=== PATIENT | female | born 1960 | race Caucasian/White ===

== ENCOUNTER → 2020-08-23 15:23 | Outpatient (BNVA) | payer BC, SELFPAY | PROVIDERS: PCP Internal Medicine Medical Oncology; Referring Provider Internal Medicine Medical Oncology; Visit Provider Nurse Practitioner Family | DX: Z76.89 Persons encountering health services in other specified circumstances (principal) ==

== ENCOUNTER 2020-09-14 10:49 | Outpatient (REF) | payer BC, SELFPAY | END 2020-09-14 10:50 | disposition home or self-care (01) | LOC: HO.LAB 10:49 | PROVIDERS: PCP Internal Medicine Medical Oncology; Visit Provider Internal Medicine Medical Oncology | DX: Z20.828 Contact with and (suspected) exposure to other viral communicable diseases (principal) | CPT/HCPCS: C9803; U0003 ==

== ENCOUNTER 2020-10-12 10:07 | Day surgery (SDC) | payer BC, SELFPAY ==
--- NOTE | 2020-10-11 09:22 | HO.ANESPROP2 ---
Documented by User: Paulina Nguyen 10/11/20 09:23 HPI - Anesthesia Eval Consult details Narrative: 59yo F for Colonoscopy [facility] Past Medical History Medical History Cancer History of postoperative nausea and vomiting HTN (hypertension) Hx of radiation therapy IBS (irritable bowel syndrome) Lab test negative for COVID-19 virus Family History Family History Father Hx of colon cancer, stage IV Mother No problems noted. 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[employer] Allergies Allergy/AdvReac Type Severity Reaction Status Date / Time Penicillins [PENICILLINS] Allergy Intermediate JOINT Verified 10/06/20 15:42 SWELLING tetracycline [TETRACYCLINE] Allergy Intermediate Vomiting Verified 10/06/20 15:42 erythromycin base AdvReac Intermediate Nausea and Verified 10/06/20 14:50 Vomiting Home Medications Medication Instructions Recorded Confirmed Type lisinopril 5 mg tablet 5 mg PO DAILY 08/23/20 10/06/20 History tamoxifen 20 mg tablet 20 mg PO DAILY 08/23/20 10/06/20 History Exam Exam Date and Time: October 11, 2020 0922 Height,Weight and Vital Signs: Height 5 ft 4.75 in Weight 81.284 kg Assessment and Plan Assessment Anesthesia Assessment: Chart Reviewed Documented by User: Marissa Lamb 10/12/20 10:44 [facility] Past Medical History Medical History Cancer History of postoperative nausea and vomiting HTN (hypertension) Hx of radiation therapy IBS (irritable bowel syndrome) Lab test negative for COVID-19 virus Family History Family History Father Hx of colon cancer, stage IV Mother No problems noted. 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 Allergies Allergy/AdvReac Type Severity Reaction Status Date / Time Penicillins [PENICILLINS] Allergy Intermediate JOINT Verified 10/06/20 15:42 SWELLING tetracycline [TETRACYCLINE] Allergy Intermediate Vomiting Verified 10/06/20 15:42 erythromycin base AdvReac Intermediate Nausea and Verified 10/06/20 14:50 Vomiting Home Medications Medication Instructions Recorded Confirmed Type lisinopril 5 mg tablet 5 mg PO DAILY 08/23/20 10/06/20 History tamoxifen 20 mg tablet 20 mg PO DAILY 08/23/20 10/06/20 History Exam Airway Mallampati Class: II TM Dist: >3cm Neck ROM: Full Heart: RRR Lungs: CTA Assessment and Plan Assessment Anesthesia Assessment: Anesthesia Plan Discussed and Chart Reviewed Final Anesthetic Review NPO: Yes ASA Class: II Final Preanesthetic Review: Meds/Allgs Chart Reviewed, Consent Obtained/Reviewed and Anes Risks/Benef Reviewed Patient Risk: Low Procedure Risk: Low Anesthetic Plan Anesthetic Plan: MAC: Disposition: Standard PACU
[2020-10-12 10:23] VITALS: BP 146/64; PULSE 83; RESP 18; TEMP 36.1; O2SAT 96
[2020-10-12] MEDS: Lactated Ringers 1,000 ML 100 ML IVCONT (10:48)
--- NOTE | 2020-10-12 11:00 | P.OP_ITS ---
Operative Note Operative Note Date of Service: 10/12/20 Narrative: Pre-op diagnosis: Colon cancer screening, history of colon polyps, IBS with diarrhea Post-op diagnosis: other (Colon polyps, diverticulosis, hemorrhoids) Procedure: COLONOSCOPY TILL CECUM WITH BIOPSY AND SNARE POLYPECTOMY Consent: Indications for the procedure and potential complications of bleeding, perforation, reaction to medications and missed diagnosis were discussed with the patient and informed consent was obtained. Instrument: Olympus PCF H 190 L variable stiffness pediatric colonoscope Monitoring: Vital signs and clinical assessment, intermittent blood pressure monitoring, continuous EKG monitoring, Pulse oximetry and Carbon Dioxide monitoring were done throughout the procedure. Colon withdrawl time was 31 minutes. Procedure: The patient was placed in the left lateral decubitis position and pre-procedure medications were administered. After a digital rectal examination of the ano-rectum, the video colonoscope was inserted into the rectum and advanced through the colon to the cecum. The colonoscope was slowly withdrawn in a retrograde panoramic fashion and the colon mucosa was carefully examined including a retroflexed view of the rectum. Findings and interventions are described below. Procedure Difficulty: Without difficulty Findings: Terminal Ileum: Not evaluated Cecum: Normal Ascending Colon: Normal Transverse Colon: Normal Descending Colon: Moderate diverticulosis Sigmoid Colon: A 3-4 mm diminutive appearing polyp removed with a cold bx. A 6-7 mm sessile polyp removed with a cold snare and residual polyp removed with a cold bx. Severe diverticulosis with luminal narrowing. Rectum: Normal Ano-rectum: Moderate internal hemorrhoids Colon preparation: Good Impression and Post Procedure Diagnosis: Colonoscopy Findings: Two small polyps removed Random biopsies were obtained from the colon. Moderate to severe diverticulosis seen in the left colon Moderate hemorrhoids on retroflexed exam. Plan: Await pathology results Patient has an appointment on 10/19/20 in the GI [facility] with Kylah Rose FNP- BC . Repeat Colonoscopy interval based on path results - in 5 years if polyps are adenomatous and due to a hx of colon polyps. 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 Random colon biopsies. B. SC polyps x 2) Condition: stable Disposition: PACU
--- NOTE | 2020-10-12 11:01 | MHC.SHP ---
Pre-Procedural Eval Section A The patient is an INPATIENT: No The History & Physical has been completed within 30 days and I have reviewed it.: No Section B Chief Complaint: screening Details of Present Illness: Colon cancer screening Relevant Family History (Specify if Yes): Yes Relevant Social History: Tobacco Use (past smoker) Present Medications: see Short Stay Collaborative assessment Medical History: Significant History (Htn, IBS) History of Previous Operations: Relevant previous surgery/procedure and date(s) (History of esophagogastroduodenoscopy (EGD) History of pancreatic surgery Hx of colonoscopy) Allergies: Allergies Allergy/AdvReac Type Severity Reaction Status Date / Time Penicillins [PENICILLINS] Allergy Intermediate JOINT Verified 10/06/20 15:42 SWELLING tetracycline [TETRACYCLINE] Allergy Intermediate Vomiting Verified 10/06/20 15:42 erythromycin base AdvReac Intermediate Nausea and Verified 10/06/20 14:50 Vomiting Review of Systems Sugical H&P ROS: Negative: Constitution, Cardiovascular and Respiratory and Yes, Specify: Gastrointestinal (IBS with diarrhea) Exam Surgical H&P Exam: Normal: Heart, Normal: Lungs, Normal: Extremities and Normal: Abdomen Plan Diagnosis/Plan: Unchanged I have reviewed the history and physical and performed a pertinent physical examination on my patient. No changes have occurred unless specified.
[2020-10-12 11:56] VITALS: BP 102/36; PULSE 71; RESP 16; TEMP 36.5; O2SAT 99
[2020-10-12 12:11] VITALS: BP 115/66; PULSE 62; RESP 16; TEMP 36.5; O2SAT 99
== END 2020-10-12 12:47 ==
LOC: HO.SSS 10:08
PROVIDERS: PCP Internal Medicine Medical Oncology; Visit Provider Internal Medicine Gastroenterology
PROC: 0DJD8ZZ Inspection of Lower Intestinal Tract, Via Natural or Artificial Opening Endoscopic (ICD-10-PCS; CPT 45378; principal; 2020-10-12 11:30)
DX: Z12.11 Encounter for screening for malignant neoplasm of colon (principal); Z86.010 Personal history of colon polyps; Z80.0 Family history of malignant neoplasm of digestive organs; D12.5 Benign neoplasm of sigmoid colon; K57.30 Diverticulosis of large intestine without perforation or abscess without bleeding; K64.8 Other hemorrhoids; K58.0 Irritable bowel syndrome with diarrhea; I10 Essential (primary) hypertension; C50.919 Malignant neoplasm of unspecified site of unspecified female breast; Z79.810 Long term (current) use of selective estrogen receptor modulators (SERMs); Z92.3 Personal history of irradiation; Z88.0 Allergy status to penicillin; Z87.891 Personal history of nicotine dependence
CPT/HCPCS: 45385; 45380; 88305

== ENCOUNTER → 2020-10-19 14:30 | Outpatient (BNVA) | payer BC, SELFPAY | PROVIDERS: PCP Internal Medicine Medical Oncology; Visit Provider Nurse Practitioner Family ==

== ENCOUNTER 2020-12-18 08:46 | Outpatient (REF) | payer BC, SELFPAY ==
[2020-12-18 09:35] LABS: MANUAL DIFF FLAG NO
[2020-12-18 09:51] LABS: Basophils Absolute Auto 0.1 X10*3/uL (0.0-0.2); Basophils Percent Auto 1.7 % (0-2); Eosinophils Absolute Auto 0.1 X10*3/uL (0.0-0.4); Eosinophils Percent Auto 1.7 % (0-4); Hematocrit 41.5 % (37-47); Hemoglobin 13.6 g/dl (12.0-16.0); Imm Gran Abs Auto 0.01 X10*3/uL (0.00-0.03); Imm Gran Pct Auto 0.2 % (0.0-0.4); Lymphocytes Absolute Auto 1.6 X10*3/uL (1.2-4.9); Lymphocytes Percent Auto 37.4 % (20-40); Mean Corpuscular HGB Conc 32.8 g/dl (31.0-35.0); Mean Corpuscular Hemoglobin 31.3 pg (27.0-33.0); Mean Corpuscular Volume 95.6 fL (80-98); Mean Platelet Volume 9.7 fL (9.4-12.3); Monocytes Absolute Auto 0.5 X10*3/uL (0.1-1.2); Monocytes Percent Auto 11.3 % (2-11); Neutrophils Percent Auto 47.7 % (45-73); Platelet Count 368 X10*3/uL (160-400); Red Blood Count 4.34 X10*6/uL (4.20-5.50); Red Cell Distribution Width 12.5 % (11.0-16.0); White Blood Count 4.2 X10*3/uL (4.8-10.8)
[2020-12-18 10:24] LABS: Alanine Aminotransferase 13 U/L (0-31); Albumin Level 3.8 g/dL (3.5-5.0); Alkaline Phosphatase 79 U/L (39-117); Anion Gap 12 (12-20); Aspartate Amino Transferase 14 U/L (5-31); Bilirubin Total 0.9 mg/dL (0.0-1.0); Blood Urea Nitrogen 13 mg/dL (9-16); Calcium 8.7 mg/dL (8.4-10.2); Carbon Dioxide 25 mmol/L (22-29); Chloride 109 mmol/L (96-108); Cholesterol 127 mg/dL; Estimated Glomerular Filt Rate > 60; Glucose Fasting 102 mg/dL (60-99); HDL Cholesterol 51 mg/dL; LDL Cholesterol Calculated 61 mg/dl; Potassium 4.6 mmol/L (3.3-5.1); Sodium 141 mmol/L (135-145); Total Protein 6.8 g/dL (6.5-8.0); Triglycerides 79 mg/dL
[2020-12-21 11:12] LABS: Carbohydrate Antigen 19-9 10 U/mL (<34)
== END 2020-12-18 08:47 | disposition home or self-care (01) ==
LOC: HO.LAB 08:46
PROVIDERS: PCP Internal Medicine Medical Oncology; Visit Provider Internal Medicine Medical Oncology
DX: I10 Essential (primary) hypertension (principal); E78.00 Pure hypercholesterolemia, unspecified; E66.3 Overweight; D05.82 Other specified type of carcinoma in situ of left breast
CPT/HCPCS: 36415; 80053; 80061; 85025; 86301

== ENCOUNTER 2021-01-28 08:28 | Outpatient (REF) | payer BC, SELFPAY ==
--- NOTE | ~2021-01-28 | MM_ITS ---
EXAMINATION: MM DIAGNOSTIC DIGITAL BREAST TOMOSYNTHESIS, BILATERAL US DIAGNOSTIC ULTRASOUND BREAST, RIGHT CLINICAL INFORMATION: Due for yearly. At time of appointment, patient notes recent pea-sized palpable area of concern 12:00 right breast. 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 Patient recently completed tamoxifen. COMPARISON: Mammography: 12/05/2019, 12/02/2018, 11/16/2017, 11/14/2016 TECHNIQUE: Digital breast tomosynthesis is performed in both the craniocaudal and mediolateral oblique views along with computer-aided detection (CAD). Synthesized 2D images are generated from the tomosynthesis. Additional bilateral exaggerated CC views are obtained along with additional right CC and MLO views with symptom marker. Ultrasound right breast is targeted to the area of clinical concern upper right breast. Patient is able to point to area of concern at time of imaging. Grayscale imaging and color Doppler are performed without and with harmonics. FINDINGS: There are scattered areas of fibroglandular density (ACR BI-RADS breast composition Category b). Parenchymal pattern is similar to prior exams. There is no developing density or architectural abnormality or abnormal calcifications. The axilla are unremarkable. There is no mammographic correlate for patient's symptoms. No significant changes. Ultrasound right breast demonstrates no cystic or solid mass, architectural abnormality, or focal duct ectasia. No skin thickening or edema tracking in soft tissue planes. Results are discussed with the patient at time of visit. Patient should be managed based on the clinical impression. If clinically indicated, further evaluation may be considered with surgical consult. Decision to proceed with biopsy should be based on clinical grounds and degree of clinical concern. MM/MM tomosynthesis diagnostic BI IMPRESSION: 1. No mammographic evidence of malignancy. 2. Unremarkable targeted right breast ultrasound. ASSESSMENT: BI-RADS 1: Negative RECOMMENDATION: 1. Patient should be managed based on the clinical impression. If clinically indicated, further evaluation may be considered with surgical consult. Decision to proceed with biopsy should be based on clinical grounds and degree of clinical concern. 2. Otherwise, routine annual screening mammography. This patient's information was entered into a reminder system with a target due date for their next mammogram.
== END 2021-01-28 08:29 | disposition home or self-care (01) ==
LOC: HO.MAMMO 08:28
PROVIDERS: Absent Provider Obstetrics & Gynecology Gynecology; Visit Provider Internal Medicine Medical Oncology
DX: N63.15 Unspecified lump in the right breast, overlapping quadrants (principal)
CPT/HCPCS: 76642; 77062; 77066

== ENCOUNTER → 2021-06-02 13:30 | Outpatient (BNVA) | payer BC, SELFPAY | PROVIDERS: PCP Internal Medicine Medical Oncology; Visit Provider Surgery ==

== ENCOUNTER 2021-10-15 08:20 | Outpatient (REF) | payer BC, SELFPAY ==
[2021-10-15 08:25] LABS: MANUAL DIFF FLAG NO
[2021-10-15 08:41] LABS: Basophils Absolute Auto 0.1 X10*3/uL (0.0-0.2); Basophils Percent Auto 1.2 % (0-2); Eosinophils Absolute Auto 0.1 X10*3/uL (0.0-0.4); Hematocrit 43.6 % (37.0-47.0); Hemoglobin 14.2 g/dl (12.0-16.0); Imm Gran Abs Auto 0.01 X10*3/uL (0.00-0.03); Imm Gran Pct Auto 0.2 % (0.0-0.4); Lymphocytes Absolute Auto 2.2 X10*3/uL (1.2-4.9); Lymphocytes Percent Auto 43.8 % (20-40); Mean Corpuscular HGB Conc 32.6 g/dl (31.0-35.0); Mean Corpuscular Hemoglobin 30.9 pg (27.0-33.0); Mean Platelet Volume 9.1 fL (9.4-12.3); Monocytes Absolute Auto 0.6 X10*3/uL (0.1-1.2); Monocytes Percent Auto 11.5 % (2-11); Neutrophils Absolute Auto 2.1 x10*3/uL (2.0-8.3); Neutrophils Percent Auto 41.3 % (45-73); Platelet Count 448 X10*3/uL (160-400); Red Blood Count 4.59 X10*6/uL (4.20-5.50); Red Cell Distribution Width 12.5 % (11.0-16.0)
[2021-10-15 09:14] LABS: Alanine Aminotransferase 30 U/L (0-31); Albumin Level 3.8 g/dL (3.5-5.0); Alkaline Phosphatase 90 U/L (39-117); Anion Gap 12 (12-20); Aspartate Amino Transferase 26 U/L (5-31); Bilirubin Total 1.3 mg/dL (0.0-1.0); Blood Urea Nitrogen 14 mg/dL (9-16); Calcium 9.4 mg/dL (8.4-10.2); Carbon Dioxide 28 mmol/L (22-29); Chloride 104 mmol/L (96-108); Cholesterol 155 mg/dL; Estimated Glomerular Filt Rate > 60; Glucose Fasting 116 mg/dL (60-99); HDL Cholesterol 46 mg/dL; LDL Cholesterol Calculated 80 mg/dl; Potassium 4.6 mmol/L (3.3-5.1); Sodium 139 mmol/L (135-145); Total Protein 7.2 g/dL (6.5-8.0); Triglycerides 148 mg/dL
== END 2021-10-15 08:21 | disposition home or self-care (01) ==
LOC: HO.LAB 08:20
PROVIDERS: PCP Internal Medicine Medical Oncology; Visit Provider Internal Medicine Medical Oncology
DX: I10 Essential (primary) hypertension (principal); E78.01 Familial hypercholesterolemia
CPT/HCPCS: 36415; 80053; 80061; 85025

== ENCOUNTER 2021-10-18 07:30 | Outpatient (REF) | payer BC, SELFPAY ==
[2021-10-18 08:11] LABS: COVID-19 Test Negative (Negative)
== END 2021-10-18 07:31 | disposition home or self-care (01) ==
LOC: HO.LAB 07:30
PROVIDERS: Visit Provider Internal Medicine
DX: Z20.822 Contact with and (suspected) exposure to COVID-19 (principal)
CPT/HCPCS: 87635; C9803

== ENCOUNTER 2021-11-11 10:42 | Outpatient (REF) | payer BC, SELFPAY ==
[2021-11-11 11:07] LABS: COVID-19 Test Negative (Negative)
== END 2021-11-11 10:43 | disposition home or self-care (01) ==
LOC: HO.LAB 10:42
PROVIDERS: Visit Provider Internal Medicine
DX: Z20.822 Contact with and (suspected) exposure to COVID-19 (principal)
CPT/HCPCS: 87635; C9803

== ENCOUNTER 2022-01-30 08:22 | Outpatient (REF) | payer BC, SELFPAY ==
--- NOTE | ~2022-01-30 | MM_ITS ---
EXAMINATION: MM SCREENING DIGITAL BREAST TOMOSYNTHESIS, BILATERAL CLINICAL INFORMATION: Screening. Asymptomatic. History left DCIS status post lumpectomy 11/11/2015. COMPARISON: Mammography: 01/28/2021, 12/05/2019, 12/02/2018 TECHNIQUE: Digital breast tomosynthesis is performed in both the craniocaudal and mediolateral oblique views along with computer-aided detection (CAD). Synthesized 2D images are generated from the tomosynthesis. FINDINGS: There are scattered areas of fibroglandular density (ACR BI-RADS breast composition Category b). There are no significant masses, abnormal calcifications, or other abnormalities. Parenchymal pattern is similar to prior studies and there is no interval architectural abnormality or developing density. The axilla and skin contours are unremarkable. No significant changes. MM/MM tomosynthesis screening BI IMPRESSION: No mammographic evidence of malignancy. ASSESSMENT: BI-RADS 1: Negative RECOMMENDATION: Routine annual mammography screening. This patient's information was entered into a reminder system with a target due date for their next mammogram.
== END 2022-01-30 08:23 | disposition home or self-care (01) ==
LOC: HO.MAMMO 08:22
PROVIDERS: Visit Provider Internal Medicine Medical Oncology
DX: Z12.31 Encounter for screening mammogram for malignant neoplasm of breast (principal)
CPT/HCPCS: 77063; 77067

== ENCOUNTER 2023-01-27 08:28 | Outpatient (REF) | payer BC, SELFPAY ==
[2023-01-27 08:50] LABS: MANUAL DIFF FLAG NO
[2023-01-27 09:07] LABS: Basophils Absolute Auto 0.1 X10*3/uL (0.0-0.2); Basophils Percent Auto 0.8 % (0-2); Eosinophils Absolute Auto 0.1 X10*3/uL (0.0-0.4); Eosinophils Percent Auto 1.7 % (0-4); Hematocrit 46.6 % (37.0-47.0); Hemoglobin 15.4 g/dl (12.0-16.0); Imm Gran Abs Auto 0.02 X10*3/uL (0.00-0.03); Imm Gran Pct Auto 0.3 % (0.0-0.4); Lymphocytes Absolute Auto 2.5 X10*3/uL (1.2-4.9); Lymphocytes Percent Auto 41.4 % (20-40); Mean Platelet Volume 9.6 fL (9.4-12.3); Monocytes Absolute Auto 0.6 X10*3/uL (0.1-1.2); Monocytes Percent Auto 10.5 % (2-11); Neutrophils Absolute Auto 2.7 x10*3/uL (2.0-8.3); Neutrophils Percent Auto 45.3 % (45-73); Platelet Count 409 X10*3/uL (160-400); Red Blood Count 4.96 X10*6/uL (4.20-5.50); Red Cell Distribution Width 12.1 % (11.0-16.0)
[2023-01-27 09:49] LABS: Erythrocyte Sedimentation Rate 8 MM/HR (0-20)
[2023-01-27 10:07] LABS: Alanine Aminotransferase 25 U/L (0-31); Albumin Level 4.1 g/dL (3.5-5.0); Alkaline Phosphatase 91 U/L (39-117); Anion Gap 15 (12-20); Aspartate Amino Transferase 19 U/L (5-31); Bilirubin Total 1.5 mg/dL (0.0-1.0); Blood Urea Nitrogen 18 mg/dL (9-16); Calcium 9.6 mg/dL (8.4-10.2); Carbon Dioxide 24 mmol/L (22-29); Chloride 107 mmol/L (96-108); Cholesterol 175 mg/dL; Estimated Glomerular Filt Rate > 60; Glucose Random 107 mg/dL (60-115); HDL Cholesterol 51 mg/dL; LDL Cholesterol Calculated 101 mg/dl; Lipase 16 U/L (8-78); Potassium 4.8 mmol/L (3.3-5.1); Sodium 141 mmol/L (135-145); Total Protein 7.6 g/dL (6.5-8.0); Triglycerides 116 mg/dL
[2023-01-27 12:08] LABS: Amylase 55 U/L (28-100)
[2023-01-30 13:18] LABS: Carbohydrate Antigen 19-9 11 U/mL (<34)
== END 2023-01-27 08:29 | disposition home or self-care (01) ==
LOC: HO.LAB 08:28
PROVIDERS: PCP Internal Medicine Medical Oncology; Visit Provider Internal Medicine Medical Oncology
DX: K86.9 Disease of pancreas, unspecified (principal); I10 Essential (primary) hypertension; M67.40 Ganglion, unspecified site; K57.90 Diverticulosis of intestine, part unspecified, without perforation or abscess without bleeding; K58.0 Irritable bowel syndrome with diarrhea; D49.0 Neoplasm of unspecified behavior of digestive system
CPT/HCPCS: 36415; 80053; 80061; 82150; 83690; 85025; 85652; 86301

== ENCOUNTER 2023-01-31 08:49 | Outpatient (REF) | payer BC, SELFPAY ==
--- NOTE | ~2023-01-31 | MM_ITS ---
EXAMINATION: MM SCREENING DIGITAL BREAST TOMOSYNTHESIS, BILATERAL CLINICAL INFORMATION: Screening. Asymptomatic. Left breast DCIS, post lumpectomy 2016. COMPARISON: Mammography: 01/30/2022, 01/28/2021, 12/05/2019, 12/02/2018 TECHNIQUE: Digital breast tomosynthesis is performed in both the craniocaudal and mediolateral oblique views along with computer-aided detection (CAD). Synthesized 2D images are generated from the tomosynthesis. FINDINGS: There are scattered areas of fibroglandular density (ACR BI-RADS breast composition Category b). There are no significant masses, abnormal calcifications, or other abnormalities. Parenchymal pattern is similar to prior studies. There is no developing density or architectural abnormality. The axilla and skin contours are unremarkable. No significant changes from prior exams. MM/MM tomosynthesis screening BI IMPRESSION: No mammographic evidence of malignancy. ASSESSMENT: BI-RADS 1: Negative RECOMMENDATION: Routine annual mammography screening. This patient's information was entered into a reminder system with a target due date for their next mammogram.
== END 2023-01-31 08:50 | disposition home or self-care (01) ==
LOC: HO.MAMMO 08:49
PROVIDERS: PCP Internal Medicine Medical Oncology; Visit Provider Internal Medicine Medical Oncology
DX: Z12.31 Encounter for screening mammogram for malignant neoplasm of breast (principal)
CPT/HCPCS: 77063; 77067

== ENCOUNTER 2023-06-23 08:08 | Outpatient (REF) | payer BC, SELFPAY ==
[2023-06-23 08:41] LABS: MANUAL DIFF FLAG NO
[2023-06-23 08:55] LABS: Basophils Absolute Auto 0.1 X10*3/uL (0.0-0.2); Basophils Percent Auto 1.3 % (0-2); Eosinophils Absolute Auto 0.1 X10*3/uL (0.0-0.4); Eosinophils Percent Auto 1.7 % (0-4); Hematocrit 42.9 % (37.0-47.0); Hemoglobin 14.5 g/dl (12.0-16.0); Imm Gran Abs Auto 0.01 X10*3/uL (0.00-0.03); Imm Gran Pct Auto 0.2 % (0.0-0.4); Lymphocytes Absolute Auto 1.8 X10*3/uL (1.2-4.9); Lymphocytes Percent Auto 38.1 % (20-40); Mean Corpuscular HGB Conc 33.8 g/dl (31.0-35.0); Mean Corpuscular Hemoglobin 32.2 pg (27.0-33.0); Mean Corpuscular Volume 95.3 fL (80.0-98.0); Mean Platelet Volume 9.3 fL (9.4-12.3); Monocytes Absolute Auto 0.5 X10*3/uL (0.1-1.2); Monocytes Percent Auto 10.4 % (2-11); Neutrophils Absolute Auto 2.3 x10*3/uL (2.0-8.3); Neutrophils Percent Auto 48.3 % (45-73); Platelet Count 411 X10*3/uL (160-400); Red Cell Distribution Width 12.1 % (11.0-16.0); White Blood Count 4.7 X10*3/uL (4.8-10.8)
[2023-06-23 09:26] LABS: Alanine Aminotransferase 22 U/L (0-31); Albumin Level 3.9 g/dL (3.5-5.0); Alkaline Phosphatase 100 U/L (39-117); Anion Gap 16 (12-20); Aspartate Amino Transferase 17 U/L (5-31); Bilirubin Total 1.1 mg/dL (0.0-1.0); Blood Urea Nitrogen 13 mg/dL (9-16); Calcium 9.2 mg/dL (8.4-10.2); Carbon Dioxide 24 mmol/L (22-29); Chloride 105 mmol/L (96-108); Cholesterol 158 mg/dL (<200); Estimated Glomerular Filt Rate > 60; Glucose Random 108 mg/dL (60-115); HDL Cholesterol 49 mg/dL (>40); LDL Cholesterol Calculated 83 mg/dL (<100); Potassium 4.5 mmol/L (3.3-5.1); Sodium 140 mmol/L (135-145); Total Protein 7.6 g/dL (6.5-8.0); Triglycerides 132 mg/dL (<150)
[2023-06-25 20:39] LABS: Carbohydrate Antigen 19-9 7 U/mL (<34)
== END 2023-06-23 08:09 | disposition home or self-care (01) ==
LOC: HO.LAB 08:08
PROVIDERS: PCP Internal Medicine Medical Oncology; Visit Provider Internal Medicine Medical Oncology
DX: I10 Essential (primary) hypertension (principal); D05.82 Other specified type of carcinoma in situ of left breast; E78.5 Hyperlipidemia, unspecified; M67.40 Ganglion, unspecified site
CPT/HCPCS: 36415; 80053; 80061; 85025; 86301

== ENCOUNTER 2023-10-20 09:00 | Outpatient (REF) | payer BC, SELFPAY ==
[2023-10-20 09:18] LABS: MANUAL DIFF FLAG NO
[2023-10-20 09:59] LABS: Basophils Absolute Auto 0.1 X10*3/uL (0.0-0.2); Eosinophils Absolute Auto 0.1 X10*3/uL (0.0-0.4); Eosinophils Percent Auto 1.6 % (0-4); Hematocrit 44.1 % (37.0-47.0); Hemoglobin 14.8 g/dl (12.0-16.0); Lymphocytes Absolute Auto 1.9 X10*3/uL (1.2-4.9); Lymphocytes Percent Auto 38.8 % (20-40); Mean Corpuscular HGB Conc 33.6 g/dl (31.0-35.0); Mean Corpuscular Hemoglobin 31.7 pg (27.0-33.0); Mean Corpuscular Volume 94.4 fL (80.0-98.0); Mean Platelet Volume 9.5 fL (9.4-12.3); Monocytes Absolute Auto 0.6 X10*3/uL (0.1-1.2); Monocytes Percent Auto 11.2 % (2-11); Neutrophils Absolute Auto 2.4 x10*3/uL (2.0-8.3); Neutrophils Percent Auto 47.4 % (45-73); Platelet Count 418 X10*3/uL (160-400); Red Blood Count 4.67 X10*6/uL (4.20-5.50); Red Cell Distribution Width 12.3 % (11.0-16.0)
[2023-10-20 10:16] LABS: Alanine Aminotransferase 24 U/L (0-31); Albumin Level 3.9 g/dL (3.5-5.0); Alkaline Phosphatase 99 U/L (39-117); Anion Gap 13 (12-20); Aspartate Amino Transferase 17 U/L (5-31); Bilirubin Total 1.1 mg/dL (0.0-1.0); Blood Urea Nitrogen 14 mg/dL (9-16); Calcium 9.4 mg/dL (8.4-10.2); Carbon Dioxide 27 mmol/L (22-29); Chloride 104 mmol/L (96-108); Cholesterol 153 mg/dL (<200); Estimated Glomerular Filt Rate > 60; Glucose Fasting 111 mg/dL (60-99); HDL Cholesterol 48 mg/dL (>40); LDL Cholesterol Calculated 84 mg/dL (<100); Potassium 4.4 mmol/L (3.3-5.1); Sodium 140 mmol/L (135-145); Total Protein 7.7 g/dL (6.5-8.0); Triglycerides 109 mg/dL (<150)
[2023-10-23 12:04] LABS: Carbohydrate Antigen 19-9 12 U/mL (<34)
== END 2023-10-20 09:01 | disposition home or self-care (01) ==
LOC: HO.LAB 09:00
PROVIDERS: PCP Internal Medicine Medical Oncology; Visit Provider Internal Medicine Medical Oncology
DX: I10 Essential (primary) hypertension (principal); E78.01 Familial hypercholesterolemia; M67.40 Ganglion, unspecified site; E66.9 Obesity, unspecified
CPT/HCPCS: 36415; 80053; 80061; 85025; 86301

== ENCOUNTER 2024-02-05 07:48 | Outpatient (REF) | payer BC, SELFPAY ==
--- NOTE | ~2024-02-05 | MM_ITS ---
EXAMINATION: MM SCREENING DIGITAL BREAST TOMOSYNTHESIS, BILATERAL CLINICAL INFORMATION: Screening. Asymptomatic. The patient is status post surgery for left DCIS in 2016. COMPARISON: Mammography: This study is compared with prior exams dating back to 2019. TECHNIQUE: Digital breast tomosynthesis is performed in both the craniocaudal and mediolateral oblique views along with computer-aided detection (CAD). Synthesized 2D images are generated from the tomosynthesis. FINDINGS: There are scattered areas of fibroglandular density (ACR BI-RADS breast composition Category b). There are no significant masses, abnormal calcifications, or other abnormalities. There are minor postsurgical changes in the superior aspect of the left breast from prior cancer surgery. MM/MM tomosynthesis screening BI IMPRESSION: No mammographic evidence of malignancy. ASSESSMENT: BI-RADS BI-RADS 2 - Benign Findings RECOMMENDATION: Routine annual mammography screening. 1 year F/U This examination should not preclude the clinical evaluation of a suspicious palpable abnormality. This patient's information was entered into a reminder system with a target due date for their next mammogram.
== END 2024-02-05 07:49 | disposition home or self-care (01) ==
LOC: HO.MAMMO 07:48
PROVIDERS: Absent Provider Obstetrics & Gynecology Gynecology; PCP Internal Medicine Medical Oncology; Visit Provider Internal Medicine Medical Oncology
DX: Z12.31 Encounter for screening mammogram for malignant neoplasm of breast (principal)
CPT/HCPCS: 77063; 77067

== ENCOUNTER → 2024-02-05 08:00 | Outpatient (BNV) | payer BC, SELFPAY | PROVIDERS: Absent Provider Obstetrics & Gynecology Gynecology; PCP Internal Medicine Medical Oncology; Visit Provider Radiology Diagnostic Radiology | DX: Z12.31 Encounter for screening mammogram for malignant neoplasm of breast (principal) | CPT/HCPCS: 77063; 77067 ==

== ENCOUNTER 2024-02-16 08:46 | Outpatient (REF) | payer BC, SELFPAY ==
[2024-02-16 08:57] LABS: MANUAL DIFF FLAG NO
[2024-02-16 09:12] LABS: Basophils Absolute Auto 0.1 X10*3/uL (0.0-0.2); Eosinophils Absolute Auto 0.1 X10*3/uL (0.0-0.4); Eosinophils Percent Auto 1.7 % (0-4); Hematocrit 42.4 % (37.0-47.0); Hemoglobin 14.5 g/dl (12.0-16.0); Imm Gran Abs Auto 0.01 X10*3/uL (0.00-0.03); Imm Gran Pct Auto 0.2 % (0.0-0.4); Lymphocytes Absolute Auto 2.4 X10*3/uL (1.2-4.9); Lymphocytes Percent Auto 45.6 % (20-40); Mean Corpuscular HGB Conc 34.2 g/dl (31.0-35.0); Mean Corpuscular Hemoglobin 32.2 pg (27.0-33.0); Mean Platelet Volume 9.4 fL (9.4-12.3); Monocytes Absolute Auto 0.6 X10*3/uL (0.1-1.2); Monocytes Percent Auto 10.6 % (2-11); Neutrophils Absolute Auto 2.2 x10*3/uL (2.0-8.3); Neutrophils Percent Auto 40.9 % (45-73); Platelet Count 420 X10*3/uL (160-400); Red Blood Count 4.51 X10*6/uL (4.20-5.50); Red Cell Distribution Width 12.4 % (11.0-16.0); White Blood Count 5.3 X10*3/uL (4.8-10.8)
[2024-02-16 09:56] LABS: Alanine Aminotransferase 27 U/L (0-31); Albumin Level 3.9 g/dL (3.5-5.0); Alkaline Phosphatase 103 U/L (39-117); Anion Gap 13 (12-20); Aspartate Amino Transferase 22 U/L (5-31); Bilirubin Total 1.3 mg/dL (0.0-1.0); Blood Urea Nitrogen 15 mg/dL (9-16); Calcium 8.9 mg/dL (8.4-10.2); Carbon Dioxide 25 mmol/L (22-29); Chloride 107 mmol/L (96-108); Cholesterol 160 mg/dL (<200); Estimated Glomerular Filt Rate > 60; Glucose Fasting 108 mg/dL (60-99); HDL Cholesterol 48 mg/dL (>40); LDL Cholesterol Calculated 85 mg/dL (<100); Potassium 4.3 mmol/L (3.3-5.1); Sodium 141 mmol/L (135-145); Total Protein 7.4 g/dL (6.5-8.0); Triglycerides 138 mg/dL (<150)
[2024-02-18 13:34] LABS: Carbohydrate Antigen 19-9 8 U/mL (<34)
== END 2024-02-16 08:47 | disposition home or self-care (01) ==
LOC: HO.LAB 08:46
PROVIDERS: PCP Internal Medicine Medical Oncology; Visit Provider Internal Medicine Medical Oncology
DX: M54.41 Lumbago with sciatica, right side (principal); I10 Essential (primary) hypertension; E66.9 Obesity, unspecified; E78.01 Familial hypercholesterolemia; M67.40 Ganglion, unspecified site
CPT/HCPCS: 36415; 80053; 80061; 85025; 86301

== ENCOUNTER 2024-05-08 13:55 | Outpatient (REF) | payer BC, SELFPAY ==
[2024-05-08 17:02] LABS: Lipase 16 U/L (8-78)
[2024-05-08 17:20] LABS: Vitamin D 25-OH Total 47.8 ng/mL (>30)
[2024-05-08 17:29] LABS: Folate 14.8 ng/mL (> or = 4.0); Vitamin B12 396 pg/mL (200-900)
[2024-05-09 10:44] LABS: Immunoglobulin A 533 mg/dL (70-320)
[2024-05-09 21:34] LABS: Transglutaminase Ab IgG <1.0 U/mL; Transglutaminase IgA <1.0 U/mL
[2024-05-11 12:48] LABS: Zinc 85 mcg/dL (60-130)
== END 2024-05-08 13:56 | disposition home or self-care (01) ==
LOC: HO.LAB 13:55
PROVIDERS: PCP Internal Medicine Medical Oncology; Visit Provider Internal Medicine Gastroenterology
DX: K52.9 Noninfective gastroenteritis and colitis, unspecified (principal); E73.9 Lactose intolerance, unspecified; Z79.899 Other long term (current) drug therapy
CPT/HCPCS: 36415; 82306; 82607; 82746; 82784; 83690; 84630; 86364

== ENCOUNTER 2024-05-08 13:55 | Outpatient (AMB) | payer BC, SELFPAY ==
--- NOTE | 2024-05-08 13:56 | A.OFFVIS_ITS ---
Vital Signs 05/08/24 14:01 Height 5 ft 4 in Weight 187 lb 6.287 oz BMI 32.2 BP 131/80 Blood Pressure Location Lt brachial Position Sitting Pulse 86 Intake Visit Reasons: patient Hx of CRC, having symptoms. Intake Note: Kylee presents in the office as a follow up. CC: Hx of CRC and she is here today to go over symptoms. She states that 45min after she eats she will have a regular BM but it loosens up to diarrhea. She states that sometimes her food will pass right through like it is not digesting. Her energy levels are changing. Her mother passed 2 months ago. She states that she was looking u pancreatic insufficiency. She states that she had an accident when she went out with her family and she states that she states it was a foul scent. Beater Room Supervisor Required: No Allergies Penicillins [PENICILLINS] Allergy (Intermediate, Verified 05/08/24 14:02) JOINT SWELLING tetracycline [TETRACYCLINE] Allergy (Intermediate, Verified 05/08/24 14:02) Vomiting erythromycin base Adverse Reaction (Intermediate, Verified 05/08/24 14:02) Nausea and Vomiting Medication List - Last Reconciled 05/08/24 by Ellie Ruth MD lisinopril 5 mg PO DAILY HPI HPI patient Hx of CRC, having symptoms.: Details: GI clinic visit for this 63 year female with IBS, hypertension for follow up of colon polyps and family hx of colon cancer Pt has a hx of pancreatic surgery (for benign cyst on her pancreas) [place] [facility] TODAY'S VISIT: Kylee presents in the office as a follow up. CC: Family hx of CRC and she is here today to go over symptoms. She states that 45min after she eats she will have a regular BM but it loosens up to diarrhea. She states that sometimes her food will pass right through like it is not digesting. Her energy levels are changing. Her mother passed 2 months ago. She states that she was looking up pancreatic insufficiency. She states that she had an accident when she went out with her family and she states that she states it was a foul scent. She also repots a hx of lactose intolerance. Mom 2 months ago Went to have lunch in a restuarant. 45 min later, she had a BM with urgency and had an accident with a foul smell. Eating chicken, turkey and no spices or fried foods Has been having post prandial diarrhea every time she eats Starts as a normal BM and progressively becomes more loose. Has 3-4 BM in a day - normal in the am and becomes loose later in the day. Associated abdominal cramps Has a hx of IBS with diarrhea since age 14 yrs These symptoms are different - changed her diet to a bland diet with improvement in her symptoms. Notes discomfort underneath her left rib cage - improves after she has a BM. Takes chewable pepto-bismol and changes color of stool Has to take 2-3 tab at a time + imodium Also feels tired after exercising Patient denies symptoms of heartburn, dysphagia, nausea, vomiting, change in appetite or weight. Denies recent black stools or rectal bleeding. Stopped Tamoxifen after 5 years. 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 Denies being on chronic anticoagulation. 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 Mom to advanced dementia. Mom and sister have IBS LABS IN [facility] : Reviewed IMAGING STUDIES: No recent GI imaging ENDOSCOPIC STUDIES: COLONOSCOPY 10/12/2020 Terminal Ileum: Not evaluated Cecum: Normal Ascending Colon: Normal Transverse Colon: Normal Descending Colon: Moderate diverticulosis Sigmoid Colon: A 3-4 mm diminutive appearing polyp removed with a cold bx. A 6-7 mm sessile polyp removed with a cold snare and residual polyp removed with a cold bx. Severe diverticulosis with luminal narrowing. Rectum: Normal Ano-rectum: Moderate internal hemorrhoids Colon preparation: Good BIOPSY RESULTS: Diagnosis A. Colon, random, biopsy: Colonic mucosa within normal limits. B. Colon, sigmoid, polypectomies: - Tubular adenoma; no high grade dysplasia or carcinoma seen. - Colonic mucosa with prominent lymphoid aggregate; no dysplasia seen. - Colonic mucosa with mild surface hyperplastic changes. COMMENT: Diagnostic features of microscopic colitis are not seen. PAST GI HISTORY BY REVIEW OF MEDICAL RECORDS: 10/2020 PT WAS SEEN BY HENNY GRANADOS CLAY MAKER: LAST VISIT: 08/23/20 59-year-old female here today for pre colonoscopy screening. Last colonoscopy was in 2013 where they found multiple tubular adenomas. She has a family history of colon cancer in her father. Patient is overdue for her colonoscopy. She denies any significant GI problems except for her IBS that she has been dealing with it since she was 14. She is very careful with her diet and is avoiding foods that aggravate her IBS. She is not being followed by anyone at this moment. Denies any cardiac, respiratory issues. Her last labs were done in March. Discussed at length the pre-procedure, prep, diet & medications as well as what to expect prior, during and after the procedure. Patient verbalizes understanding and agrees to plan of care. She was given the opportunity to ask questions and all questions answered. We will see her after the procedure. TODAY'S VISIT: Patient reports to be feeling well today. Immediately after colonoscopy she reported to have sharp pain in the right lower quadrant that was relieved after expelling gas. Patient states that she has been feeling good otherwise. Denies any abdominal pain, discomfort, bloating, diarrhea, constipation, melena, bleeding. Started eating high-fiber food, eating food that is healthier. Patient reports that she does have a family history with her father stage IV colon cancer. 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 Review of Systems Const All systems reviewed & are unremarkable except as noted in HPI and below Physical Exam Vital Signs: Last Vital Signs Pulse 86 05/08/24 14:01 BP 131/80 05/08/24 14:01 BMI result Body Mass Index 32.2 Const General: healthy appearing and no acute distress Nutritional Appearance: obese Orientation/consciousness: patient oriented x3 Limitations: no limitations HEENT Head: Yes normal to inspection Ears: hearing grossly normal bilaterally Mouth: Normal oral and palatal mucosa present Eyes Sclerae: sclerae normal Pupils: Equal, round and reactive pupils present Neck Neck: Yes normal visual inspection Chest Chest palpation & inspection: normal inspection of the chest Resp Effort & Inspection: normal respiratory effort Auscultation: clear to auscultation bilaterally Cardio Palpation: normal PMI Rate: regular rate Rhythm: regular rhythm Heart sounds: S1 normal heart sound present, S2 normal heart sound present and no murmurs GI Palpation (GI): Soft to palpation, nontender and No hepatosplenomegaly present Auscultation: normal bowel sounds Rectal Exam - Female: deferred Skin General skin exam: no rashes or lesions noted Neuro General: patient oriented x3, gait normal and moves all extremities Cranial nerves: Yes Equal, round and reactive pupils present Psych Appearance: grossly normal Mental Status: mental status grossly normal Assessment & Plan Assessment & Plan (1) Chronic diarrhea: Code(s): K52.9 - Noninfective gastroenteritis and colitis, unspecified Category: Medical (2) Chronic diarrhea: Code(s): K52.9 - Noninfective gastroenteritis and colitis, unspecified Category: Medical (3) IBS (irritable bowel syndrome): Code(s): K58.9 - Irritable bowel syndrome without diarrhea Category: Medical Plan GI clinic visit for this 63 YF with IBS(diarrhea predominant), lactose intolerance, hypertension seen urgently for evaluation of chronic diarrhea Pt has a hx of pancreatic surgery (for 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 Patient was advised her that evaluation with labs and stool studies Snyder of a fiber supplement twice daily and continue using peptobismol with meals If stool studies are negative, I will schedule her for an EGD and colonoscopy to check for microscopic colitis/IBD On 05/30/24 @ 16:33 Ellie Ruth Wrote To Ellie Ruth Pt called and lab results were reviewed. Taking a gluten free diet Notes diarrhea after taking Dairy, eggs, Pasta, crackers and bread within 1/2 an hour Unable to go out to eat or on social events Tried took fibre pills which caused gas, bloating and diarrhea. Taking imodium + 2-4 peptobismol 2 hrs before eating to control cramps and diarrhea. Still gts abd cramps and they are less severe Pt advised to schedule an EGD and Colonoscopy for further evaluation of chronic postprandial diarrhea - scheduled on 06/09/24 Orders: Orders Fecal Fat Qualitative 05/10/24 K52.9 - Noninfective gastroenteritis and colitis, unspecified CDiff Gene PCR 05/10/24 K52.9 - Noninfective gastroenteritis and colitis, unspecified Transglutaminase IgA 05/08/24 K52.9 - Noninfective gastroenteritis and colitis, unspecified Immunoglobulin A 05/08/24 K52.9 - Noninfective gastroenteritis and colitis, unspecified Vitamin B12 and Folate 05/08/24 K52.9 - Noninfective gastroenteritis and colitis, unspecified GI Panel 05/10/24 K52.9 - Noninfective gastroenteritis and colitis, unspecified Zinc 05/08/24 K52.9 - Noninfective gastroenteritis and colitis, unspecified Pancreatic Elastase-1 05/10/24 K52.9 - Noninfective gastroenteritis and colitis, unspecified Transglutaminase Ab IgG 05/08/24 K52.9 - Noninfective gastroenteritis and colitis, unspecified Lipase 05/08/24 K52.9 - Noninfective gastroenteritis and colitis, unspecified, K58.9 - Irritable bowel syndrome without diarrhea, E73.9 - Lactose intolerance, unspecified Calprotectin, Fecal 05/10/24 K52.9 - Noninfective gastroenteritis and colitis, unspecified, K58.9 - Irritable bowel syndrome without diarrhea, E73.9 - Lactose intolerance, unspecified Vitamin D 25-OH Total 05/08/24 K52.9 - Noninfective gastroenteritis and colitis, unspecified Medications: New bisacodyl (Dulcolax (bisacodyl)) Take 4 tablets at 12 pm the day before colonoscopy appointment 20 mg (4 x 5 mg) PO ONCE 4 tabs 0RF colon prep 1 day psyllium husk (Fiber (psyllium husk)) 0.52 grams PO BID PRN 120 caps 3RF constipation 60 days K52.9 - Noninfective gastroenteritis and colitis, unspecified polyethylene glycol 3350 (Miralax) Mix Miralax with 64 oz(8 cups) of Crystal light. Take 2 tablets of Dulcolax qt 12 pm. Wait to have your 1st bowel movement, then begin drinking Miralax. Drink a glass of Miralax every 10-15 minutes until you are finished. You will drink at least another 4 cups of clear liquid of your choice over the next 2 hours. Please drink as many clear liquids as possible You may have clear liquids up to four hours before your procedure 17 grams PO DAILY 238 grams 0RF 1 day Coding Level of Care Code Est Pt Level 4 (80236) Diagnoses Chronic diarrhea K52.9 IBS (irritable bowel syndrome) K58.9 Time Spent (min) 24
[2024-05-08 14:01] VITALS: BP 131/80; PULSE 86; BMI 32.2
== END 2024-05-08 14:45 | disposition home or self-care (01) ==
PROVIDERS: PCP Internal Medicine Medical Oncology; Referring Provider Internal Medicine Medical Oncology; Visit Provider Internal Medicine Gastroenterology
DX: K52.9 Noninfective gastroenteritis and colitis, unspecified (principal); K58.9 Irritable bowel syndrome, unspecified
CPT/HCPCS: 99214

== ENCOUNTER 2024-05-10 08:37 | Outpatient (REF) | payer BC, SELFPAY ==
[2024-05-10 10:27] LABS: CDiff Gene PCR NEGATIVE (Negative)
[2024-05-10 12:02] LABS: Adenovirus F 40/41 Not Detected (Not Detect.); Astrovirus Not Detected (Not Detect.); Campylobacter Not Detected (Not Detect.); Cryptosporidium Not Detected (Not Detect.); Cyclospora cayetanensis Not Detected (Not Detect.); E. coli EAEC Not Detected (Not Detect.); E. coli EPEC Detected (Not Detect.); E. coli ETEC Not Detected (Not Detect.); E. coli STEC Not Detected (Not Detect.); Entamoeba histolytica Not Detected (Not Detect.); Giardia lamblia Not Detected (Not Detect.); Norovirus GI/GII Not Detected (Not Detect.); Plesiomonas shigelloides Not Detected (Not Detect.); Rotavirus A Not Detected (Not Detect.); Salmonella Not Detected (Not Detect.); Sapovirus Not Detected (Not Detect.); Shigella sp./EIEC Not Detected (Not Detect.); Vibrio Not Detected (Not Detect.); Vibrio Cholerae Not Detected (Not Detect.); Yersinia enterocolitica Not Detected (Not Detect.)
[2024-05-17 21:58] LABS: Calprotectin, Fecal 5 mcg/g
[2024-05-18 20:44] LABS: Pancreatic Elastase-1 >500 mcg/g
[2024-05-23 10:47] LABS: Fecal Fat Qualitative NORMAL (NORMAL)
== END 2024-05-10 08:38 | disposition home or self-care (01) ==
LOC: HO.LNP 08:37
PROVIDERS: Visit Provider Internal Medicine Gastroenterology
DX: K58.9 Irritable bowel syndrome, unspecified (principal); E73.9 Lactose intolerance, unspecified
CPT/HCPCS: 82656; 82705; 83993; 87493; 87507

== ENCOUNTER 2024-06-09 07:34 | Day surgery (SDC) | payer BC, SELFPAY ==
--- NOTE | 2024-06-06 11:44 | P.CONAN_ITS ---
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 Surgical History Surgical History Hx of breast lump removal History of esophagogastroduodenoscopy (EGD) History of pancreatic surgery Hx of colonoscopy Social History Social History Household Members: Spouse Are you a primary ostomy care nurse to a significant other at home: No Do you presently have visiting nurse or other home services: No Alcohol intake: current Alcohol intake frequency: does not drink Patient Tobacco Use Status: Former Tobacco user Use of substances other than those prescribed or required for medical reasons: No Have you been hit, kicked, punched, or otherwise hurt by someone within the past year? 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 Allergies Allergy/AdvReac Type Severity Reaction Status Date / Time Penicillins [PENICILLINS] Allergy Intermediate JOINT Verified 05/08/24 14:02 SWELLING tetracycline [TETRACYCLINE] Allergy Intermediate Vomiting Verified 05/08/24 14:02 egg Allergy Rash Verified 06/09/24 07:48 erythromycin base AdvReac Intermediate Nausea and Verified 05/08/24 14:02 Vomiting Home Medications ?Medication ?Instructions ?Recorded ?Confirmed ?Last Taken ?Type lisinopril 5 mg tablet 5 mg PO DAILY 08/23/20 05/08/24 Unknown History Exam Pertinent Lab Results Pertinent Lab Results: Laboratory Tests 02/16/24 08:55 WBC 5.3 Hgb 14.5 Hct 42.4 Plt Count 420 H Sodium 141 Potassium 4.3 Chloride 107 Carbon Dioxide 25 BUN 15 Creatinine 0.73 Assessment and Plan Assessment Anesthesia Assessment: Chart Reviewed Documented by User: Juju Harrington MD 06/09/24 08:30 [facility] Past Medical History Medical History (Updated 06/09/24 @ 07:50 by Inessa Kohler) Lymphedema Invasive lobular carcinoma of left breast in female 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 Family history of problems with anesthesia: No Surgical History Surgical History Hx of breast lump removal History of esophagogastroduodenoscopy (EGD) History of pancreatic surgery Hx of colonoscopy History of Problems with Anesthesia: No Social History Social History Household Members: Spouse Are you a primary ostomy care nurse to a significant other at home: No Do you presently have visiting nurse or other home services: No Alcohol intake: current Alcohol intake frequency: does not drink Patient Tobacco Use Status: Former Tobacco user Use of substances other than those prescribed or required for medical reasons: No Have you been hit, kicked, punched, or otherwise hurt by someone within the past year? 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 Allergies Allergy/AdvReac Type Severity Reaction Status Date / Time Penicillins [PENICILLINS] Allergy Intermediate JOINT Verified 05/08/24 14:02 SWELLING tetracycline [TETRACYCLINE] Allergy Intermediate Vomiting Verified 05/08/24 14:02 egg Allergy Rash Verified 06/09/24 07:48 erythromycin base AdvReac Intermediate Nausea and Verified 05/08/24 14:02 Vomiting Home Medications ?Medication ?Instructions ?Recorded ?Confirmed ?Last Taken ?Type lisinopril 5 mg tablet 5 mg PO DAILY 08/23/20 05/08/24 Unknown History Exam Airway Mallampati Class: II TM Dist: >3cm Neck ROM: Full Heart: rrr Lungs: cta Assessment and Plan Assessment Anesthesia Assessment: Anesthesia Plan Discussed Final Anesthetic Review Family History of Problems with Anesthesia: No History of Problems with Anesthesia: No NPO: Yes ASA Class: II Final Preanesthetic Review: No Changes in Pt Med Stat, Meds/Allgs Chart Reviewed and Consent Obtained/Reviewed Patient Risk: Low Procedure Risk: Intermediate Anesthetic Plan Anesthetic Plan: MAC: Disposition: Standard PACU
--- NOTE | 2024-06-09 07:41 | MHC.SHP ---
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 Tubular adenoma History of postoperative nausea and vomiting Hx of radiation therapy Cancer Lab test negative for COVID-19 virus IBS (irritable bowel syndrome) HTN (hypertension)) History of Previous Operations: Relevant previous surgery/procedure and date(s) (Hx of breast lump removal History of esophagogastroduodenoscopy (EGD) History of pancreatic surgery Hx of colonoscopy) Allergies: Allergies Allergy/AdvReac Type Severity Reaction Status Date / Time Penicillins [PENICILLINS] Allergy Intermediate JOINT Verified 05/08/24 14:02 SWELLING tetracycline [TETRACYCLINE] Allergy Intermediate Vomiting Verified 05/08/24 14:02 erythromycin base AdvReac Intermediate Nausea and Verified 05/08/24 14:02 Vomiting Review of Systems Sugical H&P ROS: Negative: Constitution, Cardiovascular and Respiratory and Yes, Specify: Gastrointestinal (diarrhea) Exam Surgical H&P Exam: Normal: Heart, Normal: Lungs, Normal: Extremities and Normal: Abdomen Plan Diagnosis/Plan: Unchanged I have reviewed the history and physical and performed a pertinent physical examination on my patient. No changes have occurred unless specified. Time Spent With Patient Time: Total time managing care of this patient today ____ minutes.
[2024-06-09 07:44] VITALS: BP 146/84; PULSE 73; RESP 16; TEMP 36.6; O2SAT 96; BMI 33.1
[2024-06-09] MEDS: Lactated Ringers 1,000 ML 100 ML IVCONT (07:54)
--- NOTE | 2024-06-09 09:01 | P.OPN-COLO_ITS ---
Colonoscopy Operative Note Operative Note Date of Service: 06/09/24 Narrative: FLEXIBLE TRANSORAL UPPER GASTROINTESTINAL ENDOSCOPY WITH BIOPSIES AND COLONOSCOPY TILL CECUM WITH BIOPSIES Pre-op diagnosis: Surveillance for colon polyps, chronic diarrhea, GERD Post-op diagnosis: GERD, Gastritis, multiple gastric polyps, Colon Polyps, Diverticulosis, hemorrhoids Endoscopist:Tanya Ruth MD Anesthesia:?MAC UPPER ENDOSCOPY Consent: Indications for the procedure and potential complications of bleeding, perforation, reaction to medications and missed diagnosis were discussed with the patient and informed consent was obtained. Instrument: Olympus GIF H 190 mid size upper endoscope Monitoring: Vital signs and clinical assessment, continuous EKG monitoring, Pulse oximetry, Carbon Dioxide monitoring and blood pressure monitoring were done throughout the procedure. Procedure: The patient was placed in the left lateral decubitis position and pre-procedure medications were administered and a bite block was placed. The endoscope was inserted into the mouth and advanced under direct vision to the third part of duodenum. A careful inspection was made as the upper endoscope was withdrawn including a retroflexed examination of the proximal stomach; Findings and interventions are described below. Findings: Larynx: Normal Esophagus: GE junction at 39 cms. Small hiatal hernia 39 to 40 cms. No esophagitis or Perdomo's. Stomach: Multiple 1-2 cms benign appearing polyps in the gastric body and fundus - biopsied. Moderate diffuse gastric erythema - biopsies were obtained from the antrum. Grade 2 flap valve on retroflexed examination of the cardia. Duodenum: Normal bulb and descending duodenum Biopsies were obtained from descending duodenum to check for celiac sprue Intervention: Biopsies as noted above COLONOSCOPY PROCEDURE NOTE Instrument: Olympus PCF H 190 L variable stiffness pediatric colonoscope Monitoring: Vital signs and clinical assessment, intermittent blood pressure monitoring, continuous EKG monitoring, Pulse oximetry and Carbon Dioxide monitoring were done throughout the procedure. Please see anesthesia flowsheet. Colon withdrawl time was 23 minutes. Procedure: The patient was placed in the left lateral decubitis position and pre-procedure medications were administered. After a digital rectal examination of the ano-rectum, the video colonoscope was inserted into the rectum and advanced through the colon to the cecum. The colonoscope was slowly withdrawn in a retrograde panoramic fashion and the colon mucosa was carefully examined including a retroflexed view of the rectum. Findings and interventions are described below. Procedure Difficulty: There was narrowing of the sigmoid colon at 25 to 30 cms due to diverticulosis which was navigated with some difficulty Findings: Terminal Ileum: Not evaluated Cecum: Normal Ascending Colon: Moderate diverticulosis throughout the entire colon Transverse Colon: A 3-4 mm sessile polyp - removed with a cold biopsy. Moderate diverticulosis throughout the entire colon Descending Colon: Moderate diverticulosis throughout the entire colon Sigmoid Colon: Severe diverticulosis with luminal narrowing Rectum: Normal Ano-rectum: Normal Colon preparation: Good after some irrigation. [place] Bowel Preparation Scale Right colon; 2 Transverse colon: 2 Left colon; 2 (0 = Unprepared colon segment with mucosa not seen due to solid stool that cannot be cleared. 1 = Portion of mucosa of the colon segment seen, but other areas of the colon segment not well seen due to staining, residual stool and/or opaque liquid. 2 = Minor amount of residual staining, small fragments of stool and/or opaque liquid, but mucosa of colon segment seen well. 3 = Entire mucosa of colon segment seen well with no residual staining, small fragments of stool or opaque liquid) Impression and Post Procedure Diagnosis: Endoscopy Findings: ESOPHAGUS: Small hiatal hernia STOMACH: Diffuse gastritis and benign appearing gastric polyps DUODENUM: Normal - biopsied to check for celiac sprue Colonoscopy Findings: One small polyp was removed Random biopsies were obtained from right and left colon to check for microscopic colitis Moderate to severe diverticulosis seen in the entire colon Plan: Pt has a FU appointment on 06/17/[address] Ruth Repeat Colonoscopy in 5 years if polyps are adenomatous and due to a history of adenomatous colon polyps. Above findings were reviewed with the patient and relevant handouts were given and the discharge area. Pt reported improvement in diarrhea since she switched to a gluten free diet BIOPSIES SHOWED: A. Small bowel, biopsy: Small bowel mucosa within normal limits; preserved villous architecture and no increased intraepithelial lymphocytes seen. B. Stomach, antrum, biopsy: Gastric antral mucosa within normal limits; negative for Helicobacter pylori, intestinal metaplasia and dysplasia. C. Stomach, polyps, biopsy: Fundic gland polyp (s). D. Colon, right, biopsy: Colonic mucosa within normal limits; negative for active, chronic or microscopic colitis. E. Colon, sigmoid, polypectomy: Tubular adenoma; negative for high-grade dysplasia. F. Colon, left, biopsy: Colonic mucosa within normal limits; negative for active, chronic or microscopic colitis. Letter sent advising repeat colonoscopy in 5 years and patient was placed on the colonoscopy recall list
[2024-06-09 09:39] VITALS: BP 103/47; PULSE 79; RESP 16; TEMP 36.1; O2SAT 98
[2024-06-09 09:54] VITALS: BP 124/64; PULSE 63; RESP 16; O2SAT 100
[2024-06-09 10:09] VITALS: BP 128/65; PULSE 60; RESP 16; TEMP 36.2; O2SAT 99
== END 2024-06-09 10:29 | disposition home or self-care (01) ==
PROVIDERS: PCP Internal Medicine Medical Oncology; Visit Provider Internal Medicine Gastroenterology
PROC: (CPT 45380; principal; 2024-06-09 08:30)
DX: K58.9 Irritable bowel syndrome, unspecified (principal); Z86.010 Personal history of colon polyps; D12.5 Benign neoplasm of sigmoid colon; K57.30 Diverticulosis of large intestine without perforation or abscess without bleeding; K64.8 Other hemorrhoids; K29.70 Gastritis, unspecified, without bleeding; K31.7 Polyp of stomach and duodenum; K21.9 Gastro-esophageal reflux disease without esophagitis; K44.9 Diaphragmatic hernia without obstruction or gangrene; I10 Essential (primary) hypertension; Z85.3 Personal history of malignant neoplasm of breast; Z88.0 Allergy status to penicillin; Z88.1 Allergy status to other antibiotic agents; Z87.891 Personal history of nicotine dependence
CPT/HCPCS: 45380; 43239; 88305; 88313; 88342; J2704

== ENCOUNTER → 2024-06-09 07:34 | Outpatient (BNV) | payer BC, SELFPAY | PROVIDERS: PCP Internal Medicine Medical Oncology; Visit Provider Internal Medicine Gastroenterology | DX: Z12.11 Encounter for screening for malignant neoplasm of colon (principal); Z86.010 Personal history of colon polyps; K52.9 Noninfective gastroenteritis and colitis, unspecified; D12.5 Benign neoplasm of sigmoid colon; K21.9 Gastro-esophageal reflux disease without esophagitis; K31.7 Polyp of stomach and duodenum; K29.70 Gastritis, unspecified, without bleeding | CPT/HCPCS: 43239; 45380 ==

== ENCOUNTER 2024-06-17 12:52 | Outpatient (AMB) | payer BC, SELFPAY ==
--- NOTE | 2024-06-17 12:57 | A.OFFVIS_ITS ---
Vital Signs 06/17/24 12:58 Height 5 ft 4 in Weight 190 lb BMI 32.6 BP 134/54 L Blood Pressure Location Lt brachial Position Sitting Pulse 69 Intake Visit Reasons: LAB RESULTS Intake Note: Patient follow up for lab results Patient cc: BM are better, denies any other GI issues. Pump Assembler Required: No Accompanied by: Self / Same As Patient Allergies Penicillins [PENICILLINS] Allergy (Intermediate, Verified 06/17/24 12:56) JOINT SWELLING tetracycline [TETRACYCLINE] Allergy (Intermediate, Verified 06/17/24 12:56) Vomiting egg Allergy (Verified 06/17/24 12:56) Rash erythromycin base Adverse Reaction (Intermediate, Verified 06/17/24 12:56) Nausea and Vomiting Medication List - Last Reconciled 06/17/24 by Ellie Ruth MD lisinopril 5 mg PO DAILY psyllium husk (Fiber (psyllium husk)) 0.52 grams PO BID PRN 60 days HPI HPI LAB RESULTS: Details: GI clinic visit for this 63 year female with IBS, hypertension for follow up of colon polyps and family hx of colon cancer Pt has a hx of pancreatic surgery (for benign cyst on her pancreas) in 2016 at [facility] TODAY'S VISIT: EGD and colonoscopy results were reviewed with the patient Doing better Had her son's wedding last weekend and took 4 peptobismol and was able to dance at the wedding Tried kale and denied having any diarrhea Takes a serving and fruit every day Eats a lot chicken, pork and meat She would like to manage her symptoms with diet and without medications Notes improvement in abdominal bloating PAST VISITS: Kylee presents in the office as a follow up. CC: Family hx of CRC and she is here today to go over symptoms. She states that 45min after she eats she will have a regular BM but it loosens up to diarrhea. She states that sometimes her food will pass right through like it is not di gesting. Her energy levels are changing. Her mother passed 2 months ago. She states that she was looking up pancreatic insufficiency. She states that she had an accident when she went out with her family and she states that she states it was a foul scent. She also repots a hx of lactose intolerance. Mom 2 months ago Went to have lunch in a restuarant. 45 min later, she had a BM with urgency and had an accident with a foul smell. Eating chicken, turkey and no spices or fried foods Has been having post prandial diarrhea every time she eats Starts as a normal BM and progressively becomes more loose. Has 3-4 BM in a day - normal in the am and becomes loose later in the day. Associated abdominal cramps Has a hx of IBS with diarrhea since age 14 yrs These symptoms are different - changed her diet to a bland diet with improvement in her symptoms. Notes discomfort underneath her left rib cage - improves after she has a BM. Takes chewable pepto-bismol and changes color of stool Has to take 2-3 tab at a time + imodium Also feels tired after exercising Patient denies symptoms of heartburn, dysphagia, nausea, vomiting, change in appetite or weight. Denies recent black stools or rectal bleeding. Stopped Tamoxifen after 5 years. 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 Denies being on chronic anticoagulation. 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 Mom to advanced dementia. Mom and sister have IBS LABS IN [place] : Reviewed IMAGING STUDIES: No recent GI imaging ENDOSCOPIC STUDIES: 06/09/24 EGD AND COLON SHOWED: Endoscopy Findings: ESOPHAGUS: Small hiatal hernia STOMACH: Diffuse gastritis and benign appearing gastric polyps DUODENUM: Normal - biopsied to check for celiac sprue Colonoscopy Findings: One small polyp was removed Random biopsies were obtained from right and left colon to check for microscopic colitis Moderate to severe diverticulosis seen in the entire colon Plan: Repeat Colonoscopy in 5 years if polyps are adenomatous and due to a history of adenomatous colon polyps. Above findings were reviewed with the patient and relevant handouts were given and the discharge area. Pt reported improvement in diarrhea since she switched to a gluten free diet BIOPSIES SHOWED: A. Small bowel, biopsy: Small bowel mucosa within normal limits; preserved villous architecture and no increased intraepithelial lymphocytes seen. B. Stomach, antrum, biopsy: Gastric antral mucosa within normal limits; negative for Helicobacter pylori, intestinal metaplasia and dysplasia. C. Stomach, polyps, biopsy: Fundic gland polyp (s). D. Colon, right, biopsy: Colonic mucosa within normal limits; negative for active, chronic or microscopic colitis. E. Colon, sigmoid, polypectomy: Tubular adenoma; negative for high-grade dysplasia. F. Colon, left, biopsy: Colonic mucosa within normal limits; negative for active, chronic or microscopic colitis. Letter sent advising repeat colonoscopy in 5 years and patient was placed on the colonoscopy recall list COLONOSCOPY 10/12/2020 Terminal Ileum: Not evaluated Cecum: Normal Ascending Colon: Normal Transverse Colon: Normal Descending Colon: Moderate diverticulosis Sigmoid Colon: A 3-4 mm diminutive appearing polyp removed with a cold bx. A 6-7 mm sessile polyp removed with a cold snare and residual polyp removed with a cold bx. Severe diverticulosis with luminal narrowing. Rectum: Normal Ano-rectum: Moderate internal hemorrhoids Colon preparation: Good BIOPSY RESULTS: Diagnosis A. Colon, random, biopsy: Colonic mucosa within normal limits. B. Colon, sigmoid, polypectomies: - Tubular adenoma; no high grade dysplasia or carcinoma seen. - Colonic mucosa with prominent lymphoid aggregate; no dysplasia seen. - Colonic mucosa with mild surface hyperplastic changes. COMMENT: Diagnostic features of microscopic colitis are not seen. 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 Review of Systems Const All systems reviewed & are unremarkable except as noted in HPI and below Physical Exam Vital Signs: Last Vital Signs Pulse 69 09/17/24 12:58 BP 134/54 L 09/17/24 12:58 BMI result Body Mass Index 32.6 Const General: healthy appearing and no acute distress Nutritional Appearance: obese Orientation/consciousness: patient oriented x3 Limitations: no limitations HEENT Head: Yes normal to inspection Ears: hearing grossly normal bilaterally Mouth: Normal oral and palatal mucosa present Eyes Sclerae: sclerae normal Pupils: Equal, round and reactive pupils present Neck Neck: Yes normal visual inspection Chest Chest palpation & inspection: normal inspection of the chest Resp Effort & Inspection: normal respiratory effort Auscultation: clear to auscultation bilaterally Cardio Palpation: normal PMI Rate: regular rate Rhythm: regular rhythm Heart sounds: S1 normal heart sound present, S2 normal heart sound present and no murmurs GI Palpation (GI): Soft to palpation, nontender and No hepatosplenomegaly present Auscultation: normal bowel sounds Rectal Exam - Female: deferred Skin General skin exam: no rashes or lesions noted Neuro General: patient oriented x3, gait normal and moves all extremities Cranial nerves: Yes Equal, round and reactive pupils present Psych Appearance: grossly normal Mental Status: mental status grossly normal Assessment & Plan Assessment & Plan (1) IBS (irritable bowel syndrome): Code(s): K58.9 - Irritable bowel syndrome without diarrhea Category: Medical (2) Tubular adenoma: Comment: 06/2024 One small tubular adenoma was removed during colonoscopy Random biopsies obtained from right and left colon were negative for microscopic colitis Follow-up colonoscopy advised in 5 years. Code(s): D36.9 - Benign neoplasm, unspecified site Category: Medical (3) Chronic diarrhea: Code(s): K52.9 - Noninfective gastroenteritis and colitis, unspecified Category: Medical (4) Dietary lactose intolerance: Code(s): E73.9 - Lactose intolerance, unspecified Category: Medical Plan 63 YF with IBS(diarrhea predominant), lactose intolerance, hypertension seen for evaluation of chronic diarrhea Pt has a hx of pancreatic surgery (for benign cyst on her pancreas) in 2016 at [facility] and is followed by Dr Mead Per pt, she had an Abd CT scan at [facility] in March, which was negative Diarrhea x 2 months can be due to infectious or C Diff colitis, IBS, pancreatic insufficiency, celiac disease, microscopic colitis and less likely IBD Of note, patient denies recent antibiotics or travel outside the [place] Patient was advised her that evaluation with labs and stool studies [place] of a fiber supplement twice daily and continue using peptobismol with meals If stool studies are negative, I will schedule her for an EGD and colonoscopy to check for microscopic colitis/IBD On 05/30/24 @ 16:33 Ellie Ruth Wrote To Ellie Ruth Pt called and lab results were reviewed. Taking a gluten free diet Notes diarrhea after taking Dairy, eggs, Pasta, crackers and bread within 1/2 an hour Unable to go out to eat or on social events Tried took fibre pills which caused gas, bloating and diarrhea. Taking imodium + 2-4 peptobismol 2 hrs before eating to control cramps and diarrhea. Still gets abd cramps and they are less severe 06/2024 EGD and Colonoscopy were performed for evaluation of chronic postprandial diarrhea - and findings as noted above 06/17/24 Pt advised to continue on a lactose and gluten free diet and avoid foods associated with diarrhea Ref sent to Nutrition at pt's request Elevated Ig A - will recheck and pt advised to discuss further workup with Dr Boston GRIMES in 4 months Orders: Orders Immunoglobulin A Today K58.9 - Irritable bowel syndrome without diarrhea Referrals Nutrition/Dietitian Referral E73.9 - Lactose intolerance, unspecified, K52.9 - Noninfective gastroenteritis and colitis, unspecified, K58.9 - Irritable bowel syndrome without diarrhea Coding Level of Care Code Est Pt Level 4 (21169) Diagnoses IBS (irritable bowel syndrome) K58.9 Tubular adenoma D36.9 Chronic diarrhea K52.9 Dietary lactose intolerance E73.9 Time Spent (min) 25
[2024-06-17 12:58] VITALS: BP 134/54; PULSE 69; BMI 32.6
== END 2024-06-17 13:39 | disposition home or self-care (01) ==
PROVIDERS: PCP Internal Medicine Medical Oncology; Referring Provider Internal Medicine Medical Oncology; Visit Provider Internal Medicine Gastroenterology
DX: K58.9 Irritable bowel syndrome, unspecified (principal); D36.9 Benign neoplasm, unspecified site; E73.9 Lactose intolerance, unspecified
CPT/HCPCS: 99214

== ENCOUNTER → 2024-06-17 12:52 | Outpatient (BNVA) | payer BC, SELFPAY | PROVIDERS: PCP Internal Medicine Medical Oncology; Visit Provider Internal Medicine Gastroenterology ==

== ENCOUNTER 2024-08-12 09:28 | Outpatient (AMB) | payer BC, SELFPAY ==
[2024-08-12 09:56] VITALS: BMI 32.3
--- NOTE | 2024-08-12 09:56 | A.OFFVIS_ITS ---
VS Expanded 08/12/24 09:56 08/13/24 10:04 Height 5 ft 4 in 5 ft 4 in Weight 188 lb 0.869 oz 188 lb BMI 32.3 32.3 Intake Visit Reasons: Irritable bowel syndrome/LVM Allergies Penicillins [PENICILLINS] Allergy (Intermediate, Verified 06/17/24 12:56) JOINT SWELLING tetracycline [TETRACYCLINE] Allergy (Intermediate, Verified 06/17/24 12:56) Vomiting egg Allergy (Verified 06/17/24 12:56) Rash erythromycin base Adverse Reaction (Intermediate, Verified 06/17/24 12:56) Nausea and Vomiting Nutrition Presentation Details: Pt presents for MNT for IBS, Lactose Intolerance, Chronic Diarrhea Pt reports working on choosing gluten free foods in the past 3 weeks and choosing non dairy foods, reports noticing 80% improvement in IBS symptoms hydration - water reading food labels - ingredients and also uses GF scanner BS Monitoring Most Recent Diabetes Results: Cholesterol 160 mg/dL (<200) 02/16/24 HDL Cholesterol 48 mg/dL (>40) 02/16/24 Triglycerides 138 mg/dL (<150) 02/16/24 Creatinine 0.73 mg/dL (0.5-1.4) 02/16/24 Blood Urea Nitrogen 15 mg/dL (9-16) 02/16/24 Sodium 141 mmol/L (135-145) 02/16/24 Potassium 4.3 mmol/L (3.3-5.1) 02/16/24 Chloride 107 mmol/L (96-108) 02/16/24 Carbon Dioxide 25 mmol/L (22-29) 02/16/24 Calcium 8.9 mg/dL (8.4-10.2) 02/16/24 AST 22 U/L (5-31) 02/16/24 ALT 27 U/L (0-31) 02/16/24 Total Protein 7.4 g/dL (6.5-8.0) 02/16/24 Albumin 3.9 g/dL (3.5-5.0) 02/16/24 GJI-Iqlluan-Oo.Jeor Equation Height: 5 ft 4 in Weight: 188 lb Resting Metabolic Rate: 1401.86 Calculated Activity Level: Sedentary Calories Needed to Maintain Weight: 1682.23 Diagnosis Nutrition problem #1: food nutri know defi As related to (etiology) #1: diagnosis As evidenced by (sign/symptom) #1: other (food allergies/intolerance ) [facility] Medical History (Updated 06/17/24 @ 16:49 by Ellie Ruth MD) Lymphedema Invasive lobular carcinoma of left breast in female 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 Assessment & Plan Assessment & Plan (1) IBS (irritable bowel syndrome): Code(s): K58.9 - Irritable bowel syndrome, unspecified Category: Medical Plan: Wt: 85 Kg ( 08/24 ) Est kcal needs as per MSJ: 9649-8181 (40% carb, 30% protein/fat) Est fluid needs as per 25-30 ml/d: 2600 Est prot per day as per 1 g/kg bw: 85 Recommend fiber intake : 8-10 g per day and gradually increase to 25-28 g per day for women and 35-38 g for men or as tolerated Recommend sodium intake per day : less than 2300 mg Educated patient on: ( R = reviewed V = verbalizes understanding N/R = needs review N/A = not applicable * Gluten free sources of foods and dairy free sources of foods: R * Choosing low fodmap seasonings: R * Hydration: R * Vitamins and minerals: R Patient Instructions: Continue working on choosing gluten free/dairy free food options Choose low fodmap spices/seasonings for now see list of meals ideas/seasonings Keep hydrated mixing water/juices, broths , non dairy alternatives Coding Level of Care Code Nutr Indiv Intake (02685) Diagnoses IBS (irritable bowel syndrome) K58.9 Time Spent (min) 30
[2024-08-13 10:04] VITALS: BMI 32.3
== END 2024-08-12 10:26 | disposition home or self-care (01) ==
PROVIDERS: PCP Internal Medicine Medical Oncology; Visit Provider Dietitian, Registered
DX: K58.9 Irritable bowel syndrome, unspecified (principal)

== ENCOUNTER → 2024-08-12 09:28 | Outpatient (BNVA) | payer BC, SELFPAY | PROVIDERS: PCP Internal Medicine Medical Oncology; Visit Provider Dietitian, Registered | DX: K58.9 Irritable bowel syndrome, unspecified (principal); Z71.3 Dietary counseling and surveillance | CPT/HCPCS: 97802 ==

== ENCOUNTER 2024-08-25 08:25 | Outpatient (REF) | payer BC, SELFPAY ==
[2024-08-25 08:39] LABS: MANUAL DIFF FLAG NO
[2024-08-25 08:49] LABS: Basophils Absolute Auto 0.1 X10*3/uL (0.0-0.2); Eosinophils Absolute Auto 0.1 X10*3/uL (0.0-0.4); Eosinophils Percent Auto 1.5 % (0-4); Hematocrit 44.5 % (37.0-47.0); Hemoglobin 14.8 g/dl (12.0-16.0); Imm Gran Abs Auto 0.01 X10*3/uL (0.00-0.03); Imm Gran Pct Auto 0.2 % (0.0-0.4); Lymphocytes Absolute Auto 2.1 X10*3/uL (1.2-4.9); Lymphocytes Percent Auto 35.2 % (20-40); Mean Corpuscular HGB Conc 33.3 g/dl (31.0-35.0); Mean Corpuscular Hemoglobin 31.6 pg (27.0-33.0); Mean Corpuscular Volume 95.1 fL (80.0-98.0); Mean Platelet Volume 9.3 fL (9.4-12.3); Monocytes Absolute Auto 0.6 X10*3/uL (0.1-1.2); Monocytes Percent Auto 9.4 % (2-11); Neutrophils Absolute Auto 3.1 x10*3/uL (2.0-8.3); Neutrophils Percent Auto 52.7 % (45-73); Platelet Count 407 X10*3/uL (160-400); Red Blood Count 4.68 X10*6/uL (4.20-5.50); Red Cell Distribution Width 12.8 % (11.0-16.0); White Blood Count 5.9 X10*3/uL (4.8-10.8)
[2024-08-25 09:21] LABS: Alanine Aminotransferase 29 U/L (0-31); Alkaline Phosphatase 107 U/L (39-117); Anion Gap 9 (12-20); Aspartate Amino Transferase 22 U/L (5-31); Blood Urea Nitrogen 16 mg/dL (9-16); Calcium 9.1 mg/dL (8.4-10.2); Carbon Dioxide 26 mmol/L (22-29); Chloride 106 mmol/L (96-108); Cholesterol 163 mg/dL (<200); Estimated Glomerular Filt Rate > 60; Glucose Fasting 112 mg/dL (60-99); HDL Cholesterol 52 mg/dL (>40); LDL Cholesterol Calculated 86 mg/dL (<100); Potassium 4.2 mmol/L (3.3-5.1); Sodium 137 mmol/L (135-145); Total Protein 7.7 g/dL (6.5-8.0); Triglycerides 126 mg/dL (<150)
[2024-08-30 08:14] LABS: Carbohydrate Antigen 19-9 8 U/mL (<34)
== END 2024-08-25 08:26 | disposition home or self-care (01) ==
LOC: HO.LAB 08:25
PROVIDERS: Absent Provider Internal Medicine Gastroenterology; PCP Internal Medicine Medical Oncology; Visit Provider Internal Medicine Medical Oncology
DX: M54.41 Lumbago with sciatica, right side (principal); E78.01 Familial hypercholesterolemia; M67.40 Ganglion, unspecified site; E66.9 Obesity, unspecified
CPT/HCPCS: 36415; 80053; 80061; 85025; 86301

== ENCOUNTER 2024-10-23 08:31 | Outpatient (AMB) | payer BC, SELFPAY ==
--- NOTE | 2024-10-23 08:33 | MHC.OFFVIS ---
Vital Signs 10/23/24 08:37 10/23/24 08:39 Height 5 ft 4 in 5 ft 4 in Weight 194 lb BMI 33.3 BP 125/62 Blood Pressure Location Lt brachial Position Sitting Pulse 80 Intake Visit Reasons: 4 month follow up Intake Note: Patient 4 month follow up for Chronic diarrhea and lab results. Patient cc: IBS symptoms on and off. Denies any other GI issues. Allergies Penicillins [PENICILLINS] Allergy (Intermediate, Verified 10/23/24 08:38) JOINT SWELLING tetracycline [TETRACYCLINE] Allergy (Intermediate, Verified 10/23/24 08:38) Vomiting egg Allergy (Verified 10/23/24 08:38) Rash erythromycin base Adverse Reaction (Intermediate, Verified 10/23/24 08:38) Nausea and Vomiting Medication List - Last Reconciled 10/23/24 by Ellie Ruth MD lisinopril 5 mg PO DAILY HPI HPI 4 month follow up: Details: GI clinic visit for this 63 year female with IBS, hypertension for follow up of colon polyps and family hx of colon cancer Pt has a hx of pancreatic surgery (for benign cyst on her pancreas) in 2016 at [facility] [facility] TODAY'S VISIT: Patient cc: IBS symptoms on and off. Had an episode last week with diarrhea On GFD and has 3-4 BMs a day. Can have symptoms if she eats any precipitating foods. Symptoms are more manageable since she is on a 100% GFD She is able to exercise - does stationery bike for 30 min Seen by Contact Lens Assistant and found it very helpful Feeling 90% better PAST VISITS: EGD and colonoscopy results were reviewed with the patient Doing better Had her son's wedding last weekend and took 4 peptobismol and was able to dance at the wedding Tried kale and denied having any diarrhea Takes a serving of fruit every day Eats a lot chicken, pork and meat She would like to manage her symptoms with diet and without medications Notes improvement in abdominal bloating Kylee presents in the office as a follow up. CC: Family hx of CRC and she is here today to go over symptoms. She states that 45min after she eats she will have a regular BM but it loosens up to diarrhea. She states that sometimes her food will pass right through like it is not digesting. Her energy levels are changing. Her mother passed 2 months ago. She states that she was looking up pancreatic insufficiency. She states that she had an accident when she went out with her family and she states that she states it was a foul scent. She also repots a hx of lactose intolerance. Mom 2 months ago Went to have lunch in a restuarant. 45 min later, she had a BM with urgency and had an accident with a foul smell. Eating chicken, turkey and no spices or fried foods Has been having post prandial diarrhea every time she eats Starts as a normal BM and progressively becomes more loose. Has 3-4 BM in a day - normal in the am and becomes loose later in the day. Associated abdominal cramps Has a hx of IBS with diarrhea since age 14 yrs These symptoms are different - changed her diet to a bland diet with improvement in her symptoms. Notes discomfort underneath her left rib cage - improves after she has a BM. Takes chewable pepto-bismol and changes color of stool Has to take 2-3 tab at a time + imodium Also feels tired after exercising Patient denies symptoms of heartburn, dysphagia, nausea, vomiting, change in appetite or weight. Denies recent black stools or rectal bleeding. Stopped Tamoxifen after 5 years. 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 Denies being on chronic anticoagulation. 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 Mom to advanced dementia. Mom and sister have IBS LABS IN [place] : Reviewed IMAGING STUDIES: No recent GI imaging ENDOSCOPIC STUDIES: 06/09/24 EGD AND COLON SHOWED: Endoscopy Findings: ESOPHAGUS: Small hiatal hernia STOMACH: Diffuse gastritis and benign appearing gastric polyps DUODENUM: Normal - biopsied to check for celiac sprue Colonoscopy Findings: One small polyp was removed Random biopsies were obtained from right and left colon to check for microscopic colitis Moderate to severe diverticulosis seen in the entire colon Plan: Repeat Colonoscopy in 5 years if polyps are adenomatous and due to a history of adenomatous colon polyps. Above findings were reviewed with the patient and relevant handouts were given and the discharge area. Pt reported improvement in diarrhea since she switched to a gluten free diet BIOPSIES SHOWED: A. Small bowel, biopsy: Small bowel mucosa within normal limits; preserved villous architecture and no increased intraepithelial lymphocytes seen. B. Stomach, antrum, biopsy: Gastric antral mucosa within normal limits; negative for Helicobacter pylori, intestinal metaplasia and dysplasia. C. Stomach, polyps, biopsy: Fundic gland polyp (s). D. Colon, right, biopsy: Colonic mucosa within normal limits; negative for active, chronic or microscopic colitis. E. Colon, sigmoid, polypectomy: Tubular adenoma; negative for high-grade dysplasia. F. Colon, left, biopsy: Colonic mucosa within normal limits; negative for active, chronic or microscopic colitis. Letter sent advising repeat colonoscopy in 5 years and patient was placed on the colonoscopy recall list COLONOSCOPY 10/12/2020 Terminal Ileum: Not evaluated Cecum: Normal Ascending Colon: Normal Transverse Colon: Normal Descending Colon: Moderate diverticulosis Sigmoid Colon: A 3-4 mm diminutive appearing polyp removed with a cold bx. A 6-7 mm sessile polyp removed with a cold snare and residual polyp removed with a cold bx. Severe diverticulosis with luminal narrowing. Rectum: Normal Ano-rectum: Moderate internal hemorrhoids Colon preparation: Good BIOPSY RESULTS: Diagnosis A. Colon, random, biopsy: Colonic mucosa within normal limits. B. Colon, sigmoid, polypectomies: - Tubular adenoma; no high grade dysplasia or carcinoma seen. - Colonic mucosa with prominent lymphoid aggregate; no dysplasia seen. - Colonic mucosa with mild surface hyperplastic changes. 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 Review of Systems Const All systems reviewed & are unremarkable except as noted in HPI and below Physical Exam Vital Signs: Last Vital Signs Pulse 80 10/23/24 08:37 BP 125/62 10/23/24 08:37 BMI result Body Mass Index 33.3 Const General: healthy appearing and no acute distress Nutritional Appearance: obese Orientation/consciousness: patient oriented x3 Limitations: no limitations HEENT Head: Yes normal to inspection Ears: hearing grossly normal bilaterally Mouth: Normal oral and palatal mucosa present Eyes Sclerae: sclerae normal Pupils: Equal, round and reactive pupils present Neck Neck: Yes normal visual inspection Chest Chest palpation & inspection: normal inspection of the chest Resp Effort & Inspection: normal respiratory effort Auscultation: clear to auscultation bilaterally Cardio Palpation: normal PMI Rate: regular rate Rhythm: regular rhythm Heart sounds: S1 normal heart sound present, S2 normal heart sound present and no murmurs GI Palpation (GI): Soft to palpation, nontender and No hepatosplenomegaly present Auscultation: normal bowel sounds Rectal Exam - Female: deferred Skin General skin exam: no rashes or lesions noted Neuro General: patient oriented x3, gait normal and moves all extremities Cranial nerves: Yes Equal, round and reactive pupils present Psych Appearance: grossly normal Mental Status: mental status grossly normal Assessment & Plan Assessment & Plan (1) IBS (irritable bowel syndrome): Code(s): K58.9 - Irritable bowel syndrome, unspecified Category: Medical (2) Tubular adenoma: Comment: 06/2024 One small tubular adenoma was removed during colonoscopy Random biopsies obtained from right and left colon were negative for microscopic colitis Follow-up colonoscopy advised in 5 years. Code(s): D36.9 - Benign neoplasm, unspecified site Category: Medical (3) Chronic diarrhea: Code(s): K52.9 - Noninfective gastroenteritis and colitis, unspecified Category: Medical (4) Dietary lactose intolerance: Code(s): E73.9 - Lactose intolerance, unspecified Category: Medical Plan 63 YF with IBS(diarrhea predominant), lactose intolerance, hypertension seen for evaluation of chronic diarrhea Pt has a hx of pancreatic surgery (for benign cyst on her pancreas) in 2016 at [facility] [place] and is followed by Dr Mead Per pt, she had an Abd CT scan at [facility] in March, which was negative Diarrhea x 2 months can be due to infectious or C Diff colitis, IBS, pancreatic insufficiency, celiac disease, microscopic colitis and less likely IBD Of note, patient denies recent antibiotics or travel outside the [place] Patient was advised her that evaluation with labs and stool studies [place] of a fiber supplement twice daily and continue using peptobismol with meals If stool studies are negative, I will schedule her for an EGD and colonoscopy to check for microscopic colitis/IBD On 05/30/24 @ 16:33 Ellie Ruth Wrote To Ellie Ruth Pt called and lab results were reviewed. Taking a gluten free diet Notes diarrhea after taking Dairy, eggs, Pasta, crackers and bread within 1/2 an hour Unable to go out to eat or on social events Tried took fibre pills which caused gas, bloating and diarrhea. Taking imodium + 2-4 peptobismol 2 hrs before eating to control cramps and diarrhea. Still gets abd cramps and they are less severe 06/2024 EGD and Colonoscopy were performed for evaluation of chronic postprandial diarrhea - and findings as noted above 06/17/24 Pt advised to continue on a lactose and gluten free diet and avoid foods associated with diarrhea Ref sent to Nutrition at pt's request Elevated Ig A - will recheck and pt advised to discuss further workup with Dr Mead 10/23/24 On GFD and has 3-4 BMs a day. Can have symptoms if she eats any precipitating foods. Symptoms are more manageable since she is on a 100% GFD FU in 6 months Coding Level of Care Code Est Pt Level 3 (96706) Diagnoses IBS (irritable bowel syndrome) K58.9 Tubular adenoma D36.9 Chronic diarrhea K52.9 Dietary lactose intolerance E73.9 Time Spent (min) 18
[2024-10-23 08:37] VITALS: BP 125/62; PULSE 80; BMI 33.3
== END 2024-10-23 10:07 | disposition home or self-care (01) ==
PROVIDERS: PCP Internal Medicine Medical Oncology; Visit Provider Internal Medicine Gastroenterology
DX: K58.0 Irritable bowel syndrome with diarrhea (principal); Z86.0101 Personal history of adenomatous and serrated colon polyps; E73.9 Lactose intolerance, unspecified
CPT/HCPCS: 99213

== ENCOUNTER → 2024-10-23 08:31 | Outpatient (BNVA) | payer BC, SELFPAY | PROVIDERS: PCP Internal Medicine Medical Oncology; Visit Provider Internal Medicine Gastroenterology ==

== ENCOUNTER 2024-10-30 14:10 | Emergency (ER) | payer BC, SELFPAY ==
--- NOTE | ~2024-10-30 | CT_ITS ---
EXAMINATION: CT ABDOMEN AND PELVIS WITHOUT CONTRAST CLINICAL INFORMATION: Right flank pain. COMPARISON: Report from CT dated June 16, 2015. TECHNIQUE: Multidetector volumetric imaging was performed from the superior aspect of the liver through the pubic symphysis. Sagittal and coronal reformatted images were obtained on the technologist's workstation. This CT examination was performed using dose optimization techniques as appropriate, variously including the following: *Automated exposure control *Adjustment of mA and/or kV according to patient size (this includes techniques or standardized protocols for targeted exams where dose is matched to indication/reason for exam; i.e. extremities or head) *Use of iterative reconstruction technique DLP: 614 mGy centimeter. FINDINGS: Limited evaluation of the intra-abdominal organs and vascular structures due to lack of IV contrast. LUNG BASES: 1 mm calcified nodule, left lung base likely granuloma. LIVER, GALLBLADDER, AND BILIARY TREE: Liver measures 13 cm. No intrahepatic biliary ductal dilatation. Absent gallbladder likely cholecystectomy. Common bile duct measures 4 mm. PANCREAS: Status post resection of the tail. No peripancreatic fluid collection. No main pancreatic ductal dilatation. SPLEEN: Status post splenectomy. ADRENAL GLANDS: Soft tissue fullness, left adrenal gland measuring 3 Hounsfield units. No nodular lesion. KIDNEYS AND URETERS: Right kidney: 1 mm calcification, upper pole. No hydronephrosis. Left kidney: Few scattered less than 1 mm calcifications in the lower pole. No hydronephrosis. BLADDER: Fluid-filled nearly collapsed. GASTROINTESTINAL TRACT: Numerous diverticula, sigmoid colon. Abundant stool within the large intestine. No intestinal obstruction pattern. Appendix is normal. No pericolonic edema pattern. No pneumoperitoneum. No ascites. No fluid collections, peritoneal cavity. ABDOMINAL WALL: Small fat-containing umbilical hernia and diastases femoral rectus muscles in the periumbilical region. LYMPH NODES: Nonspecific prominent lymph nodes, mesenteric and retroperitoneum. VASCULAR: No aneurysm, abdominal aorta. No gross calcified plaques. PELVIC VISCERA: Heterogeneous nodular uterus with an exophytic 3 cm nodular component on the right side of the fundus. OSSEOUS STRUCTURES: Multilevel thoracolumbar spondylosis more conspicuous at L5-S1 and L1-2 levels. Grade 1 anterolisthesis L4-5. Grade 1 retrolisthesis L5-S1 and L1-2 levels. Fatty atrophy of the lower lumbar muscles. CT/CT abdomen pelvis wo IV con IMPRESSION: Nonobstructing nephrolithiasis, bilaterally. Sigmoid colon diverticulosis. Small fat-containing umbilical hernia. Multilevel thoracolumbar spondylosis more conspicuous at L5-S1 resulting in grade 1 retrolisthesis L5-S1 and L1-2 and grade 1 anterolisthesis L4-5. Probable uterine fibroid. Fleischner guidelines were followed. Electronically signed by: Mario Man MD 10/30/2024 03:30 PM [facility]
[2024-10-30 14:44] VITALS: BP 153/65; PULSE 93; RESP 16; TEMP 37.5; O2SAT 97; BMI 33.1
--- NOTE | 2024-10-30 14:49 | ED.GENADULT ---
HPI - General Adult General Chief complaint: Abdominal Pain Stated complaint: Kidney stone? Time Seen by Provider: 10/30/24 17:35 Source: patient, RN notes reviewed and old records reviewed Mode of arrival: ambulatory Limitations: no limitations History of Present Illness ED Provider: Rashard HPI narrative: 63-year-old female presents for evaluation abdominal pain since yesterday. Patient reports a history of IBS in his unsure if she was having a flare. She reports that she has some urinary urgency. She has a history of kidney stones. She can not tell if this is similar to her kidney stones or her IBS flares she has had in the past. Denies any black or bloody stool. Her pain is a 5/10, mostly in the right lower abdomen. She has not had any fevers or chest Related Data Home Medications ?Medication ?Instructions ?Recorded ?Confirmed lisinopril 5 mg tablet 5 mg PO DAILY 08/23/20 10/23/24 Allergies Allergy/AdvReac Type Severity Reaction Status Date / Time Penicillins [PENICILLINS] Allergy Intermediate JOINT Verified 10/30/24 14:49 SWELLING tetracycline [TETRACYCLINE] Allergy Intermediate Vomiting Verified 10/30/24 14:49 egg Allergy Rash Verified 10/30/24 14:49 erythromycin base AdvReac Intermediate Nausea and Verified 10/30/24 14:49 Vomiting Review of Systems Constitutional: Constitutional: Denies body ache(s), Denies chills, Denies fever(s) and Denies headache(s) Eyes: Eyes: Denies blurry vision ENT: Denies headache(s) Cardiovascular: Cardiovascular: Denies chest pain and Denies chest pain at rest Gastrointestinal: Gastrointestinal: Reports abdominal pain, Reports nausea and Denies vomiting Musculoskeletal: Musculoskeletal: Denies back pain Neurologic: Denies headache(s) [facility] Past Medical History Medical History (Updated 10/30/24 @ 17:39 by Sven Wetzel) Lymphedema Invasive lobular carcinoma of left breast in female 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 Physical Exam ED Vital Signs: Vital Signs - 24 hr 10/30/24 14:44 10/30/24 17:29 10/30/24 17:40 Temperature 99.5 F 99.0 F 99.0 F Pulse Rate 93 82 82 Respiratory Rate 16 16 16 Blood Pressure 153/65 H 151/79 H 151/79 H Pulse Oximetry 97 98 98 Oxygen Delivery Method Room Air Room Air Room Air BMI result Body Mass Index 33.1 Const General: healthy appearing, comfortable, no acute distress, alert and awake Nutritional Appearance: well nourished Orientation/consciousness: patient oriented x3 HENMT Head: Yes normocephalic and Yes atraumatic Eyes Eyelids: Yes eyelids normal Conjunctivae: conjunctivae normal Sclerae: sclerae normal Corneas: corneas normal Pupils: Equal, round and reactive pupils present EOM: EOMs intact bilaterally Neck Neck: Yes full ROM Resp Effort & Inspection: normal respiratory effort, able to speak in complete sentences and not labored GI Inspection: No distended Skin General skin exam: elasticity normal Neuro General: patient oriented x3 Cranial nerves: Yes Equal, round and reactive pupils present and Yes Bilaterally intact EOM present Cognition (Neuro): normal cognition Extrem Other: Moving all extremities well without any obvious deformities Course Course Course Narrative: RME, this is a rapid medical exam performed by Calvin Wetzel please refer to primary provider for complete H&P- 63-year-old female presents for evaluation of right flank pain since yesterday. She also reports urinary urgency. She has a history of IBS and kidney stones. Plan for labs, urinalysis and CT scan of the abdomen pelvis without contrast Medical Decision Making Medical Decision Making MDM Narrative: 63-year-old female presents for evaluation of abdominal pain. She had labs, urinalysis in his CT scan of the abdomen pelvis. The labs are reassuring, she has no leukocytosis or left shift. No significant electrolyte abnormalities. The patient's urinalysis is clear, no evidence of hematuria or pyuria. The patient's CT scan shows constipation and a likely uterine fibroid. I discussed these results with the patient. There was no evidence of infectious process. She will be discharged to follow up with her primary doctor Differential Diagnosis Differential Diagnoses: The differential diagnosis associated with the presentation includes Constipation Number uterine fibroid Obstructive uropathy IBS flare Acute appendicitis Lab Data MDM Lab Attestation statement: I reviewed the patient's lab results. As above 10/30/24 14:59 10/30/24 14:59 Labs: Lab Results 10/30/24 Range/Units 14:59 WBC 9.3 (4.8-10.8) X10*3/uL RBC 4.76 (4.20-5.50) X10*6/uL Hgb 15.2 (12.0-16.0) g/dl Hct 45.0 (37.0-47.0) % MCV 94.5 (80.0-98.0) fL MCH 31.9 (27.0-33.0) pg MCHC 33.8 (31.0-35.0) g/dl RDW 12.4 (11.0-16.0) % Plt Count 408 H (160-400) X10*3/uL MPV 9.3 L (9.4-12.3) fL Immature Gran % (Auto) 0.3 (0.0-0.4) % Neut % (Auto) 63.1 (45-73) % Lymph % (Auto) 26.3 (20-40) % [place] % (Auto) 9.7 (2-11) % Eos % (Auto) 0.1 (0-4) % Baso % (Auto) 0.5 (0-2) % Lymph # (Auto) 2.4 (1.2-4.9) X10*3/uL [place] # (Auto) 0.9 (0.1-1.2) X10*3/uL Eos # (Auto) 0.0 (0.0-0.4) X10*3/uL Baso # (Auto) 0.1 (0.0-0.2) X10*3/uL Abs Immat Gran (auto) 0.03 (0.00-0.03) X10*3/uL Absolute Neuts (auto) 5.9 (2.0-8.3) x10*3/uL Absolute Nucleated RBC 0.000 (0.0-0.012) X10*3/uL Nucleated RBC % (auto) 0.0 (0.0-0.2) /100WBC Sodium 138 (135-145) mmol/L Potassium 4.6 (3.3-5.1) mmol/L Chloride 105 (96-108) mmol/L Carbon Dioxide 24 (22-29) mmol/L Anion Gap 14 (12-20) BUN 21 H (9-16) mg/dL Creatinine 0.80 (0.5-1.4) mg/dL Estim Creat Clear Calc 78.0 Estimated GFR > 60 Random Glucose 103 (60-115) mg/dL Calcium 9.3 (8.4-10.2) mg/dL Total Bilirubin 0.8 (0.0-1.0) mg/dL AST 21 (5-31) U/L ALT 29 (0-31) U/L Alkaline Phosphatase 94 (39-117) U/L Total Protein 8.2 H (6.5-8.0) g/dL Albumin 4.1 (3.5-5.0) g/dL Lipase 20 (8-78) U/L Urine Color Yellow Urine Appearance Clear Urine pH 6.0 (5.0-9.0) Ur Specific [place] 1.015 (1.005-1.025) Urine Protein Negative (Neg-Trace) mg/dL Urine Glucose (UA) Negative (Negative) mg/dL Urine Ketones Negative (Negative) mg/dL Urine Blood Negative (Negative) Urine Nitrite Negative (Negative) Ur Leukocyte Esterase Negative (Negative) Urine RBC 0-2 (0-2) /HPF Urine WBC 0-5 (0-5) /HPF Ur Squamous Epith Cells 0-2 (0-2) /HPF Urine Bacteria None Seen (None Seen) Hyaline Casts 0-2 (0-2) /LPF Radiology Impression Discussion of test interpretation with radiology: I have reviewed the radiologist's reading. Radiologist Impression: FINDINGS: Limited evaluation of the intra-abdominal organs and vascular structures due to lack of IV contrast. LUNG BASES: 1 mm calcified nodule, left lung base likely granuloma. LIVER, GALLBLADDER, AND BILIARY TREE: Liver measures 13 cm. No intrahepatic biliary ductal dilatation. Absent gallbladder likely cholecystectomy. Common bile duct measures 4 mm. PANCREAS: Status post resection of the tail. No peripancreatic fluid collection. No main pancreatic ductal dilatation. SPLEEN: Status post splenectomy. ADRENAL GLANDS: Soft tissue fullness, left adrenal gland measuring 3 Hounsfield units. No nodular lesion. KIDNEYS AND URETERS: Right kidney: 1 mm calcification, upper pole. No hydronephrosis. Left kidney: Few scattered less than 1 mm calcifications in the lower pole. No hydronephrosis. BLADDER: Fluid-filled nearly collapsed. GASTROINTESTINAL TRACT: Numerous diverticula, sigmoid colon. Abundant stool within the large intestine. No intestinal obstruction pattern. Appendix is normal. No pericolonic edema pattern. No pneumoperitoneum. No ascites. No fluid collections, peritoneal cavity. ABDOMINAL WALL: Small fat-containing umbilical hernia and diastases femoral rectus muscles in the periumbilical region. LYMPH NODES: Nonspecific prominent lymph nodes, mesenteric and retroperitoneum. VASCULAR: No aneurysm, abdominal aorta. No gross calcified plaques. PELVIC VISCERA: Heterogeneous nodular uterus with an exophytic 3 cm nodular component on the right side of the fundus. OSSEOUS STRUCTURES: Multilevel thoracolumbar spondylosis more conspicuous at L5-S1 and L1-2 levels. Grade 1 anterolisthesis L4-5. Grade 1 retrolisthesis L5-S1 and L1-2 levels. Fatty atrophy of the lower lumbar muscles. CT/CT abdomen pelvis wo IV con IMPRESSION: Nonobstructing nephrolithiasis, bilaterally. Sigmoid colon diverticulosis. Small fat-containing umbilical hernia. Multilevel thoracolumbar spondylosis more conspicuous at L5-S1 resulting in grade 1 retrolisthesis L5-S1 and L1-2 and grade 1 anterolisthesis L4-5. Probable uterine fibroid. Fleischner guidelines were followed. Electronically signed by: Mario Man MD 10/30/2024 03:30 PM [facility] Discharge Plan Discharge Clinical Impression: Abdominal pain Patient Disposition: Home, Self-Care Instructions: Constipation (ED), High Fiber Diet (ED) Additional Instructions: Your workup in the ER today was reassuring. You have what looks like a uterine fibroid that is 3 cm large and could be the cause of your pain today. You also have a moderate amount of constipation. Take MiraLax every night for the next 2 weeks. Follow up with OBGYN regarding the fibroid Your blood work and urinalysis were quite reassuring Prescriptions: No Action lisinopril 5 mg tablet 5 mg PO DAILY Interventions: ED Discharge Assessment Last Done: 10/30/24 17:40 Discharge Date/Time: 10/30/24 17:40 Print Language: [place]
[2024-10-30 15:04] LABS: MANUAL DIFF FLAG NO
[2024-10-30 15:07] LABS: Basophils Absolute Auto 0.1 X10*3/uL (0.0-0.2); Basophils Percent Auto 0.5 % (0-2); Eosinophils Percent Auto 0.1 % (0-4); Hemoglobin 15.2 g/dl (12.0-16.0); Imm Gran Abs Auto 0.03 X10*3/uL (0.00-0.03); Imm Gran Pct Auto 0.3 % (0.0-0.4); Lymphocytes Absolute Auto 2.4 X10*3/uL (1.2-4.9); Lymphocytes Percent Auto 26.3 % (20-40); Mean Corpuscular HGB Conc 33.8 g/dl (31.0-35.0); Mean Corpuscular Hemoglobin 31.9 pg (27.0-33.0); Mean Corpuscular Volume 94.5 fL (80.0-98.0); Mean Platelet Volume 9.3 fL (9.4-12.3); Monocytes Absolute Auto 0.9 X10*3/uL (0.1-1.2); Monocytes Percent Auto 9.7 % (2-11); Neutrophils Absolute Auto 5.9 x10*3/uL (2.0-8.3); Neutrophils Percent Auto 63.1 % (45-73); Platelet Count 408 X10*3/uL (160-400); Red Blood Count 4.76 X10*6/uL (4.20-5.50); Red Cell Distribution Width 12.4 % (11.0-16.0); White Blood Count 9.3 X10*3/uL (4.8-10.8)
[2024-10-30 15:16] LABS: Appearance Urine Clear; Color Urine Yellow; Glucose Urine UA Negative (Negative); Leukocyte Esterase Urine Negative (Negative); Nitrite Urine Negative (Negative); Specific Gravity - Urine 1.015 (1.005-1.025); Urine Blood Negative (Negative); Urine Ketones Negative (Negative); Urine Protein Negative (Neg-Trace)
[2024-10-30 15:20] LABS: Bacteria Urine None Seen (None Seen); Hyaline Casts Urine 0-2 /LPF (0-2); RBC Urine 0-2 /HPF (0-2); Squamous Epithelial Cell Urine 0-2 /HPF (0-2); WBC Urine 0-5 /HPF (0-5)
[2024-10-30 15:35] LABS: Alanine Aminotransferase 29 U/L (0-31); Albumin Level 4.1 g/dL (3.5-5.0); Anion Gap 14 (12-20); Aspartate Amino Transferase 21 U/L (5-31); Bilirubin Total 0.8 mg/dL (0.0-1.0); Blood Urea Nitrogen 21 mg/dL (9-16); Calcium 9.3 mg/dL (8.4-10.2); Carbon Dioxide 24 mmol/L (22-29); Chloride 105 mmol/L (96-108); Estimated Glomerular Filt Rate > 60; Glucose Random 103 mg/dL (60-115); Lipase 20 U/L (8-78); Potassium 4.6 mmol/L (3.3-5.1); Sodium 138 mmol/L (135-145); Total Protein 8.2 g/dL (6.5-8.0)
[2024-10-30 16:23] LABS: Alkaline Phosphatase 94 U/L (39-117)
[2024-10-30 17:29] VITALS: BP 151/79; PULSE 82; RESP 16; TEMP 37.2; O2SAT 98
[2024-10-30 17:40] VITALS: BP 151/79; PULSE 82; RESP 16; TEMP 37.2; O2SAT 98
--- OUTSIDE RECORDS SUMMARY | 2024-10-30 19:42 | XMS_ITS ---
Author Organization Patrick Maed III, MD Address [address] [place] [address] [address] [place] [place] [address] Care Team Providers Care Software Security Consultant Name Role Phone Patrick Mead Primary Care Provider REASON FOR VISIT left Front abdominal pain Social History Sex Assigned At : Social History Observation Description Sex Assigned At Female Encounters Encounter Location Date Provider Diagnosis Patrick Mead III, MD [address] [place] [address] [place] [address] 10/30/2024 Patrick Mead Plan Of Treatment Next Appt Details Provider Name:Patrick Mead, 12/04/2024 09:00:00 AM, [address] [place] [address] [place], [address], Provider Name:Patrick Mead, 09/08/2025 09:00:00 AM, [address] [place] [address] [place], [address], Progress Notes * Kylee SANCHEZDOB:1960 (63 yo F)Acc No.[id number]:10/30/2024 Patient:?Kylee SANCHEZ :1960???Age:63 Y???Sex:Female Address:[address] [place] [address] * * Date:?
--- OUTSIDE RECORDS SUMMARY | 2024-10-30 19:42 | XMS_ITS ---
Author Organization [facility] Address [address] [address] Care Team Providers Care Economist Research Assistant Name Role Phone SID STRANGE MD Primary Care Provider Unavailab Yoli Obregon Unavailable [phone] Allergies Allergen (clinical drug ingredient) Drug/Non Drug Allergy documented on EMR Reaction Allergy Type Onset Date Status PENICILLIN Skin Rash/Swelling Drug Allergy Active Results Component Value Reference Range Notes Urinalysis Reviewed date:05/15/2024 02:23:16 PM Interpretation: Performing Lab: Notes/Report: PH 5.0 PROTEIN Neg GLUCOSE Neg BLOOD Neg REASON FOR VISIT 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 No Points 0 Interpretation Negative Tobacco Control (Standard) Question Answer Notes Tobacco use: Former smoker How long has it been since you last smoked? Heather ter than 10 years Vital Signs Temperature 98.1 degrees Fahrenheit 05/15/20 24 Blood pressure systolic 128 mm Hg 05/15/20 24 Blood pressure diastolic 80 mm Hg 024 Height 64.5 in 05/15/2024 Weight 190 lbs 05/15/2024 BMI 32.11 kg/m2 05/15/2024 Encounters Encounter Location Date Provider Diagnosis [facility] [address] [address] 05/15/2024 Yoli Legegtt Encounter for gynecological examination (general) (routine) without abnormal findings Z01.419 ; Encounter for screening mammogram for malignant neoplasm of breast Z12.31 and Personal history of malignant neoplasm of breast Z85.3 Assessments Encounter Date Diagnosis (ICD Code) Assessment Notes Treatment Notes Treatment Clinical Notes Section Notes 05/15/2024 Encounter for gynecological examination (general) (routine) without abnormal findings (ICD-10 - Z01.419) NO PAP TEST, DUE IN 2025. 05/15/2024 Encounter for screening mammogram for malignant neoplasm of breast (ICD-10 - Z12.31) REGULAR MAMMOGRAMS AND SBE'S WERE RECOMMENDED. 05/15/2024 Personal history of malignant neoplasm of breast (ICD-10 - Z85.3) CONTINUE FOLLOW UP AT [facility]. Plan Of Treatment Treatment Notes Assessment Notes Encounter for gynecological examination (general) (routine) without abnormal findings NO PAP TEST, DUE IN 2025. Encounter for screening mamm ogram for malignant neoplasm of breast REGULAR MAMMOGRAMS AND SBE'S WERE RECOMMENDED. Personal history of malignan t neoplasm of breast CONTINUE FOLLOW UP AT [facility]. Pending Test Test Name Order Date MAMMOGRAM, SCREENING 05/15/2024 MM Digital Mammo Screening 05/15/2024 Next Appt Details Follow Up: 1 Year, Reason: Provider Name:Yoli malik, 05/20/2025 09:20:00 AM, [address] [place] [address], [address], [place], [address], Progress Notes * DIANA JUDDDOB:1960 (63 yo F)Acc No.[id number]:05/15/2024 PROGRESS NOTES Patient:?DIANA JUDD Appointment Provider:?Yoli malik M.D. :1960???Age:63 Y???Sex:Female D ate:05/15/2024 Address:[address] [place], [place] [id number] Pcp:SID STRANGE MD Subjective: * Chief Complaints: * ??? Annual SAS PROGRAMMER PhysicalAnnua l SAS PROGRAMMER Physical 60-85+ * HPI: ???New/Follow-up Patient Consult:? PAT ENTERED MENOPAUSE IN 2014.? SHE IS NOT SEXUALLY ACTIVE. S/P LEFT LUMPECTOMY FOR DCIS AND LCIS IN 2015.? SHE IS FOLLOWED AT [facility].? NO RECURRENCE. SHE IS BEING WORKED UP FOR POSSIBLE IBS DIARRHEA BY A CLOTH PRINTER IN [place], DR LEZAMA.?? HER LAST MAMMOGRAM DONE IN JANUARY 2024 SHOWED BREASTS ARE NOT DENSE AND WAS NORMAL. HER LAST PAP TEST IN 2022 WAS NEGATIVE AND HPV NEGATIVE. HER LAST BMD IN 2019 SHOWED THE LOWEST T-SCORE TO BE -1.3 AT [facility].? FRAX=6.1%/0.2%. SHE HAD A COLONOSCOPY DONE IN 2020.? HER FATHER HAD COLON CA.? SHE WILL NEED ANOTHER COLONOSCOPY DONE IN 2025. [employer] X 3. ???Annual:? Patient presents for annual exam, ages 60-85, postmenopausal. ?General Health Maintenance:?Current breast complaints:?no breast pain, mass, discharge, or skin changes ?Urinary problems:?patient reports no urinary health problems or bowel health problems ?Calcium intake:?takes adequate calcium via diet and supplementation ?Significant SAS PROGRAMMER problems:?no significant gynecological assistant symptoms or problems * ROS:?general:?no?chest pain.?no?palpitations.?no?headache.?no?cough.?no?shortness of breath.?no?fever.?no?unexplained weight loss.?no?nausea/vomiting.?no?change in bowel movements.?no blood in stool.?no?genitourinary complaints.?no?skin complaints.? * Medical History:? 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 Lt Lumpectomy - Radiation.?Abnormal Pap Smear:?no history of abnormal pap smears.?LMP and menses?Allison 12/2014.? Control:?None.?Colonoscopy?2020, yes 11/2012.?Bone Density:?12/05/19.? * OB History:?Total pregnancies?2.?Total living children?2.?NVD?2.? * Surgical History:?Cholecyste ctomy Colonoscopy Left Breast Biopsy Left Lumpectomy 11/11/2015Pancreatic cystectomy - Benign 05/2016Spleenectomy 2015 * Hospitalization/Major Diagno stic Procedure:?2 [facility]inal Deliveries See Surgical Hx * Family History:?Mother: marti sanabria, well.?Father: 69 yrs, Colon cancer.?Maternal aunt: Lung cancer, (non smoker).? * Social History:?Tobacco Use:?Tobacco Control (Standard)?Tobacco use:?Former smoker ?How long has it been since you last smoked??Greater than 10 years ???Sexual History:?Sexual History?Had sex in the past 12 months (vaginal, oral, or anal)?: Yes, with: Men only, Prevention strategies discussed:: Other.?Details of Sexual History?Are you sexually active??Yes ???Drugs/Alcohol:?Drugs?Have you used drugs other than those for medical reasons in the past 12 months??No ???Miscellaneous:?Children: yes, 2. ?Domestic violence: no. ?Exercise: yes, stationary bike, resistance training. ?Home smoke detector use: yes. ?Living with: spouse. ?Marital status: . ?Natural support system: yes. ?Occupation: Works full-time. ?Sexual abuse: no. ?Sexually active: yes, monogamous relationship. ?Verbal abuse: no. ???Drug/Alcohol:?AUDIT-C (Standard)?Did you have a drink containing alcohol in the past year??No ?Points?0 ?Interpretation?Negative * Medications:?TakingLisinopri l 5 MG Tablet 1 tablet Orally Once a day Medication List reviewed and reconciled with the patientTaking Lisinopril 5 MG Tablet 1 tablet Orally Once a day Medication List reviewed and reconciled with the patient * Allergies:?PENICILLIN: Skin Rash/Swelling - Allergyno[Allergies Verified] Objective: * Vitals:?Ht: 64.5 in, Wt:190l bs, BMI:32.11Index, BP:128/80mm Hg, Temp:98.1F. * Examination: ???General Exam: ?CONSTITUTIONAL:?NECK/THYROID:?RESPIRATORY:?Auscultation: clear to auscultation bilaterally, Respiratory Effort: normal.?CARDIOVASCULAR:?Auscultation: regular rate and rhythm.?BREAST, Right:?BREAST, Left:?GASTROINTESTINAL:?MUSCULOSKELETAL:?SKIN:?NEURO/PSYCH:?Genitourinary: ?EXTERNAL GENITALIA:?VAGINA:?BLADDER:?URETHRA:?CERVIX:?UTERUS:?ADNEXA:?ANUS AND PERINEUM:? Assessment: * Assessment: 1.?Encounter for gynecologic al examination (general) (routine) without abnormal findings - Z01.419???2.?Encounter for screening mammogram for malignant neoplasm of breast - Z12.31???3.?Personal history of malignant neoplasm of breast - Z85.3??? Plan: * Treatment: ? Value Reference Range ?PH 5.0 * ?PROTEIN Neg * ?GLUCOSE Neg * ?BLOOD Neg * D., LADI 05/15/2024 02:21:41 PM EDT > Notes: NO PAP TEST, DUE IN 2025.??2.?Encounter for screening mammogram for malignant neoplasm of breast?Imaging: MM Digital Mammo Screening Notes: REGULAR MAMMOGRAMS AND SBE'S WERE RECOMMENDED.??3.?Personal history of malignant neoplasm of breast? Notes: CONTINUE FOLLOW UP AT [facility].?? * Imaging:? * ?Imaging: MAMMOGRAM, SCR EENING * Procedure Codes:? * Preventive Medicine:? ??YOUR PREVENTIVE WELLNESS PLAN:?Osteoporosis prevention?Calcium, D, strength training.?Breast Cancer Screening (Mammogram):?annually.?Cervical Cancer Screening (Pap Smear):?q 3 years with HPV screen.?Colorectal Cancer Screening:?q 10 years.? * Follow Up:?1 Year * Images: Billing Information: * Visit Code:? 96703 Preventive Care Est Pt. Age 65 and over. * Procedure Codes:? * Sign off status: Completed true * Appointment Provider:?Yoli Leggett M.D. Date:?05/15/2024 Generated for Siddhartha babcock/Yung/Cynthiaitting on:?10/30/2024 07:42 PM EST History and Physical Notes * HPI (History of Present Illness) Category Sub-Category Detail Notes Category Not es New/Follow-up Patient Consult PAT ENTERED MENOPAUSE IN 2014. SHE IS NOT SEXUALLY ACTIVE. S/P LEFT LUMPECTOMY FOR DCIS AND LCIS IN 2015. SHE IS FOLLOWED AT [facility]. NO RECURRENCE. SHE IS BEING WORKED UP FOR POSSIBLE IBS DIARRHEA BY A CLOTH PRINTER IN [place], DR LEZAMA. HER LAST MAMMOGRAM DONE IN JANUARY 2024 SHOWED BREASTS ARE NOT DENSE AND WAS NORMAL. HER LAST PAP TEST IN 2022 WAS NEGATIVE AND HPV NEGATIVE. HER LAST BMD IN 2019 SHOWED THE LOWEST T-SCORE TO BE -1.3 AT [facility]. FRAX=6.1%/0.2%. SHE HAD A COLONOSCOPY DONE IN 2020. HER FATHER HAD COLON CA. SHE WILL NEED ANOTHER COLONOSCOPY DONE IN 2025. [employer] X 3. Annual General Health Maintenance: Current breast complaints:: no breast pain, mass, discharge, or skin changes Urinary problems:: patient r eports no urinary health problems or bowel health problems Calcium intake:: takes adequ ate calcium via diet and supplementation Significant SAS PROGRAMMER problems:: n o significant gynecological assistant symptoms or problems Examination Category Sub-Category Detail Notes Category Not es General Exam CONSTITUTIONAL: General Appearan ce:: alert, in no acute distress, normal, well nourished NECK/THYROID: Thyroid:: normal size and shape Inspection/Palpation:: normal RESPIRATORY: Auscultation: clear to auscultation bilaterally, Respiratory Effort: normal CARDIOVASCULAR: Auscultation: regula r rate and rhythm GASTROINTESTINAL: Hernias:: no hernias present, no inguinal adenopathy Liver and Spleen:: normal Abdomen:: no masses, nontender, nondiste nded MUSCULOSKELETAL: Inspection/Palpation:: no clubb ing, cyanosis, or edema SKIN: Skin:: normal NEURO/PSYCH: Mood/Affect:: normal Orientation:: time , place, person BREAST, Right: Inspection/Palpation :: no discharge, no masses present, no nipple retraction, no skin changes, no skin dimpling, no tenderness, no lymphadenopathy, no axillary mass, no axillary tenderness BREAST, Left: Inspection/Palpation :: no discharge, no masses present, no nipple retraction, no skin changes, no skin dimpling, no tenderness, no lymphadenopathy, no axillary mass, no axillary tenderness Genitourinary EXTERNAL GENITALIA: External Genitalia:: nor mal, no lesions VAGINA: Vagina:: normal appearance, no a bnormal discharge, no lesions BLADDER: Bladder:: no mass, nontender URETHRA: Urethra:: no erythema or lesions present CERVIX: Cervix:: no lesions, nontender UTERUS: Uterus:: nontender, normal conto ur, normal mobility, normal size ADNEXA: Adnexa:: no masses, no tendernes s ANUS AND PERINEUM: Anus/Perineum:: visually norm al
--- OUTSIDE RECORDS SUMMARY | 2024-10-30 19:42 | XMS_ITS ---
Author Organization Patrick Mead III, MD Address [address] [place] [address] [place] [address] Care Team Providers Care Side Show Entertainer Name Role Phone Patrick Mead Primary Care Provider [phone] REASON FOR VISIT Rx Request Social History Sex Assigned At : Social History Observation Description Sex Assigned At Female Encounters Encounter Location Date Provider Diagnosis Patrick Mead III, MD [address] [place] [address] [place] [address] 07/09/2024 Patrick Mead Plan Of Treatment Next Appt Details Provider Name:Patrick Mead, 12/04/2024 09:00:00 AM, [address] [place] [address] [place], [address], Provider Name:Patrick Mead, 09/08/2025 09:00:00 AM, [address] [place] [address] [place], [address], Progress Notes * Kylee SANCHEZDOB:1960 (63 yo F)Acc No.[id number]:07/09/2024 Patient:?Lexa SANCHEZna :1960???Age:63 Y???Sex:Female Address:[address] [place] [address] * true * Date:? Generated for Printi ng/Fabridgetteg/eTransmitting on:?10/30/2024 07:42 PM EST
--- OUTSIDE RECORDS SUMMARY | 2024-10-30 19:43 | XMS_ITS ---
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 :1960???Age:63 Y???Sex:Female D ate:02/29/2024 Address:[address] [place], [place] [id number] Pcp:SID STRANGE MD Subjective: * Chief Complaints: * ???1. 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 * Medical History:? Objective: * Vitals:? Assessment: Plan: * Treatment: * Images: Billing Information: * Visit Code:? * Procedure Codes:? * Electronic signature of Sofia Leggett MD on 10/30/2024 at 07:42 PM EST Sign off status: Pending * Appointment Provider:?Yloi Leggett M.D. Date:?02/29/2024 Generated for Siddhartha babcock/Yung/Dang on:?10/30/2024 07:42 PM EST
--- OUTSIDE RECORDS SUMMARY | 2024-10-30 19:43 | XMS_ITS | Patient Health Record ---
Author Organization [email or web address] [facility] Address [address] [facility] [address] [place] [address] Care Team Providers Care Appliance Counselor Name Role Phone SID STRANGE MD Primary Care Provider Unavailab Yoli Obregon Unavailable [phone] Allergies Allergen (clinical drug ingredient) Drug/Non Drug Allergy documented on EMR Reaction Allergy Type Onset Date Status PENICILLIN Skin Rash/Swelling Drug Allergy Active Results Component Value Reference Range Notes Urinalysis Reviewed date:05/15/2024 02:23:16 PM Interpretation: Performing Lab: Notes/Report: PH 5.0 PROTEIN Neg GLUCOSE Neg BLOOD Neg Reason For Referral No Information Medications Medication SIG (Take, Route, Fr equency, [...] last smoked? 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 Problem Personal history of primary malignant neoplasm of breast (888390773) Personal history of malignant neoplasm of breast (Z85.3) Active confirmed Problem Benign essential hypertension (3835665) Essential hypertension, benign (401.1) Active confirmed Major Problem Esophageal reflux (749262088) Esophageal reflux (530.81) Active confirmed Major Problem Crohn's disease (34753731) Regional enteritis of unspecified site (555.9) Active confirmed Major Problem Irritable bowel syndrome (13562316) Irritable bowel syndrome (564.1) Active confirmed Major Problem Menopausal symptom (78815979) Symptomatic menopausal or female climacteric states (627.2) Active confirmed Major Problem Gynecological examination normal (046615544038400) Routine gynecological examination (V72.31) Active confirmed Major Problem Screening for malignant neoplasm of colon (710363471) Special screening for malignant neoplasms, colon (V76.51) Active confirmed Major Vital Signs Temperature 98.1 degrees Fahrenheit 05/15/2024 Blood pressure diastolic 80 mm Hg 05/15/2024 Height 64.5 in 05/15/2024 Blood pressure systolic 128 mm Hg 05/15/2024 Weight 190 lbs 05/15/2024 BMI 32.11 kg/m2 05/15/2024 Encounters Encounter Location Date Provider Diagnosis [address] [place] [address] 05/15/2024 Yoli Leggett Encounter for gynecological examination (general) (routine) without [...] (ICD-10 - Z85.3) CONTINUE FOLLOW UP AT [facility]. Plan Of Treatment Pending Test Test Name Order Date MAMMOGRAM, SCREENING 02/27/2023 MAMMOGRAM, SCREENING 05/15/2024 Urinalysis 10/09/2019 Urinalysis 10/14/2021 DIAGNOSTIC MAMMOGRAM, LEFT BREAST 2015 BONE DENSITY 08/16/2018 MM Digital Mammo Screening 10/09/2019 MM Digital Mammo Screening 01/26/2016 MM Digital Mammo Screening 06/26/2017 MM Digital Mammo Screening 02/27/2023 MM Digital Mammo Screening 10/11/2020 MM Digital Mammo Screening 10/14/2021 MM Digital Mammo Screening 05/15/2024 Next Appt Details Provider Name:Yoli malik, 05/20/2025 09:20:00 AM, [address] [facility], [address], [place], [address], Insurance Providers Payer Name Payer Address Payer Phone Subscriber Number Group Number Insured Name Patient Relationship to Insured Coverage Start Date Coverage End Date [employer] [place] [address] [place] [address] [phone] [id number] VIOLA JUDD Spouse - patient is the spouse of the insured Medical (General) History Medical History History ICD Code Crohn's disease, unspecified, with unspe cified complications K50.919 Gastro-esophageal reflux disease without esophagitis K21.9 Essential (primary) hypertension I10 Irritable bowel syndrome without diarrhe a K58.9 Menopausal and female climacteric states N95.1 Pancreatic cyst Liver cyst 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
--- OUTSIDE RECORDS SUMMARY | 2024-10-30 19:43 | XMS_ITS ---
Author Organization Patrick Mead III, MD Address [address] [place] [address] [place] [address] Care Team Providers Care Pigment Pumper Name Role Phone Patrick Mead Primary Care Provider [phone] Allergies Allergen (clinical drug ingredient) Drug/Non Drug [...] Problem Status W/U Status Risk Notes Problem [id number] Lactose intolerance (E73.9) Active confirmed Vital Signs Temperature 97.7 degrees Fahrenheit 09/05/20 24 Blood pressure systolic 141 mm Hg 09/05/20 24 Blood pressure diastolic 77 mm Hg 024 Heart Rate 81 /min 09/05/2024 Height 65 in 09/05/2024 Weight 188 lbs 09/05/2024 BMI 31.28 kg/m2 09/05/2024 Encounters Encounter Location Date Provider Diagnosis Patrick Mead III, MD [address] [place] [address] [place] [address] 09/05/2024 Patrick Mead Benign cystic mucino us [...] TAKE 1 TABLET BY MOUTH EVERY DAY Pending Test Test Name Order Date PROFILE, FASTING (COMPREHENSIVE METABOLI C) 09/05/2024 CARBOHYDRATE ANTIGEN 19-9 (CA 19-9) 03/2024 CBC WITH AUTO DIFF 09/05/2024 Lipid Panel 09/05/2024 Immunoglobulin A 09/05/2024 Next Appt Details Follow Up: 3 Months, November, Reason: OV, Routine check-up Provider Name:Patrick Olverarne, 12/04/2024 09:00:00 AM, [address] [facility] [address] [place], [place], [address], Provider Name:Patrick Mead, 09/08/2025 09:00:00 AM, [address] [place] [address] [address], [place], [address], Progress Notes * Kylee SANCHEZDOB:1960 (63 yo F)Acc No.[id number]:09/05/2024 Progress Notes Patient:?Kylee SANCHEZ Provider:?Patrick Mead MD :1960???Age:63 Y???Sex:Female D ate:09/05/2024 Address:[address] [place], [place] [id number] Subjective: * Chief Complaints: * ???Annual Exam * HPI: ???Depression Screening:?PHQ-9?Little interest or pleasure in doing things?Not at all ?Feeling down, depressed, or hopeless?Not at all ?Trouble falling or staying asleep, or sleeping too much?Not at all ?Feeling tired or having little energy?Not at all ?Poor appetite or overeating?Not at all ?Feeling bad about yourself or that you are a failure, or have let yourself or your family down?Not at all ?Trouble concentrating on things, such as reading the newspaper or watching television?Not at all ?Moving or speaking so slowly that other people could have noticed; or the opposite, being so fidgety or restless that you have been moving around a lot more than usual?Not at all ?Thoughts that you would be better off or of hurting yourself in some way?Not at all ?Total Score?0 ???COVID-19 Screening:?Questions?Have you experienced fever, chills, cough, sore throat, shortness of breath, difficulty breathing, muscle aches, loss of taste or smell??No ?Have you been exposed to the virus within the last 10 days??No ?Have you travelled internationally in the last 10 days??No ?Have you been exposed to COVID-19 in the past??No ???SDOH Questions:?SDOH Questions?In the past year have you been worried about losing your housing??No ?In the past year have you or any family members you live with been unable to get any of the following when it was really needed? Check all that apply:?None ???:?The patient, a 63-year-old female, has been diagnosed [...] a surgery in 2016, performed by Dr. Aguila.? This was a partial pancreatectomy.? Her CA-19-9 recently is 8.? Her blood work is unremarkable.? She had a colonoscopy very recently that did not show polyps or helicobacter.? Small bowel biopsy showed an excess of lymphocytes.? Intraoperative weight loss.? She conducts breast self-examination regularly and has had no new findiings.? Her examination today was normal. * ROS:?General/Constitutional:?pain?only normal aches and pains.?Chills?denies.?Fatigue?admits.?Fever?denies.?ENT:?Decreased hearing?denies.?Respiratory:?Cough?denies.?Cardiovascular:?Chest pain with exertion?denies.?Dyspnea on exertion?denies.?Shortness of breath?denies.?Gastrointestinal:?Constipation?occasional.?Decreased appetite?denies.?Diarrhea?denies.?Heartburn?denies.?Nausea?denies.?Rectal bleeding?denies.?Vomiting?denies.?Hematology:?bruising?denies.?petechiae?denies.?Swollen glands?none have been noted.?Genitourinary:?Frequent urination?denies.?Musculoskeletal:?Muscle aches?denies.?Painful joints?denies.?Sciatica?denies.?Weakness?denies.?Skin:?Itching?denies.?Rash?denies.?Skin lesion(s)?denies.?Neurologic:?Difficulty speaking?denies.?Dizziness?denies.?Headache?denies.?Low back pain?denies.?Psychiatric:?Depressed mood?denies.? * Medical History:? * Surgical History:?stereotact ic biopsy upper outer quadrant left breast 10/29/2015lumpectomy left breast and sentinel node sampling 11/11/2015Subtotal pancreatectomy for cystic mucinous neoplasm 2015 [facility] - surgery performed by Dr. Lundberg * Hospitalization/Major Diagno stic Procedure:?Denies Past Hospitalization * Family History:?Father: dece ased 69 yrs, colon cancer, diabetes mellitus, hypertension, diagnosed with DM, HTN, Cancer.?Mother: alive 74 yrs, arrhythmia,diverticullitis.?Spouse: alive.?2 sister(s) - healthy. 1 son(s) , 1 daughter(s) - healthy. .? Thfere is a history of breast cancer in a maternal aunt, father had colon cancer, none of rectal or prostate cancer, grandfather had pancreatic cancer. She is not aware of any family history of substance use disorder, addiction or mental illness. * Social History:?Tobacco Use:?Tobacco Use/Smoking?Patient is a?former smoker ?How long has it been since you last smoked??> 10 years ?Additional Findings: Tobacco Non-User?Ex-cigarette smoker ?Tobacco Control (Standard)?Tobacco use:?Former smoker ?How long has it been since you last smoked??Greater than 10 years ?Additional Findings: Tobacco non-user?Ex-cigarette smoker ???Drugs/Alcohol:?Drugs?Have you used drugs other than those for medical reasons in the past 12 months??No ???Drug/Alcohol:?AUDIT-C (Standard)?Did you have a drink containing alcohol in the past year??No ?Points?0 ?Interpretation?Negative ???She was born in [place] and has been for 29 years to [place].They have two children. [employer] ([email or web address]). * Medications:?TakingLisinopri l 5 MG Tablet TAKE 1 TABLET BY MOUTH EVERY DAY Medication List reviewed and reconciled with the patientTaking Lisinopril 5 MG Tablet TAKE 1 TABLET BY MOUTH EVERY DAY Medication List reviewed and reconciled with the patient * Allergies:?PenicillinGluten: rashno[Allergies Verified] Objective: * Vitals:?Ht: 65, Wt: 188, BMI :31.28, BP: 141/77, HR: 81, Temp: 97.7, Wt-k.28. * ???Past Orders: Lab:Complete Blood Count Aut o Diff [...] 12.3 (Ref Range: 11.0-16.0 %) Platelet Count 407?H (Ref Range: 160-400 X10*3/uL) 420?H (Ref Range: 160-400 X10*3/uL) 418?H (Ref Range: 160-400 X10*3/uL) Mean Platelet Volume 9.3?L (Ref Range: 9.4-12.3 fL) 9.4 (Ref Range: 9.4-12.3 fL) 9.5 (Ref Range: 9.4-12.3 fL) Neutrophils Percent Auto 52.7 (Ref Range: 45-73 %) 40.9?L (Ref Range: 45-73 %) 47.4 (Ref Range: 45-73 %) Imm Gran Pct Auto 0.2 (Ref Range: 0.0-0.4 %) 0.2 (Ref Range: 0.0-0.4 %) 0.0 (Ref Range: 0.0-0.4 %) Lymphocytes Percent Auto 35.2 (Ref Range: 20-40 %) 45.6?H (Ref Range: 20-40 %) 38.8 (Ref Range: 20-40 %) Monocytes Percent Auto 9.4 (Ref Range: 2-11 %) 10.6 (Ref Range: 2-11 %) 11.2?H (Ref Range: 2-11 %) Eosinophils Percent Auto [...] Bilirubin Total 1.0 (Ref Range: 0.0-1.0 mg/dL) 1.3?H (Ref Range: 0.0-1.0 mg/dL) 1.1?H (Ref Range: 0.0-1.0 mg/dL) Aspartate Amino Transferase [...] 27 (Ref Range: 22-29 mmol/L) Anion Gap 9?L (Ref Range: 12-20) 13 (Ref Range: 12-20) 13 (Ref Range: 12-20) Blood Urea Nitrogen 16 (Ref Range: 9-16 mg/dL) 15 (Ref Range: 9-16 mg/dL) 14 (Ref Range: 9-16 mg/dL) Creatinine 0.79 (Ref Range: 0.5-1.4 mg/dL) 0.73 (Ref Range: 0.5-1.4 mg/dL) 0.81 (Ref Range: 0.5-1.4 mg/dL) Estimated Glomerular Filt Rate > 60 > 60 > 60 Glucose Fasting 112?H (Ref Range: 60-99 mg/dL) 108?H (Ref Range: 60-99 mg/dL) 111?H (Ref Range: 60-99 mg/dL) Calcium 9.1 (Ref [...] Time - 06/09/2024 08:58 AM) * Examination: ???General Examination: ?GENERAL APPEARANCE:?pleasant, well nourished, well developed, in no acute distress, calm and relaxed, obese, woman.?HEAD:?atraumatic, normocephalic.?EYES:?eomi, perrla, anicteric, conjugate.?EARS:?normal.?NOSE:?septum intact.?ORAL CAVITY:?normal, unremarkable.?NECK/THYROID:?no jugular venous distention, no carotid bruit, thyroid normal.?LYMPH NODES:?no enlarged lymph nodes,spleen normal.?SKIN:?no suspicious lesions, anicteric.?HEART:?no clicks, gallops, murmurs, or rubs, regular rhythm, S1, S2 normal, no s3, or vascular bruits.?LUNGS:?clear to auscultation .?BREASTS:?no masses palpable bilaterally, no dimpling, no discharge, no drainage, nontender, symmetrical, Healed scars? left breast.?ABDOMEN:?bowel sounds normal, no ascites, no organomegaly, no mass, Healed surgical scar mid abdomen.?RECTAL EXAM:?not examined.?MUSCULOSKELETAL:?extremities unremarkable, no clubbing, cyanosis or edema.?PERIPHERAL PULSES:?normal.?NEUROLOGIC:?alert and oriented, cranial nerves 2-12 grossly intact, deep tendon reflexes 2+ symmetrical, motor strength normal upper and lower extremities, sensory exam intact.?PSYCH:?alert, oriented, cognitive function intact, thought process logical, goal directed, speech clear.? Assessment: * Assessment: 1.?Essential (primary) hyper tension - I10 (Primary)???Notes :Her blood pressure today was 141/77 which is slightly elevated.? She was given an appointment to return to the office in near future to check it again.? 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 There is no sign of relapse or new primary.? The pancreatic remnant is functioning well.???3.?Hyperlipidemia type II - E78.01???Notes :Her lipids have been stable and no change in her regimen was???4.?Former smoker - Z87.891???Notes :She is highly motivated not to smoke. We discussed strategies for maintenance of abstinence in times of stress.???5.?Crohn's disease of colon with abscess - K50.114???Notes :She is had no recent activity from the Crohn's disease. 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 Her last examination was unremarkable. She was continued on her current therapy.??? Plan: * Treatment: 2.?Benign cystic mucinous tu mor?LAB: PROFILE, FASTING (COMPREHENSIVE METABOLIC) ?LAB: CARBOHYDRATE ANTIGEN 19-9 (CA 19-9) ?LAB: CBC WITH AUTO DIFF ?LAB: Lipid Panel ?LAB: Immunoglobulin A 3.?Hyperlipidemia type II?LAB: PROFILE, FASTING (COMPREHENSIVE METABOLIC) ?LAB: CARBOHYDRATE ANTIGEN 19-9 (CA 19-9) ?LAB: CBC WITH AUTO DIFF ?LAB: Lipid Panel ?LAB: Immunoglobulin A 4.?Others? Continue Lisinopril Tablet, 5 MG, TAKE 1 TABLET BY MOUTH EVERY DAY.?? * Procedure Codes:? * Preventive Medicine:? ??Counseling:?Care goal follow-up plan:?Counseling for abnormal BMI given?Yes ?Above Normal BMI Follow-up?Dietary management education, guidance, and counseling, Dietary needs education, Exercise promotion: strength training, Exercise promotion: stretching, Feeding regime, Giving encouragement to exercise, Lifestyle education regarding diet, Nutrition / feeding management, Nutrition therapy, Prescribed activity/exercise education, Prescribed diet education, Prescribed dietary intake, Special diet education, Weight monitoring , Intervention, Order not done: Medical or Other reason not done ?Smoking/Tobacco Use?Patient counseled on the dangers of tobacco use and urged to quit.?09/05/2024 * Follow Up:?3 Months, November ( Reason: OV, Routine check-up) * Images: * Sign off status: Completed true * Provider:?Patrick Mead MD Date:?03/2024 Generated for [employer] yoko/Yung/eTransmitting on:?10/30/2024 07:43 PM EST History and Physical Notes * [...] days?: No Have you travelled internationally in e last 10 days?: No Have you been [...]
== END 2024-10-30 17:40 | disposition home or self-care (01) ==
PROVIDERS: Physician Assistant; Emergency Provider Emergency Medicine; PCP Internal Medicine Medical Oncology
DX: R10.31 Right lower quadrant pain (principal); R39.15 Urgency of urination; Z87.442 Personal history of urinary calculi; Z87.891 Personal history of nicotine dependence
CPT/HCPCS: 36415; 74176; 80053; 81001; 83690; 85025; 99282; 99284

== ENCOUNTER → 2024-10-30 14:48 | Outpatient (BNV) | payer BC, SELFPAY | PROVIDERS: PCP Internal Medicine Medical Oncology; Visit Provider Radiology Diagnostic Radiology | DX: N20.0 Calculus of kidney (principal); K57.30 Diverticulosis of large intestine without perforation or abscess without bleeding; K42.9 Umbilical hernia without obstruction or gangrene; M47.897 Other spondylosis, lumbosacral region; M43.16 Spondylolisthesis, lumbar region | CPT/HCPCS: 74176 ==

== ENCOUNTER 2024-11-29 08:05 | Outpatient (REF) | payer BC, SELFPAY ==
--- OUTSIDE RECORDS SUMMARY | 2024-11-29 08:08 | XMS_ITS ---
Author Organization [facility] Address [address] [address] Care Team Providers Care Electronic Masking System Operator Name Role Phone SID STRANGE MD Primary Care Provider Unavailab Yoli Obregon Unavailable [phone] Allergies Allergen (clinical drug ingredient) Drug/Non Drug Allergy documented on EMR Reaction Allergy Type Onset Date Status PENICILLIN Skin Rash/Swelling Drug Allergy Active Results Component Value Reference Range Notes Urinalysis Reviewed date:05/15/2024 02:23:16 PM Interpretation: Performing Lab: Notes/Report: PH 5.0 PROTEIN Neg GLUCOSE Neg BLOOD Neg REASON FOR VISIT Annual RESEARCH KENNEL SUPERVISOR Physical, Annual RESEARCH KENNEL SUPERVISOR Physical 60-85+ Medications Medication SIG (Take, Route, [...] 05/15/2024 Encounters Encounter Location Date Provider Diagnosis [facility] [employer] [facility] [address] [address] 05/15/2024 Yoli Leggett Encounter for gynecological examination [...] (ICD-10 - Z85.3) CONTINUE FOLLOW UP AT [facility]. Plan Of Treatment Treatment Notes Assessment Notes Encounter for gynecological examination (general) (routine) without abnormal findings NO PAP TEST, DUE IN 2025. Encounter for screening mamm ogram for malignant neoplasm of breast REGULAR MAMMOGRAMS AND SBE'S WERE RECOMMENDED. Personal history of malignan t neoplasm of breast CONTINUE FOLLOW UP AT [facility]. Pending Test Test Name Order Date MAMMOGRAM, SCREENING 05/15/2024 MM Digital Mammo Screening 05/15/2024 Next Appt Details Follow Up: 1 Year, Reason: Provider Name:Yoli malik, 05/20/2025 09:20:00 AM, [address] [place] [address], [address], [place], [address], Progress Notes * DIANA JUDDDOB:1960 (63 yo F)Acc No.[id number]:05/15/2024 PROGRESS NOTES Patient:?DIANA JUDD Appointment Provider:?Yoli malik M.D. :1960???Age:63 Y???Sex:Female D ate:05/15/2024 Address:[address] [place], [place] [phone] Pcp:SID STRANGE MD Subjective: * Chief Complaints: * ??? Annual RESEARCH KENNEL SUPERVISOR PhysicalAnnua l RESEARCH KENNEL SUPERVISOR Physical 60-85+ * HPI: ???New/Follow-up Patient Consult:? PAT ENTERED MENOPAUSE IN 2014.? SHE IS NOT SEXUALLY ACTIVE. S/P LEFT LUMPECTOMY FOR DCIS AND LCIS IN 2015.? SHE IS FOLLOWED AT [facility].? NO RECURRENCE. SHE IS BEING WORKED UP FOR POSSIBLE IBS DIARRHEA BY A PRINTING PLATE MAKER IN [place], DR LEZAMA.?? HER LAST MAMMOGRAM DONE IN [...] adequate calcium via diet and supplementation ?Significant RESEARCH KENNEL SUPERVISOR problems:?no significant adhesive primer symptoms or problems * ROS:?general:?no?chest pain.?no?palpitations.?no?headache.?no?cough.?no?shortness of breath.?no?fever.?no?unexplained weight loss.?no?nausea/vomiting.?no?change in bowel movements.?no blood in stool.?no?genitourinary complaints.?no?skin complaints.? * Medical History:? * Mohs Surgeon/General Dermatologist History:?/ Para?2/2.?Sexual activity?currently sexually active.?Last Pap Smear:?02/27/23 NIL, NEG HPV, 10/23/19 NIL, NEG HPV, 10/09/19 No Interpretation Possible, 01/26/2016, neg, NEG HRHPV.?Mammogram:?01/2024 [place], 01/31/23 < 50% density, 12/2020, 12/02/18 Diagnostic < 50% density, 11/2017, 11/2016 normal, 10/09/2015 50-75% density, additional views Lt Breast with Breast Bx Malignant. Lt Lumpectomy - Radiation.?Abnormal Pap Smear:?no history of abnormal pap smears.?LMP and menses?[place] 12/2014.? Control:?None.?Colonoscopy?2020, yes 11/2012.?Bone Density:?12/05/19.? * OB [...] BP:128/80mm Hg, Temp:98.1F. * Examination: ???General Exam: ?CONSTITUTIONAL:?General Appearance:?alert, in no acute distress, normal, well nourished ?NECK/THYROID:?Inspection/Palpation:?normal ?Thyroid:?normal size and shape ?RESPIRATORY:?Auscultation: clear to auscultation bilaterally, Respiratory Effort: normal.?CARDIOVASCULAR:?Auscultation: regular rate and rhythm.?BREAST, Right:?Inspection/Palpation:?no discharge, no masses present, no nipple retraction, no skin changes, no skin dimpling, no tenderness, no lymphadenopathy, no axillary mass, no axillary tenderness ?BREAST, Left:?Inspection/Palpation:?no discharge, no masses present, no nipple retraction, no skin changes, no skin dimpling, no tenderness, no lymphadenopathy, no axillary mass, no axillary tenderness ?GASTROINTESTINAL:?Abdomen:?no masses, nontender, nondistended ?Liver and Spleen:?normal ?Hernias:?no hernias present, no inguinal adenopathy ?MUSCULOSKELETAL:?Inspection/Palpation:?no clubbing, cyanosis, or edema ?SKIN:?Skin:?normal ?NEURO/PSYCH:?Orientation:?time , place, person ?Mood/Affect:?normal?Genitourinary: ?EXTERNAL GENITALIA:?External Genitalia:?normal, no lesions ?VAGINA:?Vagina:?normal appearance, no abnormal discharge, no lesions ?BLADDER:?Bladder:?no mass, nontender ?URETHRA:?Urethra:?no erythema or lesions present ?CERVIX:?Cervix:?no lesions, nontender ?UTERUS:?Uterus:?nontender, normal contour, normal mobility, normal size ?ADNEXA:?Adnexa:?no masses, no tenderness ?ANUS AND PERINEUM:?Anus/Perineum:?visually normal??? Assessment: * Assessment: 1.?Encounter for gynecologic al examination (general) (routine) without abnormal findings - Z01.419???2.?Encounter for screening mammogram for malignant neoplasm of breast - Z12.31???3.?Personal history of malignant neoplasm of breast - Z85.3??? Plan: * Treatment: ? Value Reference Range ?PH 5.0 * ?PROTEIN Neg * ?GLUCOSE Neg * ?BLOOD Neg * DLADI Damon 05/15/2024 02:21:41 PM EDT > Notes: NO PAP TEST, DUE IN 2025.??2.?Encounter for screening mammogram for malignant neoplasm of breast?Imaging: MM Digital Mammo Screening Notes: REGULAR MAMMOGRAMS AND SBE'S WERE RECOMMENDED.??3.?Personal history of malignant neoplasm of breast? Notes: CONTINUE FOLLOW UP AT [facility].?? * Imaging:? * ?Imaging: MAMMOGRAM, SCR EENING * Procedure Codes:? * Preventive Medicine:? ??YOUR PREVENTIVE WELLNESS PLAN:?Osteoporosis prevention?Calcium, D, strength training.?Breast Cancer Screening (Mammogram):?annually.?Cervical Cancer Screening (Pap Smear):?q 3 years with HPV screen.?Colorectal Cancer Screening:?q 10 years.? * Follow Up:?1 Year * Images: Billing Information: * Visit Code:? [id number] Preventive Care Est Pt. Age 65 and over. * Procedure Codes:? * Sign off status: Completed true * Appointment Provider:?Yoli Leggett M.D. Date:?05/15/2024 Generated for Siddhartha babcock/Yung/eTransmitting on:?11/29/2024 08:08 AM EST History and Physical Notes * HPI (History of Present Illness) Category Sub-Category Detail Notes Category Not es New/Follow-up Patient Consult PAT ENTERED MENOPAUSE IN 2014. SHE IS NOT SEXUALLY ACTIVE. S/P LEFT LUMPECTOMY FOR DCIS AND LCIS IN 2015. SHE IS FOLLOWED AT [facility]. NO RECURRENCE. SHE IS BEING WORKED UP FOR POSSIBLE IBS DIARRHEA BY A PRINTING PLATE MAKER IN [place], DR LEZAMA. HER LAST MAMMOGRAM DONE IN [...] COLONOSCOPY DONE IN 2025. PFIZER X 3. Annual General Health Maintenance: Current breast complaints:: no breast pain, mass, discharge, or skin changes Urinary problems:: patient r eports no urinary health problems or bowel health problems Calcium intake:: takes adequ ate calcium via diet and supplementation Significant RESEARCH KENNEL SUPERVISOR problems:: n o significant adhesive primer symptoms or problems Examination Category Sub-Category Detail [...]
--- OUTSIDE RECORDS SUMMARY | 2024-11-29 08:08 | XMS_ITS ---
Author Organization Patrick Mead III, MD Address [address] [place] [address] [address] [facility] [place] [address] Care Team Providers Care Culinary Worker Name Role Phone Patrick Mead Primary Care Provider REASON FOR VISIT left Front abdominal pain Social History Sex Assigned At : Social History Observation Description Sex Assigned At Female Encounters Encounter Location Date Provider Diagnosis Patrick Mead III, MD [address] [place] [address] [place] [address] 10/30/2024 Patrick Mead Plan Of Treatment Next Appt Details Provider Name:Patrick Mead, 12/04/2024 09:00:00 AM, [address] [place] [address] [address] [facility] [place], [address], Provider Name:Patrick Mead, 09/08/2025 09:00:00 AM, [address] [place] [address] [place], [address], Progress Notes * Kylee SANCHEZDOB:1960 (63 yo F)Acc No.[id number]:10/30/2024 Patient:?Kylee SANCHEZ :1960???Age:63 Y???Sex:Female Address:[address] [place] [address] * true * Date:? Generated for Printi ng/Fabridgetteg/eTransmitting on:?11/29/2024 08:08 AM EST
--- OUTSIDE RECORDS SUMMARY | 2024-11-29 08:09 | XMS_ITS ---
Author Organization [employer] [facility] Address [address] [place] [address] [address] [place] [address] Care Team Providers Care Tire Installer Name Role Phone SID STRANGE MD Primary Care Provider Unavailab Yoli Obregon Unavailable [phone] REASON FOR VISIT Annual STABILIZER OPERATOR Physical Encounters Encounter Location Date Provider Diagnosis [facility] [employer] [address] [address] 02/29/2024 Yoli Leggett Plan Of Treatment Next Appt Details Provider Name:Yoli malik, 05/20/2025 09:20:00 AM, [address] [place] [address], [address], [place], [address], Progress Notes * DIANA JUDDDOB:1960 (64 yo F)Acc No.[id number]:02/29/2024 PROGRESS NOTES Patient:?MAJOR JUDDNA Appointment Provider:?Yoli malik M.D. :1960???Age:63 Y???Sex:Female D ate:02/29/2024 Address:[address] [place], [place] [phone] Pcp:SID STRANGE MD Subjective: * Chief Complaints: * ???1. Annual STABILIZER OPERATOR Physical. * Medical History:? Objective: * Vitals:? Assessment: Plan: * Treatment: * Images: Billing Information: * Visit Code:? * Procedure Codes:? * Electronic signature of Sofia Leggett MD on 11/29/2024 at 08:09 AM EST Sign off status: Pending * Appointment Provider:?Yoli Leggett M.D. Date:?02/29/2024 Generated for Siddhartha babcock/Yung/Dang on:?11/29/2024 08:09 AM EST
--- OUTSIDE RECORDS SUMMARY | 2024-11-29 08:09 | XMS_ITS ---
Author Organization Patrick Mead III, MD Address [address] [place] [address] [place] [address] Care Team Providers Care Metaphysician Name Role Phone Patrick Mead Primary Care Provider Allergies Allergen (clinical drug [...] Problem Status W/U Status Risk Notes Problem [id number] Lactose intolerance (E73.9) Active confirmed Vital Signs Temperature 97.7 degrees Fahrenheit 09/05/20 24 Blood pressure systolic 141 mm Hg 09/05/20 24 Blood pressure diastolic 77 mm Hg 024 Heart Rate 81 /min 09/05/2024 Height 65 in 09/05/2024 Weight 188 lbs 09/05/2024 BMI 31.28 kg/m2 09/05/2024 Encounters Encounter Location Date Provider Diagnosis Patrick Mead III, MD [address] [place] [address] [place] [address] 09/05/2024 Patrick Mead Benign cystic mucino us [...] DAY Pending Test Test Name Order Date CARBOHYDRATE ANTIGEN 19-9 (CA 19-9) 03/2024 Lipid Panel 09/05/2024 Immunoglobulin A 09/05/2024 Next Appt Details Follow Up: 3 Months, November, Reason: OV, Routine check-up Provider Name:Patrick Mead, 12/04/2024 09:00:00 AM, [address] [facility] [address], [place], [address], Provider Name:Patrick Mead, 09/08/2025 09:00:00 AM, [address] [facility] [address], [place], [address], Progress Notes * Kylee SANCHEZDOB:1960 (63 yo F)Acc No.[id number]:09/05/2024 Progress Notes Patient:?Lexa SANCHEZna Provider:?Patrick Mead MD :1960???Age:63 Y???Sex:Female D ate:09/05/2024 Address:[address] [place], [place] [address] Subjective: * Chief Complaints: * ???Annual Exam [...] 11/11/2015Subtotal pancreatectomy for cystic mucinous neoplasm 2015 [facility] - surgery performed by Dr. Lundberg [...] year??No ?Points?0 ?Interpretation?Negative ???She was born in [place] and has been for 29 years to Dennis.They have two children. [employer] [facility] * Medications:?TakingLisinopri l 5 MG Tablet TAKE 1 TABLET BY MOUTH EVERY DAY Medication List reviewed and reconciled with the patientTaking Lisinopril 5 MG Tablet TAKE 1 TABLET BY MOUTH EVERY DAY Medication List reviewed and reconciled with the patient * Allergies:?PenicillinGluten: seanno[Allergies Verified] Objective: * Vitals:?Ht: 65, Wt: 188, [...] * Provider:?Patrick Mead MD Date:?03/2024 Generated for Siddhartha babcock/Yung/eTransmitting on:?11/29/2024 08:09 AM EST History and Physical Notes * [...]
--- OUTSIDE RECORDS SUMMARY | 2024-11-29 08:10 | XMS_ITS ---
Author Organization Patrick Mead III, MD Address [address] [place] [address] [place] [address] Care Team Providers Care Voice Coach Name Role Phone Patrick Mead Primary Care Provider REASON FOR VISIT Message Social History Sex Assigned At : Social History Observation Description Sex Assigned At Female Encounters Encounter Location Date Provider Diagnosis Patrick Mead III, MD [address] [place] [address] [place] [address] 11/05/2024 Patrick Mead Ductal carcinoma in situ [...] type (ICD-10 - E78.5) Plan Of Treatment Pending Test Test Name Order Date CARBOHYDRATE ANTIGEN 19-9 (CA 19-9) 01/2025 Lipid Panel 11/05/2024 Immunoglobulin A 11/05/2024 Next Appt Details Provider Name:Patrick Mead, 12/04/2024 09:00:00 AM, [address] [place] [address] [place], [address], Provider Name:Patrick Mead, 09/08/2025 09:00:00 AM, [address] [place] [address] [address], [place], [address], Progress Notes * Kylee SANCHEZDOB:1960 (63 yo F)Acc No.[id number]:11/05/2024 Patient:?Kylee SANCHEZ :1960???Age:63 Y???Sex:Female Address:[address] [place] [address] Subjective: * Chief Complaints: * ???Message * Medical History:? * Surgical History:? * Hospitalization/Major Diagno stic Procedure:? * Medications:? Objective: * Vitals:? * Physical Examination:? 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 Plan: * Treatment: 2.?Crohn's disease of colon with abscess?LAB: CARBOHYDRATE ANTIGEN 19-9 (CA 19-9) ?LAB: Lipid Panel ?LAB: Immunoglobulin A 3.?Hyperlipidemia, unspecifi ed hyperlipidemia type?LAB: CARBOHYDRATE ANTIGEN 19-9 (CA 19-9) ?LAB: Lipid Panel ?LAB: Immunoglobulin A * Procedure Codes:? * true * Date:? Generated for Siddhartha babcock/Yung/eTransmitting on:?11/29/2024 08:09 AM EST
--- OUTSIDE RECORDS SUMMARY | 2024-11-29 08:10 | XMS_ITS | Patient Health Record ---
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 Problem Personal history of primary malignant neoplasm of breast (081728268) Personal history of malignant neoplasm of breast (Z85.3) Active confirmed Problem Benign essential hypertension (3105496) Essential hypertension, benign (401.1) Active confirmed Major Problem Esophageal reflux (153327068) Esophageal reflux (530.81) Active confirmed Major Problem Crohn's disease (15341377) Regional enteritis of unspecified site (555.9) Active confirmed Major Problem Irritable bowel syndrome (83230002) Irritable bowel syndrome (564.1) Active confirmed Major Problem Menopausal symptom (26719847) Symptomatic menopausal or female climacteric states (627.2) Active confirmed Major Problem Gynecological examination normal (813698892734363) Routine gynecological examination (V72.31) Active confirmed Major Problem Screening for malignant neoplasm of colon (474169319) Special screening for malignant neoplasms, colon (V76.51) Active confirmed Major Vital Signs Temperature 98.1 degrees Fahrenheit 05/15/2024 Blood pressure diastolic 80 mm Hg 05/15/2024 Height 64.5 in 05/15/2024 Blood pressure systolic 128 mm Hg 05/15/2024 Weight 190 lbs 05/15/2024 BMI 32.11 kg/m2 05/15/2024 Encounters Encounter Location Date Provider Diagnosis [address] [place] [address] 05/15/2024 Yoli Leggett Encounter for gynecological examination [...] (ICD-10 - Z85.3) CONTINUE FOLLOW UP AT [facility]. Plan Of Treatment Pending Test Test [...] Provider Name:Yoli malik, 05/20/2025 09:20:00 AM, [address] [facility], [address], [place], [address], Insurance Providers Payer Name Payer Address Payer Phone Subscriber Number Group Number Insured Name Patient Relationship to Insured Coverage Start Date Coverage End Date [employer] [place] [address] [place] [address] [phone] [id number] VIOLA JUDD Spouse - patient is the [...]
[2024-11-29 08:53] LABS: Cholesterol 167 mg/dL (<200); HDL Cholesterol 51 mg/dL (>40); LDL Cholesterol Calculated 92 mg/dL (<100); Triglycerides 123 mg/dL (<150)
[2024-12-01 08:14] LABS: Immunoglobulin A 506 mg/dL (70-320)
[2024-12-01 12:07] LABS: Carbohydrate Antigen 19-9 10 U/mL (<34)
== END 2024-11-29 08:06 | disposition home or self-care (01) ==
LOC: HO.LAB 08:05
PROVIDERS: PCP Internal Medicine Medical Oncology; Visit Provider Internal Medicine Medical Oncology
DX: D05.82 Other specified type of carcinoma in situ of left breast (principal); K50.114 Crohn's disease of large intestine with abscess; E78.5 Hyperlipidemia, unspecified
CPT/HCPCS: 36415; 80061; 82784; 86301

== ENCOUNTER 2025-02-10 07:52 | Outpatient (REF) | payer BC, SELFPAY ==
--- OUTSIDE RECORDS SUMMARY | 2025-02-10 07:54 | XMS_ITS ---
Author Organization Patrick Mead III, MD Address [address] [place] [address] [address] [facility] [place] [address] Care Team Providers Care Dedenter Name Role Phone Patrick Mead Primary Care Provider [phone] REASON FOR VISIT left Front abdominal pain Social History Sex Assigned At : Social History Observation Description Sex Assigned At Female Encounters Encounter Location Date Provider Diagnosis Patrick Mead III, MD [address] [place] [address] [place] [address] 10/30/2024 Patrick Mead Plan Of Treatment Next Appt Details Provider Name:Patrick Mead, 03/17/2025 09:00:00 AM, [address] [place] [address] [address] [place], [address], Provider Name:Patrick Mead, 09/08/2025 09:00:00 AM, [address] [place] [address] [place], [address], Progress Notes * Kylee SANCHEZDOB:1960 (63 yo F)Acc No.[id number]:10/30/2024 Patient:?Kylee SANCHEZ :1960???Age:63 Y???Sex:Female Address:[address] [place] [address] * true * Date:? Generated for Printi ng/Faxing/eTransmitting on:?02/10/2025 07:54 AM EDT
--- OUTSIDE RECORDS SUMMARY | 2025-02-10 07:55 | XMS_ITS | Patient Health Record ---
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 Problem Intraductal carcinoma in situ of left breast (7038380991297606 ) 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 Problem Personal history of primary malignant neoplasm of breast (732500271) Personal history of malignant neoplasm of breast (Z85.3) Active confirmed Problem Benign essential hypertension (2671936) Essential hypertension, benign (401.1) Active confirmed Major Problem Esophageal reflux (741343213) Esophageal reflux (530.81) Active confirmed Major Problem Regional enteritis of unspecified site (555.9) Active confirmed Major Problem Irritable bowel syndrome (61810067) Irritable bowel syndrome (564.1) Active confirmed Major Problem Menopausal symptom (31923399) Symptomatic menopausal or female climacteric states (627.2) Active confirmed Major Problem Gynecological examination normal (062530675664740) Routine gynecological examination (V72.31) Active confirmed Major Problem Screening for malignant neoplasm of colon (310994548) Special screening for malignant neoplasms, colon (V76.51) Active confirmed Major Vital Signs Temperature 98.1 degrees Fahrenheit 05/15/2024 Blood pressure diastolic 80 mm Hg 05/15/2024 Height 64.5 in 05/15/2024 Blood pressure systolic 128 mm Hg 05/15/2024 Weight 190 lbs 05/15/2024 BMI 32.11 kg/m2 05/15/2024 Encounters Encounter Location Date Provider Diagnosis [address] [place] [address] 05/15/2024 Yoli Leggett Encounter for gynecological examination [...] (ICD-10 - Z85.3) CONTINUE FOLLOW UP AT [facility]. Plan Of Treatment Pending Test Test Name [...] Provider Name:Yoli malik, 05/20/2025 09:20:00 AM, [address], [address], [place], [address], Insurance Providers Payer Name Payer Address Payer Phone Subscriber Number Group Number Insured Name Patient Relationship to Insured Coverage Start Date Coverage End Date [employer] [place] [address] [place] [address] [id number] VIOLA JUDD Spouse - patient is the [...]
--- OUTSIDE RECORDS SUMMARY | 2025-02-10 07:55 | XMS_ITS ---
Author Organization [employer] [facility] Address [address] [place] [address] [address] [place] [address] Care Team Providers Care Showcase Trimmer Name Role Phone SID STRANGE MD Primary Care Provider Unavailab Yoli Obregon Unavailable [phone] REASON FOR VISIT Annual ACID PURIFIER Physical Encounters Encounter Location Date Provider Diagnosis [facility] [address] [address] 02/29/2024 Yoli Leggett Plan Of Treatment Next Appt Details Provider Name:Yoli malik, 05/20/2025 09:20:00 AM, [address] [place] [address], [address], [place], [address], Progress Notes * DIANA JUDDDOB:1960 (64 yo F)Acc No.[id number]:02/29/2024 PROGRESS NOTES Patient:?DUTCHDIANA Appointment Provider:?Yoli malik M.D. :1960???Age:63 Y???Sex:Female D ate:02/29/2024 Address:[address] [place], [place] [id number] Pcp:SID STRANGE MD Subjective: * Chief Complaints: * ???1. Annual ACID PURIFIER Physical. * Medical History:? Objective: * Vitals:? Assessment: Plan: * Treatment: * Images: Billing Information: * Visit Code:? * Procedure Codes:? * Electronic signature of Sofia Leggett MD on 02/10/2025 at 07:54 AM EDT Sign off status: Pending * Appointment Provider:?Yoli Leggett M.D. Date:?02/29/2024 Generated for Siddhartha babcock/Yung/Dang on:?02/10/2025 07:54 AM EDT
--- OUTSIDE RECORDS SUMMARY | 2025-02-10 07:55 | XMS_ITS ---
Author Organization Patrick Mead III, MD Address [address] [place] [place] [address] Care Team Providers Care Acid Loader Name Role Phone Patrick Mead Primary Care Provider [phone] Allergies Allergen (clinical drug ingredient) Drug/Non Drug [...] Date Provider Diagnosis Patrick Mead III, MD [address] [place] [address] [place] [address] 12/04/2024 Patrick Mead Essential (primary) hypertension I10 [...] Re ason: OV, Mammogram Provider Name:Patrick Mead, 03/17/2025 09:00:00 AM, [address] [facility], [place], [address], Provider Name:Patrick Mead, 09/08/2025 09:00:00 AM, [address] [place] [address] [address], [place], [address], Progress Notes * Kylee SANCHEZDOB:1960 (64 yo F)Acc No.[id number]:12/04/2024 Progress Notes Patient:?Kylee SANCHEZ Provider:?Patrick Mead MD :1960???Age:64 Y???Sex:Female D ate:12/04/2024 Address:[address] [place], [place] [id number] Subjective: * Chief Complaints: * ???Recent episode of abdomin al painHypertensionBenign cystic mucinous tumor of the pancreas, resectedDCIS left breast with microinvasionObesityHyperlipidemiaCrohn's disease * HPI: ???COVID-19 Screening:?Questions?Have you had any new onset fever, chills, cough, congestion, sore throat, shortness of breath, muscle aches??No ???:?The patient, a 64-year-old female, has been dealing [...] pain and thought it was a kidney stone.? She went to the [facility] emergency room where a CT scan showed only constipation.? Her symptoms have now resolved with cathartics.? He is going to see her county agent, Dr. Ruth, in the near future. * ROS:?General/Constitutional:?pain?Resolved, only normal aches and pains.?Chills?denies.?Fatigue?admits.?Fever?denies.?ENT:?Decreased hearing?denies.?Respiratory:?Cough?denies.?Cardiovascular:?Chest pain with exertion?denies.?Dyspnea on exertion?denies.?Shortness of breath?denies.?Gastrointestinal:?Constipation?occasional.?Decreased appetite?denies.?Diarrhea?denies.?Heartburn?denies.?Nausea?denies.?Rectal bleeding?denies.?Vomiting?denies.?Hematology:?bruising?denies.?petechiae?denies.?Swollen glands?none have been noted.?Genitourinary:?Frequent urination?a small amount.?Musculoskeletal:?Muscle aches?denies.?Painful joints?denies.?Sciatica?denies.?Weakness?denies.?Skin:?Itching?denies.?Rash?denies.?Skin lesion(s)?denies.?Neurologic:?Difficulty speaking?denies.?Dizziness?denies.?Headache?denies.?Low back pain?denies.?Psychiatric:?Depressed mood?denies.? * Medical History:? * Surgical History:?stereotact ic biopsy upper outer quadrant left breast 10/29/2015lumpectomy left breast and sentinel node sampling 11/11/2015Subtotal pancreatectomy for cystic mucinous neoplasm 2015 [facility] - surgery performed by Dr. Lundberg No history * Hospitalization/Major Diagno stic Procedure:?No history * Family History:?Father: dece ased 69 yrs, [...] or mental illness. * Social History:?Tobacco Use:?Tobacco Control (Standard)?Tobacco use:?Former smoker ?How long has it been since you last smoked??Greater than 10 years ?Additional Findings: Tobacco non-user?Ex-cigarette smoker ???She was born in [place] and has been for 29 years to [place].They have two children. [employer] ([employer]). * Medications:?TakingLisinopri l 5 MG Tablet TAKE 1 TABLET BY MOUTH EVERY DAY Medication List reviewed and reconciled with the patientTaking Lisinopril 5 MG Tablet TAKE 1 TABLET BY MOUTH EVERY DAY Medication List reviewed and reconciled with the patient * Allergies:?PenicillinGluten: laura[Allergies Verified] Objective: * Vitals:?Ht: 65, Wt: 192, BMI :31.95, BP: 134/83, HR: 85, Temp: 97.8, Wt-k.09. * ???Past Orders: Lab:Lipid Panel * Collection Date 11/29/2024 [...] PM Order Date 11/29/2024 05/08/2024 Immunoglobulin A 506?A (Ref Range: 70-320 mg/dL) 533?A (Ref Range: 70-320 mg/dL) * Lab:Lipase * [...] -?Glucose Urine UANegativeNegative - mg/dL?Urine BloodNegativeNegative -?Specific [place] - Urine1.0151.005-1.025 -?Urine ProteinNegativeNeg-Trace - mg/dL ?Urine [...] 12.4 (Ref Range: 11.0-16.0 %) Platelet Count 408?H (Ref Range: 160-400 X10*3/uL) 407?H (Ref Range: 160-400 X10*3/uL) 420?H (Ref Range: 160-400 X10*3/uL) Mean Platelet Volume 9.3?L (Ref Range: 9.4-12.3 fL) 9.3?L (Ref Range: 9.4-12.3 fL) 9.4 (Ref Range: 9.4-12.3 fL) Neutrophils Percent Auto 63.1 (Ref Range: 45-73 %) 52.7 (Ref Range: 45-73 %) 40.9?L (Ref Range: 45-73 %) Imm Gran Pct Auto 0.3 (Ref Range: 0.0-0.4 %) 0.2 (Ref Range: 0.0-0.4 %) 0.2 (Ref Range: 0.0-0.4 %) Lymphocytes Percent Auto 26.3 (Ref Range: 20-40 %) 35.2 (Ref Range: 20-40 %) 45.6?H (Ref Range: 20-40 %) Monocytes Percent Auto [...] Bilirubin Total 0.8 (Ref Range: 0.0-1.0 mg/dL) 1.1?H (Ref Range: 0.0-1.0 mg/dL) 1.5?H (Ref Range: 0.0-1.0 mg/dL) Aspartate Amino Transferase 21 (Ref Range: 5-31 U/L) 17 (Ref Range: 5-31 U/L) 19 (Ref Range: 5-31 U/L) Alanine Aminotransferase 29 (Ref Range: 0-31 U/L) 22 (Ref Range: 0-31 U/L) 25 (Ref Range: 0-31 U/L) Total Protein 8.2?H (Ref Range: 6.5-8.0 g/dL) 7.6 (Ref Range: [...] 15 (Ref Range: 12-20) Blood Urea Nitrogen 21?H (Ref Range: 9-16 mg/dL) 13 (Ref Range: 9-16 mg/dL) 18?H (Ref Range: 9-16 mg/dL) Creatinine 0.80 (Ref [...] 10/30/2024) (Performed Date - 10/30/2024) * Examination: ???General Examination: ?GENERAL APPEARANCE:?pleasant, well nourished, well developed, in no acute distress, calm and relaxed, obese, woman.?HEAD:?atraumatic, normocephalic.?EYES:?eomi, perrla, anicteric, conjugate.?EARS:?normal.?NOSE:?septum intact.?ORAL CAVITY:?normal, unremarkable.?NECK/THYROID:?no jugular venous distention, no carotid bruit, thyroid normal.?LYMPH NODES:?no enlarged lymph nodes,spleen normal.?SKIN:?no suspicious lesions, anicteric.?HEART:?no clicks, gallops, murmurs, or rubs, regular rhythm, S1, S2 normal, no s3, or vascular bruits.?LUNGS:?clear to auscultation .?BREASTS:??no masses palpable bilaterally.?ABDOMEN:?bowel sounds normal, no ascites, no organomegaly, no mass, centripital obesity.?RECTAL EXAM:?not examined.?MUSCULOSKELETAL:?extremities unremarkable, no clubbing, cyanosis or edema.?PERIPHERAL PULSES:?normal.?NEUROLOGIC:?alert and oriented, cranial nerves 2-12 grossly intact, deep tendon reflexes 2+ symmetrical, motor strength normal upper and lower extremities, sensory exam intact.?PSYCH:?alert, oriented.? 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 There is no sign of breast cancer on today's examination.???2.?Essential (primary) hypertension - I10???Notes :Her blood pressure today was In the normal range today. She was given an appointment to return to the office in near future to check it again. The importance of aggressive weight loss and sodium restriction was reiterated.???3.?Former smoker - Z87.891???Notes :She is highly motivated not to smoke. We discussed strategies for maintenance of abstinence in times of stress.???4.?Crohn's disease of colon with abscess - K50.114???Notes :She is had no recent activity from the Crohn's disease. It is stable and no change in treatment was necessary.???5.?Benign cystic mucinous tumor - M67.40???Notes :This was a tumor of low malignant potential. There is no sign of relapse or new primary. The pancreatic remnant is functioning well.???6.?Obesity - E66.9???Notes :Her body mass index is 331and she hasgained 4? pounds since her last visit. I recommended continued weight loss through exercise and a diet restricted in fat calories in sodium.??? Plan: * Treatment: 2.?Essential (primary) hyper tension?LAB: PROFILE, FASTING (COMPREHENSIVE METABOLIC) ?LAB: CBC w DIFF ?LAB: CARBOHYDRATE ANTIGEN 19-9 (CA 19-9) ?LAB: Lipid Panel 3.?Others? Continue Lisinopril Tablet, 5 MG, TAKE 1 [...] or Other reason not done * Follow Up:?3 Months, January (Re ason: OV, Mammogram) * Images: * Sign off status: Completed true * Provider:?Patrick Mead MD Date:?03/2025 Generated for Siddhartha babcock/Yung/Denzelsmitting on:?02/10/2025 07:55 AM EDT History and Physical Notes * [...]
--- OUTSIDE RECORDS SUMMARY | 2025-02-10 07:55 | XMS_ITS ---
Author Organization Patrick Mead III, MD Address [address] [place] [address] [place] [address] Care Team Providers Care Clinical Services Assistant Name Role Phone Patrick Mead Primary Care Provider REASON FOR VISIT Message Social History Sex Assigned At : Social History Observation Description Sex Assigned At Female Encounters Encounter Location Date Provider Diagnosis Patrick Mead III, MD [address] [place] [address] [place] [address] 11/05/2024 Patrick Mead Ductal carcinoma in situ [...] Details Provider Name:Patrick Mead, 03/17/2025 09:00:00 AM, [address] [place] [address] [place], [address], Provider Name:Patrick Mead, 09/08/2025 09:00:00 AM, [address] [place] [address] [place], [address], Progress Notes * Kylee SANCHEZDOB:1960 (63 yo F)Acc No.[id number]:11/05/2024 Patient:Kylee VALLADARES :1960???Age:63 Y???Sex:Female Address:[address] [place] [id number] Subjective: * Chief Complaints: * ???Message * [...] true * Date:? Generated for Siddhartha babcock/Yung/eTransmitting on:?02/10/2025 07:55 AM EDT
--- OUTSIDE RECORDS SUMMARY | 2025-02-10 07:55 | XMS_ITS | Patient Health Record ---
Author Organization Patrick Mead III, MD Address [address] [place] [address] Care Team Providers Care Checker/Stocker Name Role Phone Patrick Mead Primary Care Provider [phone] Allergies Allergen (clinical drug ingredient) Drug/Non Drug Allergy documented on EMR Reaction Allergy Type Onset Date Status Penicillin Unknown Drug Allergy Active Gluten Gluten rash Allergy Active Results Component Value Reference Range Notes Complete Blood Count Auto Di ff Reviewed date:02/23/2024 04:49:20 AM Interpretation: Performing Lab:[facility], [address] [place] [phone] Notes/Report: White Blood Count 5.3 4.8-10.8 X10*3/uL Red Blood Count 4.51 4.20-5.50 X10*6/uL Hemoglobin 14.5 12.0-16.0 g/dl Hematocrit 42.4 37.0-47.0 % Mean Corpuscular Volume 94.0 80.0-98.0 fL Mean Corpuscular Hemoglobin 32.2 27.0-33.0 pg Mean Corpuscular HGB Conc 34.2 31.0-35.0 g/dl Red Cell Distribution Width 12.4 11.0-16.0 % Platelet Count 420 160-400 X10*3/uL Mean Platelet Volume 9.4 9.4-12.3 fL Neutrophils Percent Auto 40.9 45-73 % Imm Gran Pct Auto 0.2 0.0-0.4 % Lymphocytes Percent Auto 45.6 20-40 % Monocytes Percent Auto 10.6 2-11 % Eosinophils Percent Auto 1.7 0-4 % Basophils Percent Auto 1.0 0-2 % NRBC Pct Auto 0.0 0.0-0.2 /100WBC Neutrophils Absolute Auto 2.2 2.0-8.3 x10*3/uL Imm Gran Abs Auto 0.01 0.00-0.03 X10*3/uL Lymphocytes Absolute Auto 2.4 1.2-4.9 X10*3/uL Monocytes Absolute Auto 0.6 0.1-1.2 X10*3/uL Eosinophils Absolute Auto 0.1 0.0-0.4 X10*3/uL Basophils Absolute Auto 0.1 0.0-0.2 X10*3/uL NRBC Abs Auto 0.000 0.0-0.012 X10*3/uL Comprehensive Garretson. Panel Fa Reviewed date:02/23/2024 04:49:20 AM Interpretation: Performing Lab:[facility], [address] [place] [phone] Notes/Report: Sodium 141 135-145 mmol/L Potassium 4.3 3.3-5.1 mmol/L Chloride 107 96-108 mmol/L Carbon Dioxide 25 22-29 mmol/L Anion Gap 13 12-20 Blood Urea Nitrogen 15 9-16 mg/dL Creatinine 0.73 0.5-1.4 mg/dL Estimated Glomerular Filt Rate > 60 NOTE: For -[place]amo[place] individuals, multiply the result by 1.210. Chronic Kidney Disease: Estimated GFR < 60 mL/min/1.73m2 Severe Kidney Disease: Estimated GFR < 15 mL/min/1.73m2 Glucose Fasting 108 60-99 mg/dL A fasting glucose from 100-125 mg/dl is considered impaired (pre-diabetes). Calcium 8.9 8.4-10.2 mg/dL Bilirubin Total 1.3 0.0-1.0 mg/dL Aspartate Amino Transferase 22 5-31 U/L Alanine Aminotransferase 27 0-31 U/L Total Protein 7.4 6.5-8.0 g/dL Albumin Level 3.9 3.5-5.0 g/dL Alkaline Phosphatase 103 39-117 U/L Lipid Panel Reviewed date:02/23/2024 04:49:20 AM Interpretation: Performing Lab:[facility], [address] [place] [phone] Notes/Report: Triglycerides 138 <150 mg/dL Desirable Triglyceride: less than 150 mg/dL Borderline High Triglyceride 150-199 mg/dL High Triglyceride: 200-499 mg/dL Very High Triglyceride: greater than or equal to 5OO mg/dL Cholesterol 160 <200 mg/dL Desirable Cholesterol: less than 200 mg/dL Borderline High Cholesterol: 200-239 mg/dL High Cholesterol: greater than 239 mg/dL LDL Cholesterol Calculated 85 <100 mg/dL Desirable LDL: less than 100 mg/dL Near Optimal/Above Optimal LDL: 110-129 mg/dL Borderline High LDL: 130-159 mg/dL High LDL: 160-189 mg/dL Very High LDL: greater than or equal to 190 mg/dL HDL Cholesterol 48 >40 mg/dL Desirable HDL: greater than 40 mg/dL Note: This HDL assay may give artificially low results in patients with liver disease. Carbohydrate Antigen 19-9 Reviewed date:02/23/2024 04:49:20 AM Interpretation: Performing Lab:[address] [phone] Notes/Report: Carbohydrate Antigen 19-9 8 <34 U/mL This test was performed using the Siemens chemiluminescent method. Values obtained from different assay methods cannot be used interchangeably. CA 19-9 levels, regardless of value, should not be interpreted as absolute evidence of the presence or absence of disease. THIS TEST WAS PERFORMED AT: [facility] [address] [place] [phone] EVA MIRELES MD Lipase Reviewed date:05/12/2024 05:36:31 AM Interpretation: Performing Lab:[address] [phone] Notes/Report: Lipase 16 8-78 U/L Vitamin B12 and Folate Reviewed date:05/12/2024 05:36:31 AM Interpretation: Performing Lab:[address] [phone] Notes/Report: Vitamin B12 396 200-900 pg/mL NORMAL 200-900 PG/ML INDETERMINATE 160-199 PG/ML DEFICIENT < 160 PG/ML Folate 14.8 > or = 4.0 ng/mL Reference Values: > or = 4.0 ng/mL < 4.0 ng/mL suggests folate deficiency Methotrexate, aminopterin and folinic acid (leucovorin) are chemotherapeutic agents whose molecular structures are similar to folate; therefore, the Crisis Intervention Specialist folate assay cannot be used for patients using these drugs. Vitamin D 25-OH Total Reviewed date:05/12/2024 05:36:31 AM Interpretation: Performing Lab:[facility], [address] [place] [phone] Notes/Report: Vitamin D 25-OH Total 47.8 >30 ng/mL Health Based Reference Values* < 20 ng/mL Deficient 20-30 ng/mL Insufficient > 30 ng/mL Sufficient *Lottie FOY. N Engl J Med. 2007;357:266-280 Care must be taken in interpreting Vitamin D results from different laboratories and methodologies. Published data demonstrated that results from patients undergoing hemodialysis may show a negative bias when tested with various automated 25-OH vitamin D assays when compared to LC-MS/MS. When testing samples from patients whose predominant form of Vitamin D is Vitamin D2, such as patients receiving Vitamin D2 supplementation, results that are subtherapeutic should be confirmed with another method such as LC-MS/MS. Zinc Reviewed date:05/12/2024 05:36:31 AM Interpretation: Performing Lab:[facility], [address] [place] [phone] Notes/Report: Zinc 85 60-130 mcg/dL This test was developed and its analytical performance characteristics have been determined by [facility] [place], [place]. It has not been cleared or approved by the U.S. Food and Drug Administration. This assay has been validated pursuant to the CLIA regulations and is used for clinical purposes. THIS TEST WAS PERFORMED AT: [facility]/[address] [phone] PRAFUL KEITH MD,PHD Immunoglobulin A Reviewed date:05/12/2024 05:36:31 AM Interpretation: Performing Lab:[facility], [address] [place] [phone] Notes/Report: Immunoglobulin A 533 70-320 mg/dL THIS TEST WAS PERFORMED AT: [facility] [address] [phone] EVA MIRELES MD Transglutaminase Ab IgG Reviewed date:05/12/2024 05:36:31 AM Interpretation: Performing Lab:[facility], [address] [place] [phone] Notes/Report: Transglutaminase Ab IgG <1.0 Value Interpretation ----- <15.0 Antibody not detected > or = 15.0 Antibody detected THIS TEST WAS PERFORMED AT: [facility] [address] [place] [phone] EVA MIRELES MD Transglutaminase IgA Reviewed date:05/12/2024 05:36:31 AM Interpretation: Performing Lab:[facility], [address] [place] [phone] Notes/Report: Transglutaminase IgA <1.0 Value Interpretation ----- <15.0 Antibody not detected > or = 15.0 Antibody detected THIS TEST WAS PERFORMED AT: [facility] [address] [place] [phone] EVA MIRLEES MD Pathology Reviewed date:06/15/2024 07:30:34 AM Interpretation: Performing Lab:[facility], [address] [place] [phone] Notes/Report: --- Name: LaurelKylee M Age/Sex: 63/F : 1960 Unit#: [id number] Attend Dr: Ellie Ruth MD Re06/09/24 Status : [facility] Location: [facility] Disch: --- SPEC : [id number] RECD : 06/09/24 STATUS: MARCELO SHAY NUM: [id number] SHAYLA: 06/09/2458 [facility] DR: Ellie Ruth MD ENTERED: 06/09/24 SP TYPE: Surgical OTHR DR: Patrick Mead MD ORDERED: HE Stain/18 , Gross Micro L4/6, IHC, Special st. 2/3, H. pylori/2, AB/PAS/3 Diagnosis A. Small bowel, biop sy: Small bowel mucosa within normal limits; preserved villous architecture and no increased intraepithelial lymphocytes seen. B. Stomach, antrum, biopsy: Gastric antral mucosa within normal limits; negative for Helicobacter pylori, intestinal metaplasia and dysplasia. C. Stomach, polyps, biopsy: Fundic gland polyp (s). D. Colon, right, biopsy: Colonic mucosa within normal limits; negative for active, chronic or microscop ic colitis. E. Colon, sigmoid, polypectomy: Tubular adenoma; negative for high-grade dysplasia. F. Colon, left, biop sy: Colonic mucosa within normal limits; negative for active, chronic or microscop ic colitis. Clinical History Pre-Op Dx: Noninfect sonido gastroenteritis and colitis, IBS Post-Op Dx: GERD, gastric polyps, gastritis, colon polyp, diverticulosis Microscopic Description A-F. Microscopic sections examined. No metaplastic changes are seen, supported by AB/PAS stains (A-C); no Helicobacter organisms are seen, supported by H. pylori immunostain (B). Material Received A. Small bowel bx, r /o celiac B. Antrum, r/o H. pylori C. Gastric polyps D. Right colon bx's E. Sigmoid polyp F. Left colon bx, r/ o microscopic colitis Gross Description Received in six parts. Part A: Received in formalin labeled ?small bowel bx, rule out celiac? are 2 nielson-pink irregular tissue fragments measuring 0.25 and 0.3 cm, submitted in toto in a cassette labeled A. CONTINUED ON NEXT PAGE --- Name: Kylee Sanchez Age/Sex: 63/F : 1960 Unit#: [id number] Attend Dr: Ellie Ruth MD Re06/09/24 Status : [facility] [place] Location: [facility] Disch: --- SPEC : [id number] RECD : 06/09/24 STATUS: MARCELO SHAY NUM: [id number] SHAYLA: 06/09/24 [facility] DR: Ellie Ruth MD ENTERED: 06/09/24-07 07 SP TYPE: Surgical OTHR DR: Patrick Mead MD ORDERED: HE Stain/18 , Gross Micro L4/6, IHC, Special st. 2/3, H. pylori/2, AB/PAS/3 Gross Description (Continued) Part B: Received in formalin labeled ?antrum, rule out H. pylori? are 2 nielson-pink irregular tissue fragments measuring 0.2 and 0.25 cm, submitted in toto in a cassette labeled B. Part C: Received in formalin labeled ?gastric polyps? are 2 nielson-pink irregular tissue fragments each measuring 0.25 cm, submitted in toto in a cassette labeled C. Part D: Received in formalin labeled ?right colon bx's? are 3 kirkpatrick-nielson irregular tissue fragments ranging fr om minute to 0.2 cm, submitted in toto in a cassette labeled D. Part E: Received in formalin labeled ?sigmoid polyp? are 2 nielson irregular tissue fragments measuring 0.15 and 0 .25 cm, submitted in toto in a cassette labeled E. Part F: Received in formalin labeled ?left colon bx, rule out microscopic colitis? are 2 kirkpatrick-nielson irregular a nd rectangular tissue fragments measuring 0.15 and 0.35 cm, submitted in toto in a cassette labeled Sybil IBARRA Special stains order ed and performed: AB PAS on A-C; immunostain for H pylori on B. Copies To: Patrick Mead MD [address] [place] [address], [address] [place] [address] Ellie Ruth MD [facility] [address] [place] [address] --- Signed (signature on file) Ayaka Murillo MD 06/10/24 1324 --- END OF REPORT Complete Blood Count Auto Di ff Reviewed date:08/28/2024 07:43:32 AM Interpretation: Performing Lab:[facility], [address] [place] [address], [place] [address] Notes/Report: White Blood Count 5.9 4.8-10.8 X10*3/uL Red Blood Count 4.68 4.20-5.50 X10*6/uL Hemoglobin 14.8 12.0-16.0 g/dl Hematocrit 44.5 37.0-47.0 % Mean Corpuscular Volume 95.1 80.0-98.0 fL Mean Corpuscular Hemoglobin 31.6 27.0-33.0 pg Mean Corpuscular HGB Conc 33.3 31.0-35.0 g/dl Red Cell Distribution Width 12.8 11.0-16.0 % Platelet Count 407 160-400 X10*3/uL Mean Platelet Volume 9.3 9.4-12.3 fL Neutrophils Percent Auto 52.7 45-73 % Imm Gran Pct Auto 0.2 0.0-0.4 % Lymphocytes Percent Auto 35.2 20-40 % Monocytes Percent Auto 9.4 2-11 % Eosinophils Percent Auto 1.5 0-4 % Basophils Percent Auto 1.0 0-2 % NRBC Pct Auto 0.0 0.0-0.2 /100WBC Neutrophils Absolute Auto 3.1 2.0-8.3 x10*3/uL Imm Gran Abs Auto 0.01 0.00-0.03 X10*3/uL Lymphocytes Absolute Auto 2.1 1.2-4.9 X10*3/uL Monocytes Absolute Auto 0.6 0.1-1.2 X10*3/uL Eosinophils Absolute Auto 0.1 0.0-0.4 X10*3/uL Basophils Absolute Auto 0.1 0.0-0.2 X10*3/uL NRBC Abs Auto 0.000 0.0-0.012 X10*3/uL Comprehensive Garretson. Panel Fa st Reviewed date:08/28/2024 07:43:32 AM Interpretation: Performing Lab:[facility], [address] [place] [phone] Notes/Report: Sodium 137 135-145 mmol/L Potassium 4.2 3.3-5.1 mmol/L Chloride 106 96-108 mmol/L Carbon Dioxide 26 22-29 mmol/L Anion Gap 9 12-20 Blood Urea Nitrogen 16 9-16 mg/dL Creatinine 0.79 0.5-1.4 mg/dL Estimated Glomerular Filt Rate > 60 Chronic Kidney Disease: Estimated GFR < 60 mL/min/1.73m2 Severe Kidney Disease: Estimated GFR < 15 mL/min/1.73m2 Glucose Fasting 112 60-99 mg/dL A fasting glucose from 100-125 mg/dl is considered impaired (pre-diabetes). Calcium 9.1 8.4-10.2 mg/dL Bilirubin Total 1.0 0.0-1.0 mg/dL Aspartate Amino Transferase 22 5-31 U/L Alanine Aminotransferase 29 0-31 U/L Total Protein 7.7 6.5-8.0 g/dL Albumin Level 4.0 3.5-5.0 g/dL Alkaline Phosphatase 107 39-117 U/L Lipid Panel Reviewed date:08/28/2024 07:43:32 AM Interpretation: Performing Lab:[address] [phone] Notes/Report: Triglycerides 126 <150 mg/dL Desirable Triglyceride: less than 150 mg/dL Borderline High Triglyceride 150-199 mg/dL High Triglyceride: 200-499 mg/dL Very High Triglyceride: greater than or equal to 5OO mg/dL Cholesterol 163 <200 mg/dL Desirable Cholesterol: less than 200 mg/dL Borderline High Cholesterol: 200-239 mg/dL High Cholesterol: greater than 239 mg/dL LDL Cholesterol Calculated 86 <100 mg/dL Desirable LDL: less than 100 mg/dL Near Optimal/Above Optimal LDL: 110-129 mg/dL Borderline High LDL: 130-159 mg/dL High LDL: 160-189 mg/dL Very High LDL: greater than or equal to 190 mg/dL HDL Cholesterol 52 >40 mg/dL Desirable HDL: greater than 40 mg/dL Note: This HDL assay may give artificially low results in patients with liver disease. Carbohydrate Antigen 19-9 Reviewed date:09/08/2024 05:36:04 AM Interpretation: Performing Lab:[address] [phone] Notes/Report: Carbohydrate Antigen 19-9 8 <34 U/mL This test was performed using the Siemens chemiluminescent method. Values obtained from different assay methods cannot be used interchangeably. CA 19-9 levels, regardless of value, should not be interpreted as absolute evidence of the presence or absence of disease. THIS TEST WAS PERFORMED AT: [facility] [address] [address] EVA MIRELES MD Complete Blood Count Auto Di ff Reviewed date:10/31/2024 08:28:24 AM Interpretation: Performing Lab:[address] [address] Notes/Report: White Blood Count 9.3 4.8-10.8 X10*3/uL Red Blood Count 4.76 4.20-5.50 X10*6/uL Hemoglobin 15.2 12.0-16.0 g/dl Hematocrit 45.0 37.0-47.0 % Mean Corpuscular Volume 94.5 80.0-98.0 fL Mean Corpuscular Hemoglobin 31.9 27.0-33.0 pg Mean Corpuscular HGB Conc 33.8 31.0-35.0 g/dl Red Cell Distribution Width 12.4 11.0-16.0 % Platelet Count 408 160-400 X10*3/uL Mean Platelet Volume 9.3 9.4-12.3 fL Neutrophils Percent Auto 63.1 45-73 % Imm Gran Pct Auto 0.3 0.0-0.4 % Lymphocytes Percent Auto 26.3 20-40 % Monocytes Percent Auto 9.7 2-11 % Eosinophils Percent Auto 0.1 0-4 % Basophils Percent Auto 0.5 0-2 % NRBC Pct Auto 0.0 0.0-0.2 /100WBC Neutrophils Absolute Auto 5.9 2.0-8.3 x10*3/uL Imm Gran Abs Auto 0.03 0.00-0.03 X10*3/uL Lymphocytes Absolute Auto 2.4 1.2-4.9 X10*3/uL Monocytes Absolute Auto 0.9 0.1-1.2 X10*3/uL Eosinophils Absolute Auto 0.0 0.0-0.4 X10*3/uL Basophils Absolute Auto 0.1 0.0-0.2 X10*3/uL NRBC Abs Auto 0.000 0.0-0.012 X10*3/uL Comprehensive Met. Panel Reviewed date:10/31/2024 08:28:24 AM Interpretation: Performing Lab:[facility], [address] [place] [phone] Notes/Report: Sodium 138 135-145 mmol/L Potassium 4.6 3.3-5.1 mmol/L Chloride 105 96-108 mmol/L Carbon Dioxide 24 22-29 mmol/L Anion Gap 14 12-20 Blood Urea Nitrogen 21 9-16 mg/dL Creatinine 0.80 0.5-1.4 mg/dL Creatinine Clr Calc Pharmacy 78.0 Provided height and weight: 162.56 cm, 87.5 kg. eGFR (calculated from the MDRD study equation) and eCrCl (calculated from the Cockcroft-Gault equation) are based on different parameters and may not yield comparable results. If eCrCl result is absurd, please check patient's height/weight. Estimated Glomerular Filt Rate > 60 Chronic Kidney Disease: Estimated GFR < 60 mL/min/1.73m2 Severe Kidney Disease: Estimated GFR < 15 mL/min/1.73m2 Glucose Random 103 60-115 mg/dL Calcium 9.3 8.4-10.2 mg/dL Bilirubin Total 0.8 0.0-1.0 mg/dL Aspartate Amino Transferase 21 5-31 U/L Alanine Aminotransferase 29 0-31 U/L Total Protein 8.2 6.5-8.0 g/dL Albumin Level 4.1 3.5-5.0 g/dL Alkaline Phosphatase 94 39-117 U/L Lipase Reviewed date:10/31/2024 08:28:24 AM Interpretation: Performing Lab:[facility], [address] [place] [phone] Notes/Report: Lipase 20 8-78 U/L UA ClnCatch+Micro w/rflx Cul t Reviewed date:10/31/2024 08:28:24 AM Interpretation: Performing Lab:[facility], [address] [place] [phone] Notes/Report: Urine, Clean Catch Color Urine Yellow Appearance Urine Clear PH 6.0 5.0-9.0 Glucose Urine UA Negative Negative mg/dL Urine Blood Negative Negative Specific [place] - Urine 1.015 1.005-1.025 Urine Protein Negative Neg-Trace mg/dL Urine Ketones Negative Negative mg/dL Nitrite Urine Negative Negative Leukocyte Esterase Urine Negative Negative RBC Urine 0-2 0-2 /HPF WBC Urine 0-5 0-5 /HPF Squamous Epithelial Cell Urine 0-2 0-2 /HPF Bacteria Urine None Seen None Seen Hyaline Casts Urine 0-2 0-2 /LPF CT abdomen pelvis wo con Reviewed date:10/31/2024 08:28:24 AM Interpretation: Performing Lab: Notes/Report: [address] [place] [address] CT Scan Report Signed Patient: Kylee Sanchez MR#: [id number] : 1960 Acct:[id number] Age/Sex: 63 / F ADM Date: 10/30/24 Loc: HO.ED Attending Dr: Ordering Physician: Sven Wetzel Date of Service: 10/30/24 Procedure(s): CT abdomen pelvis wo IV con Accession Number(s): [id number] cc: Patrick Mead MD; Sven Wetzel Report Number: [id number]: Total DLP = 614.00 mGy-cm EXAMINATION: CT ABDOMEN AND PELVIS WITHOUT CONTRAST CLINICAL INFORMATION: Right flank pain. COMPARISON: Report from CT dated June 16, 2015. TECHNIQUE: Multidetector volumetric imaging was performed from the superior aspect of the liver through the pubic symphysis. Sagittal and coronal reformatted images were obtained on the technologist's workstation. This CT examination was performed using dose optimization techniques as appropriate, variously including the following: *Automated exposure control *Adjustment of mA and/or kV according to patient size (this includes techniques or standardized protocols for targeted exams where dose is matched to indication/reason for exam; i.e. extremities or head) *Use of iterative reconstruction technique DLP: 614 mGy centimeter. FINDINGS: Limited evaluation of the intra-abdominal organs and vascular structures due to lack of IV contrast. LUNG BASES: 1 mm calcified nodule, left lung base likely granuloma. LIVER, GALLBLADDER, AND BILIARY TREE: Liver measures 13 cm. No intrahepatic biliary ductal dilatation. Absent gallbladder likely cholecystectomy. Common bile duct measures 4 mm. PANCREAS: Status post resection of the tail. No peripancreatic fluid collection. No main pancreatic ductal dilatation. SPLEEN: Status post splenectomy. ADRENAL GLANDS: Soft tissue fullness, left adrenal gland measuring 3 Hounsfield units. No nodular lesion. KIDNEYS AND URETERS: Right kidney: 1 mm calcification, upper pole. No hydronephrosis. Left kidney: Few scattered less than 1 mm calcifications in the lower pole. No hydronephrosis. BLADDER: Fluid-filled nearly collapsed. GASTROINTESTINAL TRACT: Numerous diverticula, sigmoid colon. Abundant stool within the large intestine. No intestinal obstruction pattern. Appendix is normal. No pericolonic edema pattern. No pneumoperitoneum. No ascites. No fluid collections, peritoneal cavity. ABDOMINAL WALL: Small fat-containing umbilical hernia and diastases femoral rectus muscles in the periumbilical region. LYMPH NODES: Nonspecific prominent lymph nodes, mesenteric and retroperitoneum. VASCULAR: No aneurysm, abdominal aorta. No gross calcified plaques. PELVIC VISCERA: Heterogeneous nodular uterus with an exophytic 3 cm nodular component on the right side of the fundus. OSSEOUS STRUCTURES: Multilevel thoracolumbar spondylosis more conspicuous at L5-S1 and L1-2 levels. Grade 1 anterolisthesis L4-5. Grade 1 retrolisthesis L5-S1 and L1-2 levels. Fatty atrophy of the lower lumbar muscles. CT/CT abdomen pelvis wo IV con IMPRESSION: Nonobstructing nephrolithiasis, bilaterally. Sigmoid colon diverticulosis. Small fat-containing umbilical hernia. Multilevel thoracolumbar spondylosis more conspicuous at L5-S1 resulting in grade 1 retrolisthesis L5-S1 and L1-2 and grade 1 anterolisthesis L4-5. Probable uterine fibroid. Fleischner guidelines were followed. Electronically signed by: Mario Man MD 10/30/2024 03:30 PM [facility] [place] By: Mario May MD Signed By: <Electronically signed by Mario Musa MD in OV> 10/30/24 1530 DD/ 1501 TD/TT: 10/30/24 1518 Brass Burnisher: [place] [id number] CT Scan Report Signed Patient: Lexa Sanchez MR#: [id number] 144 : 1960 Acct:[id number] Age/Sex: 63 / F ADM Date: 10/30/24 Loc: HO.ED Attending Dr: Ordering Physician: Sven Wetzel Date of Service: 10/30/24 Procedure(s): CT abdomen pelvis wo IV con Accession Number(s): [id number] cc: Patrick Mead MD; Sven Wetzel Report Number: [id number]: Total DLP = 614.00 mGy-cm EXAMINATION: CT ABDOMEN AND PELVI S WITHOUT CONTRAST CLINICAL INFORMATION: Right flank pain. COMPARISON: Report from CT dated June 16, 2015. TECHNIQUE: Multidetector volumetric imaging was performed from the superior aspect of the liver through the pubic symphysis. Sagittal and coronal reformatted images w ere obtained on the technologist's workstation. This CT examination was performed using dose optimization techniques as appropriate, various ly including the following: *Automated exposure control *Adjustment of mA and/or kV according to patient size (this includes techniques or standardized protocols for targeted exams where dose is matched to indication/reason for exam; i.e. extremities or head) *Use of iterative reconstruction technique DLP: 614 mGy centimeter. FINDINGS: Limited evaluation o f the intra-abdominal organs and vascular structures due to la ck of IV contrast. LUNG BASES: 1 mm calcified nodule, left lung base likely granuloma. LIVER, GALLBLADDER, AND BILIARY TREE: Liver measures 13 cm . No intrahepatic biliary ductal dilatation. Absent gallbladder likely cholecystectomy. Common bile duct measures 4 mm. PANCREAS: Status pos t resection of the tail. No peripancreatic fluid collection. No main pancreatic ductal dilatation. SPLEEN: Status post splenectomy. ADRENAL GLANDS: Soft tissue fullness, left adrenal gland measuring 3 Hounsfield units. No nodular lesion. KIDNEYS AND URETERS: Right kidney: 1 mm calcification, upper pole. No hydronephrosis. Left kidney: Few scattered less t sol 1 mm calcifications in the lower pole. No hydronephrosis. BLADDER: Fluid-fille d nearly collapsed. GASTROINTESTINAL TRACT: Numerous diverticula , sigmoid colon. Abundant stool withi n the large intestine. No intestinal obstruction pattern. Appendix is normal. No pericolonic edema pattern. No pneumoperitoneum. No ascites. No fluid collections , peritoneal cavity. ABDOMINAL WALL: Smal l fat-containing umbilical hernia and diastases femoral rectus muscl es in the periumbilical region. LYMPH NODES: Nonspecific prominent lymph nodes, mesenteric and retroperitoneum. VASCULAR: No aneurys m, abdominal aorta. No gross calcified plaques. PELVIC VISCERA: Heterogeneous nodular uterus with an exophytic 3 cm nodular component on the right side of the fundus. OSSEOUS STRUCTURES: Multilevel thoracolumbar spondylosis more conspicuous at L5-S1 and L1-2 levels. Grade 1 anterolisthe sis L4-5. Grade 1 retrolisthes is L5-S1 and L1-2 levels. Fatty atrophy of the lower lumbar muscles. CT/CT abdomen pelvis wo IV con IMPRESSION: Nonobstructing nephrolithiasis, bilaterally. Sigmoid colon diverticulosis. Small fat-containing umbilical hernia. Multilevel thoracolumbar spondylosis more conspicuous at L5-S1 resulting in grade 1 retrolisthesis L5-S1 and L1-2 and grade 1 anterolisthesis L4-5. Probable uterine fibroid. Fleischner guideline s were followed. Electronically wilmar d by: Mario Man MD 10/30/2024 03:30 PM [facility] [place]ict[place] By: Mario Schwartz MD Signed By: <Electronically signed by Mario Musa MD in OV> 10/30/24 1530 DD/ 1501 TD/TT: 10/30/24 1518 Brass Burnisher: Lipid Panel Reviewed date:12/01/2024 03:13:57 PM Interpretation: Performing Lab:[facility], [address] [place] [phone] Notes/Report: Triglycerides 123 <150 mg/dL Desirable Triglyceride: less than 150 mg/dL Borderline High Triglyceride 150-199 mg/dL High Triglyceride: 200-499 mg/dL Very High Triglyceride: greater than or equal to 5OO mg/dL Cholesterol 167 <200 mg/dL Desirable Cholesterol: less than 200 mg/dL Borderline High Cholesterol: 200-239 mg/dL High Cholesterol: greater than 239 mg/dL LDL Cholesterol Calculated 92 <100 mg/dL Desirable LDL: less than 100 mg/dL Near Optimal/Above Optimal LDL: 110-129 mg/dL Borderline High LDL: 130-159 mg/dL High LDL: 160-189 mg/dL Very High LDL: greater than or equal to 190 mg/dL HDL Cholesterol 51 >40 mg/dL Desirable HDL: greater than 40 mg/dL Note: This HDL assay may give artificially low results in patients with liver disease. Carbohydrate Antigen 19-9 Reviewed date:12/01/2024 03:13:57 PM Interpretation: Performing Lab:[facility], [address] [place] [id number] Notes/Report: Carbohydrate Antigen 19-9 10 <34 U/mL This test was performed using the Siemens chemiluminescent method. Values obtained from different assay methods cannot be used interchangeably. CA 19-9 levels, regardless of value, should not be interpreted as absolute evidence of the presence or absence of disease. THIS TEST WAS PERFORMED AT: [facility] [address] [place] [phone] EVA MIRELES MD Immunoglobulin A Reviewed date:12/01/2024 03:13:57 PM Interpretation: Performing Lab:[facility], [address] [place] [phone] Notes/Report: Immunoglobulin A 506 70-320 mg/dL THIS TEST WAS PERFORMED AT: [facility] [address] [place] [phone] EVA MIRELES MD Reason For Referral Reason Consult and Treat Di arrhea Abdominal Pain Diagnosis 1 Diverticulosis (K57. 90) Diagnosis 2 Abdominal pain (R10. 9) Referral Organization Patrick Mead III, MD Referring Provider First Name Patrick Referring Provider Last Name [place] Referring Provider Speciality Internal M edicine Referred Organization [facility] nter Referred Provider [facility] er, Gastroenterology Referred Address [address] [place] [id number], Referred Provider Specialty Gastroentero logy General Notes Courtney Murray 2023 03:48:25 PM EDT > Referral faxed with Progress Note Referral Priority Routine Referral Appointment Date 05/08/2024 Medications Medication SIG (Take, Route, Fr equency, Duration) Notes Start Date End Date Status Lisinopril 5 MG TAKE 1 TABLET BY MOUTH EVERY DAY Active Immunizations Vaccine Route Administration Date Status Comme nts Meningococcal (MCV4) Unknown 05/07/2016 Administered Hib Unknown 05/07/2016 Administered COVID PFIZER Unknown 02/20/2021 Administered COVID PFIZER Unknown 01/30/2021 Administered COVID Pfizer Bivalent Unknown 09/17/2022 Administered COVID PFIZER Unknown 09/18/2021 Administered PPV 23 Unknown 05/07/2016 Administered Social History Tobacco Use: Social History Observation [...] Problem Status W/U Status Risk Notes Problem 2223116 Former smoker (Z87.891) Active confirmed She is highly motivated not to smoke. We discussed strategies for maintenance of abstinence in times of stress. Problem 971980708015620 Obesity (BMI 30.0-34.9) (E66.9) Active confirmed She has l ost 2 pounds. Her body mass index is 30. He was encouraged to continue losing weight. We reviewed her weight loss strategy. Problem 575356397 Essential (primary) hypertension (I10) Active confirmed Her blood pressure today was In the normal range today. She was given an appointment to return to the office in near future to check it again. The importance of aggressive weight loss and sodium restriction was reiterated. Problem 068451361 Irritable bowel syndrome with diarrhea (K58.0) Active confirmed She is familiar with the discomforts involve theproblem. She is able to conduct all of the activities of daily life without difficulty. Problem 12488740 Ureterolithiasis (N20.1) Active confirmed No episodes of renal colic have been reported. She has had no hematuria. Problem 18786947 Crohn's disease of colon with abscess (K50.114) Active confirmed She is had no recent activity from the Crohn's disease. It is stable and no change in treatment was necessary. 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 There is no sign of relapse or new primary. The pancreatic remnant is functioning well. 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 There is no sign of breast cancer on today's examination. Vital Signs Heart Rate 85 /min 12/04/2024 Temperature 97.8 degrees Fahrenheit 12/04/2024 Blood pressure diastolic 83 mm Hg 12/04/2024 Height 65 in 12/04/2024 Blood pressure systolic 134 mm Hg 12/04/2024 Weight 192 lbs 12/04/2024 BMI 31.95 kg/m2 12/04/2024 Encounters Encounter Location Date Provider Diagnosis Patrick Mead III, MD [address] [place] [address] [place] [address] 02/26/2024 Patrick Mead Acute right-sided lo w back pain with right-sided sciatica M54.41 ; Hyperlipidemia type II E78.01 ; Benign cystic mucinous tumor M67.40 ; Obesity (BMI 30.0-34.9) E66.9 ; Ureterolithiasis N20.1 and Essential (primary) hypertension I10 Patrick Mead III, MD [address] [place] [address] [place] [address] 04/09/2024 Patrick Mead Subcutaneous nodule R22.9 ; Benign cystic mucinous tumor M67.40 ; Essential (primary) hypertension I10 ; Former smoker Z87.891 ; Ureterolithiasis N20.1 ; 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 D05.82 ; Obesity (BMI 30.0-34.9) E66.9 and Irritable bowel syndrome with diarrhea K58.0 Patrick Mead III, MD [address] [place] [address] [place] [address] 09/05/2024 Patrick Mead Benign cystic mucino us tumor M67.40 ; Essential (primary) hypertension I10 ; Hyperlipidemia type II E78.01 ; Former smoker Z87.891 ; Crohn's disease of colon with abscess K50.114 and 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 D05.82 Patrick Mead III, MD [address] [place] [address] [place] [address] 12/04/2024 Patrick Mead Essential (primary) hypertension I10 ; 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 D05.82 ; Former smoker Z87.891 ; Crohn's disease of colon with abscess K50.114 ; Benign cystic mucinous tumor M67.40 and Obesity E66.9 Patrick Mead III, MD [address] [place] [address] [place] [address] 02/28/2024 Patrick Mead Benign cystic mucino us tumor M67.40 and Epigastric abdominal pain R10.13 Patrick Mead III, MD [address] [place] [address] [place] [address] 03/21/2024 Patrick Mead III, MD [address] [place] [address] [place] [address] 03/21/2024 Patrick Mead III, MD [address] [place] [address] [place] [address] 04/01/2024 Patrick Mead III, MD [address] [place] [address] [place] [address] 05/12/2024 Patrick Mead III, MD [address] [place] [address] [place] [address] 05/12/2024 Patrick Mead III, MD [address] [place] [address] [place] [address] 07/09/2024 Patrick Mead III, MD [address] [place] [address] [place] [address] 10/30/2024 Patrick Mead III, MD [address] [place] [address] [place] [address] 11/05/2024 Patrick Mead 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 D05.82 ; Crohn's disease of colon with abscess K50.114 and Hyperlipidemia, unspecified hyperlipidemia type E78.5 Patrick Mead III, MD [address] [place] [address] [place] [address] 03/08/2024 Patrick Mead III, MD [address] [place] [address] [place] [address] 03/08/2024 Patrick Mead III, MD [address] [place] [address] [place] [address] 05/02/2024 Patrick Mead III, MD [address] [place] [address] [place] [address] 06/20/2024 Patrick Mead III, MD [address] [place] [address] [place] [address] 06/20/2024 Patrick Mead Assessments Encounter Date Diagnosis (ICD Code) Assessment Notes Treat ment Notes Treatment Clinical Notes 02/26/2024 Hyperlipidemia type II (ICD-10 - E78.01) Her lipids are in near target range and no change in her regimen as needed. 02/26/2024 Acute right-sided lo w back pain with right-sided sciatica (ICD-10 - M54.41) She sayys the pain has become intermittent, but is mild. It is not a major problem at this time. 04/09/2024 Benign cystic mucino us tumor (ICD-10 - M67.40) Her CA-19-9 is in the normal range and there is no sign of recurrence of the pancreatic neoplasm that was resected. 04/09/2024 Subcutaneous nodule (ICD-10 - R22.9) This appears to be attached to the scar and will be observed. Her CA-19-9 is normal. 09/05/2024 Essential (primary) hypertension (ICD-10 - I10) Her blood pressure today was 141/77 which is slightly elevated. She was given an appointment to return to the office in near future to check it again. The importance of aggressive weight loss and sodium restriction was reiterated. 09/05/2024 Benign cystic mucino us tumor (ICD-10 - M67.40) This was a tumor of low malignant potential. There is no sign of relapse or new primary. The pancreatic remnant is functioning well. 12/04/2024 Essential (primary) hypertension (ICD-10 - I10) [...] sign of breast cancer on today's examination. 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 04/09/2024 Essential (primary) hypertension (ICD-10 - I10) Her blood pressure is currently stable and in the normal range. No change in her regimen was needed today. 09/05/2024 Hyperlipidemia type II (ICD-10 - E78.01) Her lipids have been stable and no change in her regimen was 12/04/2024 Former smoker (ICD-1 0 - Z87.891) She is highly motivated not to smoke. We discussed strategies for maintenance of abstinence in times of stress. 02/28/2024 Benign cystic mucino us tumor (ICD-10 - M67.40) 11/05/2024 Crohn's disease of colon with abscess (ICD-10 - K50.114) 02/26/2024 Obesity (BMI 30.0-34 .9) (ICD-10 - E66.9) She has lost 2 pounds. Her body mass index is 30. He was encouraged to continue losing weight. We reviewed her weight loss strategy. 04/09/2024 Former smoker (ICD-1 0 - Z87.891) She is highly motivated not to smoke. We discussed strategies for maintenance of abstinence in times of stress. 09/05/2024 Former smoker (ICD-1 0 - Z87.891) She is highly motivated not to smoke. We discussed strategies for maintenance of abstinence in times of stress. 12/04/2024 Crohn's disease of colon with abscess (ICD-10 - K50.114) She is had no recent activity from the Crohn's disease. It is stable and no change in treatment was necessary. 02/28/2024 Epigastric abdominal pain (ICD-10 - R10.13) 11/05/2024 Hyperlipidemia, unspecified hyperlipidemia type (ICD-10 - E78.5) 02/26/2024 Ureterolithiasis (ICD-10 - N20.1) No episodes of renal colic have been reported. She has had no hematuria. 04/09/2024 Ureterolithiasis (ICD-10 - N20.1) No episodes of renal colic have been reported. She has had no hematuria. 09/05/2024 Crohn's disease of colon with abscess (ICD-10 - K50.114) She is had no recent activity from the Crohn's disease. It is stable and no change in treatment was necessary. 12/04/2024 Benign cystic mucino us tumor (ICD-10 - M67.40) This was a tumor of low malignant potential. There is no sign of relapse or new primary. The pancreatic remnant is functioning well. 02/26/2024 Essential (primary) hypertension (ICD-10 - I10) Her blood pressure is currently stable and in the normal range. No change in her regimen was needed today. 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 Her last examination was unremarkable. She was continued on her current therapy. 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 Her last examination was unremarkable. She was continued on her current therapy. 12/04/2024 Obesity (ICD-10 - E66.9) Her body mass index is 331and she hasgained 4 pounds since her last visit. I recommended continued weight loss through exercise and a diet restricted in fat calories in sodium. 04/09/2024 Obesity (BMI 30.0-34 .9) (ICD-10 - E66.9) She has lost 2 pounds. Her body mass index is 30. He was encouraged to continue losing weight. We reviewed her weight loss strategy. 04/09/2024 Irritable bowel syndrome with diarrhea (ICD-10 - K58.0) She is familiar with the discomforts involve theproblem. She is able to conduct all of the activities of daily life without difficulty. 04/09/2024 Other Plan Of Treatment Pending Test Test Name Order Date PROFILE, FASTING (COMPREHENSIVE METABOLI C) 12/04/2024 CBC w DIFF 12/04/2024 CARBOHYDRATE ANTIGEN 19-9 (CA 19-9) 03/2025 Lipid Panel 12/04/2024 Next Appt Details Provider Name:Patrick Mead, 03/17/2025 09:00:00 AM, [address] [place] [address] [address], [place], [address], Provider Name:Patrick Mead, 09/08/2025 09:00:00 AM, [address] [place] [address] [address], [place], [address], Insurance Providers Payer Name Payer Address Payer Phone Subscriber Number Group Number Insured Name Patient Relationship to Insured Coverage Start Date Coverage End Date [facility] [address] [place], [place] [id number] LaurelLexana Self - patient is the insured Medical (General) History Medical History History ICD Code hypertension hyperlipidemia crohns disease penicillin allergy last bilateral mammogram 07/2013 @ 6 mm left ureteral stone June 2015 1.9 cm cystic lesion pancreas June 2015 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 Lundberg No history Hospitalization History Reason Date(Month/Year) No history
== END 2025-02-10 07:53 | disposition home or self-care (01) ==
LOC: HO.MAMMO 07:52
PROVIDERS: PCP Internal Medicine Medical Oncology; Visit Provider Internal Medicine Medical Oncology
DX: Z12.31 Encounter for screening mammogram for malignant neoplasm of breast (principal)
CPT/HCPCS: 77063; 77067

== ENCOUNTER → 2025-02-10 08:00 | Outpatient (BNV) | payer BC, SELFPAY | PROVIDERS: PCP Internal Medicine Medical Oncology; Visit Provider Internal Medicine | DX: Z12.31 Encounter for screening mammogram for malignant neoplasm of breast (principal) | CPT/HCPCS: 77063; 77067 ==

== ENCOUNTER 2025-02-21 08:25 | Outpatient (REF) | payer BC, SELFPAY ==
[2025-02-21 08:41] LABS: MANUAL DIFF FLAG NO
[2025-02-21 09:13] LABS: Basophils Absolute Auto 0.1 X10*3/uL (0.0-0.2); Basophils Percent Auto 1.3 % (0-2); Eosinophils Absolute Auto 0.1 X10*3/uL (0.0-0.4); Eosinophils Percent Auto 1.3 % (0-4); Hematocrit 43.1 % (37.0-47.0); Hemoglobin 14.4 g/dl (12.0-16.0); Imm Gran Abs Auto 0.01 X10*3/uL (0.00-0.03); Imm Gran Pct Auto 0.2 % (0.0-0.4); Lymphocytes Absolute Auto 2.2 X10*3/uL (1.2-4.9); Lymphocytes Percent Auto 39.9 % (20-40); Mean Corpuscular HGB Conc 33.4 g/dl (31.0-35.0); Mean Corpuscular Hemoglobin 31.6 pg (27.0-33.0); Mean Corpuscular Volume 94.5 fL (80.0-98.0); Mean Platelet Volume 9.5 fL (9.4-12.3); Monocytes Absolute Auto 0.5 X10*3/uL (0.1-1.2); Monocytes Percent Auto 9.7 % (2-11); Neutrophils Absolute Auto 2.7 x10*3/uL (2.0-8.3); Neutrophils Percent Auto 47.6 % (45-73); Platelet Count 371 X10*3/uL (160-400); Red Blood Count 4.56 X10*6/uL (4.20-5.50); Red Cell Distribution Width 12.5 % (11.0-16.0); White Blood Count 5.6 X10*3/uL (4.8-10.8)
[2025-02-21 09:40] LABS: Alanine Aminotransferase 30 U/L (0-31); Alkaline Phosphatase 87 U/L (39-117); Anion Gap 11 (12-20); Aspartate Amino Transferase 23 U/L (5-31); Bilirubin Total 0.9 mg/dL (0.0-1.0); Blood Urea Nitrogen 20 mg/dL (9-16); Calcium 8.9 mg/dL (8.4-10.2); Carbon Dioxide 25 mmol/L (22-29); Chloride 108 mmol/L (96-108); Cholesterol 161 mg/dL (<200); Estimated Glomerular Filt Rate > 60; Glucose Random 107 mg/dL (60-115); HDL Cholesterol 50 mg/dL (>40); LDL Cholesterol Calculated 96 mg/dL (<100); Potassium 4.3 mmol/L (3.3-5.1); Sodium 140 mmol/L (135-145); Total Protein 7.3 g/dL (6.5-8.0); Triglycerides 76 mg/dL (<150)
[2025-02-23 14:13] LABS: Carbohydrate Antigen 19-9 10 U/mL (<34)
== END 2025-02-21 08:26 | disposition home or self-care (01) ==
LOC: HO.LAB 08:25
PROVIDERS: PCP Internal Medicine Medical Oncology; Visit Provider Internal Medicine Medical Oncology
DX: I10 Essential (primary) hypertension (principal); D05.82 Other specified type of carcinoma in situ of left breast; E78.5 Hyperlipidemia, unspecified; E66.3 Overweight
CPT/HCPCS: 36415; 80053; 80061; 85025; 86301

== ENCOUNTER 2025-04-16 08:55 | Outpatient (AMB) | payer BC, SELFPAY ==
--- OUTSIDE RECORDS SUMMARY | 2024-02-29 05:00 | XMS_ITS ---
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 :1960 A ge:63 Y S ex:Female Date:02/29/2024 Address:[address] [place], [place] [id number] Pcp:SID STRANGE MD Subjective: * Chief Complaints: * 1 . 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 * Medical History: Objective: * Vitals: Assessment: Plan: * Treatment: * Images: Billing Information: * Visit Code: * Procedure Codes: * Electronic signature of Sofia Leggett MD on 04/16/2025 at 09:14 AM EDT Sign off status: Pending * Appointment Provider: Law Leggett M.D. Date: 0 02/29/2024 Generated for Siddhartha babcock/Yung/Cynthiaitting on: 0 04/16/2025 09:14 AM EDT
--- OUTSIDE RECORDS SUMMARY | 2025-03-17 13:00 | XMS_ITS ---
Author Organization Patrick Mead III, MD Address [address] [place] [address] [place] [address] Care Team Providers Care Demo Event Specialist Name Role Phone Patrick Mead Primary Care Provider [phone] REASON FOR VISIT Follow up Social History Sex Assigned At : Social History Observation Description Sex Assigned At Female Encounters Encounter Location Date Provider Diagnosis Patrick Mead III, MD [address] [place] [address] [place] [address] 03/17/2025 Patrick Mead Plan Of Treatment Next Appt Details Provider Name:Patrick Mead, 06/25/2025 09:30:00 AM, [address] [place] [address] [place], [address], Provider Name:Patrick Mead, 09/08/2025 09:00:00 AM, [address] [place] [address] [place], [address], Progress Notes * Kylee SANCHEZDOB:1960 (64 yo F)Acc No.[id number]:03/17/2025 Progress Notes Patient: Lexa HARRISna Provider: Benitez Mead MD :1960 A ge:64 Y S ex:Female Date:03/17/2025 Address:[address] [place], [place] [id number] Subjective: * Chief Complaints: * 1 . Follow up. * Medical History: Objective: * Vitals: Assessment: Plan: * Treatment: * Images: * The named appointment provid er may or may not be the originator of this progress note, and it is not deemed complete until electronically signed by the appointment provider. Sign off status: Pending * Provider: Benitez Mead MD Date: 03/17/2025 Generated for Siddhartha babcock/Yung/Dang on: 04/16/2025 09:14 AM EDT
--- NOTE | 2025-04-16 09:05 | A.OFFVIS_ITS ---
Vital Signs 04/16/25 09:06 Height 5 ft 4 in Weight 194 lb BMI 33.3 BP 148/62 H Blood Pressure Location Lt brachial Position Sitting Pulse 77 Pulse Oximetry (%) 96 Oxygen Delivery Method Room Air Intake Visit Reasons: ibs Intake Note: Patient follow up for Chronic diarrhea and IBS. Patient cc: between diarrhea and constipation, lower abdominal cramp with burning sensation, rectal bleeding with exercises, and also her skin is braking out with some food. Automation Tender Required: No Accompanied by: Self / Same As Patient Allergies Penicillins (PENICILLINS) Allergy (Intermediate, Verified 10/30/24 14:49) JOINT SWELLING tetracycline (TETRACYCLINE) Allergy (Intermediate, Verified 10/30/24 14:49) Vomiting egg Allergy (Verified 10/30/24 14:49) Rash erythromycin base Adverse Reaction (Intermediate, Verified 10/30/24 14:49) Nausea and Vomiting Medication List - Last Reconciled 04/16/25 by Ellie Ruth MD lisinopril 5 mg PO DAILY HPI HPI ibs: Details: GI clinic visit for this 64 year female with IBS, hypertension for follow up of colon polyps and family hx of colon cancer Pt has a hx of pancreatic [place] (for benign cyst on her pancreas[place] [facility] [place]'S VISIT: Patient cc: Patient cc: between diarrhea and constipation, lower abdominal cramp with burning sensation, rectal bleeding with exercises, and also her skin is braking out with some food The patient is a 64-year-old female presenting with suspected food-related dermal and gastrointestinal symptoms. She reports new-onset facial, neck, and upper back blotchy dermatitis associated with certain food items, particularly those containing gluten, as well as specific spices. These symptoms have been present for a few months and typically resolve within two hours following food intake. Accompanying dermatological symptoms include mild burning and itching. The patient also describes irregular bowel habits exacerbated by dietary intake, with a pattern of semi-formed stools occurring up to three times daily. Psyllium fiber use has improved her bowel movements. Dietary adjustments include a reduction in gluten, sugar, caffeine, and overall portion sizes, which she notes has led to improved gastrointestinal and energy levels. The patient engages in regular physical activity and has observed increased muscle toning, accompanied by weight gain attributed to muscle mass growth rather than fat. Despite her condition's symptomatic improvement, she is concerned about the persistent and unpredictable dermal reactions to various foods, currently exploring potential food allergies with recommended testing. The patient has altered her dietary intake to address suspected food-related symptoms, significantly reducing gluten, sugars, and caffeine. Her diet includes fruits like oranges and apples, with noted reactions to both. She adheres to portion control, replacing traditional Albanian muffins with gluten-free alternatives to decrease symptomatic reactions. The patient consumes psyllium fiber capsules thrice weekly, resulting in stabilized bowel habits. She reports an adjustment in physical activity in line with improved energy levels and musculature, noting enhanced physical performance and tone. PAST VISITS: Had an episode last week with diarrhea On GFD and has 3-4 BMs a day. Can have symptoms if she eats any precipitating foods. Symptoms are more manageable since she is on a 100% GFD She is able to exercise - does [employer] bike for 30 min Seen by Vehicle And Equipment Cleaner and found it very helpful Feeling 90% better EGD and colonoscopy results were reviewed with the patient Doing better Had her son's wedding last weekend and took 4 peptobismol and was able to dance at the wedding Tried kale and denied having any diarrhea Takes a serving of fruit every day Eats a lot chicken, pork and meat She would like to manage her symptoms with diet and without medications Notes improvement in abdominal bloating Kylee presents in the office as a follow up. CC: Family hx of CRC and she is here today to go over symptoms. She states that 45min after she eats she will have a regular BM but it loosens up to diarrhea. She states that sometimes her food will pass right through like it is not digesting. Her energy levels are changing. Her mother passed 2 months ago. She states that she was looking up pancreatic insufficiency. She states that she had an accident when she went out with her family and she states that she states it was a foul scent. She also repots a hx of lactose intolerance. Mom 2 months ago Went to have lunch in a restuarant. 45 min later, she had a BM with urgency and had an accident with a foul smell. Eating chicken, turkey and no spices or fried foods Has been having post prandial diarrhea every time she eats Starts as a normal BM and progressively becomes more loose. Has 3-4 BM in a day - normal in the am and becomes loose later in the day. Associated abdominal cramps Has a hx of IBS with diarrhea since age 14 yrs These symptoms are different - changed her diet to a bland diet with improvement in her symptoms. Notes discomfort underneath her left rib cage - improves after she has a BM. Takes chewable pepto-bismol and changes color of stool Has to take 2-3 tab at a time + imodium Also feels tired after exercising Patient denies symptoms of heartburn, dysphagia, nausea, vomiting, change in appetite or weight. Denies recent black stools or rectal bleeding. Stopped Tamoxifen after 5 years. 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 Denies being on chronic anticoagulation. 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 Mom to advanced dementia. Mom and sister have IBS LABS IN [facility] : Reviewed IMAGING STUDIES: No recent GI imaging ENDOSCOPIC STUDIES: 06/09/24 EGD AND COLON SHOWED: Endoscopy Findings: ESOPHAGUS: Small hiatal hernia STOMACH: Diffuse gastritis and benign appearing gastric polyps DUODENUM: Normal - biopsied to check for celiac sprue Colonoscopy Findings: One small polyp was removed Random biopsies were obtained from right and left colon to check for microscopic colitis Moderate to severe diverticulosis seen in the entire colon Plan: Repeat Colonoscopy in 5 years if polyps are adenomatous and due to a history of adenomatous colon polyps. Above findings were reviewed with the patient and relevant handouts were given and the discharge area. Pt reported improvement in diarrhea since she switched to a gluten free diet BIOPSIES SHOWED: A. Small bowel, biopsy: Small bowel mucosa within normal limits; preserved villous architecture and no increased intraepithelial lymphocytes seen. B. Stomach, antrum, biopsy: Gastric antral mucosa within normal limits; negative for Helicobacter pylori, intestinal metaplasia and dysplasia. C. Stomach, polyps, biopsy: Fundic gland polyp (s). D. Colon, right, biopsy: Colonic mucosa within normal limits; negative for active, chronic or microscopic colitis. E. Colon, sigmoid, polypectomy: Tubular adenoma; negative for high-grade dysplasia. F. Colon, left, biopsy: Colonic mucosa within normal limits; negative for active, chronic or microscopic colitis. Letter sent advising repeat colonoscopy in 5 years and patient was placed on the colonoscopy recall list COLONOSCOPY 10/12/2020 Terminal Ileum: Not evaluated Cecum: Normal Ascending Colon: Normal Transverse Colon: Normal Descending Colon: Moderate diverticulosis Sigmoid Colon: A 3-4 mm diminutive appearing polyp removed with a cold bx. A 6-7 mm sessile polyp removed with a cold snare and residual polyp removed with a cold bx. Severe diverticulosis with luminal narrowing. Rectum: Normal Ano-rectum: Moderate internal hemorrhoids Colon preparation: Good BIOPSY RESULTS: Diagnosis A. Colon, random, biopsy: Colonic mucosa within normal limits. B. Colon, sigmoid, polypectomies: - Tubular adenoma; no high grade dysplasia or carcinoma seen. - Colonic mucosa with prominent lymphoid aggregate; no dysplasia seen. - Colonic mucosa with mild surface hyperplastic changes. 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 - Gastrointestinal: Reports crampy abdominal discomfort, semi-formed stools, and auditory abdominal rumbling. Denies severe diarrhea. - Neurologic: Reports mild burning sensations. - General: Reports increased energy after dietary adjustments. Denies recent fatigue. Physical Exam Vital Signs: Last Vital Signs Pulse 77 04/16/25 09:06 BP 148/62 H 04/16/25 09:06 Pulse Ox 96 04/16/25 09:06 Oxygen Delivery Method Room Air 04/16/25 09:06 BMI result Body Mass Index 33.3 Const General: healthy appearing and no acute distress Nutritional Appearance: obese Orientation/consciousness: patient oriented x3 Limitations: no limitations HEENT Head: Yes normal to inspection Ears: hearing grossly normal bilaterally Mouth: Normal oral and palatal mucosa present Eyes Sclerae: sclerae normal Pupils: Equal, round and reactive pupils present Neck Neck: Yes normal visual inspection Chest Chest palpation & inspection: normal inspection of the chest Resp Effort & Inspection: normal respiratory effort Auscultation: clear to auscultation bilaterally Cardio Palpation: normal PMI Rate: regular rate Rhythm: regular rhythm Heart sounds: S1 normal heart sound present, S2 normal heart sound present and no murmurs GI Palpation (GI): Soft to palpation, nontender and No hepatosplenomegaly present Auscultation: normal bowel sounds Rectal Exam - Female: deferred Skin General skin exam: no rashes or lesions noted Neuro General: patient oriented x3, gait normal and moves all extremities Cranial nerves: Yes Equal, round and reactive pupils present Psych Appearance: grossly normal Mental Status: mental status grossly normal Assessment & Plan Assessment & Plan (1) IBS (irritable bowel syndrome): Code(s): K58.9 - Irritable bowel syndrome, unspecified Category: Medical (2) Tubular adenoma: Comment: 06/2024 One small tubular adenoma was removed during colonoscopy Random biopsies obtained from right and left colon were negative for microscopic colitis Follow-up colonoscopy advised in 5 years. Code(s): D36.9 - Benign neoplasm, unspecified site Category: Medical (3) Chronic diarrhea: Code(s): K52.9 - Noninfective gastroenteritis and colitis, unspecified Category: Medical (4) Dietary lactose intolerance: Code(s): E73.9 - Lactose intolerance, unspecified Category: Medical (5) Rash/skin eruption: Code(s): R21 - Rash and other nonspecific skin eruption Category: Medical Plan 64 YF with IBS(diarrhea predominant), lactose intolerance, hypertension seen for evaluation of chronic diarrhea Pt has a hx of pancreatic [place] (for benign cyst on her pancreas[place] [facility] [place] and is followed by Dr Mead Per pt, she had an Abd CT [place] [facility], which was negative Diarrhea x 2 months can be due to infectious or C Diff colitis, IBS, pancreatic insufficiency, celiac disease, microscopic colitis and less likely IBD Of note, patient denies recent antibiotics or travel outside the [place] Patient was advised evaluation with labs and stool studies Jackson of a fiber supplement twice daily and continue using peptobismol with meals If stool studies are negative, I will schedule her for an EGD and colonoscopy to check for microscopic colitis/IBD On 05/30/24 @ 16:33 Ellie Ruth Wrote To Ellie Ruth Pt called and lab results were reviewed. Taking a gluten free diet Notes diarrhea after taking Dairy, eggs, Pasta, crackers and bread within 1/2 an hour Unable to go out to eat or on social events Tried took fibre pills which caused gas, bloating and diarrhea. Taking imodium + 2-4 peptobismol 2 hrs before eating to control cramps and diarrhea. Still gets abd cramps and they are less severe 06/2024 EGD and Colonoscopy were performed for evaluation of chronic postprandial diarrhea - and findings as noted above 06/17/24 Pt advised to continue on a lactose and gluten free diet and avoid foods associated with diarrhea Ref sent to Nutrition at pt's request Elevated Ig A - will recheck and pt advised to discuss further workup with Dr Mead 10/23/24 On GFD and has 3-4 BMs a day. Can have symptoms if she eats any precipitating foods. Symptoms are more manageable since she is on a 100% GFD 04/16/25 Considering the patient's suspected gluten sensitivity and other food-related symptoms, I recommend specialized food allergy testing to determine specific allergens. Meanwhile, maintaining her modified diet with reduced gluten, sugar, and caffeine intake is crucial. The psyllium fiber regimen should continue for gastrointestinal support. With noted improvement and regular exercise, monitoring of symptoms and dietary adherence is advised to ensure ongoing efficacy and address potential needs for further interventions. Patient is planning a 10 day trip to [employer] [place] July to attend her son's wedding ceremony (DIL is from [place]). Patient was referred to Allergy and immunology ADDENDUM: RAST allergy testing was negative and C1 inhibitor protein and C1q complement component was normal EVELIO was positive in a titer 1:40 in a speckled pattern FU in 3 months - scheduled 07/23/25 Orders: Orders Rast Allergen 04/16/25 K58.9 - Irritable bowel syndrome, unspecified, R21 - Rash and other nonspecific skin eruption C1Q Complement Component 04/16/25 R21 - Rash and other nonspecific skin eruption C1 Inhibitor Protein 04/16/25 R21 - Rash and other nonspecific skin eruption EVELIO Reflex Titer and Pattern 04/16/25 R21 - Rash and other nonspecific skin eruption Referrals Allergy & Immunology Referral R21 - Rash and other nonspecific skin eruption, E73.9 - Lactose intolerance, unspecified Coding Level of Care Code Est Pt Level 4 (20019) Diagnoses IBS (irritable bowel syndrome) K58.9 Tubular adenoma D36.9 Chronic diarrhea K52.9 Dietary lactose intolerance E73.9 Rash/skin eruption R21 Time Spent (min) 20
--- NOTE | 2025-04-16 09:05 | A.OFFVIS_ITS ---
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
[2025-04-16 09:06] VITALS: BP 148/62; PULSE 77; O2SAT 96; BMI 33.3
--- OUTSIDE RECORDS SUMMARY | 2025-04-16 09:14 | XMS_ITS | Patient Health Record ---
Author Organization [facility] Address [address] [place] [id number] Care Team Providers Care Churn Drill Operator Name Role Phone Patrick Mead MD Primary Care Provider UnavailPatrick Hanson Unavailable [phone] Allergies Allergen (clinical drug ingredient) Drug/Non Drug Allergy documented on EMR Reaction Allergy Type Onset Date Status Penicillin Unknown Drug Allergy Active tetracycline Tetracycline HCl Unknown Drug Allergy Active erythromycin Erythromycin Unknown Drug Allergy A ctive meperidine Demerol Unknown Drug Allergy Active Reason For Referral No Information Medications Medication SIG (Take, Route, Frequency, Duration) Notes Start Date End Date Status Zantac 150mg 1 tablet Orally PRN reflex Active Loperamide HCl 2 MG 1-2 tablet Orally NEEDED FOR DIARRHEA UP TO 4 TIMES A DAY Active Lisinopril 5 MG 1 tablet Orally Once a day Active Hyoscyamine Sulfate 0.125 MG 1-2 tablets Orally Take 30-60 minutes before meals for 30 days 07/29/2015 Active Problems Problem Type SNOMED Code ICD Code Onset Dates Problem Status W/U Status Risk Notes Problem 376481083 Gastro-esophagea l reflux disease without esophagitis (K21.9) Active confirmed Problem 698230554 History of adenomatous polyp of colon (Z86.010) Active confirmed Problem 147884513 Irritable bowel syndrome with diarrhea (K58.0) Active confirmed Problem 853790509 Family history of colon cancer (Z80.0) Active confirmed Problem 88252790 Pancreatic cyst (K86.2) Active confirmed Plan Of Treatment Pending Test Test Name Order Date MRI ABD W&WO CONTRAST 07/29/2015 Future Test Test Name Order Date COLONOSCOPY 07/30/2013 Insurance Providers Payer Name Payer Address Payer Phone Subscriber Number Group Number Insured Name Patient Relationship to Insured Coverage Start Date Coverage End Date [facility] [employer] CLAIM[employer] [address] [place] [address] [phone] [id number] DIANA CALDERON Self - patient is the insured Medical (General) History Medical History History ICD Code irritable bowel syndrome gastroesophageal reflux hypertension a colonoscopy in 2002 had ra ised the suspicion of some ileitis, but subsequent colonoscopies and imaging studies have been negative in that regard. 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
== END 2025-04-16 09:49 | disposition home or self-care (01) ==
LOC: HO.HGI 08:56
PROVIDERS: PCP Internal Medicine Medical Oncology; Visit Provider Internal Medicine Gastroenterology
DX: K58.9 Irritable bowel syndrome, unspecified (principal); D36.9 Benign neoplasm, unspecified site; K52.9 Noninfective gastroenteritis and colitis, unspecified; E73.9 Lactose intolerance, unspecified; R21 Rash and other nonspecific skin eruption
CPT/HCPCS: 99499

== ENCOUNTER 2025-04-16 08:55 | Outpatient (REF) | payer BC, SELFPAY ==
[2025-04-22 13:59] LABS: Anti Nuclear Antibody Screen POSITIVE (NEGATIVE); Anti Nuclear Antibody Titer 1:40 titer
[2025-04-28 11:25] LABS: Class Almond 0; Class Codfish 0; Class Cow's Milk 0; Class Egg white 0; Class Hazelnut 0; Class Peanut 0; Class Scallop 0; Class Sesame Seed 0; Class Shrimp 0; Class Soybean 0; Class Tuna 0; Class Walnut 0; Class Wheat 0
[2025-04-28 11:26] LABS: Class Brazil Nut 0; Class Cashew 0; Class Macadamia Nut 0; Class Salmon 0; F345-IgE Macadmia Nut <0.10
== END 2025-04-16 08:56 | disposition home or self-care (01) ==
LOC: HO.LAB 08:55
PROVIDERS: PCP Internal Medicine Medical Oncology; Visit Provider Internal Medicine Gastroenterology
DX: K58.2 Mixed irritable bowel syndrome (principal); R21 Rash and other nonspecific skin eruption; E73.9 Lactose intolerance, unspecified; Z86.0101 Personal history of adenomatous and serrated colon polyps
CPT/HCPCS: 36415; 86003; 86038; 86039; 86160

== ENCOUNTER 2025-06-20 08:34 | Outpatient (REF) | payer BC, SELFPAY ==
--- OUTSIDE RECORDS SUMMARY | 2024-02-29 05:00 | XMS_ITS ---
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 :1960 A ge:63 Y S ex:Female Date:02/29/2024 Address:[address] [place], [place] [id number] Pcp:SID STRANGE MD Subjective: * Chief Complaints: * 1 . 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 * Medical History: Objective: * Vitals: Assessment: Plan: * Treatment: * Images: Billing Information: * Visit Code: * Procedure Codes: * Electronic signature of Sofia Leggett MD on 06/20/2025 at 08:39 AM EDT Sign off status: Pending * Appointment Provider: Law Leggett M.D. Date: 0 02/29/2024 Generated for Siddhartha babcock/Yung/Cynthiaitting on: 0 06/20/2025 08:39 AM EDT
--- OUTSIDE RECORDS SUMMARY | 2024-10-30 09:02 | XMS_ITS ---
Author Organization Patrick Mead III, MD Address [address] [place] [address] [place] [address] Care Team Providers Care Quality Improvement Coordinator Name Role Phone Patrick Mead Primary Care Provider REASON FOR VISIT left Front abdominal pain Social History Sex Assigned At : Social History Observation Description Sex Assigned At Female Encounters Encounter Location Date Provider Diagnosis Patrick Mead III, MD [address] [place] [address] [place] [address] 10/30/2024 Patrick Mead Plan Of Treatment Next Appt Details Provider Name:Patrick Mead, 06/25/2025 09:30:00 AM, [address] [place] [address] [place], [phone], Provider Name:Patrick Mead, 09/08/2025 09:00:00 AM, [address] [place] [address] [place], [address], Progress Notes * Kylee SANCHEZDOB:1960 (63 yo F)Acc No.[id number]:10/30/2024 Patient: Law IWONAROBINA Kylee :1960 A ge:63 Y S ex:Female Address:[address] [place] [phone] * true * Date: Generated for Printi ng/Faxing/eTransmitting on: 0 06/20/2025 08:38 AM EDT
--- OUTSIDE RECORDS SUMMARY | 2024-11-05 05:52 | XMS_ITS ---
Author Organization Patrick Mead III, MD Address [address] [place] [address] [place] [address] Care Team Providers Care Gas Furnace Installer Name Role Phone Patrick Mead Primary Care Provider REASON FOR VISIT Message Social History Sex Assigned At : Social History Observation Description Sex Assigned At Female Encounters Encounter Location Date Provider Diagnosis Patrick Mead III, MD [address] [place] [address] [place] [address] 11/05/2024 Patrick Mead Ductal carcinoma in situ [...] Details Provider Name:Patrick Mead, 06/25/2025 09:30:00 AM, [address] [place] [address] [place], [address], Provider Name:Patrick Mead, 09/08/2025 09:00:00 AM, [address] [place] [address] [place], [address], Progress Notes * Kylee SANCHEZDOB:1960 (63 yo F)Acc No.[id number]:11/05/2024 Patient: Kylee HARRIS :1960 A ge:63 Y S ex:Female Address:[address] [place] [phone] Subjective: * Chief Complaints: * M essage [...] * true * Date: Generated for Siddhartha babcock/Yung/Cynthiaitting on: 0 06/20/2025 08:39 AM EDT
--- OUTSIDE RECORDS SUMMARY | 2024-12-04 05:00 | XMS_ITS ---
Author Organization Patrick Mead III, MD Address [address] [place] [address] Care Team Providers Care Sr. Consultant Name Role Phone Patrick Mead Primary Care Provider [phone] Allergies Allergen (clinical drug ingredient) Drug/Non Drug [...] Date Provider Diagnosis Patrick Mead III, MD [address] [place] [address] [place] [address] 12/04/2024 Patrick Olverarne Essential (primary) hypertension I10 ; Ductal carcinoma [...] January, Re ason: OV, Mammogram Provider Name:Patrick Mead, 06/25/2025 09:30:00 AM, [address] [facility] [address], [place], [address], Provider Name:Patrick Mead, 09/08/2025 09:00:00 AM, [address] [place] [address] [address], [place], [address], Progress Notes * Kylee SANCHEZDOB:1960 (64 yo F)Acc No.[id number]:12/04/2024 Progress Notes Patient: Kylee HARRIS Provider: Benitez Mead MD :1960 A ge:64 Y S ex:Female Date:12/04/2024 Address:[address] [place], [place] [address] Subjective: * Chief Complaints: * R ecent [...] a kidney stone. She went to the [facility] emergency room where a CT scan showed only constipation. Her symptoms have now resolved with cathartics. He is going to see her aws consultant, Dr. Ruth, in the near future. * [...] 11/11/2015Subtotal pancreatectomy for cystic mucinous neoplasm 2015 [facility] - surgery performed by Dr. Lundberg No [...] x-cigarette smoker S he was born in [place] and has been for 29 years to [place].They have two children. [employer] ([facility]). * Medications: T akingLisinopril 5 MG Tablet [...] -?Glucose Urine UANegativeNegative - mg/dL?Urine BloodNegativeNegative -?Specific [place] - Urine1.0151.005-1.025 -?Urine ProteinNegativeNeg-Trace - mg/dL ?Urine [...] 0 12/04/2024 Generated for Siddhartha babcock/Yung/Cynthiaitting on: 0 06/20/2025 08:39 AM EDT History and Physical Notes * HPI (History [...]
--- OUTSIDE RECORDS SUMMARY | 2025-03-17 13:00 | XMS_ITS ---
Author Organization Patrick Mead III, MD Address [address] [place] [address] [place] [address] Care Team Providers Care Information Systems Security Officer Name Role Phone Patrick Mead Primary Care Provider [phone] REASON FOR VISIT Follow up Social History Sex Assigned At : Social History Observation Description Sex Assigned At Female Encounters Encounter Location Date Provider Diagnosis Patrick Mead III, MD [address] [place] [address] [place] [address] 03/17/2025 Patrick Mead Plan Of Treatment Next Appt Details Provider Name:Patrick Mead, 06/25/2025 09:30:00 AM, [address] [place] [address] [place], [address], Provider Name:Patrick Mead, 09/08/2025 09:00:00 AM, [address] [place] [address] [place], [address], Progress Notes * Kylee SANHCEZDOB:1960 (64 yo F)Acc No.[id number]:03/17/2025 Progress Notes Patient: Lexa HARRISna Provider: Benitez Mead MD :1960 A ge:64 Y S ex:Female Date:03/17/2025 Address:[address] [place], [place] [address] Subjective: * Chief Complaints: * 1 . [...] 0 03/17/2025 Generated for Siddhartha babcock/Yung/Dang on: 0 06/20/2025 08:38 AM EDT
--- OUTSIDE RECORDS SUMMARY | 2025-03-24 05:15 | XMS_ITS ---
Author Organization Patrick Mead III, MD Address [address] [place] [address] [place] [address] Care Team Providers Care Marketing Proposal Specialist Name Role Phone Patrick Mead Primary [...] Date Provider Diagnosis Patrick Mead III, MD [address] [place] [address] [place] [address] 03/24/2025 Patrick Mead Ductal carcinoma in situ [...] Up: 3 Months, Reason: OV Provider Name:Patrick Mead, 06/25/2025 09:30:00 AM, [address] [place] [address] [address] [place], [place], [id number], Provider Name:Patrick Mead, 09/08/2025 09:00:00 AM, [address] [place] [address] [address] [place], [place], [phone], Progress Notes * Kylee SANCHEZDOB:1960 (64 yo F)Acc No.[id number]:03/24/2025 Progress Notes Patient: Kylee HARRIS Provider: Benitez Mead MD :1960 A ge:64 Y S ex:Female Date:03/24/2025 Address:[address] [place], [place] [id number] Subjective: * Chief Complaints: * H ypertensionUreterolithiasisCystic [...] mammogram was unremarkable. She is seeing her mirror painter, Dr. Ruth, regularly. Questions H ave you [...] 11/11/2015Subtotal pancreatectomy for cystic mucinous neoplasm 2015 [facility] - surgery performed by Dr. Lundberg [...] x-cigarette smoker S he was born in [place] and has been for 29 years to [place].They have two children. [employer] ([email or web address]). * Medications: T akingLisinopril 5 MG Tablet [...] Mead MD Date: 0 03/24/2025 Generated for Siddhartha babcock/Yung/Cynthiaitting on: 0 06/20/2025 [...]
--- OUTSIDE RECORDS SUMMARY | 2025-06-20 08:39 | XMS_ITS | Patient Health Record ---
Author Organization [facility] Address [address] [place] [id number] Care Team Providers Care Linseed Oil Temperer Name Role Phone Patrick Mead MD Primary Care Provider UnavailPatrick Hanson Unavailable [phone] Allergies Allergen (clinical drug ingredient) Drug/Non Drug [...] Problem Status W/U Status Risk Notes Problem 301011413 Gastro-esophagea l reflux disease without esophagitis (K21.9) Active confirmed Problem 326478530 History of adenomatous polyp of colon (Z86.010) Active confirmed Problem 461614195 Irritable bowel syndrome with diarrhea (K58.0) Active confirmed Problem 717372406 Family history of colon cancer (Z80.0) Active confirmed Problem 31243941 Pancreatic cyst (K86.2) Active confirmed Plan Of Treatment Pending Test Test Name Order Date MRI ABD W&WO CONTRAST 07/29/2015 Future Test Test Name Order Date COLONOSCOPY 07/30/2013 Insurance Providers Payer Name Payer Address Payer Phone Subscriber Number Group Number Insured Name Patient Relationship to Insured Coverage Start Date Coverage End Date [facility] PROFESSIONAL CLAIMS [address] [place] [address] [id number] DIANA CALDERON Self - patient is the insured Medical (General) History Medical History History ICD Code irritable bowel syndrome gastroesophageal reflux hypertension a colonoscopy in 2002 had ra ised the suspicion of some ileitis, but subsequent colonoscopies and imaging studies have been negative in that regard. Denies PR,DM,CVA,Lung disease,renal dise ase Gilbert's disease with eleva [...]
--- OUTSIDE RECORDS SUMMARY | 2025-06-20 08:39 | XMS_ITS | Patient Health Record ---
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 Name Role Phone SID STRANGE MD Primary Care Provider Unavailab Yoli Obregon Unavailable [phone] Allergies Allergen (clinical drug ingredient) Drug/Non Drug Allergy documented on EMR Reaction Allergy Type Onset Date Status PENICILLIN Skin Rash/Swelling Drug Allergy Active Gluten Gluten Unknown Allergy Active Lactose Intolerance Unknown Allergy Active Results Component Value Reference Range Notes Urinalysis Reviewed date:05/20/2025 09:40:19 AM Interpretation: Performing Lab: Notes/Report: PH 6.0 PROTEIN Neg GLUCOSE Neg BLOOD Neg Reason For Referral No Information Medications Medication SIG (Take, Route, Frequency, Duration) Notes Start Date End Date Status Multivitamin Gummies Adult Active Lisinopril 5 MG 1 tablet Orally [...] 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 (509115533949083) 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 Problem Intraductal carcinoma in situ of left breast (9126892836032306 ) 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 Problem Personal history of primary malignant neoplasm of breast (531153617) Personal history of malignant neoplasm of breast (Z85.3) Active confirmed Problem Benign essential hypertension (9749310) Essential hypertension, benign (401.1) Active confirmed Major Problem Esophageal reflux (223323747) Esophageal reflux (530.81) Active confirmed Major Problem Crohn's disease (06401906) Regional enteritis of unspecified site (555.9) Active confirmed Major Problem Irritable bowel syndrome (81868350) Irritable bowel syndrome (564.1) Active confirmed Major Problem Menopausal symptom (51090694) Symptomatic menopausal or female climacteric states (627.2) Active confirmed Major Problem Gynecological examination normal (823943323118372) Routine gynecological examination (V72.31) Active confirmed Major Problem Screening for malignant neoplasm of colon (556325075) Special screening for malignant neoplasms, colon (V76.51) Active confirmed Major Vital Signs Temperature 98.1 degrees Fahrenheit 05/20/2025 Blood pressure diastolic 80 mm Hg 05/20/2025 Height 64.5 in 05/20/2025 Blood pressure systolic 132 mm Hg 05/20/2025 Weight 193 lbs 05/20/2025 BMI 32.61 kg/m2 05/20/2025 Encounters Encounter Location Date Provider Diagnosis [address] [address] 05/20/2025 Yoli Leggett Encounter for gynecological examination (general) (routine) without abnormal findings Z01.419 ; Encounter for screening mammogram for malignant neoplasm of breast Z12.31 ; Personal history of malignant neoplasm of breast Z85.3 and Dense breasts, unspecified R92.30 Assessments Encounter Date Diagnosis (ICD Code) Assessment Notes Treatment Notes Treatment Clinical Notes Section Notes 05/20/2025 Encounter for gynecological examination (general) (routine) without abnormal findings (ICD-10 - Z01.419) NO PAP TEST, DUE IN 2025. 05/20/2025 Encounter for screening mammogram for malignant neoplasm of breast (ICD-10 - Z12.31) REGULAR MAMMOGRAMS AND SBE'S WERE RECOMMENDED. 05/20/2025 Personal history of malignant neoplasm of breast (ICD-10 - Z85.3) CONITNUE FOLLOW UP AT [facility]. 05/20/2025 Dense breasts, unspecified (ICD-10 - R92.30) DISCUSSED DENSE BREASTS ON MAMMOGRAM AND ITS IMPLICATIONS. 3D MAMMOGRAMS WERE RECOMMENDED. Plan Of Treatment Pending Test Test Name Order Date MAMMOGRAM, SCREENING 02/27/2023 MAMMOGRAM, SCREENING 05/15/2024 MAMMOGRAM, SCREENING 05/20/2025 Urinalysis 10/14/2021 Urinalysis 10/09/2019 DIAGNOSTIC MAMMOGRAM, LEFT BREAST 2015 BONE DENSITY 08/16/2018 [facility] Mammo Screening 10/09/2019 MM Digital Mammo Screening 10/11/2020 MM Digital Mammo Screening 10/14/2021 MM Digital Mammo Screening 02/27/2023 MM Digital Mammo Screening 05/15/2024 MM Digital Mammo Screening 01/26/2016 MM Digital Mammo Screening 06/26/2017 MM Digital Mammo Screening 05/20/2025 Next Appt Details Provider Name:Yoli Redman helena, 05/24/2026 08:20:00 AM, [address], [address], [place], [address], Insurance Providers Payer Name Payer Address Payer Phone Subscriber Number Group Number Insured Name Patient Relationship to Insured Coverage Start Date Coverage End Date [employer] [address] [place] [address] [phone] [id number] VIOLA JUDD Spouse - patient is the [...] in situ of left br east D05.12 Mammographic fibroglandular density, marcellus ateral breasts R92.323 Ulcerative colitis 556 Dense breasts, unspecified R92.30 Mammographic heterogeneous density, bila teral breasts R92.333 Surgical History Surgery Date(Month/Year) Cholecystectomy Colonoscopy Left Breast Biopsy Left Lumpectomy 11/11/2015 Pancreatic cystectomy - Benign 05/2016 Spleenectomy 2015 Hospitalization History Reason Date(Month/Year) See Surgical Hx 2 [facility] Deliveries
--- OUTSIDE RECORDS SUMMARY | 2025-06-20 08:39 | XMS_ITS | Patient Health Record ---
Author Organization Patrick Mead III, MD Address [address] [place] [address] Care Team Providers Care Lane Marker Installer Name Role Phone Patrick Mead Primary Care Provider Allergies Allergen (clinical drug ingredient) Drug/Non Drug Allergy documented on EMR Reaction Allergy Type Onset Date Status Penicillin Unknown Drug Allergy Active Gluten Gluten rash Allergy Active Results Component Value Reference Range Notes Complete Blood Count Auto Di ff Reviewed date:08/28/2024 07:43:32 AM Interpretation: Performing Lab:[facility], [address] [place] [address] Notes/Report: White Blood Count 5.9 4.8-10.8 X10*3/uL [...] NRBC Abs Auto 0.000 0.0-0.012 X10*3/uL Comprehensive [place]. Panel Fa Reviewed date:08/28/2024 07:43:32 AM Interpretation: Performing Lab:[facility], [address] [place] [phone] Notes/Report: Sodium 137 135-145 mmol/L Potassium 4.2 [...] Panel Reviewed date:08/28/2024 07:43:32 AM Interpretation: Performing Lab:[facility], [address] [place] [phone] Notes/Report: Triglycerides 126 <150 mg/dL Desirable Triglyceride: [...] 19-9 Reviewed date:09/08/2024 05:36:04 AM Interpretation: Performing Lab:[address] [address] Notes/Report: Carbohydrate Antigen 19-9 8 <34 U/mL This test was performed using the Siemens chemiluminescent method. Values obtained from different assay methods cannot be used interchangeably. CA 19-9 levels, regardless of value, should not be interpreted as absolute evidence of the presence or absence of disease. THIS TEST WAS PERFORMED AT: [facility] [address] [place] [phone] EVA MIRELES MD Complete Blood Count Auto Di ff Reviewed date:10/31/2024 08:28:24 AM Interpretation: Performing Lab:[address] [address] Notes/Report: White Blood Count 9.3 4.8-10.8 X10*3/uL [...] Panel Reviewed date:10/31/2024 08:28:24 AM Interpretation: Performing Lab:[facility], [address] [place] [phone] Notes/Report: Sodium 138 135-145 mmol/L Potassium 4.6 [...] Lipase Reviewed date:10/31/2024 08:28:24 AM Interpretation: Performing Lab:[facility], [address] [place] [phone] Notes/Report: Lipase 20 8-78 U/L UA ClnCatch+Micro w/rflx Cul t Reviewed date:10/31/2024 08:28:24 AM Interpretation: Performing Lab:[address] [address] Notes/Report: Urine, Clean Catch Color Urine Yellow Appearance Urine Clear PH 6.0 5.0-9.0 Glucose Urine UA Negative Negative mg/dL Urine Blood Negative Negative Specific [place] - Urine 1.015 1.005-1.025 Urine Protein Negative [...] date:10/31/2024 08:28:24 AM Interpretation: Performing Lab: Notes/Report: [address] [address] [place] Scan Report Signed Patient: Kylee Sanchez MR#: [id number] 144 : 1960 Acct:[id number] Age/Sex: 63 / F ADM Date: 10/30/24 Loc: HO.ED Attending Dr: Ordering Physician: Sven Wetzel Date of Service: 10/30/24 Procedure(s): CT abdomen pelvis wo IV con Accession Number(s): [id number] cc: Patrick Mead MD; Sven Wetzel Report Number: [id number]: Total DLP = 614.00 mGy-cm EXAMINATION: CT [...] by: Mario Man MD 10/30/2024 03:30 PM EST Dictated By: Mario May MD Signed By: <Electronically signed by Mario Musa MD in OV> 10/30/24 1530 DD/ 1501 TD/TT: 10/30/24 1518 Food And Beverage Intern: [place] [address] [place] Scan Report Signed Patient: Lexa Sanchez MR#: [id number] 144 : 1960 Acct:[id number] Age/Sex: 63 / F ADM Date: 10/30/24 Loc: HO.ED Attending Dr: Ordering Physician: Sven Wetzel Date of Service: 10/30/24 Procedure(s): CT abdomen pelvis wo IV con Accession Number(s): [id number] cc: Patrick Mead MD; Sven Wetzel Report Number: [id number]: Total DLP = 614.00 mGy-cm EXAMINATION: CT [...] by: Mario Man MD 10/30/2024 03:30 PM EST Dictated By: Mario Schwartz MD Signed By: <Electronically signed by Mario Musa MD in OV> 10/30/24 1530 DD/ 1501 TD/TT: 10/30/24 1518 Food And Bever[employer] Intern: Lipid Panel Reviewed date:12/01/2024 03:13:57 PM Interpretation: Performing Lab:[address] [address] Notes/Report: Triglycerides 123 <150 mg/dL Desirable Triglyceride: [...] 19-9 Reviewed date:12/01/2024 03:13:57 PM Interpretation: Performing Lab:[address] [address] Notes/Report: Carbohydrate Antigen 19-9 10 <34 U/mL This test was performed using the Siemens chemiluminescent method. Values obtained from different assay methods cannot be used interchangeably. CA 19-9 levels, regardless of value, should not be interpreted as absolute evidence of the presence or absence of disease. THIS TEST WAS PERFORMED AT: [facility] [address] [place] [phone] EVA MIRELES MD Immunoglobulin A Reviewed date:12/01/2024 03:13:57 PM Interpretation: Performing Lab:[address] [address] Notes/Report: Immunoglobulin A 506 70-320 mg/dL THIS TEST WAS PERFORMED AT: [facility] [address] [place] [phone] EVA MIRELES MD MM tomosynthesis screening B I Reviewed date:02/17/2025 12:00:34 PM Interpretation: Performing Lab: Notes/Report: [address] [place] [address] Mammography Report Signed Patient: Kylee Sanchez MR#: [id number] 144 : 1960 Acct:[id number] Age/Sex: 64 / F ADM Date: 02/10/25 Loc: HO.MAMMO Attending Dr: Patrick Mead MD Ordering Physician: Patrick Mead MD Results: 2Benign Findings Date of Service: 02/10/25 Follow Up: 1 Year From [facility] Mammogram Procedure(s): MM tomosynthesis screening BI Accession Number(s): [id number] cc: Patrick Mead MD EXAMINATION: MM SCREENING DIGITAL BREAST TOMOSYNTHESIS, BILATERAL CLINICAL INFORMATION: Screening. Asymptomatic. Left DCIS status post lumpectomy in 2016. COMPARISON: Mammography: Comparison is made with available priors TECHNIQUE: Digital breast mammography with tomosynthesis is performed in both the craniocaudal and mediolateral oblique views along with computer-aided detection (CAD). FINDINGS: The breasts are heterogeneously dense, which may obscure small masses (ACR BI-RADS breast composition Category c). Left lumpectomy changes are stable. There are no significant masses, abnormal calcifications, or other abnormalities. MM/MM tomosynthesis screening BI IMPRESSION: No mammographic evidence of malignancy. ASSESSMENT: BI-RADS BI-RADS 2 - Benign Findings RECOMMENDATION: Routine annual mammography screening. 1 year F/U This examination should not preclude the clinical evaluation of a suspicious palpable abnormality. This patient's information was entered into a reminder system with a target due date for their next mammogram. Electronically signed by: Xiomara Bowen DO 02/15/2025 08:16 PM EDT Dictated By: Xiomara Bowen DO Signed By: <Electronically signed by Xiomara Bowen DO in OV> 02/15/252015 DD/ 0800 TD/TT: 02/10/25 0815 Food And Beverage Intern: [address] [place] [address] Mammography Report Signed Patient: Lexa Sanchez MR#: [id number] 144 : 1960 Acct:[id number] Age/Sex: 64 / F ADM Date: 02/10/25 Loc: HO.MAMMO Attending Dr: Patrick Mead MD Ordering Physician: Patrick Mead MD Results: 2Benign Findings Date of Service: 02/10/25 Follow Up: 1 Year From [facility] Procedure(s): MM tomosynthesis screening BI Accession Number(s): [id number] cc: Patrick Mead MD EXAMINATION: MM SCREENING DIGITAL BREAST TOMOSYNTHESIS, BILATERAL CLINICAL INFORMATION: Screening. Asymptomatic. Left DCIS status post lumpectomy in 2016. COMPARISON: Mammography: Compari son is made with available priors TECHNIQUE: Digital breast mammography with tomosynthesis is performed in both the craniocaudal and mediolateral oblique views along with computer-aided detection (CAD). FINDINGS: The breasts are heterogeneously dense, which may obscure small masses (ACR BI-RADS breast composition Category c). Left lumpectomy black ges are stable. There are no significant masses, abnormal calcifications, or other abnormalities. MM/MM tomosynthesis screening BI IMPRESSION: No mammographic evidence of malignancy. ASSESSMENT: BI-RADS BI-RADS 2 - Benign Findings RECOMMENDATION: Routine annual mammography screening. 1 year F/U This examination juanis uld not preclude the clinical evaluation of a suspicious palpable abnormality. This patient's information was entered into a reminder system with a target due date for their next mammogram. Electronically wilmar d by: Xiomara Bowen DO 02/15/2025 08:16 PM EDT Dictated By: Xiomara Bowen DO Signed By: <Electronically signed by Xiomara Bowen DO in OV> 02/15/252015 DD/ 0800 TD/TT: 02/10/25 0815 Food And Beverage Intern: Complete Blood Count Auto Di ff Reviewed date:03/01/2025 08:02:41 PM Interpretation: Performing Lab:[facility], [address] [place] [phone] Notes/Report: White Blood Count 5.6 4.8-10.8 X10*3/uL Red Blood Count 4.56 4.20-5.50 X10*6/uL Hemoglobin 14.4 12.0-16.0 g/dl Hematocrit 43.1 37.0-47.0 % Mean Corpuscular Volume 94.5 80.0-98.0 fL Mean Corpuscular Hemoglobin 31.6 27.0-33.0 pg Mean Corpuscular HGB Conc 33.4 31.0-35.0 g/dl Red Cell Distribution Width 12.5 11.0-16.0 % Platelet Count 371 160-400 X10*3/uL Mean Platelet Volume 9.5 9.4-12.3 fL Neutrophils Percent Auto 47.6 45-73 % Imm Gran Pct Auto 0.2 0.0-0.4 % Lymphocytes Percent Auto 39.9 20-40 % Monocytes Percent Auto 9.7 2-11 % Eosinophils Percent Auto 1.3 0-4 % Basophils Percent Auto 1.3 0-2 % NRBC Pct Auto 0.0 0.0-0.2 /100WBC Neutrophils Absolute Auto 2.7 2.0-8.3 x10*3/uL Imm Gran Abs Auto 0.01 0.00-0.03 X10*3/uL Lymphocytes Absolute Auto 2.2 1.2-4.9 X10*3/uL Monocytes Absolute Auto 0.5 0.1-1.2 X10*3/uL Eosinophils Absolute Auto 0.1 0.0-0.4 X10*3/uL Basophils Absolute Auto 0.1 0.0-0.2 X10*3/uL NRBC Abs Auto 0.000 0.0-0.012 X10*3/uL Comprehensive Met. Panel Reviewed date:03/01/2025 08:02:41 PM Interpretation: Performing Lab:[facility], [address] [place] [phone] Notes/Report: Sodium 140 135-145 mmol/L Potassium 4.3 3.3-5.1 mmol/L Chloride 108 96-108 mmol/L Carbon Dioxide 25 22-29 mmol/L Anion Gap 11 12-20 Blood Urea Nitrogen 20 9-16 mg/dL Creatinine 0.66 0.5-1.4 mg/dL Estimated Glomerular Filt Rate > 60 Chronic Kidney Disease: Estimated GFR < 60 mL/min/1.73m2 Severe Kidney Disease: Estimated GFR < 15 mL/min/1.73m2 Glucose Random 107 60-115 mg/dL Calcium 8.9 8.4-10.2 mg/dL Bilirubin Total 0.9 0.0-1.0 mg/dL Aspartate Amino Transferase 23 5-31 U/L Alanine Aminotransferase 30 0-31 U/L Total Protein 7.3 6.5-8.0 g/dL Albumin Level 4.0 3.5-5.0 g/dL Alkaline Phosphatase 87 39-117 U/L Lipid Panel Reviewed date:03/01/2025 08:02:41 PM Interpretation: Performing Lab:[address] [address] Notes/Report: Triglycerides 76 <150 mg/dL Desirable Triglyceride: less than 150 mg/dL Borderline High Triglyceride 150-199 mg/dL High Triglyceride: 200-499 mg/dL Very High Triglyceride: greater than or equal to 5OO mg/dL Cholesterol 161 <200 mg/dL Desirable Cholesterol: less than 200 mg/dL Borderline High Cholesterol: 200-239 mg/dL High Cholesterol: greater than 239 mg/dL LDL Cholesterol Calculated 96 <100 mg/dL Desirable LDL: less than 100 mg/dL Near Optimal/Above Optimal LDL: 110-129 mg/dL Borderline High LDL: 130-159 mg/dL High LDL: 160-189 mg/dL Very High LDL: greater than or equal to 190 mg/dL HDL Cholesterol 50 >40 mg/dL Desirable HDL: greater than 40 mg/dL Note: This HDL assay may give artificially low results in patients with liver disease. Carbohydrate Antigen 19-9 Reviewed date:03/01/2025 08:02:41 PM Interpretation: Performing Lab:[address] [address] Notes/Report: Carbohydrate Antigen 19-9 10 <34 U/mL This test was performed using the Siemens chemiluminescent method. Values obtained from different assay methods cannot be used interchangeably. CA 19-9 levels, regardless of value, should not be interpreted as absolute evidence of the presence or absence of disease. THIS TEST WAS PERFORMED AT: [facility] [address] [place] [phone] EVA MIRELES MD Rast Allergen Reviewed date:05/02/2025 07:21:22 PM Interpretation: Performing Lab:[facility], [address] [place] [phone] Notes/Report: Rast Allergen SEE NOTE SEE SCANNED RE SULTS IN EMR. EVELIO Reflex Titer and Pattern Reviewed date:05/02/2025 07:21:22 PM Interpretation: Performing Lab:[facility], [address] [place] [phone] Notes/Report: Anti Nuclear Antibody Screen POSITIVE NEGATIVE EVELIO IFA is a first line screen for detecting the presence of up to approximately 150 autoantibodies in various autoimmune diseases. A positive EVELIO IFA result is suggestive of autoimmune disease and reflexes to titer and pattern. Further laboratory testing may be considered if clinically indicated. For additional information, please refer to http://education.Iddiction/faq/FA Q143 (This link is being provided for informational/ educational purposes only.) Anti Nuclear Antibody Titer 1:40 A low level EVELIO titer may be present in pre-clinical autoimmune diseases and normal individuals. Reference Range <1:40 Negative 1:40-1:80 Low Antibody Level >1:80 Elevated Antibody Level EVELIO Titer 2 1:40 A low level EVELIO titer may be present in pre-clinical autoimmune diseases and normal individuals. Reference Range <1:40 Negative 1:40-1:80 Low Antibody Level >1:80 Elevated Antibody Level EVELIO Pattern 2 Nuclear, Speckled Speckled pattern is associated with mixed connective tissue disease (MCTD), systemic lupus erythematosus (SLE), Sjogren's syndrome, dermatomyositis, and systemic sclerosis/polymyositis overlap. AC-2,4,5,29: Speckled International Consensus on EVELIO Patterns (https://doi.org/10.15 15/xayc-4780-3056) THIS TEST WAS PERFORMED AT: [facility] [address] [place] [phone] EVA MIRELES MD EVELIO Titer 3 TNP EVELIO Pattern 3 TNP C1Q Complement Component Reviewed date:05/02/2025 07:21:22 PM Interpretation: Performing Lab:[facility], [address] [place] [phone] Notes/Report: C1Q Complement Component 7.4 5.0-8.6 mg/dL Low levels of C1q indicate either increased consumption (catabolism) or decreased synthesis. This test was developed and its analytical performance characteristics have been determined by [facility]. It has not been cleared or approved by the FDA. This assay has been validated pursuant to the CLIA regulations and is used for clinical purposes. THIS TEST WAS PERFORMED AT: [facility] [address] [place] [address] NANCY RAHMAN MD,PHD,JANIA C1 Inhibitor Protein Reviewed date:05/02/2025 07:21:22 PM Interpretation: Performing Lab:[address] [address] Notes/Report: C1 Inhibitor Protein 37 21-39 mg/dL A normal C1 esterase inhibitor protein level does not rule out the possibility of a functional C1 esterase inhibitor deficiency. Consider further testing of C1 esterase inhibitor functional activity, if clinically indicated. THIS TEST WAS PERFORMED AT: [facility] [address] [place] [address] PRAFUL KEITH MD,PHD Food Nut Allergy Panel Reviewed date:05/02/2025 07:21:22 PM Interpretation: Performing Lab:[address] [address] Notes/Report: [id number] Egg White <0.10 INTERPRETATION Endnote 1 Specific Level of Allergen IGE Class kU/L Specific IGE Antibody ----- --------- 0 <0.10 Absent/Undetectable 0/1 0.10-0.34 Very Low Level 1 0.35-0.69 Low Level 2 0.70-3.49 Moderate Level 3 3.50-17.4 High Level 4 17.5-49.9 Very High Level 5 50-100 Very High Level 6 >100 Very High Level The clinical relevance of allergen results of 0.10-0.34 kU/L are undetermined and intended for specialist use. Allergens denoted with a include results using one or more analyte specific reagents. In those cases, the test was developed and its analytical performance characteristics have been determined by [facility]. It has not been cleared or approved by the U.S. Food and Drug Administration. This assay has been validated pursuant to the CLIA regulations and is used for clinical purposes. PERFORMING SITE: [facility] [place], [address] [place] [phone] Script Girl: EVA MIRELES MD, CLIA: [id number] L824-DxT Milk <0.10 U124-MsO Codfish <0.10 Y324-MyI Wheat <0.10 L413-XpP Sesame Seed <0.10 I206-DxJ Peanut <0.10 O975-OjL Soybean <0.10 G199-MhX Hazelnut (Filbert) <0.10 B539-JpW Jewett <0.10 Y942-EjJ Shrimp <0.10 H934-MtZ Tuna <0.10 J486-LgV Center [place] <0.10 D740-RrW Scallop <0.10 Class Sesame Seed 0 Class Peanut 0 Class Jewett 0 Class Codfish 0 Class Shrimp 0 Class Scallop 0 Class Tuna 0 Class Egg white 0 Class Cow's Milk 0 Class Wheat 0 Class Soybean 0 Class Hazelnut 0 Class Center [place] 0 Z261-WwH Cashew Nut <0.10 H066-SmD Macadmia Nut <0.10 Class Macadamia Nut 0 F041 IgE [place] <0.10 N028-FcE [place] Nut <0.10 Class [place] Nut 0 Class [place] 0 Class Cashew 0 Reason For Referral No Information Medications Medication SIG (Take, Route, Fr equency, Duration) Notes Start Date End Date Status Lisinopril 5 MG TAKE 1 TABLET BY MAYELIN TH EVERY DAY for 90 Active Immunizations Vaccine Route Administration Date Status [...] Problem Status W/U Status Risk Notes Problem 7841988 Former smoker (Z87.891) Active confirmed She is highly motivated not to smoke. We discussed strategies for maintenance of abstinence in times of stress. Problem 008654604911439 Obesity (BMI 30.0-34.9) (E66.9) Active confirmed She has lost 2 pounds. Her body mass index is 30. He was encouraged to continue losing weight. We reviewed her weight loss strategy. Problem Intolerance to lactose (finding) (880448743) Lactose intolerance, unspecified (E73.9) Active confirmed Problem 757293124 Essential (primary) hypertension (I10) Active confirmed Her blood pressure today was In the normal range today. She was given an appointment to return to the office in near future to check it again. The importance of aggressive weight loss and sodium restriction was reiterated. Problem 428634146 Irritable bowel syndrome with diarrhea (K58.0) Active confirmed She is familiar with the discomforts involve theproblem. She is able to conduct all of the activities of daily life without difficulty. Problem 29118010 Ureterolithiasis (N20.1) Active confirmed No episodes of renal colic have been reported. She has had no hematuria. Problem 14209539 Crohn's disease of colon with abscess (K50.114) Active confirmed She is had no recent activity from the Crohn's disease. It is stable and no change in treatment was necessary. 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 There is no sign of relapse or new primary. The pancreatic remnant is functioning well. Problem Pure hypercholesterolemi a (564832659) Hyperlipidemia type II (E78.01) Active confirmed Operation fasting lipid profile shows. Control of her lipids. No change in her regimen as needed. We continued to discuss weight loss strategy is an lifestyle modification s. Our plan is to lose weight at a rate of one half of a pound per week. 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 She is up-to-date with mammography Vital Signs Heart Rate 78 /min 03/24/2025 Temperature 99.0 degrees Fahrenheit 03/24/2025 Blood pressure diastolic 80 mm Hg 03/24/2025 Height 65 in 03/24/2025 Blood pressure systolic 134 mm Hg 03/24/2025 Weight 192 lbs 03/24/2025 BMI 31.95 kg/m2 03/24/2025 Encounters Encounter Location Date Provider Diagnosis Patrick Mead III, MD [address] [place] [address] [place] [address] 09/05/2024 Patrick Mead Benign cystic mucino us tumor M67.40 ; Essential (primary) hypertension I10 ; Hyperlipidemia type II E78.01 ; Former smoker Z87.891 ; Crohn's disease of colon with abscess K50.114 and 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 D05.82 Patrick Mead III, MD [address] [place] [address] [place] [address] 12/04/2024 Patrick Mead Essential (primary) hypertension I10 ; 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 D05.82 ; Former smoker Z87.891 ; Crohn's disease of colon with abscess K50.114 ; Benign cystic mucinous tumor M67.40 and Obesity E66.9 Patrick Mead III, MD [address] [place] [address] [place] [address] 03/24/2025 Patrick Mead 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 D05.82 ; Hyperlipidemia type II E78.01 ; Essential (primary) hypertension I10 ; Ureterolithiasis N20.1 ; Former smoker Z87.891 ; Benign cystic mucinous tumor M67.40 ; Irritable bowel syndrome with diarrhea K58.0 and Crohn's disease of colon with abscess K50.114 Patrick Mead III, MD [address] [place] [address] [place] [address] 07/09/2024 Patrick Mead III, MD [address] [place] [address] [place] [address] 10/30/2024 Patrick Mead III, MD [address] [place] [address] [place] [address] 11/05/2024 Patrick Mead 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 D05.82 ; Crohn's disease of colon with abscess K50.114 and Hyperlipidemia, unspecified hyperlipidemia type E78.5 Patrick Mead III, MD [address] [place] [address] [place] [address] 06/20/2024 Patrick Mead III, MD [address] [place] [address] [place] [address] 06/20/2024 Patrick Mead Assessments Encounter Date Diagnosis (ICD Code) Assessment Notes Treat ment Notes Treatment Clinical Notes 09/05/2024 Essential (primary) hypertension (ICD-10 - I10) [...] sign of breast cancer on today's examination. 03/24/2025 Hyperlipidemia type II (ICD-10 - E78.01) Operation fasting lipid profile shows. Control of her lipids. No change in her regimen as needed. We continued to discuss weight loss strategy is an lifestyle modifications. Our plan is to lose weight at a rate of one half of a pound per week. 03/24/2025 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 She is up-to-date with mammography 11/05/2024 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 (ICD-10 - D05.82) 09/05/2024 Hyperlipidemia type II (ICD-10 - E78.01) Her lipids have been stable and no change in her regimen was 12/04/2024 Former smoker (ICD-1 0 - Z87.891) She is highly motivated not to smoke. We discussed strategies for maintenance of abstinence in times of stress. 03/24/2025 Essential (primary) hypertension (ICD-10 - I10) Her blood pressure today was In the normal range today. She was given an appointment to return to the office in near future to check it again. The importance of aggressive weight loss and sodium restriction was reiterated. 11/05/2024 Crohn's disease of colon with abscess (ICD-10 - K50.114) 09/05/2024 Former smoker (ICD-1 0 - Z87.891) She is highly motivated not to smoke. We discussed strategies for maintenance of abstinence in times of stress. 12/04/2024 Crohn's disease of colon with abscess (ICD-10 - K50.114) She is had no recent activity from the Crohn's disease. It is stable and no change in treatment was necessary. 03/24/2025 Ureterolithiasis (ICD-10 - N20.1) No episodes of renal colic have been reported. She has had no hematuria. 11/05/2024 Hyperlipidemia, unspecified hyperlipidemia type (ICD-10 - E78.5) 09/05/2024 Crohn's disease of colon with abscess (ICD-10 - K50.114) She is had no recent activity from the Crohn's disease. It is stable and no change in treatment was necessary. 12/04/2024 Benign cystic mucino us tumor (ICD-10 - M67.40) This was a tumor of low malignant potential. There is no sign of relapse or new primary. The pancreatic remnant is functioning well. 03/24/2025 Former smoker (ICD-1 0 - Z87.891) She is highly motivated not to smoke. We discussed strategies for maintenance of abstinence in times of stress. 09/05/2024 Ductal carcinoma in situ (DCIS) of [...] diet restricted in fat calories in sodium. 03/24/2025 Benign cystic mucino us tumor (ICD-10 [...] in treatment was necessary. Plan Of Treatment Pending Test Test Name Order Date PROFILE, FASTING (COMPREHENSIVE METABOLI C) 12/04/2024 PROFILE, FASTING (COMPREHENSIVE METABOLI C) 03/24/2025 CBC w DIFF 03/24/2025 CBC w DIFF 12/04/2024 CARBOHYDRATE ANTIGEN 19-9 (CA 19-9) 03/02 CARBOHYDRATE ANTIGEN 19-9 (CA 19-9) 03/2025 Lipid Panel 03/24/2025 Lipid Panel 12/04/2024 Next Appt Details Provider Name:Patrick Mead, 06/25/2025 09:30:00 AM, [address] [place] [address] [address], [place], [address], Provider Name:Patrick Mead, 09/08/2025 09:00:00 AM, [address] [place] [address] [address], [place], [address], Insurance Providers Payer Name Payer Address Payer Phone Subscriber Number Group Number Insured Name Patient Relationship to Insured Coverage Start Date Coverage End Date [facility] [address] [place], [place] [id number] [phone] [id number] LaurelKylee Self - patient is the insured Medical [...] diarrhea K 58.0 Surgical History Surgery Date(Month/Year) No history 2016 - surgery performed by Dr. Lundberg Subtotal pancreatectomy for cystic mucinous neoplasm 2015 [facility] 2016 lumpectomy left breast and sentinel node sampling 11/11/2015 stereotactic biopsy upper outer quadrant left breast 10/29/2015 Hospitalization History Reason Date(Month/Year) No history
[2025-06-20 08:50] LABS: MANUAL DIFF FLAG NO
[2025-06-20 09:06] LABS: Hematocrit 44.1 % (37.0-47.0); Hemoglobin 14.8 g/dl (12.0-16.0); Imm Gran Abs Auto 0.01 X10*3/uL (0.00-0.03); Imm Gran Pct Auto 0.2 % (0.0-0.4); Lymphocytes Absolute Auto 2.1 X10*3/uL (1.2-4.9); Mean Corpuscular HGB Conc 33.6 g/dl (31.0-35.0); Mean Corpuscular Hemoglobin 31.5 pg (27.0-33.0); Mean Corpuscular Volume 93.8 fL (80.0-98.0); NRBC Abs Auto 0.000 X10*3/uL (0.0-0.012); NRBC Pct Auto 0.0 /100WBC (0.0-0.2); Platelet Count 406 X10*3/uL (160-400); Red Blood Count 4.70 X10*6/uL (4.20-5.50); White Blood Count 5.3 X10*3/uL (4.8-10.8)
[2025-06-20 09:53] LABS: Alanine Aminotransferase 23 U/L (0-31); Albumin Level 4.2 g/dL (3.5-5.0); Alkaline Phosphatase 99 U/L (39-117); Anion Gap 11 (12-20); Aspartate Amino Transferase 22 U/L (5-31); Blood Urea Nitrogen 20 mg/dL (9-16); Calcium 9.1 mg/dL (8.4-10.2); Carbon Dioxide 27 mmol/L (22-29); Chloride 107 mmol/L (96-108); Cholesterol 152 mg/dL (<200); Estimated Glomerular Filt Rate > 60; HDL Cholesterol 52 mg/dL (>40); Potassium 4.6 mmol/L (3.3-5.1); Sodium 140 mmol/L (135-145); Total Protein 7.5 g/dL (6.5-8.0); Triglycerides 106 mg/dL (<150)
== END 2025-06-20 08:35 | disposition home or self-care (01) ==
LOC: HO.LAB 08:34
PROVIDERS: PCP Internal Medicine Medical Oncology; Visit Provider Internal Medicine Medical Oncology
DX: D05.82 Other specified type of carcinoma in situ of left breast (principal); E78.01 Familial hypercholesterolemia; Z13.6 Encounter for screening for cardiovascular disorders
CPT/HCPCS: 36415; 80053; 80061; 85025; 86301

== ENCOUNTER 2025-07-23 08:31 | Outpatient (AMB) | payer BC, SELFPAY ==
--- NOTE | 2025-07-23 08:46 | MHC.OFFVIS ---
Vital Signs 07/23/25 08:49 Height 5 ft 4 in Weight 183 lb BMI 31.4 BP 136/66 Blood Pressure Location Lt brachial Position Sitting Pulse 66 Pulse Oximetry (%) 95 Oxygen Delivery Method Room Air Intake Visit Reasons: 3m Intake Note: Patient follow up for Chronic diarrhea and lab results Patient denies any GI issues. 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: No Accompanied by: Self / Same As Patient Allergies Penicillins (PENICILLINS) Allergy (Intermediate, Verified 07/23/25 08:45) JOINT SWELLING tetracycline (TETRACYCLINE) Allergy (Intermediate, Verified 07/23/25 08:45) Vomiting egg Allergy (Verified 07/23/25 08:45) Rash erythromycin base Adverse Reaction (Intermediate, Verified 07/23/25 08:45) Nausea and Vomiting Medication List - Last Reconciled 07/23/25 by Ellie Ruth MD lisinopril 5 mg PO DAILY HPI HPI 3m: Details: GI clinic visit for this 64 year female with IBS, hypertension for follow up of colon polyps and family hx of colon cancer Pt has a hx of pancreatic surgery (for benign cyst on her pancreas) in 2016 at [facility] TODAY'S VISIT: Returned from a trip to [place] and returned on 07/10/25. She only had one episode while she was there - ? related to spices added to vegetables Was fine within 3 hours. Walked 92507 steps a day Doing better and BMs are better - paying more attenstion to her diet. Taking a black tea (with floral smell) from [employer] which is helping her stomach. Waiting to see neuro psych sales specialist. Skin breakout is less severe and she is keeping a list of foods which cause the breakout. PAST VISITS: Patient cc: Patient cc: between diarrhea and constipation, lower abdominal cramp with burning sensation, rectal bleeding with exercises, and also her skin is braking out with some food The patient is a 64-year-old female presenting with suspected food-related dermal and gastrointestinal symptoms. She reports new-onset facial, neck, and upper back blotchy dermatitis associated with certain food items, particularly those containing gluten, as well as specific spices. These symptoms have been present for a few months and typically resolve within two hours following food intake. Accompanying dermatological symptoms include mild burning and itching. The patient also describes irregular bowel habits exacerbated by dietary intake, with a pattern of semi-formed stools occurring up to three times daily. Psyllium fiber use has improved her bowel movements. Dietary adjustments include a reduction in gluten, sugar, caffeine, and overall portion sizes, which she notes has led to improved gastrointestinal and energy levels. The patient engages in regular physical activity and has observed increased muscle toning, accompanied by weight gain attributed to muscle mass growth rather than fat. Despite her condition's symptomatic improvement, she is concerned about the persistent and unpredictable dermal reactions to various foods, currently exploring potential food allergies with recommended testing. The patient has altered her dietary intake to address suspected food-related symptoms, significantly reducing gluten, sugars, and caffeine. Her diet includes fruits like oranges and apples, with noted reactions to both. She adheres to portion control, replacing traditional [place] muffins with gluten-free alternatives to decrease symptomatic reactions. The patient consumes psyllium fiber capsules thrice weekly, resulting in stabilized bowel habits. She reports an adjustment in physical activity in line with improved energy levels and musculature, noting enhanced physical performance and tone. Had an episode last week with diarrhea On GFD and has 3-4 BMs a day. Can have symptoms if she eats any precipitating foods. Symptoms are more manageable since she is on a 100% GFD She is able to exercise - does Doximity bike for 30 min Seen by [employer] Installer Helper and found it very helpful Feeling 90% better EGD and colonoscopy results were reviewed with the patient Doing better Had her son's wedding last weekend and took 4 peptobismol and was able to dance at the wedding Tried kale and denied having any diarrhea Takes a serving of fruit every day Eats a lot chicken, pork and meat She would like to manage her symptoms with diet and without medications Notes improvement in abdominal bloating Kylee presents in the office as a follow up. CC: Family hx of CRC and she is here today to go over symptoms. She states that 45min after she eats she will have a regular BM but it loosens up to diarrhea. She states that sometimes her food will pass right through like it is not digesting. Her energy levels are changing. Her mother passed 2 months ago. She states that she was looking up pancreatic insufficiency. She states that she had an accident when she went out with her family and she states that she states it was a foul scent. She also repots a hx of lactose intolerance. Mom 2 months ago Went to have lunch in a restuarant. 45 min later, she had a BM with urgency and had an accident with a foul smell. Eating chicken, turkey and no spices or fried foods Has been having post prandial diarrhea every time she eats Starts as a normal BM and progressively becomes more loose. Has 3-4 BM in a day - normal in the am and becomes loose later in the day. Associated abdominal cramps Has a hx of IBS with diarrhea since age 14 yrs These symptoms are different - changed her diet to a bland diet with improvement in her symptoms. Notes discomfort underneath her left rib cage - improves after she has a BM. Takes chewable pepto-bismol and changes color of stool Has to take 2-3 tab at a time + imodium Also feels tired after exercising Patient denies symptoms of heartburn, dysphagia, nausea, vomiting, change in appetite or weight. Denies recent black stools or rectal bleeding. Stopped Tamoxifen after 5 years. 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 Denies being on chronic anticoagulation. 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 Mom to advanced dementia. Mom and sister have IBS LABS IN [employer] : Reviewed IMAGING STUDIES: No recent GI imaging ENDOSCOPIC STUDIES: 06/09/24 EGD AND COLON SHOWED: Endoscopy Findings: ESOPHAGUS: Small hiatal hernia STOMACH: Diffuse gastritis and benign appearing gastric polyps DUODENUM: Normal - biopsied to check for celiac sprue Colonoscopy Findings: One small polyp was removed Random biopsies were obtained from right and left colon to check for microscopic colitis Moderate to severe diverticulosis seen in the entire colon Plan: Repeat Colonoscopy in 5 years if polyps are adenomatous and due to a history of adenomatous colon polyps. Above findings were reviewed with the patient and relevant handouts were given and the discharge area. Pt reported improvement in diarrhea since she switched to a gluten free diet BIOPSIES SHOWED: A. Small bowel, biopsy: Small bowel mucosa within normal limits; preserved villous architecture and no increased intraepithelial lymphocytes seen. B. Stomach, antrum, biopsy: Gastric antral mucosa within normal limits; negative for Helicobacter pylori, intestinal metaplasia and dysplasia. C. Stomach, polyps, biopsy: Fundic gland polyp (s). D. Colon, right, biopsy: Colonic mucosa within normal limits; negative for active, chronic or microscopic colitis. E. Colon, sigmoid, polypectomy: Tubular adenoma; negative for high-grade dysplasia. F. Colon, left, biopsy: Colonic mucosa within normal limits; negative for active, chronic or microscopic colitis. Letter sent advising repeat colonoscopy in 5 years and patient was placed on the colonoscopy recall list COLONOSCOPY 10/12/2020 Terminal Ileum: Not evaluated Cecum: Normal Ascending Colon: Normal Transverse Colon: Normal Descending Colon: Moderate diverticulosis Sigmoid Colon: A 3-4 mm diminutive appearing polyp removed with a cold bx. A 6-7 mm sessile polyp removed with a cold snare and residual polyp removed with a cold bx. Severe diverticulosis with luminal narrowing. Rectum: Normal Ano-rectum: Moderate internal hemorrhoids Colon preparation: Good BIOPSY RESULTS: Diagnosis A. Colon, random, biopsy: Colonic mucosa within normal limits. B. Colon, sigmoid, polypectomies: - Tubular adenoma; no high grade dysplasia or carcinoma seen. - Colonic mucosa with prominent lymphoid aggregate; no dysplasia seen. - Colonic mucosa with mild surface hyperplastic changes. 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 Review of Systems Const All systems reviewed & are unremarkable except as noted in HPI and below Physical Exam Vital Signs: Last Vital Signs Pulse 66 07/23/25 08:49 BP 136/66 07/23/25 08:49 Pulse Ox 95 07/23/25 08:49 Oxygen Delivery Method Room Air 07/23/25 08:49 BMI result Body Mass Index 31.4 Const General: healthy appearing and no acute distress Nutritional Appearance: obese Orientation/consciousness: patient oriented x3 Limitations: no limitations HEENT Head: Yes normal to inspection Ears: hearing grossly normal bilaterally Mouth: Normal oral and palatal mucosa present Eyes Sclerae: sclerae normal Pupils: Equal, round and reactive pupils present Neck Neck: Yes normal visual inspection Chest Chest palpation & inspection: normal inspection of the chest Resp Effort & Inspection: normal respiratory effort Auscultation: clear to auscultation bilaterally Cardio Palpation: normal PMI Rate: regular rate Rhythm: regular rhythm Heart sounds: S1 normal heart sound present, S2 normal heart sound present and no murmurs GI Palpation (GI): Soft to palpation, nontender and No hepatosplenomegaly present Auscultation: normal bowel sounds Rectal Exam - Female: deferred Skin General skin exam: no rashes or lesions noted Neuro General: patient oriented x3, gait normal and moves all extremities Cranial nerves: Yes Equal, round and reactive pupils present Psych Appearance: grossly normal Mental Status: mental status grossly normal Assessment & Plan Assessment & Plan (1) IBS (irritable bowel syndrome): Code(s): K58.9 - Irritable bowel syndrome, unspecified Category: Medical (2) Chronic diarrhea: Code(s): K52.9 - Noninfective gastroenteritis and colitis, unspecified Category: Medical (3) Dietary lactose intolerance: Code(s): E73.9 - Lactose intolerance, unspecified Category: Medical Plan 64 YF with IBS(diarrhea predominant), lactose intolerance, hypertension seen for evaluation of chronic diarrhea Pt has a hx of pancreatic surgery (for benign cyst on her pancreas) in 2016 at [facility] and is followed by Dr Mead (has yearly labs and CT) Per pt, she had an Abd CT scan at [facility] in March, which was negative Diarrhea x 2 months can be due to infectious or C Diff colitis, IBS, pancreatic insufficiency, celiac disease, microscopic colitis and less likely IBD Of note, patient denies recent antibiotics or travel outside the [place] Patient was advised evaluation with labs and stool studies [place] of a fiber supplement twice daily and continue using peptobismol with meals If stool studies are negative, I will schedule her for an EGD and colonoscopy to check for microscopic colitis/IBD On 05/30/24 @ 16:33 Ellie Ruth Wrote To Ellie Ruth Pt called and lab results were reviewed. Taking a gluten free diet Notes diarrhea after taking Dairy, eggs, Pasta, crackers and bread within 1/2 an hour Unable to go out to eat or on social events Tried took fibre pills which caused gas, bloating and diarrhea. Taking imodium + 2-4 peptobismol 2 hrs before eating to control cramps and diarrhea. Still gets abd cramps and they are less severe 06/2024 EGD and Colonoscopy were performed for evaluation of chronic postprandial diarrhea - and findings as noted above 06/17/24 Pt advised to continue on a lactose and gluten free diet and avoid foods associated with diarrhea Ref sent to Nutrition at pt's request Elevated Ig A - will recheck and pt advised to discuss further workup with Dr Mead 10/23/24 On GFD and has 3-4 BMs a day. Can have symptoms if she eats any precipitating foods. Symptoms are more manageable since she is on a 100% GFD 04/16/25 Considering the patient's suspected gluten sensitivity and other food-related symptoms, I recommend specialized food allergy testing to determine specific allergens. Meanwhile, maintaining her modified diet with reduced gluten, sugar, and caffeine intake is crucial. The psyllium fiber regimen should continue for gastrointestinal support. With noted improvement and regular exercise, monitoring of symptoms and dietary adherence is advised to ensure ongoing efficacy and address potential needs for further interventions. Patient is planning a 10 day trip to [place] July to attend her son's wedding ceremony (DIL is from [place]). Patient was referred to Allergy and immunology ADDENDUM: RAST allergy testing was negative and C1 inhibitor protein and C1q complement component was normal EVELIO was positive in a titer 1:40 in a speckled pattern FU in 3 months - scheduled 07/23/25 Coding Level of Care Code Est Pt Level 4 (02525) Diagnoses IBS (irritable bowel syndrome) K58.9 Chronic diarrhea K52.9 Dietary lactose intolerance E73.9 Time Spent (min) 20
[2025-07-23 08:49] VITALS: BP 136/66; PULSE 66; O2SAT 95; BMI 31.4
== END 2025-07-23 09:48 | disposition home or self-care (01) ==
LOC: HO.HGI 08:32
PROVIDERS: PCP Internal Medicine Medical Oncology; Visit Provider Internal Medicine Gastroenterology
DX: K58.9 Irritable bowel syndrome, unspecified (principal); K52.9 Noninfective gastroenteritis and colitis, unspecified; E73.9 Lactose intolerance, unspecified
CPT/HCPCS: 99214

== ENCOUNTER 2025-08-22 08:34 | Outpatient (REF) | payer BC, SELFPAY ==
--- OUTSIDE RECORDS SUMMARY | 2024-02-29 04:00 | XMS_ITS ---
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 :1960 A ge:63 Y S ex:Female Date:02/29/2024 Address:[address] [place], [place] [id number] Pcp:SID STRANGE MD Subjective: * Chief Complaints: * 1 . 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 * Medical History: Objective: * Vitals: Assessment: Plan: * Treatment: * Images: Billing Information: * Visit Code: * Procedure Codes: * Electronic signature of Sofia Leggett MD on 08/22/2025 at 08:38 AM EST Sign off status: Pending * Appointment Provider: Law Leggett M.D. Date: 02/29/2024 Generated for Siddhartha babcock/Yung/Dang on: 1 10/22/2024 08:38 AM EST
--- OUTSIDE RECORDS SUMMARY | 2024-06-20 11:13 | XMS_ITS ---
Author Organization Patrick Mead III, MD Address [address] [place] [address] [address] [facility] [place] [address] Care Team Providers Care Planer Off Bearer Name Role Phone Dr. Patrick Mead III Primary Care Provider [phone] REASON FOR VISIT RE: Annual Patient Experience Survey Social History Sex Assigned At : Social History Observation Description Sex Assigned At Female Encounters Encounter Location Date Provider Diagnosis Patrick Mead III, MD [address] [place] [address] [place] [phone] 06/20/2024 Patrick Mead Plan Of Treatment Next Appt Details Provider Name:Patrick Mead , 09/08/2025 09:00:00 AM, [address] [place] [address] [place], [address], Progress Notes * Kylee SANCHEZDOB:1960 (63 yo F)Acc No.[id number]:06/20/2024 Patient: Law zafarLexa cantuna :1960 A ge:63 Y S ex:Female Address:[address] [place] [phone] * true * Date: Generated for Marysoli yoko/Yung/eTransmitting on: 10/22/2024 08:39 AM EST
--- OUTSIDE RECORDS SUMMARY | 2024-06-20 11:13 | XMS_ITS ---
Author Organization Patrick Mead III, MD Address [address] [place] [address] [address] [facility] [place] [address] Care Team Providers Care Manager Data Warehouse Name Role Phone Dr. Patrick Mead III Primary Care Provider REASON FOR VISIT RE: Annual Patient Experience Survey Social History Sex Assigned At : Social History Observation Description Sex Assigned At Female Encounters Encounter Location Date Provider Diagnosis Patrick Mead III, MD [address] [place] [address] [place] [phone] 06/20/2024 Patrick Mead Plan Of Treatment Next Appt Details Provider Name:Patrick Mead , 09/08/2025 09:00:00 AM, [address] [place] [address] [place], [address], Progress Notes * Kylee SANCHEZDOB:1960 (63 yo F)Acc No.[id number]:06/20/2024 Patient: Law zafarLexa cantuna :1960 A ge:63 Y S ex:Female Address:[address] [place] [phone] * true * Date: Generated for Marysoli yoko/Yung/eTransmitting on: 10/22/2024 08:38 AM EST
--- OUTSIDE RECORDS SUMMARY | 2024-07-09 05:49 | XMS_ITS ---
Author Organization Patrick Mead III, MD Address [address] [place] [address] [place] [address] Care Team Providers Care Roll Press Operator Name Role Phone Dr. Patrick Mead III Primary Care Provider REASON FOR VISIT Rx Request Social History Sex Assigned At : Social History Observation Description Sex Assigned At Female Encounters Encounter Location Date Provider Diagnosis Patrick Mead III, MD [address] [place] [address] [place] [address] 07/09/2024 Patrick Mead Plan Of Treatment Next Appt Details Provider Name:Patrick Mead , 09/08/2025 09:00:00 AM, [address] [place] [address] [place], [address], Progress Notes * Kylee SANCHEZDOB:1960 (63 yo F)Acc No.[id number]:07/09/2024 Patient: Lexa HARRISna :1960 A ge:63 Y S ex:Female Address:[address] [place] [phone] * true * Date: Generated for Siddhartha babcock/Yung/eTcherismitting on: 10/22/2024 08:38 AM EST
--- OUTSIDE RECORDS SUMMARY | 2024-09-05 05:30 | XMS_ITS ---
Author Organization Patrick Mead III, MD Address [address] [place] [address] [place] [address] Care Team Providers Care Work Adjustment Instructor Name Role Phone Dr. Patrick Mead III Primary Care Provider Allergies Allergen (clinical drug ingredient) Drug/Non Drug Allergy documented on EMR Reaction Allergy Type Onset Date Status Penicillin Unknown Drug Allergy Active Gluten Gluten rash Allergy Active REASON FOR VISIT Annual Exam Medications Medication SIG (Take, Route, Fr equency, Duration) Notes Start Date End Date Status Lisinopril 5 MG TAKE 1 TABLET BY MOUTH EVERY DAY Active Social History Tobacco Use: Social History Observation Description Date Details (start date - stop date) Former Smoker NA - NA Sex Assigned At : Social History Observation Description Sex Assigned At Female Tobacco Use/Smoking Question Answer Notes Patient is a former smoker How long has it been since you last smoked? > 10 years Additional Findings: Tobacco Non-User Ex-cigaret te smoker Tobacco Control (Standard) Question Answer Notes Tobacco use: Former smoker How long has it been since you last smoked? Grea ter than 10 years Additional Findings: Tobacco non-user Ex-cigaret te smoker AUDIT-C (Standard) Question Answer Notes Did you have a drink containing alcohol in the p ast year? No Points 0 Interpretation Negative Problems Problem Type SNOMED Code ICD Code Onset Dates Problem Status W/U Status Risk Notes Problem [id number] Lactose intolerance (E73.9) Active confirmed Vital Signs Temperature 97.7 degrees Fahrenheit 09/05/20 24 Blood pressure systolic 141 mm Hg 09/05/20 24 Blood pressure diastolic 77 mm Hg 024 Heart Rate 81 /min 09/05/2024 Height 65 in 09/05/2024 Weight 188 lbs 09/05/2024 BMI 31.28 kg/m2 09/05/2024 Encounters Encounter Location Date Provider Diagnosis Patrick Mead III, MD [address] [place] [address] [place] [address] 09/05/2024 Patrick Mead 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 There is no sign of relapse or new primary. The pancreatic remnant is functioning well. 09/05/2024 Essential (primary) hypertension (ICD-10 - I10) Her blood pressure today was 141/77 which is slightly elevated. She was given an appointment to return to the office in near future to check it again. The importance of aggressive weight loss and sodium restriction was reiterated. 09/05/2024 Hyperlipidemia type II (ICD-10 - E78.01) Her lipids have been stable and no change in her regimen was 09/05/2024 Former smoker (ICD-1 0 - Z87.891) She is highly motivated not to smoke. We discussed strategies for maintenance of abstinence in times of stress. 09/05/2024 Crohn's disease of colon with abscess (ICD-10 - K50.114) She is had no recent activity from the Crohn's disease. It is stable and no change in treatment was necessary. 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 Her last examination was unremarkable. She was continued on her current therapy. Plan Of Treatment Medication Medication Name Sig Start Date Stop Date Notes Lisinopril 5 MG TAKE 1 TABLET BY MOUTH EVERY DAY Next Appt Details Follow Up: 3 Months, November, Reason: OV, Routine check-up Provider Name:Patrick Mead , 09/08/2025 09:00:00 AM, [address] [place] [address] [place], [address], Progress Notes * Kylee SANCHEZDOB:1960 (63 yo F)Acc No.[id number]:09/05/2024 Progress Notes Patient: Kylee HARRIS Provider: Benitez Mead MD :1960 A ge:63 Y S ex:Female Date:09/05/2024 Address:[address] [place], [place] [id number] Subjective: * Chief Complaints: * A nnual Exam * HPI: D epression Screening: PHQ-9 L ittle interest or pleasure in doing things?Not at all F eeling down, depressed, or hopeless N ot at all T rouble falling or staying asleep, or sleeping too much N ot at all F eeling tired or having little energy N ot at all P oor appetite or overeating N ot at all F eeling bad about yourself or that you are a failure, or have let yourself or your family down N ot at all T rouble concentrating on things, such as reading the newspaper or watching television N ot at all M oving or speaking so slowly that other people could have noticed; or the opposite, being so fidgety or restless that you have been moving around a lot more than usual N ot at all T houghts that you would be better off or of hurting yourself in some way N ot at all T otal Score 0 C OVID-19 Screening: Questions H ave you experienced fever, chills, cough, sore throat, shortness of breath, difficulty breathing, muscle aches, loss of taste or smell? N o H ave you been exposed to the virus within the last 10 days? N o H ave you travelled internationally in the last 10 days? N o H ave you been exposed to COVID-19 in the past? N o S FIDEL Questions: SDOH Questions I n the past year have you been worried about losing your housing? N o I n the past year have you or any family members you live with been unable to get any of the following when it was really needed? Check all that apply: N one * : The patient, a 63-year-old female, has been diagnosed with Irritable Bowel Syndrome (IBS) and diverticulosis. She has been experiencing symptoms related to these conditions for an unspecified period. The severity of her symptoms has improved by approximately 87% after she stopped consuming gluten, as suggested by her doctor. She has also been experiencing fatigue, which she attributes to the gluten in her diet. The patient has been using a gluten scanner to avoid gluten-containing products. She also mentioned having a surgery in 2016, performed by Dr. Aguila. This was a partial pancreatectomy. Her CA-19-9 recently is 8. Her blood work is unremarkable. She had a colonoscopy very recently that did not show polyps or helicobacter. Small bowel biopsy showed an excess of lymphocytes. Intraoperative weight loss. She conducts breast self-examination regularly and has had no new findiings. Her examination today was normal. * ROS: G eneral/Constitutional: pain o nly normal aches and pains. C hills d enies.?Fatigue a dmits. F ever d enies. E NT: Decreased hearing d enies. R espiratory: Cough d enies. C ardiovascular: Chest pain with exertion d enies. D yspnea on exertion?denies. S hortness of breath d enies. G astrointestinal: Constipation o ccasional. D ecreased appetite d enies. D iarrhea d enies. H eartburn d enies. N ausea d enies. R ectal bleeding d enies. V omiting d enies. H ematology: bruising d enies. p etechiae d enies. S wollen glands n one have been noted. G enitourinary: Frequent urination d enies. M usculoskeletal: Muscle aches d enies. P ainful joints d enies. S ciatica d enies. W eakness d enies. S kin: Itching d enies. R david d enies. S kin lesion(s)?denies. N eurologic: Difficulty speaking d enies. D izziness d enies.?Headache d enies. L ow back pain d enies. P sychiatric: Depressed mood d enies. * Medical History: * Surgical History: s tereotactic biopsy upper outer quadrant left breast 10/29/2015lumpectomy left breast and sentinel node sampling 11/11/2015Subtotal pancreatectomy for cystic mucinous neoplasm 2015 [facility] - surgery performed by Dr. Lundberg * Hospitalization/Major Diagno stic Procedure: D enies Past Hospitalization * Family History: F ather: 69 yrs, colon cancer, diabetes mellitus, hypertension, diagnosed with DM, HTN, Cancer. M other: alive 74 yrs, arrhythmia,diverticullitis. S pouse: alive. 2 sister(s) - healthy. 1 son(s) , 1 daughter(s) - healthy. . Thfere is a history of breast cancer in a maternal aunt, father had colon cancer, none of rectal or prostate cancer, grandfather had pancreatic cancer. She is not aware of any family history of substance use disorder, addiction or mental illness. * Social History: T obacco Use: T obacco Use/Smoking P atient is a f ormer smoker H ow long has it been since you last smoked??> 10 years A dditional Findings: Tobacco Non-User E x-cigarette smoker Tobacco Control (Standard) T obacco use: F ormer smoker H ow long has it been since you last smoked??Greater than 10 years A dditional Findings: Tobacco non-user E x-cigarette smoker D rugs/Alcohol: D rugs H ave you used drugs other than those for medical reasons in the past 12 months? N o D rug/Alcohol: A FARZAD-C (Standard) D id you have a drink containing alcohol in the past year? N o P oints 0 I nterpretation N egative S he was born in [place] and has been for 29 years to Fawad.They have two children. [facility] * Medications: T akingLisinopril 5 MG Tablet TAKE 1 TABLET BY MOUTH EVERY DAY Medication List reviewed and reconciled with the patientTaking Lisinopril 5 MG Tablet TAKE 1 TABLET BY MOUTH EVERY DAY Medication List reviewed and reconciled with the patient * Allergies: P enicillinGluten: rashno[Allergies Verified] Objective: * Vitals: H t: 65, Wt: 188, BMI:31.28, BP: 141/77, HR: 81, Temp: 97.7, Wt-k.28. * P ast Orders: Lab:Complete Blood Count Aut o Diff * Collection Date 08/25/2024 02/16/2024 10/20/2023 Collection Time 08:38 AM 08:55 AM 09:16 AM Order Date 08/25/2024 02/16/2024 10/20/2023 White Blood Count 5.9 (Ref Range: 4.8-10.8 X10*3/uL) 5.3 (Ref Range: 4.8-10.8 X10*3/uL) 5.0 (Ref Range: 4.8-10.8 X10*3/uL) Red Blood Count 4.68 (Ref Range: 4.20-5.50 X10*6/uL) 4.51 (Ref Range: 4.20-5.50 X10*6/uL) 4.67 (Ref Range: 4.20-5.50 X10*6/uL) Hemoglobin 14.8 (Ref Range: 12.0-16.0 g/dl) 14.5 (Ref Range: 12.0-16.0 g/dl) 14.8 (Ref Range: 12.0-16.0 g/dl) Hematocrit 44.5 (Ref Range: 37.0-47.0 %) 42.4 (Ref Range: 37.0-47.0 %) 44.1 (Ref Range: 37.0-47.0 %) Mean Corpuscular Volume 95.1 (Ref Range: 80.0-98.0 fL) 94.0 (Ref Range: 80.0-98.0 fL) 94.4 (Ref Range: 80.0-98.0 fL) Mean Corpuscular Hemoglobin 31.6 (Ref Range: 27.0-33.0 pg) 32.2 (Ref Range: 27.0-33.0 pg) 31.7 (Ref Range: 27.0-33.0 pg) Mean Corpuscular HGB Conc 33.3 (Ref Range: 31.0-35.0 g/dl) 34.2 (Ref Range: 31.0-35.0 g/dl) 33.6 (Ref Range: 31.0-35.0 g/dl) Red Cell Distribution Width 12.8 (Ref Range: 11.0-16.0 %) 12.4 (Ref Range: 11.0-16.0 %) 12.3 (Ref Range: 11.0-16.0 %) Platelet Count 407 H (Ref Range: 160-400 X10*3/uL) 420 H (Ref Range: 160-400 X10*3/uL) 418 H (Ref Range: 160-400 X10*3/uL) Mean Platelet Volume 9.3 L (Ref Range: 9.4-12.3 fL) 9.4 (Ref Range: 9.4-12.3 fL) 9.5 (Ref Range: 9.4-12.3 fL) Neutrophils Percent Auto 52.7 (Ref Range: 45-73 %) 40.9 L (Ref Range: 45-73 %) 47.4 (Ref Range: 45-73 %) Imm Gran Pct Auto 0.2 (Ref Range: 0.0-0.4 %) 0.2 (Ref Range: 0.0-0.4 %) 0.0 (Ref Range: 0.0-0.4 %) Lymphocytes Percent Auto 35.2 (Ref Range: 20-40 %) 45.6 H (Ref Range: 20-40 %) 38.8 (Ref Range: 20-40 %) Monocytes Percent Auto 9.4 (Ref Range: 2-11 %) 10.6 (Ref Range: 2-11 %) 11.2 H (Ref Range: 2-11 %) Eosinophils Percent Auto 1.5 (Ref Range: 0-4 %) 1.7 (Ref Range: 0-4 %) 1.6 (Ref Range: 0-4 %) Basophils Percent Auto 1.0 (Ref Range: 0-2 %) 1.0 (Ref Range: 0-2 %) 1.0 (Ref Range: 0-2 %) NRBC Pct Auto 0.0 (Ref Range: 0.0-0.2 /100WBC) 0.0 (Ref Range: 0.0-0.2 /100WBC) 0.0 (Ref Range: 0.0-0.2 /100WBC) Neutrophils Absolute Auto 3.1 (Ref Range: 2.0-8.3 x10*3/uL) 2.2 (Ref Range: 2.0-8.3 x10*3/uL) 2.4 (Ref Range: 2.0-8.3 x10*3/uL) Imm Gran Abs Auto 0.01 (Ref Range: 0.00-0.03 X10*3/uL) 0.01 (Ref Range: 0.00-0.03 X10*3/uL) 0.00 (Ref Range: 0.00-0.03 X10*3/uL) Lymphocytes Absolute Auto 2.1 (Ref Range: 1.2-4.9 X10*3/uL) 2.4 (Ref Range: 1.2-4.9 X10*3/uL) 1.9 (Ref Range: 1.2-4.9 X10*3/uL) Monocytes Absolute Auto 0.6 (Ref Range: 0.1-1.2 X10*3/uL) 0.6 (Ref Range: 0.1-1.2 X10*3/uL) 0.6 (Ref Range: 0.1-1.2 X10*3/uL) Eosinophils Absolute Auto 0.1 (Ref Range: 0.0-0.4 X10*3/uL) 0.1 (Ref Range: 0.0-0.4 X10*3/uL) 0.1 (Ref Range: 0.0-0.4 X10*3/uL) Basophils Absolute Auto 0.1 (Ref Range: 0.0-0.2 X10*3/uL) 0.1 (Ref Range: 0.0-0.2 X10*3/uL) 0.1 (Ref Range: 0.0-0.2 X10*3/uL) NRBC Abs Auto 0.000 (Ref Range: 0.0-0.012 X10*3/uL) 0.000 (Ref Range: 0.0-0.012 X10*3/uL) 0.000 (Ref Range: 0.0-0.012 X10*3/uL) * Lab:[facility] Gh[facility] * Collection Date 08/25/2024 02/16/2024 10/20/2023 Collection Time 08:38 AM 08:55 AM 09:16 AM Order Date 08/25/2024 02/16/2024 10/20/2023 Sodium 137 (Ref Range: 135-145 mmol/L) 141 (Ref Range: 135-145 mmol/L) 140 (Ref Range: 135-145 mmol/L) Bilirubin Total 1.0 (Ref Range: 0.0-1.0 mg/dL) 1.3 H (Ref Range: 0.0-1.0 mg/dL) 1.1 H (Ref Range: 0.0-1.0 mg/dL) Aspartate Amino Transferase 22 (Ref Range: 5-31 U/L) 22 (Ref Range: 5-31 U/L) 17 (Ref Range: 5-31 U/L) Alanine Aminotransferase 29 (Ref Range: 0-31 U/L) 27 (Ref Range: 0-31 U/L) 24 (Ref Range: 0-31 U/L) Total Protein 7.7 (Ref Range: 6.5-8.0 g/dL) 7.4 (Ref Range: 6.5-8.0 g/dL) 7.7 (Ref Range: 6.5-8.0 g/dL) Albumin Level 4.0 (Ref Range: 3.5-5.0 g/dL) 3.9 (Ref Range: 3.5-5.0 g/dL) 3.9 (Ref Range: 3.5-5.0 g/dL) Alkaline Phosphatase 107 (Ref Range: 39-117 U/L) 103 (Ref Range: 39-117 U/L) 99 (Ref Range: 39-117 U/L) Potassium 4.2 (Ref Range: 3.3-5.1 mmol/L) 4.3 (Ref Range: 3.3-5.1 mmol/L) 4.4 (Ref Range: 3.3-5.1 mmol/L) Chloride 106 (Ref Range: 96-108 mmol/L) 107 (Ref Range: 96-108 mmol/L) 104 (Ref Range: 96-108 mmol/L) Carbon Dioxide 26 (Ref Range: 22-29 mmol/L) 25 (Ref Range: 22-29 mmol/L) 27 (Ref Range: 22-29 mmol/L) Anion Gap 9 L (Ref Range: 12-20) 13 (Ref Range: 12-20) 13 (Ref Range: 12-20) Blood Urea Nitrogen 16 (Ref Range: 9-16 mg/dL) 15 (Ref Range: 9-16 mg/dL) 14 (Ref Range: 9-16 mg/dL) Creatinine 0.79 (Ref Range: 0.5-1.4 mg/dL) 0.73 (Ref Range: 0.5-1.4 mg/dL) 0.81 (Ref Range: 0.5-1.4 mg/dL) Estimated Glomerular Filt Rate > 60 > 60 > 60 Glucose Fasting 112 H (Ref Range: 60-99 mg/dL) 108 H (Ref Range: 60-99 mg/dL) 111 H (Ref Range: 60-99 mg/dL) Calcium 9.1 (Ref Range: 8.4-10.2 mg/dL) 8.9 (Ref Range: 8.4-10.2 mg/dL) 9.4 (Ref Range: 8.4-10.2 mg/dL) * Lab:Lipid Panel * Collection Date 08/25/2024 02/16/2024 10/20/2023 Collection Time 08:38 AM 08:55 AM 09:16 AM Order Date 08/25/2024 02/16/2024 10/20/2023 Triglycerides 126 (Ref Range: <150 mg/dL) 138 (Ref Range: <150 mg/dL) 109 (Ref Range: <150 mg/dL) Cholesterol 163 (Ref Range: <200 mg/dL) 160 (Ref Range: <200 mg/dL) 153 (Ref Range: <200 mg/dL) LDL Cholesterol Calculated 86 (Ref Range: <100 mg/dL) 85 (Ref Range: <100 mg/dL) 84 (Ref Range: <100 mg/dL) HDL Cholesterol 52 (Ref Range: >40 mg/dL) 48 (Ref Range: >40 mg/dL) 48 (Ref Range: >40 mg/dL) ???Lab:Pathology (Order Date - 06/09/2024) (Collection Date & Time - 06/09/2024 08:58 AM) * Examination: G eneral Examination: GENERAL APPEARANCE: p leasant, well nourished, well developed, in no acute distress, calm and relaxed, obese, woman. HEAD: a traumatic, normocephalic. EYES: e trisha, perrla, anicteric, conjugate. EARS: n ormal. NOSE: s eptum intact. ORAL CAVITY: n ormal, unremarkable. NECK/THYROID: n o jugular venous distention, no carotid bruit, thyroid normal. LYMPH NODES: n o enlarged lymph nodes,spleen normal. SKIN: n o suspicious lesions, anicteric. HEART: n o clicks, gallops, murmurs, or rubs, regular rhythm, S1, S2 normal, no s3, or vascular bruits. LUNGS: c lear to auscultation . BREASTS: n o masses palpable bilaterally, no dimpling, no discharge, no drainage, nontender, symmetrical, Healed scars left breast. ABDOMEN: b owel sounds normal, no ascites, no organomegaly, no mass, Healed surgical scar mid abdomen. RECTAL EXAM: n ot examined. MUSCULOSKELETAL: e xtremities unremarkable, no clubbing, cyanosis or edema. PERIPHERAL PULSES: n ormal. NEUROLOGIC: a lert and oriented, cranial nerves 2-12 grossly intact, deep tendon reflexes 2+ symmetrical, motor strength normal upper and lower extremities, sensory exam intact. PSYCH: a lert, oriented, cognitive function intact, thought process logical, goal directed, speech clear. Assessment: * Assessment: 1. E ssential (primary) hypertension - I10 (Primary) N otes :Her blood pressure today was 141/77 which is slightly elevated. She was given an appointment to return to the office in near future to check it again. The importance of aggressive weight loss and sodium restriction was reiterated. 2 . 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 There is no sign of relapse or new primary. The pancreatic remnant is functioning well. 3 . H yperlipidemia type II - E78.01 N otes :Her lipids have been stable and no change in her regimen was 4 . F ormer smoker - Z87.891 N otes :She is highly motivated not to smoke. We discussed strategies for maintenance of abstinence in times of stress. 5 . C rohn's disease of colon with abscess - K50.114 N otes :She is had no recent activity from the Crohn's disease. It is stable and no change in treatment was necessary. 6 . 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 Her last examination was unremarkable. She was continued on her current therapy. Plan: * Treatment: 2. B enign cystic mucinous tumor L AB: PROFILE, FASTING (COMPREHENSIVE METABOLIC) L AB: CARBOHYDRATE ANTIGEN 19-9 (CA 19-9) L AB: CBC WITH AUTO DIFF L AB: Lipid Panel L AB: Immunoglobulin A 3. H yperlipidemia type II L AB: PROFILE, FASTING (COMPREHENSIVE METABOLIC) L AB: CARBOHYDRATE ANTIGEN 19-9 (CA 19-9) L AB: CBC WITH AUTO DIFF L AB: Lipid Panel L AB: Immunoglobulin A 4. O thers Continue Lisinopril Tablet, 5 MG, TAKE 1 TABLET BY MOUTH EVERY DAY. * Procedure Codes: * Preventive Medicine: Counseling: C are goal follow-up plan: Counseling for abnormal BMI given Y es Above Normal BMI Follow-up D ietary management education, guidance, and counseling, Dietary needs education, Exercise promotion: strength training, Exercise promotion: stretching, Feeding regime, Giving encouragement to exercise, Lifestyle education regarding diet, Nutrition / feeding management, Nutrition therapy, Prescribed activity/exercise education, Prescribed diet education, Prescribed dietary intake, Special diet education, Weight monitoring , Intervention, Order not done: Medical or Other reason not done S moking/Tobacco Use Patient counseled on the dangers of tobacco use and urged to quit. 11/06/2023 * Follow Up: 3 Months, November (Reason: OV, Routine check-up) * Images: * Sign off status: Completed true * Provider: Benitez Mead MD Date: 11/06/2023 Generated for Siddhartha babcock/Yung/Cynthiaitting on: 10/22/2024 08:38 AM EST History and Physical Notes * HPI (History of Present Illness) Category Sub-Category Detail Notes Depression Screening PHQ-9 Little inte rest or pleasure in doing things: Not at all Feeling down, depressed, or hopeless: No t at all Trouble falling or staying asleep, or sl eeping too much: Not at all Feeling tired or having little energy: N ot at all Poor appetite or overeating: Not at all Feeling bad about yourself o r that you are a failure, or have let yourself or your family down: Not at all Trouble concentrating on thi ngs, such as reading the newspaper or watching television: Not at all Moving or speaking so slowly that other people could have noticed; or the opposite, being so fidgety or restless that you have been moving around a lot more than usual: Not at all Thoughts that you would be b jolie off or of hurting yourself in some way: Not at all Total Score: 0 COVID-19 Screening Questions Have you had any new onset fever, chills, cough, congestion, sore throat, shortness of breath, muscle aches?: No Have you been exposed to the virus withi n the last 10 days?: No Have you travelled internationally in last 10 days?: No Have you been exposed to COVID-19 in the past?: No SDOH Questions SDOH Questions In the past year have you been worried about losing your housing?: No In the past year have you or any family members you live with been unable to get any of the following when it was really needed? Check all that apply:: None Examination Category Sub-Category Detail Notes General Examination GENERAL APPEARANCE: pleasant , well nourished, well developed, in no acute distress, calm and relaxed, obese, woman HEAD: atraumatic, normocep halic EYES: eomi, perrla, anicte jason, conjugate EARS: normal NOSE: septum intact NECK/THYROID: no jugular venous di stention, no carotid bruit, thyroid normal HEART: no clicks, gallops, murmurs, or rubs, regular rhythm, S1, S2 normal, no s3, or vascular bruits LUNGS: clear to auscultatio n ABDOMEN: bowel sounds normal, no ascites, no organomegaly, no mass, Healed surgical scar mid abdomen NEUROLOGIC: alert and oriented, cranial nerves 2-12 grossly intact, deep tendon reflexes 2+ symmetrical, motor strength normal upper and lower extremities, sensory exam intact SKIN: no suspicious lesion s, anicteric PERIPHERAL PULSES: normal BREASTS: no masses palpable b ilaterally, no dimpling, no discharge, no drainage, nontender, symmetrical, Healed scars left breast MUSCULOSKELETAL: extremities unremark able, no clubbing, cyanosis or edema LYMPH NODES: no enlarged lymph no bhakti,spleen normal RECTAL EXAM: not examined PSYCH: alert, oriented, cog nitive function intact, thought process logical, goal directed, speech clear ORAL CAVITY: normal, unremarkable
--- OUTSIDE RECORDS SUMMARY | 2024-10-30 08:02 | XMS_ITS ---
Author Organization Patrick Mead III, MD Address [address] [place] [address] [address] [facility] [place] [address] Care Team Providers Care Business Professor Name Role Phone Dr. Patrick Mead III Primary Care Provider [phone] REASON FOR VISIT left Front abdominal pain Social History Sex Assigned At : Social History Observation Description Sex Assigned At Female Encounters Encounter Location Date Provider Diagnosis Patrick Mead III, MD [address] [place] [address] [address] [place] [facility] [place] [phone] 10/30/2024 Patrick Mead Plan Of Treatment Next Appt Details Provider Name:Patrick Mead , 09/08/2025 09:00:00 AM, [address] [place] [address] [place], [address], Progress Notes * Kylee SANCHEZDOB:1960 (63 yo F)Acc No.[id number]:10/30/2024 Patient: Law IWONAROBINA Kylee :1960 A ge:63 Y S ex:Female Address:[address] [place] [phone] * true * Date: Generated for Siddhartha babcock/Yung/eTransmitting on: 10/22/2024 08:39 AM EST
--- OUTSIDE RECORDS SUMMARY | 2024-11-05 04:52 | XMS_ITS ---
Author Organization Patrick Mead III, MD Address [address] [place] [address] [place] [address] Care Team Providers Care Precision Dyer Name Role Phone Dr. 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 D05.82 ; Crohn's disease of colon with abscess K50.114 and Hyperlipidemia, unspecified hyperlipidemia type E78.5 Assessments Encounter Date Diagnosis (ICD Code) Assessment Notes Treat ment Notes Treatment Clinical Notes 11/05/2024 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 (ICD-10 - D05.82) 11/05/2024 Crohn's disease of colon with abscess (ICD-10 - K50.114) 11/05/2024 Hyperlipidemia, unspecified hyperlipidemia type (ICD-10 - E78.5) Plan Of Treatment Next Appt Details Provider Name:Patrick Mead , 09/08/2025 09:00:00 AM, [address] [place] [address] [place], [address], Progress Notes * Kylee SANCHEZDOB:1960 (63 yo F)Acc No.[id number]:11/05/2024 Patient: Kylee HARRIS :1960 A ge:63 Y S ex:Female Address:[address] [place] [phone] Subjective: * Chief Complaints: * M essage * Medical History: * Surgical History: * Hospitalization/Major Diagno stic Procedure: * Medications: Objective: * Vitals: * Physical Examination: Assessment: * Assessment: 1. D uctal carcinoma in situ (DCIS) of left breast with microinvasive component - D05.82 ? 2 . C rohn's disease of colon with abscess - K50.114 3 . H yperlipidemia, unspecified hyperlipidemia type - E78.5 Plan: * Treatment: 2. C rohn's disease of colon with abscess L AB: CARBOHYDRATE ANTIGEN 19-9 (CA 19-9) L AB: Lipid Panel L AB: Immunoglobulin A 3. H yperlipidemia, unspecified hyperlipidemia type L AB: CARBOHYDRATE ANTIGEN 19-9 (CA 19-9) L AB: Lipid Panel L AB: Immunoglobulin A * Procedure Codes: * true * Date: Generated for Siddhartha babcock/Yung/eTransmitting on: 10/22/2024 08:39 AM EST
--- OUTSIDE RECORDS SUMMARY | 2024-12-04 04:00 | XMS_ITS ---
Author Organization Patrick Mead III, MD Address [address] [place] [address] [place] [address] Care Team Providers Care Pearl Diver Name Role Phone Dr. 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 She was given an appointment to return to the office in near future to check it again. The importance of aggressive weight loss and sodium restriction was reiterated. 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 There is no sign of breast cancer on today's examination. 12/04/2024 Former smoker (ICD-10 - Z87.891) She is highly motivated not to smoke. We discussed strategies for maintenance of abstinence in times of stress. 12/04/2024 Crohn's disease of colon with abscess (ICD-10 - K50.114) She is had no recent activity from the Crohn's disease. It is stable and no change in treatment was necessary. 12/04/2024 Benign cystic mucinous tumor (ICD-10 - M67.40) This was a tumor of low malignant potential. There is no sign of relapse or new primary. The pancreatic remnant is functioning well. 12/04/2024 Obesity (ICD-10 - E66.9) Her body mass index is 331and she hasgained 4 pounds since her last visit. I recommended continued weight loss through exercise and a diet restricted in fat calories in sodium. Plan Of Treatment Medication Medication Name Sig Start Date Stop Date Notes Lisinopril 5 MG TAKE 1 TABLET BY MOUTH EVERY DAY Pending Test Test Name Order Date PROFILE, FASTING (COMPREHENSIVE METABOLI C) 12/04/2024 CBC w DIFF 12/04/2024 CARBOHYDRATE ANTIGEN 19-9 (CA 19-9) 03/2025 Lipid Panel 12/04/2024 Next Appt Details Follow Up: 3 Months, January, Re ason: OV, Mammogram Provider Name:Patrick Mead , 09/08/2025 09:00:00 AM, [address] [place] [address] [address], [place], [address], Progress Notes * Kylee SANCHEZDOB:1960 (64 yo F)Acc No.[id number]:12/04/2024 Progress Notes Patient: Kylee HARRIS Provider: Benitez Mead MD :1960 A ge:64 Y S ex:Female Date:12/04/2024 Address:[address] [place], [place] [address] Subjective: * Chief Complaints: * R ecent episode of abdominal painHypertensionBenign cystic mucinous tumor of the pancreas, resectedDCIS left breast with microinvasionObesityHyperlipidemiaCrohn's disease * HPI: C OVID-19 Screening: Questions H ave you had any new onset fever, chills, cough, congestion, sore throat, shortness of breath, muscle aches? N o * : The patient, a 64-year-old female, has been dealing with chronic diarrhea and Irritable Bowel Syndrome (IBS). She has also been diagnosed with diverticulosis. She has been experiencing symptoms such as constipation and discomfort after consuming certain foods like pork and dairy products. The patient has been trying to manage her symptoms by modifying her diet, avoiding foods that trigger her symptoms, and taking fiber supplements as recommended by her previous doctor. She has also been using resistance bands for exercise.She recently had an episode of abdominal pain and thought it was a kidney stone. She went to the [facility] emergency room where a CT scan showed only constipation. Her symptoms have now resolved with cathartics. He is going to see her lockstitch sleeve maker, Dr. Ruth, in the near future. * ROS: G eneral/Constitutional: pain R esolved, only normal aches and pains. C hills?denies. F atigue a dmits. F ever d enies. E [...] have been noted. G enitourinary: Frequent urination a small amount. M usculoskeletal: Muscle aches d enies. P [...] 11/11/2015Subtotal pancreatectomy for cystic mucinous neoplasm 2015 [facility] - surgery performed by Dr. Lundberg No history * Hospitalization/Major Diagno stic Procedure: N o history * Family History: F ather: 69 yrs, [...] Social History: T obacco Use: T obacco Control (Standard) T obacco use: F ormer smoker H ow long has it been since you last smoked??Greater than 10 years A dditional Findings: Tobacco non-user E x-cigarette smoker S he was born in [place] and has been for 29 years to [place].They have two children. [employer] ([employer]). * Medications: T akingLisinopril 5 MG Tablet TAKE 1 TABLET BY MOUTH EVERY DAY Medication List reviewed and reconciled with the patientTaking Lisinopril 5 MG Tablet TAKE 1 TABLET BY MOUTH EVERY DAY Medication List reviewed and reconciled with the patient * Allergies: P enicillinGluten: rashno[Allergies Verified] Objective: * Vitals: H t: 65, Wt: 192, BMI:31.95, BP: 134/83, HR: 85, Temp: 97.8, Wt-k.09. * P ast Orders: Lab:Lipid Panel * Collection Date 11/29/2024 08/25/2024 02/16/2024 Collection Time 08:26 AM 08:38 AM 08:55 AM Order Date 11/29/2024 08/25/2024 02/16/2024 Triglycerides 123 (Ref Range: <150 mg/dL) 126 (Ref Range: <150 mg/dL) 138 (Ref Range: <150 mg/dL) Cholesterol 167 (Ref Range: <200 mg/dL) 163 (Ref Range: <200 mg/dL) 160 (Ref Range: <200 mg/dL) LDL Cholesterol Calculated 92 (Ref Range: <100 mg/dL) 86 (Ref Range: <100 mg/dL) 85 (Ref Range: <100 mg/dL) HDL Cholesterol 51 (Ref Range: >40 mg/dL) 52 (Ref Range: >40 mg/dL) 48 (Ref Range: >40 mg/dL) * Lab:Carbohydrate Antigen 19- 9 * Collection Date 11/29/2024 08/25/2024 02/16/2024 Collection Time 08:26 AM 08:38 AM 08:55 AM Order Date 11/29/2024 08/25/2024 02/16/2024 Carbohydrate Antigen 19-9 10 (Ref Range: <34 U/mL) 8 (Ref Range: <34 U/mL) 8 (Ref Range: <34 U/mL) * Lab:Immunoglobulin A * Collection Date 11/29/2024 05/08/2024 Collection Time 08:26 AM 03:16 PM Order Date 11/29/2024 05/08/2024 Immunoglobulin A 506 A (Ref Range: 70-320 mg/dL) 533 A (Ref Range: 70-320 mg/dL) * Lab:Lipase * Collection Date 10/30/2024 05/08/2024 01/27/2023 Collection Time 02:59 PM 03:16 PM 08:48 AM Order Date 10/30/2024 05/08/2024 01/27/2023 Lipase 20 (Ref Range: 8-78 U/L) 16 (Ref Range: 8-78 U/L) 16 (Ref Range: 8-78 U/L) ???Lab:UA ClnCatch+Micro w/rflx Cult (Order Date - 10/30/2024) (Collection Date & Time - 10/30/2024 02:59 PM)?ValueReference Range?Color Urine Yellow-?Appearance UrineClear-?PH6.05.0-9.0 -?Glucose Urine UANegativeNegative - mg/dL?Urine BloodNegativeNegative -?Specific [place] - Urine1.0151.005-1.025 -?Urine ProteinNegativeNeg-Trace - mg/dL ?Urine KetonesNegativeNegative - mg/dL?Nitrite UrineNegative Negative -?Leukocyte Esterase UrineNegativeNegative -?RBC Urine0-2 0-2 - /HPF?WBC Urine0-50-5 - /HPF?Squamous Epithelial Cell Urine 0-20-2 - /HPF?Bacteria UrineNone SeenNone Seen -?Hyaline Casts Urine0-20-2 - /LPF * Lab:Complete Blood Count Aut o Diff * Collection Date 10/30/2024 08/25/2024 02/16/2024 Collection Time 02:59 PM 08:38 AM 08:55 AM Order Date 10/30/2024 08/25/2024 02/16/2024 White Blood Count 9.3 (Ref Range: 4.8-10.8 X10*3/uL) 5.9 (Ref Range: 4.8-10.8 X10*3/uL) 5.3 (Ref Range: 4.8-10.8 X10*3/uL) Red Blood Count 4.76 (Ref Range: 4.20-5.50 X10*6/uL) 4.68 (Ref Range: 4.20-5.50 X10*6/uL) 4.51 (Ref Range: 4.20-5.50 X10*6/uL) Hemoglobin 15.2 (Ref Range: 12.0-16.0 g/dl) 14.8 (Ref Range: 12.0-16.0 g/dl) 14.5 (Ref Range: 12.0-16.0 g/dl) Hematocrit 45.0 (Ref Range: 37.0-47.0 %) 44.5 (Ref Range: 37.0-47.0 %) 42.4 (Ref Range: 37.0-47.0 %) Mean Corpuscular Volume 94.5 (Ref Range: 80.0-98.0 fL) 95.1 (Ref Range: 80.0-98.0 fL) 94.0 (Ref Range: 80.0-98.0 fL) Mean Corpuscular Hemoglobin 31.9 (Ref Range: 27.0-33.0 pg) 31.6 (Ref Range: 27.0-33.0 pg) 32.2 (Ref Range: 27.0-33.0 pg) Mean Corpuscular HGB Conc 33.8 (Ref Range: 31.0-35.0 g/dl) 33.3 (Ref Range: 31.0-35.0 g/dl) 34.2 (Ref Range: 31.0-35.0 g/dl) Red Cell Distribution Width 12.4 (Ref Range: 11.0-16.0 %) 12.8 (Ref Range: 11.0-16.0 %) 12.4 (Ref Range: 11.0-16.0 %) Platelet Count 408 H (Ref Range: 160-400 X10*3/uL) 407 H (Ref Range: 160-400 X10*3/uL) 420 H (Ref Range: 160-400 X10*3/uL) Mean Platelet Volume 9.3 L (Ref Range: 9.4-12.3 fL) 9.3 L (Ref Range: 9.4-12.3 fL) 9.4 (Ref Range: 9.4-12.3 fL) Neutrophils Percent Auto 63.1 (Ref Range: 45-73 %) 52.7 (Ref Range: 45-73 %) 40.9 L (Ref Range: 45-73 %) Imm Gran Pct Auto 0.3 (Ref Range: 0.0-0.4 %) 0.2 (Ref Range: 0.0-0.4 %) 0.2 (Ref Range: 0.0-0.4 %) Lymphocytes Percent Auto 26.3 (Ref Range: 20-40 %) 35.2 (Ref Range: 20-40 %) 45.6 H (Ref Range: 20-40 %) Monocytes Percent Auto 9.7 (Ref Range: 2-11 %) 9.4 (Ref Range: 2-11 %) 10.6 (Ref Range: 2-11 %) Eosinophils Percent Auto 0.1 (Ref Range: 0-4 %) 1.5 (Ref Range: 0-4 %) 1.7 (Ref Range: 0-4 %) Basophils Percent Auto 0.5 (Ref Range: 0-2 %) 1.0 (Ref Range: 0-2 %) 1.0 (Ref Range: 0-2 %) NRBC Pct Auto 0.0 (Ref Range: 0.0-0.2 /100WBC) 0.0 (Ref Range: 0.0-0.2 /100WBC) 0.0 (Ref Range: 0.0-0.2 /100WBC) Neutrophils Absolute Auto 5.9 (Ref Range: 2.0-8.3 x10*3/uL) 3.1 (Ref Range: 2.0-8.3 x10*3/uL) 2.2 (Ref Range: 2.0-8.3 x10*3/uL) Imm Gran Abs Auto 0.03 (Ref Range: 0.00-0.03 X10*3/uL) 0.01 (Ref Range: 0.00-0.03 X10*3/uL) 0.01 (Ref Range: 0.00-0.03 X10*3/uL) Lymphocytes Absolute Auto 2.4 (Ref Range: 1.2-4.9 X10*3/uL) 2.1 (Ref Range: 1.2-4.9 X10*3/uL) 2.4 (Ref Range: 1.2-4.9 X10*3/uL) Monocytes Absolute Auto 0.9 (Ref Range: 0.1-1.2 X10*3/uL) 0.6 (Ref Range: 0.1-1.2 X10*3/uL) 0.6 (Ref Range: 0.1-1.2 X10*3/uL) Eosinophils Absolute Auto 0.0 (Ref Range: 0.0-0.4 X10*3/uL) 0.1 (Ref Range: 0.0-0.4 X10*3/uL) 0.1 (Ref Range: 0.0-0.4 X10*3/uL) Basophils Absolute Auto 0.1 (Ref Range: 0.0-0.2 X10*3/uL) 0.1 (Ref Range: 0.0-0.2 X10*3/uL) 0.1 (Ref Range: 0.0-0.2 X10*3/uL) NRBC Abs Auto 0.000 (Ref Range: 0.0-0.012 X10*3/uL) 0.000 (Ref Range: 0.0-0.012 X10*3/uL) 0.000 (Ref Range: 0.0-0.012 X10*3/uL) * Lab:Comprehensive Met. Panel * Collection Date 10/30/2024 06/23/2023 01/27/2023 Collection Time 02:59 PM 08:38 AM 08:48 AM Order Date 10/30/2024 06/23/2023 01/27/2023 Sodium 138 (Ref Range: 135-145 mmol/L) 140 (Ref Range: 135-145 mmol/L) 141 (Ref Range: 135-145 mmol/L) Bilirubin Total 0.8 (Ref Range: 0.0-1.0 mg/dL) 1.1 H (Ref Range: 0.0-1.0 mg/dL) 1.5 H (Ref Range: 0.0-1.0 mg/dL) Aspartate Amino Transferase 21 (Ref Range: 5-31 U/L) 17 (Ref Range: 5-31 U/L) 19 (Ref Range: 5-31 U/L) Alanine Aminotransferase 29 (Ref Range: 0-31 U/L) 22 (Ref Range: 0-31 U/L) 25 (Ref Range: 0-31 U/L) Total Protein 8.2 H (Ref Range: 6.5-8.0 g/dL) 7.6 (Ref Range: 6.5-8.0 g/dL) 7.6 (Ref Range: 6.5-8.0 g/dL) Albumin Level 4.1 (Ref Range: 3.5-5.0 g/dL) 3.9 (Ref Range: 3.5-5.0 g/dL) 4.1 (Ref Range: 3.5-5.0 g/dL) Alkaline Phosphatase 94 (Ref Range: 39-117 U/L) 100 (Ref Range: 39-117 U/L) 91 (Ref Range: 39-117 U/L) Potassium 4.6 (Ref Range: 3.3-5.1 mmol/L) 4.5 (Ref Range: 3.3-5.1 mmol/L) 4.8 (Ref Range: 3.3-5.1 mmol/L) Chloride 105 (Ref Range: 96-108 mmol/L) 105 (Ref Range: 96-108 mmol/L) 107 (Ref Range: 96-108 mmol/L) Carbon Dioxide 24 (Ref Range: 22-29 mmol/L) 24 (Ref Range: 22-29 mmol/L) 24 (Ref Range: 22-29 mmol/L) Anion Gap 14 (Ref Range: 12-20) 16 (Ref Range: 12-20) 15 (Ref Range: 12-20) Blood Urea Nitrogen 21 H (Ref Range: 9-16 mg/dL) 13 (Ref Range: 9-16 mg/dL) 18 H (Ref Range: 9-16 mg/dL) Creatinine 0.80 (Ref Range: 0.5-1.4 mg/dL) 0.78 (Ref Range: 0.5-1.4 mg/dL) 0.81 (Ref Range: 0.5-1.4 mg/dL) Estimated Glomerular Filt Rate > 60 > 60 > 60 Glucose Random 103 (Ref Range: 60-115 mg/dL) 108 (Ref Range: 60-115 mg/dL) 107 (Ref Range: 60-115 mg/dL) Calcium 9.3 (Ref Range: 8.4-10.2 mg/dL) 9.2 (Ref Range: 8.4-10.2 mg/dL) 9.6 (Ref Range: 8.4-10.2 mg/dL) Creatinine Clr Calc Pharmacy 78.0 NR NR ???Imaging:CT abdomen pelvis wo con (Order Date - 10/30/2024) (Performed Date - 10/30/2024) * Examination: G eneral Examination: GENERAL APPEARANCE: [...] LUNGS: c lear to auscultation . BREASTS: no masses palpable bilaterally. ABDOMEN: b owel sounds normal, no ascites, no organomegaly, no mass, centripital obesity. RECTAL EXAM: n ot examined. MUSCULOSKELETAL: e xtremities unremarkable, no clubbing, cyanosis or edema. PERIPHERAL PULSES: n ormal. NEUROLOGIC: a lert and oriented, cranial nerves 2-12 grossly intact, deep tendon reflexes 2+ symmetrical, motor strength normal upper and lower extremities, sensory exam intact. PSYCH: a lert, oriented. Assessment: * Assessment: 1. 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 There is no sign of breast cancer on today's examination. 2 . E ssential (primary) hypertension - I10 N otes :Her blood pressure today was In the normal range today. She was given an appointment to return to the office in near future to check it again. The importance of aggressive weight loss and sodium restriction was reiterated. 3 . F ormer smoker - Z87.891 N otes :She is highly motivated not to smoke. We discussed strategies for maintenance of abstinence in times of stress. 4 . C rohn's disease of colon with abscess - K50.114 N otes :She is had no recent activity from the Crohn's disease. It is stable and no change in treatment was necessary. 5 . 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 There is no sign of relapse or new primary. The pancreatic remnant is functioning well. 6 . O besity - E66.9 N otes :Her body mass index is 331and she hasgained 4 pounds since her last visit. I recommended continued weight loss through exercise and a diet restricted in fat calories in sodium. Plan: * Treatment: 2. E ssential (primary) hypertension L AB: PROFILE, FASTING (COMPREHENSIVE METABOLIC) L AB: CBC w DIFF L AB: CARBOHYDRATE ANTIGEN 19-9 (CA 19-9) L AB: Lipid Panel 3. O thers Continue Lisinopril Tablet, 5 MG, [...] done: Medical or Other reason not done * Follow Up: 3 Months, January (Reason: OV, Mammogram) * Images: * Sign off status: Completed true * Provider: Benitez Mead MD Date: 0 12/04/2024 Generated for Siddhartha babcock/Yung/Cynthiaitting on: 10/22/2024 08:38 AM EST History and Physical Notes * HPI (History of Present Illness) Category Sub-Category Detail Notes COVID-19 Screening Questions Have you had any new onset fever, chills, cough, congestion, sore throat, shortness of breath, muscle aches?: No Examination Category Sub-Category Detail Notes General Examination [...] normal, no ascites, no organomegaly, no mass, centripital obesity NEUROLOGIC: alert and oriented, cranial nerves 2-12 grossly intact, deep tendon reflexes 2+ symmetrical, motor strength normal upper and lower extremities, sensory exam intact SKIN: no suspicious lesion s, anicteric PERIPHERAL PULSES: normal BREASTS: no masses palpable b ilaterally MUSCULOSKELETAL: extremities unremark able, no clubbing, cyanosis or edema LYMPH NODES: no enlarged lymph no bhakti,spleen normal RECTAL EXAM: not examined PSYCH: alert, oriented ORAL CAVITY: normal, unremarkable
--- OUTSIDE RECORDS SUMMARY | 2025-03-17 12:00 | XMS_ITS ---
Author Organization Patrick Mead III, MD Address [address] [place] [address] [address] [facility] [place] [address] Care Team Providers Care Counseling Specialist Name Role Phone Dr. Patrick Mead III Primary Care Provider [phone] REASON FOR VISIT Follow up Social History Sex Assigned At : Social History Observation Description Sex Assigned At Female Encounters Encounter Location Date Provider Diagnosis Patrick Mead III, MD [address] [place] [address] [place] [address] 03/17/2025 Patrick Mead Plan Of Treatment Next Appt Details Provider Name:Patrick Mead , 09/08/2025 09:00:00 AM, [address] [place] [address] [place], [address], Progress Notes * Kylee SANCHEZDOB:1960 (64 yo F)Acc No.[id number]:03/17/2025 Progress Notes Patient: Kylee HARRIS Provider: Benitez Mead MD :1960 A ge:64 Y S ex:Female Date:03/17/2025 Address:[address] [place] [id number] Subjective: * Chief Complaints: * 1 . Follow up. * Medical History: Objective: * Vitals: Assessment: Plan: * Treatment: * Images: * The named appointment provid er may or may not be the originator of this progress note, and it is not deemed complete until electronically signed by the appointment provider. Sign off status: Pending * Provider: Benitez Mead MD Date: 0 03/17/2025 Generated for Siddhartha babcock/Yung/Dang on: 10/22/2024 08:38 AM EST
--- OUTSIDE RECORDS SUMMARY | 2025-03-24 04:15 | XMS_ITS ---
Author Organization Patrick Mead III, MD Address [address] [place] [address] Care Team Providers Care Childhood Development Teacher Name Role Phone Dr. Patrick Mead III Primary Care Provider Allergies Allergen (clinical drug ingredient) Drug/Non Drug Allergy documented on EMR Reaction Allergy Type Onset Date Status Penicillin Unknown Drug Allergy Active Gluten Gluten rash Allergy Active REASON FOR VISIT Hypertension, Ureterolithiasis, Cystic mucinous tumor of pancreas, DCIS left( breast, Obesity, Hyperlipidemia, Crohn's disease Medications Medication SIG [...] non-user Ex-cigaret te smoker Vital Signs Temperature 99.0 degrees Fahrenheit 03/24/20 25 Blood pressure systolic 134 mm Hg 03/24/20 25 Blood pressure diastolic 80 mm Hg 025 Heart Rate 78 /min 03/24/2025 Height 65 in 03/24/2025 Weight 192 lbs 03/24/2025 BMI 31.95 kg/m2 03/24/2025 Encounters Encounter Location Date Provider Diagnosis Patrick Mead III, MD [address] [place] [address] [place] [address] 03/24/2025 Patrick Mead 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 She is up-to-date with mammography 03/24/2025 Hyperlipidemia type II (ICD-10 - E78.01) Operation fasting lipid profile shows. Control of her lipids. No change in her regimen as needed. We continued to discuss weight loss strategy is an lifestyle modifications. Our plan is to lose weight at a rate of one half of a pound per week. 03/24/2025 Essential (primary) hypertension (ICD-10 - I10) Her blood pressure today was In the normal range today. She was given an appointment to return to the office in near future to check it again. The importance of aggressive weight loss and sodium restriction was reiterated. 03/24/2025 Ureterolithiasis (ICD-10 - N20.1) No episodes of renal colic have been reported. She has had no hematuria. 03/24/2025 Former smoker (ICD-1 0 - Z87.891) She is highly motivated not to smoke. We discussed strategies for maintenance of abstinence in times of stress. 03/24/2025 Benign cystic mucino us tumor (ICD-10 - M67.40) This was a tumor of low malignant potential. There is no sign of relapse or new primary. The pancreatic remnant is functioning well. 03/24/2025 Irritable bowel syndrome with diarrhea (ICD-10 - K58.0) She is familiar with the discomforts involve theproblem. She is able to conduct all of the activities of daily life without difficulty. 03/24/2025 Crohn's disease of colon with abscess (ICD-10 - K50.114) She is had no recent activity from the Crohn's disease. It is stable and no change in treatment was necessary. Plan Of Treatment Medication Medication Name Sig Start Date Stop Date Notes Lisinopril 5 MG TAKE 1 TABLET BY MOUTH EVERY DAY Pending Test Test Name Order Date PROFILE, FASTING (COMPREHENSIVE METABOLI C) 03/24/2025 CBC w DIFF 03/24/2025 CARBOHYDRATE ANTIGEN 19-9 (CA 19-9) 03/02 Lipid Panel 03/24/2025 Next Appt Details Follow Up: 3 Months, Reason: OV Provider Name:Patrick Mead , 09/08/2025 09:00:00 AM, [address] [place] [address] [address] [facility] [address], [place], [address], Progress Notes * DUTCH KyleeDOB:1960 (64 yo F)Acc No.[id number]:03/24/2025 Progress Notes Patient: Kylee HARRIS Provider: Benitez Mead MD :1960 A ge:64 Y S ex:Female Date:03/24/2025 Address:[address] [place], [place] [id number] Subjective: * Chief Complaints: * H ypertensionUreterolithiasisCystic mucinous tumor of pancreasDCIS left( breastObesityHyperlipidemiaCrohn's disease * HPI: C OVID-19 Screening: S he returns for a scheduled visit to manage medical issues. She weighs 192 pounds and is exercising regularly. Her CA-19-9 is in the normal range. Her lipids are well controlled. Her inflammatory bowel disease has not been an issue for her lately. Her blood pressure is controlled. Comprehensive blood work is available and was reviewed with her in detail. Breast self-examination has show no findings. A recent mammogram was unremarkable. She is seeing her senior receptionist, Dr. Ruth, regularly. Questions H ave you had any new onset fever, chills, cough, congestion, sore throat, shortness of breath, muscle aches? N o * ROS: G eneral/Constitutional: pain o nly normal aches and pains. C hills d enies.?Fatigue a dmits. F ever d enies. E NT: Decreased hearing d enies. R espiratory: Cough d enies. C ardiovascular: Chest pain with exertion d enies. D yspnea on exertion?denies. S hortness of breath d enies. G astrointestinal: Constipation o ccasional. D ecreased appetite d enies. D iarrhea t hat is infrequent. H eartburn d enies. N ausea d enies. R ectal bleeding d enies. V omiting d enies. H ematology: bruising d enies. p etechiae d enies. S wollen glands n one have been noted. G enitourinary: Frequent urination a t night. M usculoskeletal: Muscle aches d enies. P [...] 11/11/2015Subtotal pancreatectomy for cystic mucinous neoplasm 2015 [facility] - surgery performed by Dr. Lundberg No history * Hospitalization/Major Diagno stic Procedure: N o history * Family History: F [place]: 70 yrs, colon cancer, diabetes mellitus, hypertension, diagnosed with Cancer, DM, HTN. M other: alive 75 yrs, arrhythmia,diverticullitis. S [...] x-cigarette smoker S he was born in [place] and has been for 29 years to [place].They have two children. [employer] ([employer]). * Medications: T akingLisinopril 5 MG Tablet TAKE 1 TABLET BY MOUTH EVERY DAY Medication List reviewed and reconciled with the patientTaking Lisinopril 5 MG Tablet TAKE 1 TABLET BY MOUTH EVERY DAY Medication List reviewed and reconciled with the patient * Allergies: P enicillinGluten: rashno[Allergies Verified] Objective: * Vitals: H t: 65, Wt: 192, BMI:31.95, BP: 134/80, HR: 78, Temp: 99.0, Wt-k.09. * P ast Orders: Lab:Carbohydrate Antigen 19- 9 * Collection Date 02/21/2025 11/29/2024 08/25/2024 Collection Time 08:40 AM 08:26 AM 08:38 AM Order Date 02/21/2025 11/29/2024 08/25/2024 Carbohydrate Antigen 19-9 10 (Ref Range: <34 U/mL) 10 (Ref Range: <34 U/mL) 8 (Ref Range: <34 U/mL) * Lab:Complete Blood Count Aut o Diff * Collection Date 02/21/2025 10/30/2024 08/25/2024 Collection Time 08:40 AM 02:59 PM 08:38 AM Order Date 02/21/2025 10/30/2024 08/25/2024 White Blood Count 5.6 (Ref Range: 4.8-10.8 X10*3/uL) 9.3 (Ref Range: 4.8-10.8 X10*3/uL) 5.9 (Ref Range: 4.8-10.8 X10*3/uL) Red Blood Count 4.56 (Ref Range: 4.20-5.50 X10*6/uL) 4.76 (Ref Range: 4.20-5.50 X10*6/uL) 4.68 (Ref Range: 4.20-5.50 X10*6/uL) Hemoglobin 14.4 (Ref Range: 12.0-16.0 g/dl) 15.2 (Ref Range: 12.0-16.0 g/dl) 14.8 (Ref Range: 12.0-16.0 g/dl) Hematocrit 43.1 (Ref Range: 37.0-47.0 %) 45.0 (Ref Range: 37.0-47.0 %) 44.5 (Ref Range: 37.0-47.0 %) Mean Corpuscular Volume 94.5 (Ref Range: 80.0-98.0 fL) 94.5 (Ref Range: 80.0-98.0 fL) 95.1 (Ref Range: 80.0-98.0 fL) Mean Corpuscular Hemoglobin 31.6 (Ref Range: 27.0-33.0 pg) 31.9 (Ref Range: 27.0-33.0 pg) 31.6 (Ref Range: 27.0-33.0 pg) Mean Corpuscular HGB Conc 33.4 (Ref Range: 31.0-35.0 g/dl) 33.8 (Ref Range: 31.0-35.0 g/dl) 33.3 (Ref Range: 31.0-35.0 g/dl) Red Cell Distribution Width 12.5 (Ref Range: 11.0-16.0 %) 12.4 (Ref Range: 11.0-16.0 %) 12.8 (Ref Range: 11.0-16.0 %) Platelet Count 371 (Ref Range: 160-400 X10*3/uL) 408 H (Ref Range: 160-400 X10*3/uL) 407 H (Ref Range: 160-400 X10*3/uL) Mean Platelet Volume 9.5 (Ref Range: 9.4-12.3 fL) 9.3 L (Ref Range: 9.4-12.3 fL) 9.3 L (Ref Range: 9.4-12.3 fL) Neutrophils Percent Auto 47.6 (Ref Range: 45-73 %) 63.1 (Ref Range: 45-73 %) 52.7 (Ref Range: 45-73 %) Imm Gran Pct Auto 0.2 (Ref Range: 0.0-0.4 %) 0.3 (Ref Range: 0.0-0.4 %) 0.2 (Ref Range: 0.0-0.4 %) Lymphocytes Percent Auto 39.9 (Ref Range: 20-40 %) 26.3 (Ref Range: 20-40 %) 35.2 (Ref Range: 20-40 %) Monocytes Percent Auto 9.7 (Ref Range: 2-11 %) 9.7 (Ref Range: 2-11 %) 9.4 (Ref Range: 2-11 %) Eosinophils Percent Auto 1.3 (Ref Range: 0-4 %) 0.1 (Ref Range: 0-4 %) 1.5 (Ref Range: 0-4 %) Basophils Percent Auto 1.3 (Ref Range: 0-2 %) 0.5 (Ref Range: 0-2 %) 1.0 (Ref Range: 0-2 %) NRBC Pct Auto 0.0 (Ref Range: 0.0-0.2 /100WBC) 0.0 (Ref Range: 0.0-0.2 /100WBC) 0.0 (Ref Range: 0.0-0.2 /100WBC) Neutrophils Absolute Auto 2.7 (Ref Range: 2.0-8.3 x10*3/uL) 5.9 (Ref Range: 2.0-8.3 x10*3/uL) 3.1 (Ref Range: 2.0-8.3 x10*3/uL) Imm Gran Abs Auto 0.01 (Ref Range: 0.00-0.03 X10*3/uL) 0.03 (Ref Range: 0.00-0.03 X10*3/uL) 0.01 (Ref Range: 0.00-0.03 X10*3/uL) Lymphocytes Absolute Auto 2.2 (Ref Range: 1.2-4.9 X10*3/uL) 2.4 (Ref Range: 1.2-4.9 X10*3/uL) 2.1 (Ref Range: 1.2-4.9 X10*3/uL) Monocytes Absolute Auto 0.5 (Ref Range: 0.1-1.2 X10*3/uL) 0.9 (Ref Range: 0.1-1.2 X10*3/uL) 0.6 (Ref Range: 0.1-1.2 X10*3/uL) Eosinophils Absolute Auto 0.1 (Ref Range: 0.0-0.4 X10*3/uL) 0.0 (Ref Range: 0.0-0.4 X10*3/uL) 0.1 (Ref Range: 0.0-0.4 X10*3/uL) Basophils Absolute Auto 0.1 (Ref Range: 0.0-0.2 X10*3/uL) 0.1 (Ref Range: 0.0-0.2 X10*3/uL) 0.1 (Ref Range: 0.0-0.2 X10*3/uL) NRBC Abs Auto 0.000 (Ref Range: 0.0-0.012 X10*3/uL) 0.000 (Ref Range: 0.0-0.012 X10*3/uL) 0.000 (Ref Range: 0.0-0.012 X10*3/uL) * Lab:Comprehensive Met. Panel * Collection Date 02/21/2025 10/30/2024 06/23/2023 Collection Time 08:40 AM 02:59 PM 08:38 AM Order Date 02/21/2025 10/30/2024 06/23/2023 Sodium 140 (Ref Range: 135-145 mmol/L) 138 (Ref Range: 135-145 mmol/L) 140 (Ref Range: 135-145 mmol/L) Bilirubin Total 0.9 (Ref Range: 0.0-1.0 mg/dL) 0.8 (Ref Range: 0.0-1.0 mg/dL) 1.1 H (Ref Range: 0.0-1.0 mg/dL) Aspartate Amino Transferase 23 (Ref Range: 5-31 U/L) 21 (Ref Range: 5-31 U/L) 17 (Ref Range: 5-31 U/L) Alanine Aminotransferase 30 (Ref Range: 0-31 U/L) 29 (Ref Range: 0-31 U/L) 22 (Ref Range: 0-31 U/L) Total Protein 7.3 (Ref Range: 6.5-8.0 g/dL) 8.2 H (Ref Range: 6.5-8.0 g/dL) 7.6 (Ref Range: 6.5-8.0 g/dL) Albumin Level 4.0 (Ref Range: 3.5-5.0 g/dL) 4.1 (Ref Range: 3.5-5.0 g/dL) 3.9 (Ref Range: 3.5-5.0 g/dL) Alkaline Phosphatase 87 (Ref Range: 39-117 U/L) 94 (Ref Range: 39-117 U/L) 100 (Ref Range: 39-117 U/L) Potassium 4.3 (Ref Range: 3.3-5.1 mmol/L) 4.6 (Ref Range: 3.3-5.1 mmol/L) 4.5 (Ref Range: 3.3-5.1 mmol/L) Chloride 108 (Ref Range: 96-108 mmol/L) 105 (Ref Range: 96-108 mmol/L) 105 (Ref Range: 96-108 mmol/L) Carbon Dioxide 25 (Ref Range: 22-29 mmol/L) 24 (Ref Range: 22-29 mmol/L) 24 (Ref Range: 22-29 mmol/L) Anion Gap 11 L (Ref Range: 12-20) 14 (Ref Range: 12-20) 16 (Ref Range: 12-20) Blood Urea Nitrogen 20 H (Ref Range: 9-16 mg/dL) 21 H (Ref Range: 9-16 mg/dL) 13 (Ref Range: 9-16 mg/dL) Creatinine 0.66 (Ref Range: 0.5-1.4 mg/dL) 0.80 (Ref Range: 0.5-1.4 mg/dL) 0.78 (Ref Range: 0.5-1.4 mg/dL) Estimated Glomerular Filt Rate > 60 > 60 > 60 Glucose Random 107 (Ref Range: 60-115 mg/dL) 103 (Ref Range: 60-115 mg/dL) 108 (Ref Range: 60-115 mg/dL) Calcium 8.9 (Ref Range: 8.4-10.2 mg/dL) 9.3 (Ref Range: 8.4-10.2 mg/dL) 9.2 (Ref Range: 8.4-10.2 mg/dL) Creatinine Clr Calc Pharmacy NR 78.0 NR * Lab:Lipid Panel * Collection Date 02/21/2025 11/29/2024 08/25/2024 Collection Time 08:40 AM 08:26 AM 08:38 AM Order Date 02/21/2025 11/29/2024 08/25/2024 Triglycerides 76 (Ref Range: <150 mg/dL) 123 (Ref Range: <150 mg/dL) 126 (Ref Range: <150 mg/dL) Cholesterol 161 (Ref Range: <200 mg/dL) 167 (Ref Range: <200 mg/dL) 163 (Ref Range: <200 mg/dL) LDL Cholesterol Calculated 96 (Ref Range: <100 mg/dL) 92 (Ref Range: <100 mg/dL) 86 (Ref Range: <100 mg/dL) HDL Cholesterol 50 (Ref Range: >40 mg/dL) 51 (Ref Range: >40 mg/dL) 52 (Ref Range: >40 mg/dL) * Imaging:MM tomosynthesis scr eening BI * Performed Date 02/10/2025 02/05/2024 01/31/2023 08:00 AM 08:30 AM 09:20 AM Order Date 02/10/2025 02/05/2024 01/31/2023 * Examination: G eneral Examination: GENERAL APPEARANCE: [...] microinvasive component - D05.82 (Primary) N otes :There was no sign of recurrent disease or new primary today. She is up-to-date with mammography 2 . H yperlipidemia type II - E78.01 N otes :Operation fasting lipid profile shows. Control of her lipids. No change in her regimen as needed. We continued to discuss weight loss strategy is an lifestyle modifications. Our plan is to lose weight at a rate of one half of a pound per week. 3 . E ssential (primary) hypertension - I10 N otes :Her blood pressure today was In the normal range today. She was given an appointment to return to the office in near future to check it again. The importance of aggressive weight loss and sodium restriction was reiterated. 4 . U reterolithiasis - N20.1 N otes :No episodes of renal colic have been reported. She has had no hematuria. 5 . F ormer smoker - Z87.891 N otes :She is highly motivated not to smoke. We discussed strategies for maintenance of abstinence in times of stress. 6 . 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 There is no sign of relapse or new primary. The pancreatic remnant is functioning well. 7 . I rritable bowel syndrome with diarrhea - K58.0 N otes :She is familiar with the discomforts involve theproblem. She is able to conduct all of the activities of daily life without difficulty. 8 . C rohn's disease of colon with abscess - K50.114 N otes :She is had no recent activity from the Crohn's disease. It is stable and no change in treatment was necessary. Plan: * Treatment: 2. H yperlipidemia type II L AB: PROFILE, [...] of tobacco use and urged to quit. 0 03/24/2025 * Follow Up: 3 Months (Reason: OV) * Images: * Sign off status: Completed true * Provider: Benitez Mead MD Date: 0 03/24/2025 Generated for Marysoli yoko/Yung/eTransmitting on: 10/22/2024 08:37 AM EST History and Physical Notes * [...]
--- OUTSIDE RECORDS SUMMARY | 2025-06-25 04:30 | XMS_ITS ---
Author Organization Patrick Mead III, MD Address [address] [place] [address] [place] [address] Care Team Providers Care Librarian School Name Role Phone Dr. Patrick Mead III Primary Care Provider Allergies Allergen (clinical drug ingredient) Drug/Non Drug Allergy documented on EMR Reaction Allergy Type Onset Date Status Penicillin Unknown Drug Allergy Active Gluten Gluten rash Allergy Active REASON FOR VISIT Hypertension, Ureterolithiasis., DCIS left breastt with microinvasion, Hyperlipidemia, IPMN Of the pancreas, Crohn's disease, Obesity, Lactose intolerance Medications Medication SIG (Take, Route, Fr equency, [...] non-user Ex-cigaret te smoker Vital Signs Temperature 97.9 degrees Fahrenheit 06/25/20 25 Blood pressure systolic 128 mm Hg 06/25/20 25 Blood pressure diastolic 74 mm Hg 025 Heart Rate 79 /min 06/25/2025 Height 65 in 06/25/2025 Weight 192 lbs 06/25/2025 BMI 31.95 kg/m2 06/25/2025 Encounters Encounter Location Date Provider Diagnosis Patrick Mead III, MD [address] [place] [address] [place] [address] 06/25/2025 Patrick Mead Essential (primary) hypertension I10 ; 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 Radiation channges are present. 06/25/2025 Obesity (ICD-10 - E66.9) Her weight has been stable since her last visit. She remains obese. We reviewed her diet and nutrition. We made a plan to lose weight at a rate of one half of a pound per week. 06/25/2025 Ureterolithiasis (ICD-10 - N20.1) No episodes of renal colic have been reported. She has had no hematuria. 06/25/2025 Former smoker (ICD-1 0 - Z87.891) She is highly motivated not to smoke. We discussed strategies for maintenance of abstinence in times of stress. 06/25/2025 Benign cystic mucino us tumor (ICD-10 - M67.40) This was a tumor of low malignant potential. There is no sign of relapse or new primary. The pancreatic remnant is functioning well. 06/25/2025 Hyperlipidemia type II (ICD-10 - E78.01) Operation fasting lipid profile shows. Control of her lipids. No change in her regimen as needed. We continued to discuss weight loss strategy is an lifestyle modifications. Our plan is to lose weight at a rate of one half of a pound per week. 06/25/2025 Lactose intolerance, unspecified (ICD-10 - E73.9) Plan Of Treatment Medication Medication Name Sig Start Date Stop Date Notes Lisinopril 5 MG TAKE 1 TABLET BY MOUTH EVERY DAY Pending Test Test Name Order Date PROFILE, FASTING (COMPREHENSIVE METABOLI C) 06/25/2025 CBC w DIFF 06/25/2025 CARBOHYDRATE ANTIGEN 19-9 (CA 19-9) 06/02 Lipid Panel 06/25/2025 Next Appt Details Follow Up: 3 Months, Reason: annual exam review labs Provider Name:Patrick Mead , 09/08/2025 09:00:00 AM, [address] [place] [address], [phone], Progress Notes * Lexa SANCHEZjaelynDOB:1960 (64 yo F)Acc No.[id number]:06/25/2025 Progress Notes Patient: Kylee HARRIS Provider: Benitez Mead MD :1960 A ge:64 Y S ex:Female Date:06/25/2025 Address:[address] [place], [place] [id number] Subjective: * Chief Complaints: * H ypertensionUreterolithiasis.DCIS left breastt with microinvasionHyperlipidemiaIPMN Of the pancreasCrohn's diseaseObesityLactose intolerance * HPI: C OVID-19 Screening: She returns to the office for medical management. She is now consuming a gluten-free diet and feels much better. She is exercising regularly and feels well. She has had no chest pain, palpitations, shortness of breath or bleeding. She continues her efforts at weight loss. She has had no new breast findings.Comprehensive blood work from June 20 were reviewed with her.She is up-to-date with her imaging. Questions H ave you had any new [...] S kin: Itching d enies. R david R esolved with gluten-free diet. S kin lesion(s) d enies. N eurologic: Difficulty speaking d enies. D izziness d enies.?Headache d enies. L ow back pain d enies. P sychiatric: Depressed mood d enies. * Medical History: * Surgical History: s tereotactic biopsy upper outer quadrant left breast 10/29/2015lumpectomy left breast and sentinel node sampling 11/11/2015Subtotal pancreatectomy for cystic mucinous neoplasm 2015 [facility] - surgery performed by Dr. Lundberg [...] x-cigarette smoker S he was born in [place] and has been for 29 years to Fawad.They have two children. Wilmer Insurance ([facility]). * Medications: T akingLisinopril 5 MG Tablet TAKE 1 TABLET BY MOUTH EVERY DAY Medication List reviewed and reconciled with the patientTaking Lisinopril 5 MG Tablet TAKE 1 TABLET BY MOUTH EVERY DAY Medication List reviewed and reconciled with the patient * Allergies: P enicillinGluten: laura[Allergies Verified] Objective: * Vitals: H t: 65, Wt: 192, BMI:31.95, BP: 128/74, HR: 79, Temp: 97.9, Wt-k.09. * P ast Orders: Lab:Lipid Panel * Collection Date 06/20/2025 02/21/2025 11/29/2024 Collection Time 08:49 AM 08:40 AM 08:26 AM Order Date 06/20/2025 02/21/2025 11/29/2024 Triglycerides 106 (Ref Range: <150 mg/dL) 76 (Ref Range: <150 mg/dL) 123 (Ref Range: <150 mg/dL) Cholesterol 152 (Ref Range: <200 mg/dL) 161 (Ref Range: <200 mg/dL) 167 (Ref Range: <200 mg/dL) LDL Cholesterol Calculated 79 (Ref Range: <100 mg/dL) 96 (Ref Range: <100 mg/dL) 92 (Ref Range: <100 mg/dL) HDL Cholesterol 52 (Ref Range: >40 mg/dL) 50 (Ref Range: >40 mg/dL) 51 (Ref Range: >40 mg/dL) * Lab:Comprehensive Met. Panel * Collection Date 06/20/2025 02/21/2025 10/30/2024 Collection Time 08:49 AM 08:40 AM 02:59 PM Order Date 06/20/2025 02/21/2025 10/30/2024 Sodium 140 (Ref Range: 135-145 mmol/L) 140 (Ref Range: 135-145 mmol/L) 138 (Ref Range: 135-145 mmol/L) Bilirubin Total 0.9 (Ref Range: 0.0-1.0 mg/dL) 0.9 (Ref Range: 0.0-1.0 mg/dL) 0.8 (Ref Range: 0.0-1.0 mg/dL) Aspartate Amino Transferase 22 (Ref Range: 5-31 U/L) 23 (Ref Range: 5-31 U/L) 21 (Ref Range: 5-31 U/L) Alanine Aminotransferase 23 (Ref Range: 0-31 U/L) 30 (Ref Range: 0-31 U/L) 29 (Ref Range: 0-31 U/L) Total Protein 7.5 (Ref Range: 6.5-8.0 g/dL) 7.3 (Ref Range: 6.5-8.0 g/dL) 8.2 H (Ref Range: 6.5-8.0 g/dL) Albumin Level 4.2 (Ref Range: 3.5-5.0 g/dL) 4.0 (Ref Range: 3.5-5.0 g/dL) 4.1 (Ref Range: 3.5-5.0 g/dL) Alkaline Phosphatase 99 (Ref Range: 39-117 U/L) 87 (Ref Range: 39-117 U/L) 94 (Ref Range: 39-117 U/L) Potassium 4.6 (Ref Range: 3.3-5.1 mmol/L) 4.3 (Ref Range: 3.3-5.1 mmol/L) 4.6 (Ref Range: 3.3-5.1 mmol/L) Chloride 107 (Ref Range: 96-108 mmol/L) 108 (Ref Range: 96-108 mmol/L) 105 (Ref Range: 96-108 mmol/L) Carbon Dioxide 27 (Ref Range: 22-29 mmol/L) 25 (Ref Range: 22-29 mmol/L) 24 (Ref Range: 22-29 mmol/L) Anion Gap 11 L (Ref Range: 12-20) 11 L (Ref Range: 12-20) 14 (Ref Range: 12-20) Blood Urea Nitrogen 20 H (Ref Range: 9-16 mg/dL) 20 H (Ref Range: 9-16 mg/dL) 21 H (Ref Range: 9-16 mg/dL) Creatinine 0.77 (Ref Range: 0.5-1.4 mg/dL) 0.66 (Ref Range: 0.5-1.4 mg/dL) 0.80 (Ref Range: 0.5-1.4 mg/dL) Estimated Glomerular Filt Rate > 60 > 60 > 60 Glucose Random 108 (Ref Range: 60-115 mg/dL) 107 (Ref Range: 60-115 mg/dL) 103 (Ref Range: 60-115 mg/dL) Calcium 9.1 (Ref Range: 8.4-10.2 mg/dL) 8.9 (Ref Range: 8.4-10.2 mg/dL) 9.3 (Ref Range: 8.4-10.2 mg/dL) Creatinine Clr Calc Pharmacy NR NR 78.0 * Lab:Complete Blood Count Aut o Diff * Collection Date 06/20/2025 02/21/2025 10/30/2024 Collection Time 08:49 AM 08:40 AM 02:59 PM Order Date 06/20/2025 02/21/2025 10/30/2024 White Blood Count 5.3 (Ref Range: 4.8-10.8 X10*3/uL) 5.6 (Ref Range: 4.8-10.8 X10*3/uL) 9.3 (Ref Range: 4.8-10.8 X10*3/uL) Red Blood Count 4.70 (Ref Range: 4.20-5.50 X10*6/uL) 4.56 (Ref Range: 4.20-5.50 X10*6/uL) 4.76 (Ref Range: 4.20-5.50 X10*6/uL) Hemoglobin 14.8 (Ref Range: 12.0-16.0 g/dl) 14.4 (Ref Range: 12.0-16.0 g/dl) 15.2 (Ref Range: 12.0-16.0 g/dl) Hematocrit 44.1 (Ref Range: 37.0-47.0 %) 43.1 (Ref Range: 37.0-47.0 %) 45.0 (Ref Range: 37.0-47.0 %) Mean Corpuscular Volume 93.8 (Ref Range: 80.0-98.0 fL) 94.5 (Ref Range: 80.0-98.0 fL) 94.5 (Ref Range: 80.0-98.0 fL) Mean Corpuscular Hemoglobin 31.5 (Ref Range: 27.0-33.0 pg) 31.6 (Ref Range: 27.0-33.0 pg) 31.9 (Ref Range: 27.0-33.0 pg) Mean Corpuscular HGB Conc 33.6 (Ref Range: 31.0-35.0 g/dl) 33.4 (Ref Range: 31.0-35.0 g/dl) 33.8 (Ref Range: 31.0-35.0 g/dl) Red Cell Distribution Width 12.3 (Ref Range: 11.0-16.0 %) 12.5 (Ref Range: 11.0-16.0 %) 12.4 (Ref Range: 11.0-16.0 %) Platelet Count 406 H (Ref Range: 160-400 X10*3/uL) 371 (Ref Range: 160-400 X10*3/uL) 408 H (Ref Range: 160-400 X10*3/uL) Mean Platelet Volume 9.0 L (Ref Range: 9.4-12.3 fL) 9.5 (Ref Range: 9.4-12.3 fL) 9.3 L (Ref Range: 9.4-12.3 fL) Neutrophils Percent Auto 47.6 (Ref Range: 45-73 %) 47.6 (Ref Range: 45-73 %) 63.1 (Ref Range: 45-73 %) Imm Gran Pct Auto 0.2 (Ref Range: 0.0-0.4 %) 0.2 (Ref Range: 0.0-0.4 %) 0.3 (Ref Range: 0.0-0.4 %) Lymphocytes Percent Auto 40.4 H (Ref Range: 20-40 %) 39.9 (Ref Range: 20-40 %) 26.3 (Ref Range: 20-40 %) Monocytes Percent Auto 9.1 (Ref Range: 2-11 %) 9.7 (Ref Range: 2-11 %) 9.7 (Ref Range: 2-11 %) Eosinophils Percent Auto 1.9 (Ref Range: 0-4 %) 1.3 (Ref Range: 0-4 %) 0.1 (Ref Range: 0-4 %) Basophils Percent Auto 0.8 (Ref Range: 0-2 %) 1.3 (Ref Range: 0-2 %) 0.5 (Ref Range: 0-2 %) NRBC Pct Auto 0.0 (Ref Range: 0.0-0.2 /100WBC) 0.0 (Ref Range: 0.0-0.2 /100WBC) 0.0 (Ref Range: 0.0-0.2 /100WBC) Neutrophils Absolute Auto 2.5 (Ref Range: 2.0-8.3 x10*3/uL) 2.7 (Ref Range: 2.0-8.3 x10*3/uL) 5.9 (Ref Range: 2.0-8.3 x10*3/uL) Imm Gran Abs Auto 0.01 (Ref Range: 0.00-0.03 X10*3/uL) 0.01 (Ref Range: 0.00-0.03 X10*3/uL) 0.03 (Ref Range: 0.00-0.03 X10*3/uL) Lymphocytes Absolute Auto 2.1 (Ref Range: 1.2-4.9 X10*3/uL) 2.2 (Ref Range: 1.2-4.9 X10*3/uL) 2.4 (Ref Range: 1.2-4.9 X10*3/uL) Monocytes Absolute Auto 0.5 (Ref Range: 0.1-1.2 X10*3/uL) 0.5 (Ref Range: 0.1-1.2 X10*3/uL) 0.9 (Ref Range: 0.1-1.2 X10*3/uL) Eosinophils Absolute Auto 0.1 (Ref Range: 0.0-0.4 X10*3/uL) 0.1 (Ref Range: 0.0-0.4 X10*3/uL) 0.0 (Ref Range: 0.0-0.4 X10*3/uL) Basophils Absolute Auto 0.0 (Ref Range: 0.0-0.2 X10*3/uL) 0.1 (Ref Range: 0.0-0.2 X10*3/uL) 0.1 (Ref Range: 0.0-0.2 X10*3/uL) NRBC Abs Auto 0.000 (Ref Range: 0.0-0.012 X10*3/uL) 0.000 (Ref Range: 0.0-0.012 X10*3/uL) 0.000 (Ref Range: 0.0-0.012 X10*3/uL) * Lab:Carbohydrate Antigen 19- 9 * Collection Date 06/20/2025 02/21/2025 11/29/2024 Collection Time 08:49 AM 08:40 AM 08:26 AM Order Date 06/20/2025 02/21/2025 11/29/2024 Carbohydrate Antigen 19-9 <3 (Ref Range: <34 U/mL) 10 (Ref Range: <34 U/mL) 10 (Ref Range: <34 U/mL) ???Lab:Food Nut Allergy Panel (Order Date - 04/16/2025) (Collection Date & Time - 04/16/2025 10:34AM)?ValueReference Range?L934-JdH Egg White<0.10 -?S818-AtE Milk<0.10-?G284-VuS Codfish<0.10-?N386-CzV Wheat <0.10-?Z834-EdO Sesame Seed<0.10-?Q272-QhW Peanut<0.10- ?J894-HiM Soybean<0.10-?C825-RfH Hazelnut (Filbert)<0.10- ?T468-UsJ Barryton<0.10-?A946-TwW Shrimp<0.10-?A007-UbN Tuna <0.10-?L242-WpW Pioneer<0.10-?V800-XmE Scallop<0.10-?Class Sesame Seed0-?Class Peanut0-?Class Almond0-?Class Codfish0- ?Class Shrimp0-?Class Scallop0-?Class Tuna0-?Class Egg white0-?Class Cow's Milk0-?Class Wheat0-?Class Soybean0 -?Class Hazelnut0-?Class Walnut0-?Q396-BpS Cashew Nut<0.10- ?F280-HaH Macadmia Nut<0.10-?Class Macadamia Nut0-?F041 IgE Rosholt<0.10-?A849-DgH Darlington Nut<0.10-?Class Dar[place] Nut0- ?Class Salmon0-?Class Cashew0- ???Lab:C1 Inhibitor Protein (Order Date - 04/16/2025) (Collection Date & Time - 04/16/2025 10:34 AM)?ValueReference Range?C1 Inhibitor Dbjsbhd82 21-39 - mg/dL ???Lab:C1Q Complement Component (Order Date - 04/16/2025) (Collection Date & Time - 04/16/2025 10:34 AM)?ValueReference Range?C1Q Complement Component7.45.0-8.6 - mg/dL ???Lab:EVELIO Reflex Titer and Pattern (Order Date - 04/16/2025) (Collection Date & Time - 0:34 AM)?ValueReference Range?Anti Nuclear Antibody ScreenPOSITIVEANEGATIVE -?Anti Nuclear Antibody Titer1:40A- titer?EVELIO Titer 21:40A- titer?EVELIO Pattern 2Nuclear, SpeckledA- ?EVELIO Titer 3TNP-?EVELIO Pattern 3TNP- ???Lab:Rast Allergen (Order Date - 04/16/2025) (Collection Date & Time - 04/16/2025 10:34 AM)?ValueReference Range?Rast AllergenSEE NOTE- * Examination: G eneral Examination: GENERAL APPEARANCE: p leasant, well nourished, well developed, in no acute distress, calm and relaxed: obese: man:. HEAD: a traumatic, normocephalic. EYES: e trisha, [...] auscultation . BREASTS: n o masses palpable bilaterally: no discharge: no dimpling: no drainage: nontender, Surgical scar (, radiation tattoos. ABDOMEN: b owel sounds normal, no ascites, no organomegaly, no mass. RECTAL EXAM: n ot examined. MUSCULOSKELETAL: e [...] (Primary) N otes :There was no sign today of any new breast tumors are recurrence. R adiation channges are present. 2 . E ssential (primary) hypertension - I10 N otes :Her blood pressure is currently stable and no change in jaren regimen was needed today.. 3 . O besity - E66.9 N otes :Her weight has been stable since her last visit. She remains obese. We reviewed her diet and nutrition. We made a plan to lose weight at a rate of one half of a pound per week. 4 . U reterolithiasis - N20.1 N [...] pancreatic remnant is functioning well. 7 . H yperlipidemia type II - E78.01 N otes :Operation fasting lipid profile shows. Control of her lipids. No change in her regimen as needed. We continued to discuss weight loss strategy is an lifestyle modifications. Our plan is to lose weight at a rate of one half of a pound per week. 8 . L actose intolerance, unspecified - E73.9 Plan: * Treatment: 2. E ssential (primary) hypertension L AB: PROFILE, FASTING (COMPREHENSIVE METABOLIC) L AB: CBC w DIFF L AB: CARBOHYDRATE ANTIGEN 19-9 (CA 19-9) L AB: Lipid Panel 3. O besity L AB: PROFILE, FASTING (COMPREHENSIVE METABOLIC) L AB: CBC w DIFF L AB: CARBOHYDRATE ANTIGEN 19-9 (CA 19-9) L AB: Lipid Panel 4. O thers Continue Lisinopril Tablet, 5 [...] tobacco use and urged to quit. 0 06/25/2025 * Follow Up: 3 Months (Reason: annual exam review labs) * Images: * Sign off status: Completed true * Provider: Benitez Mead MD Date: 0 06/25/2025 Generated for Siddhartha babcock/Yung/eTcherismitting on: 10/22/2024 08:38 AM EST History and Physical Notes * HPI (History of Present Illness) Category Sub-Category Detail Notes COVID-19 Screening Questions Have you had any new onset fever, chills, cough, congestion, sore throat, shortness of breath, muscle aches?: No Examination Category Sub-Category Detail Notes General Examination GENERAL APPEARANCE: pleasant , well nourished, well developed, in no acute distress, calm and relaxed: obese: man: HEAD: atraumatic, normocep halic EYES: eomi, perrla, anicte jason, conjugate EARS: normal NOSE: septum intact NECK/THYROID: no jugular venous di stention, no carotid bruit, thyroid normal HEART: no clicks, gallops, murmurs, or rubs, regular rhythm, S1, S2 normal, no s3, or vascular bruits LUNGS: clear to auscultatio n ABDOMEN: bowel sounds normal, no ascites, no organomegaly, no mass NEUROLOGIC: alert and oriented, cranial nerves 2-12 grossly intact, deep tendon reflexes 2+ symmetrical, motor strength normal upper and lower extremities, sensory exam intact SKIN: no suspicious lesion s, anicteric PERIPHERAL PULSES: normal BREASTS: no masses palpable b ilaterally: no discharge: no dimpling: no drainage: nontender, Surgical scar (, radiation tattoos MUSCULOSKELETAL: extremities unremark able, no clubbing, cyanosis or edema LYMPH NODES: no enlarged lymph no bhakti,spleen normal RECTAL EXAM: not examined PSYCH: alert, oriented ORAL CAVITY: normal, unremarkable
--- OUTSIDE RECORDS SUMMARY | 2025-08-22 08:39 | XMS_ITS | Patient Health Record ---
Author Organization [facility] Address [address] [place] [id number] Care Team Providers Care Senior Test Analyst Name Role Phone Patrick Mead MD Primary Care Provider Patrick Sharp Unavailable [phone] Allergies Allergen (clinical drug ingredient) Drug/Non Drug Allergy documented on EMR Reaction Allergy Type Onset Date Status meperidine Demerol Unknown Drug Allergy Active erythromycin Erythromycin Unknown Drug Allergy A ctive tetracycline Tetracycline HCl Unknown Drug Allergy Active Penicillin Unknown Drug Allergy Active Reason For Referral No Information Medications Medication SIG (Take, Route, Frequency, Duration) Notes Start Date End Date Status Zantac 150mg Tablet 1 tablet Orally PRN reflex Active Loperamide HCl 2 MG Capsule 1-2 tablet O rally NEEDED FOR DIARRHEA UP TO 4 TIMES A DAY Active Lisinopril 5 MG Tablet 1 tablet Orally O nce a day Active Hyoscyamine Sulfate 0.125 MG Tablet 1-2 tablets Orally Take 30-60 minutes before meals; Duration: 30 days 07/29/2015 Active Social History Social History Additional Details Category Social Info Options Details Miscellaneous: Marital status: 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 She does not smoke or use an y significant amounts of alcohol; she has cut down her caffeine intake from 6 cups of coffee daily to about 3 cups per day. She does not smoke or use an y significant amounts of alcohol; she has cut down her caffeine intake from 6 cups of coffee daily to about 1 cup per day. Problems Problem Type SNOMED Code ICD Code Onset Dates Problem Status W/U Status Risk Notes Problem Gastro-esophagea l reflux disease without esophagitis (715662926) Gastro-esophage al reflux disease without esophagitis (K21.9) Active confirmed Problem History of adenomatous polyp of colon (422997908) History of adenomatous polyp of colon (Z86.010) Active confirmed Problem Irritable bowel syndrome with diarrhea (501797051) Irritable bowel syndrome with diarrhea (K58.0) Active confirmed Problem Family History of Cancer of Colon (Situation) (988963653) Family history of colon cancer (Z80.0) Active confirmed Problem Pancreatic cyst (15705995) Pancreatic cyst (K86.2) Active confirmed Plan Of Treatment Pending Test Test Name Order Date MRI ABD W&WO CONTRAST 07/29/2015 Future Test Test Name Order Date COLONOSCOPY 07/30/2013 Insurance Providers Payer Name Payer Address Payer Phone Subscriber Number Group Number Insured Name Patient Relationship to Insured Coverage Start Date Coverage End Date [employer] [address] [place] [address] [phone] [id number] DIANA CALDERON Self - patient is the insured Medical (General) History Medical History History ICD Code irritable bowel syndrome gastroesophageal reflux hypertension a colonoscopy in 2002 had ra ised the suspicion of some ileitis, but subsequent colonoscopies and imaging studies have been negative in that regard. Denies AK,DM,CVA,Lung disease,renal dise ase Gilbert's disease with eleva [...]
--- OUTSIDE RECORDS SUMMARY | 2025-08-22 08:39 | XMS_ITS | Patient Health Record ---
Author Organization Patrick Mead III, MD Address [address] [address] Care Team Providers Care Cloth Measurer Machine Name Role Phone Dr. Patrick Mead III Primary Care Provider Allergies Allergen (clinical drug ingredient) Drug/Non Drug Allergy documented on EMR Reaction Allergy Type Onset Date Status Penicillin Unknown Drug Allergy Active Gluten Gluten rash Allergy Active Results Component Value Reference Range Notes Complete Blood Count Auto Di ff Reviewed date:08/28/2024 07:43:32 AM Interpretation: Performing Lab:[facility], [address] [place] [phone] Notes/Report: White Blood Count 5.9 4.8-10.8 X10*3/uL [...] NRBC Abs Auto 0.000 0.0-0.012 X10*3/uL Comprehensive [place]. Panel Fa Reviewed date:08/28/2024 07:43:32 AM Interpretation: Performing Lab:[facility], [address] [place] [phone] Notes/Report: Sodium 137 135-145 mmol/L Potassium 4.2 [...] Panel Reviewed date:08/28/2024 07:43:32 AM Interpretation: Performing Lab:[facility], [address] [place] [phone] Notes/Report: Triglycerides 126 <150 mg/dL Desirable Triglyceride: [...] 19-9 Reviewed date:09/08/2024 05:36:04 AM Interpretation: Performing Lab:[address] [address] Notes/Report: Carbohydrate Antigen 19-9 8 <34 U/mL This test was performed using the Siemens chemiluminescent method. Values obtained from different assay methods cannot be used interchangeably. CA 19-9 levels, regardless of value, should not be interpreted as absolute evidence of the presence or absence of disease. THIS TEST WAS PERFORMED AT: [facility] [address] [place] [phone] EVA MIRELES MD Complete Blood Count Auto Di ff Reviewed date:10/31/2024 08:28:24 AM Interpretation: Performing Lab:[facility], [address] [place] [phone] Notes/Report: White Blood Count 9.3 4.8-10.8 X10*3/uL [...] Panel Reviewed date:10/31/2024 08:28:24 AM Interpretation: Performing Lab:[facility], [address] [place] [phone] Notes/Report: Sodium 138 135-145 mmol/L Potassium 4.6 [...] Lipase Reviewed date:10/31/2024 08:28:24 AM Interpretation: Performing Lab:[address] [address] Notes/Report: Lipase 20 8-78 U/L UA ClnCatch+Micro w/rflx Cul t Reviewed date:10/31/2024 08:28:24 AM Interpretation: Performing Lab:[address] [address] Notes/Report: Urine, Clean Catch Color Urine Yellow Appearance Urine Clear PH 6.0 5.0-9.0 Glucose Urine UA Negative Negative mg/dL Urine Blood Negative Negative Specific [place] - Urine 1.015 1.005-1.025 Urine Protein Negative [...] date:10/31/2024 08:28:24 AM Interpretation: Performing Lab: Notes/Report: [address] [address] [address] Scan Report Signed Patient: Kylee Barragan MR#: [id number] 144 : 1960 Acct:[id number] Age/Sex: 63 / F ADM Date: 10/30/24 Loc: HO.ED Attending Dr: Ordering Physician: Sven Wetzel Date of Service: 10/30/24 Procedure(s): CT abdomen pelvis wo IV con Accession Number(s): [id number] cc: Patrick Mead MD; Sven Wetzel Report Number: [id number]: Total DLP = 614.00 mGy-cm EXAMINATION: CT [...] 10/30/24 1530 DD/ 1501 TD/TT: 10/30/24 1518 Waste Disposal Leakage Tester: [place] [address] [address] Scan Report Signed Patient: Lexa Barragan MR#: [id number] 144 : 1960 Acct:[id number] Age/Sex: 63 / F ADM Date: 10/30/24 Loc: HO.ED Attending Dr: Ordering Physician: Sven Wetzel Date of Service: 10/30/24 Procedure(s): CT abdomen pelvis wo IV con Accession Number(s): [id number] cc: Patrick Mead MD; Sven Wetzel Report Number: [id number]: Total DLP = 614.00 mGy-cm EXAMINATION: CT [...] 10/30/24 1530 DD/ 1501 TD/TT: 10/30/24 1518 Waste Disposal Leakage Tester: Lipid Panel Reviewed date:12/01/2024 03:13:57 PM Interpretation: Performing Lab:[address] [address] Notes/Report: Triglycerides 123 <150 mg/dL Desirable Triglyceride: [...] 19-9 Reviewed date:12/01/2024 03:13:57 PM Interpretation: Performing Lab:[address] [address] Notes/Report: Carbohydrate Antigen 19-9 10 <34 U/mL This test was performed using the Siemens chemiluminescent method. Values obtained from different assay methods cannot be used interchangeably. CA 19-9 levels, regardless of value, should not be interpreted as absolute evidence of the presence or absence of disease. THIS TEST WAS PERFORMED AT: [facility] [address] [place] [phone] EVA MIRELES MD Immunoglobulin A Reviewed date:12/01/2024 03:13:57 PM Interpretation: Performing Lab:[address] [address] Notes/Report: Immunoglobulin A 506 70-320 mg/dL THIS TEST WAS PERFORMED AT: [facility] [address] [place] [phone] EVA MIRELES MD MM tomosynthesis screening B I Reviewed date:02/17/2025 12:00:34 PM Interpretation: Performing Lab: Notes/Report: [address] [place] [address] Mammography Report Signed Patient: Kylee Barragan MR#: [id number] 144 : 1960 Acct:[id number] Age/Sex: 64 / F ADM Date: 02/10/25 Loc: HO.MAMMO Attending Dr: Patrick Mead MD Ordering Physician: Patrick Mead MD Results: 2Benign Findings Date of Service: 02/10/25 Follow Up: 1 Year From Orig [facility] Mammogram Procedure(s): MM tomosynthesis screening BI Accession Number(s): [id number] cc: Patrick Mead MD EXAMINATION: MM SCREENING [...] OV> 02/15/252015 DD/ 0800 TD/TT: 02/10/25 0815 Waste Disposal Leakage Tester: [address] [place] [address] Mammography Report Signed Patient: Lexa Barragan MR#: [id number] 144 : 1960 Acct:[id number] Age/Sex: 64 / F ADM Date: 02/10/25 Loc: HO.MAMMO Attending Dr: Patrick Mead MD Ordering Physician: Patrick Mead MD Results: 2Benign Findings Date of Service: 02/10/25 Follow Up: 1 Year From Orig inal Mammogram Procedure(s): MM tomosynthesis screening BI Accession Number(s): [id number] cc: Patrick Mead MD EXAMINATION: MM SCREENING [...] OV> 02/15/252015 DD/ 0800 TD/TT: 02/10/25 0815 Waste Disposal Leakage Tester: Complete Blood Count Auto Di ff Reviewed date:03/01/2025 08:02:41 PM Interpretation: Performing Lab:[facility], [address] [place] [phone] Notes/Report: White Blood Count 5.6 4.8-10.8 X10*3/uL [...] Panel Reviewed date:03/01/2025 08:02:41 PM Interpretation: Performing Lab:[facility], [address] [place] [phone] Notes/Report: Sodium 140 135-145 mmol/L Potassium 4.3 [...] Panel Reviewed date:03/01/2025 08:02:41 PM Interpretation: Performing Lab:[facility], [address] [place] [phone] Notes/Report: Triglycerides 76 <150 mg/dL Desirable Triglyceride: [...] 19-9 Reviewed date:03/01/2025 08:02:41 PM Interpretation: Performing Lab:[facility], [address] [place] [address] Notes/Report: Carbohydrate Antigen 19-9 10 <34 U/mL This test was performed using the Siemens chemiluminescent method. Values obtained from different assay methods cannot be used interchangeably. CA 19-9 levels, regardless of value, should not be interpreted as absolute evidence of the presence or absence of disease. THIS TEST WAS PERFORMED AT: [facility] [address] [place] [phone] EVA MIRELES MD Rast Allergen Reviewed date:05/02/2025 07:21:22 PM Interpretation: Performing Lab:[facility], [address] [place] [phone] Notes/Report: Rast Allergen SEE NOTE SEE SCANNED RE SULTS IN EMR. EVELIO Reflex Titer and Pattern Reviewed date:05/02/2025 07:21:22 PM Interpretation: Performing Lab:[facility], [address] [place] [phone] Notes/Report: Anti Nuclear Antibody Screen POSITIVE NEGATIVE EVELIO IFA is a first line screen for detecting the presence of up to approximately 150 autoantibodies in various autoimmune diseases. A positive EVELIO IFA result is suggestive of autoimmune disease and reflexes to titer and pattern. Further laboratory testing may be considered if clinically indicated. For additional information, please refer to http://education.[employer]/faq/FA Q145 (This link is being provided for informational/ [...] Speckled International Consensus on EVELIO Patterns (https://doi.org/10.15 15/nafb-2135-1401) THIS TEST WAS PERFORMED AT: [facility] [address] [place] [phone] EVA MIRELES MD EVELIO Titer 3 TNP EVELIO Pattern 3 TNP C1Q Complement Component Reviewed date:05/02/2025 07:21:22 PM Interpretation: Performing Lab:[facility], [address] [place] [phone] Notes/Report: C1Q Complement Component 7.4 5.0-8.6 mg/dL Low levels of C1q indicate either increased consumption (catabolism) or decreased synthesis. This test was developed and its analytical performance characteristics have been determined by [employer]. It has not been cleared or approved by the FDA. This assay has been validated pursuant to the CLIA regulations and is used for clinical purposes. THIS TEST WAS PERFORMED AT: [facility] [address] [place] [address] NANCY RAHMAN MD,PHD,AJNIA C1 Inhibitor Protein Reviewed date:05/02/2025 07:21:22 PM Interpretation: Performing Lab:[address] [address] Notes/Report: C1 Inhibitor Protein 37 21-39 mg/dL A normal C1 esterase inhibitor protein level does not rule out the possibility of a functional C1 esterase inhibitor deficiency. Consider further testing of C1 esterase inhibitor functional activity, if clinically indicated. THIS TEST WAS PERFORMED AT: [facility] [address] [place] [address] PRAFUL KEITH MD,PHD Food Nut Allergy Panel Reviewed date:05/02/2025 07:21:22 PM Interpretation: Performing Lab:[facility], [address] [place] [phone] Notes/Report: P675-DoZ Egg White <0.10 INTERPRETATION Endnote 1 Specific [...] analytical performance characteristics have been determined by [employer]. It has not been cleared or approved by the U.S. Food and Drug Administration. This assay has been validated pursuant to the CLIA regulations and is used for clinical purposes. PERFORMING SITE: NL[facility], [address] [place] [phone] Log Manager: EVA MIRELES MD, CLIA: [id number] [id number] Milk <0.10 W028-EwT Codfish <0.10 N270-LaS Wheat <0.10 P887-NoA Sesame Seed <0.10 Q215-DtL Peanut <0.10 S524-AyM Soybean <0.10 S510-CrU Hazelnut ([place]bert) <0.10 U172-GoS [place] <0.10 G043-ExJ Shrimp <0.10 K797-KbG Tuna <0.10 A341-FhQ [place] <0.10 H040-WnO Scallop <0.10 Class Sesame Seed 0 Class Peanut 0 Class [place] 0 Class Codfish 0 Class Shrimp 0 Class Scallop 0 Class Tuna 0 Class Egg white 0 Class Cow's Milk 0 Class Wheat 0 Class Soybean 0 Class Hazelnut 0 Class [place] 0 E084-VrE Cashew Nut <0.10 X689-ZgD Macadmia Nut <0.10 Class Macadamia Nut 0 F041 IgE [place] <0.10 F659-RgP [place] Nut <0.10 Class [place] Nut 0 Class [place] 0 Class Cashew 0 Complete Blood Count Auto Di ff Reviewed date:06/21/2025 01:12:08 PM Interpretation: Performing Lab:[facility], [address] [place] [phone] Notes/Report: White Blood Count 5.3 4.8-10.8 X10*3/uL Red Blood Count 4.70 4.20-5.50 X10*6/uL Hemoglobin 14.8 12.0-16.0 g/dl Hematocrit 44.1 37.0-47.0 % Mean Corpuscular Volume 93.8 80.0-98.0 fL Mean Corpuscular Hemoglobin 31.5 27.0-33.0 pg Mean Corpuscular HGB Conc 33.6 31.0-35.0 g/dl Red Cell Distribution Width 12.3 11.0-16.0 % Platelet Count 406 160-400 X10*3/uL Mean Platelet Volume 9.0 9.4-12.3 fL Neutrophils Percent Auto 47.6 45-73 % Imm Gran Pct Auto 0.2 0.0-0.4 % Lymphocytes Percent Auto 40.4 20-40 % Monocytes Percent Auto 9.1 2-11 % Eosinophils Percent Auto 1.9 0-4 % Basophils Percent Auto 0.8 0-2 % NRBC Pct Auto 0.0 0.0-0.2 /100WBC Neutrophils Absolute Auto 2.5 2.0-8.3 x10*3/uL Imm Gran Abs Auto 0.01 0.00-0.03 X10*3/uL Lymphocytes Absolute Auto 2.1 1.2-4.9 X10*3/uL Monocytes Absolute Auto 0.5 0.1-1.2 X10*3/uL Eosinophils Absolute Auto 0.1 0.0-0.4 X10*3/uL Basophils Absolute Auto 0.0 0.0-0.2 X10*3/uL NRBC Abs Auto 0.000 0.0-0.012 X10*3/uL Comprehensive Met. Panel Reviewed date:06/21/2025 01:12:08 PM Interpretation: Performing Lab:[address] [address] Notes/Report: Sodium 140 135-145 mmol/L Potassium 4.6 3.3-5.1 mmol/L Chloride 107 96-108 mmol/L Carbon Dioxide 27 22-29 mmol/L Anion Gap 11 12-20 Blood Urea Nitrogen 20 9-16 mg/dL Creatinine 0.77 0.5-1.4 mg/dL Estimated Glomerular Filt Rate > 60 Chronic Kidney Disease: Estimated GFR < 60 mL/min/1.73m2 Severe Kidney Disease: Estimated GFR < 15 mL/min/1.73m2 Glucose Random 108 60-115 mg/dL Calcium 9.1 8.4-10.2 mg/dL Bilirubin Total 0.9 0.0-1.0 mg/dL Aspartate Amino Transferase 22 5-31 U/L Alanine Aminotransferase 23 0-31 U/L Total Protein 7.5 6.5-8.0 g/dL Albumin Level 4.2 3.5-5.0 g/dL Alkaline Phosphatase 99 39-117 U/L Lipid Panel Reviewed date:06/21/2025 01:12:08 PM Interpretation: Performing Lab:[address] [place] [address] Notes/Report: Triglycerides 106 <150 mg/dL Desirable Triglyceride: less than 150 mg/dL Borderline High Triglyceride 150-199 mg/dL High Triglyceride: 200-499 mg/dL Very High Triglyceride: greater than or equal to 5OO mg/dL Cholesterol 152 <200 mg/dL Desirable Cholesterol: less than 200 mg/dL Borderline High Cholesterol: 200-239 mg/dL High Cholesterol: greater than 239 mg/dL LDL Cholesterol Calculated 79 <100 mg/dL Desirable LDL: less than 100 mg/dL Near Optimal/Above Optimal LDL: 110-129 mg/dL Borderline High LDL: 130-159 mg/dL High LDL: 160-189 mg/dL Very High LDL: greater than or equal to 190 mg/dL HDL Cholesterol 52 >40 mg/dL Desirable HDL: greater than 40 mg/dL Note: This HDL assay may give artificially low results in patients with liver disease. Carbohydrate Antigen 19-9 Reviewed date:06/25/2025 09:26:23 AM Interpretation: Performing Lab:[address] [address] Notes/Report: Carbohydrate Antigen 19-9 <3 <34 U/mL This test was performed using the Siemens chemiluminescent method. Values obtained from different assay methods cannot be used interchangeably. CA 19-9 levels, regardless of value, should not be interpreted as absolute evidence of the presence or absence of disease. THIS TEST WAS PERFORMED AT: [facility] [address] [place] [phone] EVA MIRELES MD Reason For Referral No Information Medications Medication [...] Problem Status W/U Status Risk Notes Problem 6084865 Former smoker (Z87.891) Active confirmed She is highly motivated not to smoke. We discussed strategies for maintenance of abstinence in times of stress. Problem 847139537 Obesity (E66.9) Active confirmed Her weight has been stable since her last visit. She remains obese. We reviewed her diet and nutrition. We made a plan to lose weight at a rate of one half of a pound per week. Problem 401258221164419 Obesity (BMI 30.0-34.9) (E66.9) Active confirmed She has lost 2 pounds. Her body mass index is 30. He was encouraged to continue losing weight. We reviewed her weight loss strategy. Problem Intolerance to lactose (finding) (023051223) Lactose intolerance, unspecified (E73.9) Active confirmed Problem 109380068 Essential (primary) hypertension (I10) Active confirmed Her blood pressure is currently stable and no change in jaren regimen was needed today.. Problem 430673247 Irritable bowel syndrome with diarrhea (K58.0) Active confirmed She is familiar with the discomforts involve theproblem. She is able to conduct all of the activities of daily life without difficulty. Problem 49842547 Ureterolithiasis (N20.1) Active confirmed No episodes of renal colic have been reported. She has had no hematuria. Problem 67041216 Crohn's disease of colon with abscess (K50.114) Active confirmed She is had no recent activity from the Crohn's disease. It is stable and no change in treatment was necessary. 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 There is no sign of relapse or new primary. The pancreatic remnant is functioning well. Problem Pure hypercholesterolemi a (757447389) Hyperlipidemia type II (E78.01) Active confirmed Operation fasting lipid profile shows. Control of her lipids. No change in her regimen as needed. We continued to discuss weight loss strategy is an lifestyle modification s. Our plan is to lose weight at a rate of one half of a pound per week. 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 Radiation channges are present. Vital Signs Heart Rate 79 /min 06/25/2025 Temperature 97.9 degrees Fahrenheit 06/25/2025 Blood pressure diastolic 74 mm Hg 06/25/2025 Height 65 in 06/25/2025 Blood pressure systolic 128 mm Hg 06/25/2025 Weight 192 lbs 06/25/2025 BMI 31.95 kg/m2 06/25/2025 Encounters Encounter Location Date Provider Diagnosis Patrick Mead III, MD [address] [place] [address] [place] [address] 09/05/2024 Patrick Mead Benign cystic mucino us tumor M67.40 ; Essential (primary) hypertension I10 ; Hyperlipidemia type II E78.01 ; Former smoker Z87.891 ; Crohn's disease of colon with abscess K50.114 and 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 D05.82 Patrick Mead III, MD [address] [place] [address] [place] [address] 12/04/2024 Patrick Mead Essential (primary) hypertension I10 ; 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 D05.82 ; Former smoker Z87.891 ; Crohn's disease of colon with abscess K50.114 ; Benign cystic mucinous tumor M67.40 and Obesity E66.9 Patrick Mead III, MD [address] [place] [address] [place] [address] 03/24/2025 Patrick Mead 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 D05.82 ; Hyperlipidemia type II E78.01 ; Essential (primary) hypertension I10 ; Ureterolithiasis N20.1 ; Former smoker Z87.891 ; Benign cystic mucinous tumor M67.40 ; Irritable bowel syndrome with diarrhea K58.0 and Crohn's disease of colon with abscess K50.114 Patrick Mead III, MD [address] [place] [address] [place] [address] 06/25/2025 Patrick Mead Essential (primary) hypertension I10 ; 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 D05.82 ; Obesity E66.9 ; Ureterolithiasis N20.1 ; Former smoker Z87.891 ; Benign cystic mucinous tumor M67.40 ; Hyperlipidemia type II E78.01 and Lactose intolerance, unspecified E73.9 Patrick Mead III, MD [address] [place] [address] [place] [address] 10/30/2024 Patrick Mead III, MD [address] [place] [address] [place] [address] 11/05/2024 Patrick Mead Ductal carcinoma in situ [...] primary today. She is up-to-date with mammography 06/25/2025 Essential (primary) hypertension (ICD-10 - I10) Her blood pressure is currently stable and no change in jaren regimen was needed today.. 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 Radiation channges are present. 11/05/2024 Ductal carcinoma in situ (DCIS) of [...] weight loss and sodium restriction was reiterated. 06/25/2025 Obesity (ICD-10 - E66.9) Her weight has been stable since her last visit. She remains obese. We reviewed her diet and nutrition. We made a plan to lose weight at a rate of one half of a pound per week. 11/05/2024 Crohn's disease of colon with abscess [...] reported. She has had no hematuria. 06/25/2025 Ureterolithiasis (ICD-10 - N20.1) No episodes [...] of abstinence in times of stress. 06/25/2025 Former smoker (ICD-1 0 - Z87.891) [...] The pancreatic remnant is functioning well. 06/25/2025 Benign cystic mucino us tumor (ICD-10 - M67.40) This was a tumor of low malignant potential. There is no sign of relapse or new primary. The pancreatic remnant is functioning well. 03/24/2025 Irritable bowel syndrome with diarrhea (ICD-10 - K58.0) She is familiar with the discomforts involve theproblem. She is able to conduct all of the activities of daily life without difficulty. 06/25/2025 Hyperlipidemia type II (ICD-10 - E78.01) Operation fasting lipid profile shows. Control of her lipids. No change in her regimen as needed. We continued to discuss weight loss strategy is an lifestyle modifications. Our plan is to lose weight at a rate of one half of a pound per week. 03/24/2025 Crohn's disease of colon with abscess (ICD-10 - K50.114) She is had no recent activity from the Crohn's disease. It is stable and no change in treatment was necessary. 06/25/2025 Lactose intolerance, unspecified (ICD-10 - E73.9) Plan Of Treatment Pending Test Test Name Order Date PROFILE, FASTING (COMPREHENSIVE METABOLI C) 12/04/2024 PROFILE, FASTING (COMPREHENSIVE METABOLI C) 06/25/2025 PROFILE, FASTING (COMPREHENSIVE METABOLI C) 03/24/2025 CBC w DIFF 03/24/2025 CBC w DIFF 12/04/2024 CBC w DIFF 06/25/2025 CARBOHYDRATE ANTIGEN 19-9 (CA 19-9) 06/02 CARBOHYDRATE ANTIGEN 19-9 (CA 19-9) 03/02 CARBOHYDRATE ANTIGEN 19-9 (CA 19-9) 03/2025 Lipid Panel 06/25/2025 Lipid Panel 03/24/2025 Lipid Panel 12/04/2024 Next Appt Details Provider Name:Patrick Mead , 09/08/2025 09:00:00 AM, [address] [place] [address] [address], [place], [address], Insurance Providers Payer Name Payer Address Payer Phone Subscriber Number Group Number Insured Name Patient Relationship to Insured Coverage Start Date Coverage End Date [facility] [address] [address] [place], [place] [id number] Kylee Matthew Self - patient is the insured Medical [...] 58.0 Surgical History Surgery Date(Month/Year) No history 2015 - surgery performed by Dr. Lundberg Subtotal pancreatectomy for cystic mucinous neoplasm 2015 [facility] 2016 lumpectomy left breast and sentinel node sampling 11/11/2015 stereotactic biopsy upper outer quadrant left breast 10/29/2015 Hospitalization History Reason Date(Month/Year) No history
--- OUTSIDE RECORDS SUMMARY | 2025-08-22 08:40 | XMS_ITS | Patient Health Record ---
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 Problem Personal history of primary malignant neoplasm of breast (968875136) Personal history of malignant neoplasm of breast (Z85.3) Active confirmed Problem Benign essential hypertension (0061019) Essential hypertension, benign (401.1) Active confirmed Major Problem Esophageal reflux (200698581) Esophageal reflux (530.81) Active confirmed Major Problem Crohn's disease (92439144) Regional enteritis of unspecified site (555.9) Active confirmed Major Problem Irritable bowel syndrome (27469687) Irritable bowel syndrome (564.1) Active confirmed Major Problem Menopausal symptom (19521669) Symptomatic menopausal or female climacteric states (627.2) Active confirmed Major Problem Gynecological examination normal (426983187271882) Routine gynecological examination (V72.31) Active confirmed Major Problem Screening for malignant neoplasm of colon (134465892) Special screening for malignant neoplasms, colon (V76.51) Active confirmed Major Vital Signs Temperature 98.1 degrees Fahrenheit 05/20/2025 Blood pressure diastolic 80 mm Hg 05/20/2025 Height 64.5 in 05/20/2025 Blood pressure systolic 132 mm Hg 05/20/2025 Weight 193 lbs 05/20/2025 BMI 32.61 kg/m2 05/20/2025 Encounters Encounter Location Date Provider Diagnosis [address] [address] 05/20/2025 Yoli Leggett Encounter for gynecological examination [...] (ICD-10 - Z85.3) CONITNUE FOLLOW UP AT [facility]. 05/20/2025 Dense breasts, unspecified (ICD-10 - R92.30) [...] Name:Yoli Redman helena, 05/24/2026 08:20:00 AM, [address] [facility], [address], [place], [address], Insurance Providers Payer Name Payer Address Payer Phone Subscriber Number Group Number Insured Name Patient Relationship to Insured Coverage Start Date Coverage End Date [employer] [place] [address] [place] [address] [id number] VIOLA JUDD Spouse - patient is the [...]
[2025-08-22 08:55] LABS: MANUAL DIFF FLAG NO
[2025-08-22 09:13] LABS: Hematocrit 44.7 % (37.0-47.0); Hemoglobin 15.0 g/dl (12.0-16.0); Imm Gran Abs Auto 0.03 X10*3/uL (0.00-0.03); Imm Gran Pct Auto 0.6 % (0.0-0.4); Lymphocytes Absolute Auto 2.0 X10*3/uL (1.2-4.9); Mean Corpuscular HGB Conc 33.6 g/dl (31.0-35.0); Mean Corpuscular Hemoglobin 31.3 pg (27.0-33.0); Mean Corpuscular Volume 93.3 fL (80.0-98.0); NRBC Abs Auto 0.000 X10*3/uL (0.0-0.012); NRBC Pct Auto 0.0 /100WBC (0.0-0.2); Platelet Count 378 X10*3/uL (160-400); Red Blood Count 4.79 X10*6/uL (4.20-5.50); White Blood Count 5.3 X10*3/uL (4.8-10.8)
[2025-08-22 09:58] LABS: Alanine Aminotransferase 28 U/L (0-31); Albumin Level 4.3 g/dL (3.5-5.0); Alkaline Phosphatase 92 U/L (39-117); Anion Gap 15 (12-20); Aspartate Amino Transferase 24 U/L (5-31); Blood Urea Nitrogen 19 mg/dL (9-16); Calcium 9.2 mg/dL (8.4-10.2); Carbon Dioxide 22 mmol/L (22-29); Chloride 107 mmol/L (96-108); Cholesterol 162 mg/dL (<200); Estimated Glomerular Filt Rate > 60; HDL Cholesterol 53 mg/dL (>40); Potassium 4.2 mmol/L (3.3-5.1); Sodium 140 mmol/L (135-145); Total Protein 7.8 g/dL (6.5-8.0); Triglycerides 76 mg/dL (<150)
== END 2025-08-22 08:35 | disposition home or self-care (01) ==
LOC: HO.LAB 08:34
PROVIDERS: PCP Internal Medicine Medical Oncology; Visit Provider Internal Medicine Medical Oncology
DX: I10 Essential (primary) hypertension (principal); D05.82 Other specified type of carcinoma in situ of left breast; E66.9 Obesity, unspecified
CPT/HCPCS: 36415; 80053; 80061; 85025; 86301